=== PATIENT | male | born 1960 | race Caucasian/White ===

== ENCOUNTER 2021-10-12 01:03 | Inpatient (IN) | payer OTHER ==
--- NOTE | 2021-10-12 01:19 | ED ---
Altered Mental Status HPI - General Stated Complaint: Respiratory distress Time Seen by Provider: 10/12/21 01:18 Source: RN notes reviewed, old records reviewed Mode of arrival: EMS Limitations: altered mental status, physical limitation - History of Present Illness MD Complaint: altered mental status, confusion, decreased responsiveness -: hour(s) Severity: severe Consistency of Symptoms: getting worse, constant Context: history of similar presentation Associated Symptoms: shortness of breath, weakness - Related Data Allergies Allergy/AdvReac Type Severity Reaction Status Date / Time No Known Allergies Allergy Verified 10/12/21 01:31 Review of Systems ROS Statement: Those systems with pertinent positive or pertinent negative responses have been documented in the HPI. ROS Other: All systems not noted in ROS Statement are negative. General Exam Limitations: altered mental status General appearance: alert, obtunded, in distress, obese Head exam: Present: atraumatic, normocephalic, normal inspection Eye exam: Present: normal appearance, PERRL, EOMI. Absent: scleral icterus, conjunctival injection, periorbital swelling ENT exam: Present: normal exam, mucous membranes moist Neck exam: Present: normal inspection. Absent: tenderness, meningismus, lymphadenopathy Respiratory exam: Present: normal lung sounds bilaterally. Absent: respiratory distress, wheezes, rales, rhonchi, stridor Cardiovascular Exam: Present: regular rate, normal rhythm, normal heart sounds. Absent: systolic murmur, diastolic murmur, rubs, gallop, clicks GI/Abdominal exam: Present: soft, normal bowel sounds. Absent: distended, tenderness, guarding, rebound, rigid Extremities exam: Present: normal inspection, full ROM, normal capillary refill. Absent: tenderness, pedal edema, joint swelling, calf tenderness Back exam: Present: normal inspection Neurological exam: Present: alert, oriented X3, CN II-XII intact Psychiatric exam: Present: normal affect, normal mood Skin exam: Present: warm, dry, intact, normal color. Absent: rash Course Vital Signs 10/12/21 10/12/21 10/12/21 01:21 01:25 01:30 Temperature 98.3 F Pulse Rate 108 H 118 H Respiratory 34 H 36 H Rate Blood Pressure 140/77 191/77 O2 Sat by Pulse 98 94 L Oximetry Fraction of 60 Inspired Oxygen (FIO2) 10/12/21 01:50 Temperature Pulse Rate 121 H Respiratory 32 H Rate Blood Pressure 170/94 O2 Sat by Pulse 95 Oximetry Fraction of Inspired Oxygen (FIO2) Medical Decision Making - Lab Data Result diagrams: 10/12/21 01:25 10/12/21 01:25 Lab Results 10/12/21 10/12/21 10/12/21 Range/Units 01: 01:25 01:25 WBC 14.7 H (3.8-10.6) k/uL RBC 4.17 L (4.30-5.90) m/uL Hgb 12.5 L (13.0-17.5) gm/dL Hct 40.3 (39.0-53.0) % MCV 96.7 (80.0-100.0) fL MCH 30.0 (25.0-35.0) pg MCHC 31.0 (31.0-37.0) g/dL RDW 14.4 (11.5-15.5) % Plt Count 302 (150-450) k/uL MPV 8.4 Neutrophils % 62 % Lymphocytes % 29 % Monocytes % 5 % Eosinophils % 2 % Basophils % 1 % Neutrophils # 9.1 H (1.3-7.7) k/uL Lymphocytes # 4.2 (1.0-4.8) k/uL Monocytes # 0.7 (0-1.0) k/uL Eosinophils # 0.3 (0-0.7) k/uL Basophils # 0.1 (0-0.2) k/uL Sodium 138 (137-145) mmol/L Potassium 4.7 (3.5-5.1) mmol/L Chloride 106 (98-107) mmol/L Carbon Dioxide 23 (22-30) mmol/L Anion Gap 9 mmol/L BUN 22 H (9-20) mg/dL Creatinine 1.25 (0.66-1.25) mg/dL Est GFR (CKD-EPI)AfAm 73 (>60 ml/min/1.73 sqM) Est GFR (CKD-EPI)NonAf 64 (>60 ml/min/1.73 sqM) Glucose 167 H (74-99) mg/dL POC Glucose (mg/dL) 152 H (70-110) mg/dL POC Glu Scale Manager ID Antony Franklinle Calcium 9.0 (8.4-10.2) mg/dL Total Bilirubin 0.5 (0.2-1.3) mg/dL AST 45 (17-59) U/L ALT 32 (4-49) U/L Alkaline Phosphatase 120 (38-126) U/L Ammonia (<30) umol/L Troponin I (0.000-0.034) ng/mL Total Protein 6.6 (6.3-8.2) g/dL Albumin 4.0 (3.5-5.0) g/dL Serum Alcohol <10 mg/dL 10/12/21 10/12/21 Range/Units 01:25 01:25 WBC (3.8-10.6) k/uL RBC (4.30-5.90) m/uL Hgb (13.0-17.5) gm/dL Hct (39.0-53.0) % MCV (80.0-100.0) fL MCH (25.0-35.0) pg MCHC (31.0-37.0) g/dL RDW (11.5-15.5) % Plt Count (150-450) k/uL MPV Neutrophils % % Lymphocytes % % Monocytes % % Eosinophils % % Basophils % % Neutrophils # (1.3-7.7) k/uL Lymphocytes # (1.0-4.8) k/uL Monocytes # (0-1.0) k/uL Eosinophils # (0-0.7) k/uL Basophils # (0-0.2) k/uL Sodium (137-145) mmol/L Potassium (3.5-5.1) mmol/L Chloride (98-107) mmol/L Carbon Dioxide (22-30) mmol/L Anion Gap mmol/L BUN (9-20) mg/dL Creatinine (0.66-1.25) mg/dL Est GFR (CKD-EPI)AfAm (>60 ml/min/1.73 sqM) Est GFR (CKD-EPI)NonAf (>60 ml/min/1.73 sqM) Glucose (74-99) mg/dL POC Glucose (mg/dL) (70-110) mg/dL POC Glu Scale Manager ID Calcium (8.4-10.2) mg/dL Total Bilirubin (0.2-1.3) mg/dL AST (17-59) U/L ALT (4-49) U/L Alkaline Phosphatase (38-126) U/L Ammonia 31 H (<30) umol/L Troponin I <0.012 (0.000-0.034) ng/mL Total Protein (6.3-8.2) g/dL Albumin (3.5-5.0) g/dL Serum Alcohol mg/dL - EKG Data -: EKG Interpreted by Me (EKG is sinus rhythm 97 [place] 157 QRS 105 QTc 460) Disposition Clinical Impression: Acute respiratory failure, Acute exacerbation of chronic obstructive pulmonary disease, Hypoxia, Altered mental state Disposition: ADMITTED IP TO THIS HOSP Condition: Serious Is patient prescribed a controlled substance at d/c from ED?: No Referrals: None,Stated [Primary Care Provider] - 1-2 days
[2021-10-12] MEDS ORDERED: ENALAPRILAT 1.25 MG/ML 1 ML VIAL IVP STA (01:21)
[2021-10-12 01:29] LABS: Glucose,Whole Blood 152 mg/dL (70-110)
[2021-10-12] MEDS ORDERED: MORPHINE SULFATE 4 MG/ML SYRINGE IVP STA ×5 (01:31→02:54)
[2021-10-12] MEDS ORDERED: LORazepam 2 MG/ML INJ IV STA (01:31)
[2021-10-12 01:38] LABS: Basophils # (A) 0.1 k/uL (0-0.2); Basophils % (A) 1 %; Eosinophils # (A) 0.3 k/uL (0-0.7); Eosinophils % (A) 2 %; HCT 40.3 % (39.0-53.0); HGB 12.5 gm/dL (13.0-17.5); Lymphocytes # (A) 4.2 k/uL (1.0-4.8); Lymphocytes % (A) 29 %; MCV 96.7 fL (80.0-100.0); Mean Platelet Volume 8.4; Monocytes # (A) 0.7 k/uL (0-1.0); Monocytes % (A) 5 %; Neutrophils # (A) 9.1 k/uL (1.3-7.7); Neutrophils % (A) 62 %; Platelet Count 302 k/uL (150-450); RBC 4.17 m/uL (4.30-5.90); RDW 14.4 % (11.5-15.5); WBC 14.7 k/uL (3.8-10.6)
--- NOTE | 2021-10-12 01:39 | XR ---
EXAMINATION TYPE: XR chest 1V portable DATE OF EXAM: 10/12/2021 COMPARISON: NONE HISTORY: Altered mental status TECHNIQUE: Single view FINDINGS: Heart appears slightly enlarged. There is some coarsening of the lung markings. No obvious heart failure. Thoracic aorta is atheromatous. No pleural effusion. IMPRESSION: Coarse lung markings but no obvious heart failure or pulmonary consolidation.
[2021-10-12 01:48] LABS: ALT 32 U/L (4-49); AST 45 U/L (17-59); African American GFR (CKD) 73 (>60 ml/min/1.73 sqM); Alcohol <10 mg/dL; Alkaline Phosphatase 120 U/L (38-126); Anion Gap 9 mmol/L; Blood Urea Nitrogen 22 mg/dL (9-20); Carbon Dioxide 23 mmol/L (22-30); Chloride 106 mmol/L (98-107); Glucose 167 mg/dL (74-99); Non-African American GFR(CKD) 64 (>60 ml/min/1.73 sqM); Potassium 4.7 mmol/L (3.5-5.1); Sodium 138 mmol/L (137-145); Total Bilirubin 0.5 mg/dL (0.2-1.3); Total Protein 6.6 g/dL (6.3-8.2)
[2021-10-12] MEDS ORDERED: SUCCINYLCHOLINE CHLORIDE 200 MG/10 ML VIAL IV STA (02:14)
[2021-10-12] MEDS ORDERED: ETOMIDATE 2 MG/ML 10 ML VIAL IVP STA (02:17)
[2021-10-12] MEDS ORDERED: PROPOFOL 10 MG/ML 20 ML VIAL IV ONE (02:17)
[2021-10-12] MEDS ORDERED: IPRATROPIUM-ALBUTEROL 3 ML NEB INHALATION STA (02:19)
[2021-10-12] MEDS ORDERED: NALOXONE 0.4 MG/ML 1 ML VIAL IV PRN ×2 (02:20→04:19)
--- NOTE | 2021-10-12 02:21 | CT ---
EXAMINATION TYPE: CT brain wo con DATE OF EXAM: 10/12/2021 COMPARISON: None HISTORY: AMS poor historian CT DLP: 1263.4 mGycm Automated exposure control for dose reduction was used. Images obtained of the brain with no contrast. Ventricles and sulci appear normal. No mass effect or midline shift. No sign of intracranial hemorrha ge. The calvarium is intact. Sella turcica is intact. No evidence of orbital mass. IMPRESSION: Negative unenhanced head CT scan.
[2021-10-12 02:35] LABS: INR 0.9 (<1.2); Partial Thromboplastin Time 23.4 sec (22.0-30.0); Prothrombin Time 10.3 sec (9.0-12.0)
[2021-10-12] MEDS ORDERED: MIDAZOLAM 1 MG/ML 5 ML VIAL IV STA ×2 (03:05→03:18)
[2021-10-12 03:14] LABS: ABG HCO3 27 mmol/L (21-25); ABG Oxygen Saturation 99.2 % (94-97); ABG PCO2 68 mmHg (35-45); ABG PH 7.21 (7.35-7.45); ABG PO2 144 mmHg (83-108); ABG TCO2 29 mmol/L (19-24); Allen Test Performed? Yes
[2021-10-12] MEDS ORDERED: NALOXONE 0.4 MG/ML 1 ML VIAL IVP STA (03:43)
--- NOTE | 2021-10-12 03:51 | XR ---
EXAMINATION TYPE: XR chest 1V portable DATE OF EXAM: 10/12/2021 COMPARISON: Today HISTORY: Respiratory failure TECHNIQUE: FINDINGS: There is an endotracheal tube 3.5 cm from the martine. There is some pulmonary interstitial and airspace edema. Heart appears slightly enlarged. There is nasogastric tube in the distal esophagu s. Tip is not clearly in the stomach. IMPRESSION: There is an endotracheal tube in good position. The re is pulmonary edema which is slightly worse than exam 3 hours ago. NG tube not clearly in the stoma ch.
[2021-10-12 03:57] LABS: Amphetamine Screen,Urine Not Detected (NotDetected); Barbiturate Screen,Urine Not Detected (NotDetected); Benzodiazepines Screen,Urine Not Detected (NotDetected); Cocaine Screen,Urine Not Detected (NotDetected); Methadone Screen, Urine Detected (NotDetected); Opiate Screen,Urine Detected (NotDetected); Oxycodone Screen, Urine Not Detected (NotDetected); Phencyclidine Screen,Urine Not Detected (NotDetected); Tricyclic Antidepressant,Urine Not Detected (NotDetected); Urn Cannabinoid Scrn Not Detected (NotDetected)
[2021-10-12 04:10] LABS: Glucose,Whole Blood 126 mg/dL (70-110)
[2021-10-12 06:12] LABS: Basophils % (A) 0 %; Eosinophils % (A) 0 %; Lymphocytes % (A) 9 %; MCH 30.8 pg (25.0-35.0); MCHC 32.3 g/dL (31.0-37.0); MCV 95.4 fL (80.0-100.0); Mean Platelet Volume 8.1; Monocytes # (A) 0.5 k/uL (0-1.0); Monocytes % (A) 5 %; Neutrophils # (A) 9.1 k/uL (1.3-7.7); Neutrophils % (A) 84 %; Platelet Count 218 k/uL (150-450); RBC 3.56 m/uL (4.30-5.90); RDW 14.5 % (11.5-15.5); WBC 10.8 k/uL (3.8-10.6)
[2021-10-12 06:13] LABS: Glucose,Whole Blood 133 mg/dL (70-110)
[2021-10-12 06:23] LABS: Calcium 8.6 mg/dL (8.4-10.2); Magnesium 2.1 mg/dL (1.6-2.3); Potassium 4.5 mmol/L (3.5-5.1)
[2021-10-12 06:36] LABS: Appearance,Urine Clear (Clear); Bilirubin,Urine Negative (Negative); Blood,Urine Small (Negative); Color,Urine Yellow; Glucose,Urine (UA) Negative (Negative); Granular Casts,Urine 1 /lpf (0); Hyaline Casts,Urine 28 /lpf (0-2); Ketones,Urine Negative (Negative); Leukocyte Esterase,Urine Negative (Negative); Mucus,Urine Few /hpf; Nitrite,Urine Negative (Negative); PH, Urine 5.5 (5.0-8.0); Protein,Urine 2+ (Negative); RBC,Urine 67 /hpf (0-5); Specific Gravity,Urine 1.025 (1.001-1.035); Squamous Epithelial Cell,Urine <1 /hpf (0-4); Urobilinogen,Urine <2.0 mg/dL (<2.0); WBC,Urine 2 /hpf (0-5)
[2021-10-12] MEDS ORDERED: IPRATROPIUM-ALBUTEROL 3 ML NEB INHALATION SCH (08:00)
[2021-10-12] MEDS ORDERED: CISATRACURIUM 2 MG/ML 5 ML VIAL IV ONE (08:54)
--- NOTE | 2021-10-12 09:23 | P.HPIM ---
History of Present Illness This is a pleasant 60 years old male with past medical history of Heart Failure, COPD, Hypertension. Patient currently is intubated and could not provide information so it was obtained from start of her records. No family at bedside. I called the son Misael Tineo who is listed as next of kin and he confirmed to me patient has no but for NSAIDs and that he is the next of kin. his number was [phone]. He told me the patient was in the hospital in [place] about 3 weeks ago for chest pain and shortness of breath and he was been treated and discharged on oxygen after 1 week, he has been using oxygen as needed especially at night as per brother. 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 as per brother patient used to be heavy smoker 2 packs per day was cutting down and he thinks now he is on 1 pack per day, no alcohol or illicit drugs per brother. on reviewing the records at [facility] patient was for acute hypoxic hypercapnic respiratory failure secondary to COPD exacerbation with acute diastolic congestive heart failure with ejection fraction 55-60%. ProBNP was 1594 he had elevated d-dimer over CTA of the chest show no evidence of pulmonary embolism but pleural effusion with vascular pulmonary infiltrates and atelectasis, congestive heart failure as possible. and nonspecific enlarged mediastinal lymph nodes Patient presents with acute hypoxia, his oxygen saturation was 30% per EMS. He was tachycardic and tachypneic and hypotensive on arrival and he was placed on BiPAP before he got intubated. Currently patient is afebrile, temperature is slightly low at 97.5. He is saturating 98% on 80% FiO2. Blood pressure 109/62 left showing WBC slightly up at 10.8. Hemoglobin 11. Sodium is 136, creatinine 1.2, glucose 126 and 33 Urine analysis showing 2+ protein, RBCs 67. Coronavirus varus not detected. Chest x-ray showing coarse lung markings but no obvious heart failure or pulmonary consolidation CT of the brain negative and unchanged. CT EKG showing normal sinus rhythm at [address]-T changes In the emergency room patient received vasotec, Ativan, morphine, succinylcholine, propofol and Lovenox and Protonix Review of Systems ROS unobtainable: due to endotracheal tube Past Medical History Past Medical History: Heart Failure, COPD, Hypertension Additional Past Medical History / Comment(s): Sees Dr France outpatient History of Any Multi-Drug Resistant Organisms: None Reported Past Surgical History: Orthopedic Surgery Past Anesthesia/Blood Transfusion Reactions: No Reported Reaction Past Psychological History: No Psychological Hx Reported Smoking Status: Current every day smoker Past Alcohol Use History: None Reported Past Drug Use History: Marijuana, Opiates Additional Drug Use History / Comment(s): Takes prescribed opiates and methadone. Medications and Allergies Allergies Allergy/AdvReac Type Severity Reaction Status Date / Time No Known Allergies Allergy Verified 10/12/21 01:31 Physical Exam Vitals: Vital Signs Temp Pulse Resp BP Pulse Ox FiO2 10/12/21 06:00 67 24 98/57 96 80 10/12/21 05:45 80 10/12/21 05:00 67 24 89/54 95 100 10/12/21 04:07 97.5 F L 65 24 91 L 100 10/12/21 04:00 100 10/12/21 03:30 76 32 H 106/64 93 L 10/12/21 03:25 80 24 106/64 94 L 10/12/21 03:20 82 26 H 119/71 95 10/12/21 03:15 87 26 H 114/65 92 L 10/12/21 03:10 85 26 H 122/66 95 10/12/21 03:05 89 30 H 122/67 95 10/12/21 03:00 93 24 130/72 92 L 10/12/21 02:55 26 H 136/72 92 L 10/12/21 02:50 96 36 H 155/81 93 L 10/12/21 02:45 99 34 H 174/89 92 L 10/12/21 02:40 100 42 H 144/69 96 10/12/21 02:35 105 H 31 H 187/100 94 L 10/12/21 02:30 106 H 26 H 179/87 94 L 10/12/21 02:27 100 10/12/21 02:26 100 10/12/21 02:25 105 H 32 H 183/94 10/12/21 02:20 106 H 26 H 183/94 93 L 10/12/21 02:15 36 H 189/88 10/12/21 02:10 24 10/12/21 01:50 121 H 32 H 170/94 95 10/12/21 01:30 118 H 32 H 191/77 94 L 10/12/21 01:25 98.3 F 108 H 34 H 140/77 98 10/12/21 01:21 60 Intake and Output 10/11/21 10/11/21 10/12/21 14:59 22:59 06:59 Intake Total 100.276 Output Total 155 Balance -54.724 Intake: Intake, IV Titration 100.276 Amount propofoL 1,000 mg In 100.276 Empty Bag 1 bag @ 5 MCG/ KG/MIN 3.18 mls/hr IV . Q24H [facility] Rx#:[id number] Output: Urine 155 Other: Voiding Method Indwelling Catheter Weight 106 kg -GENERAL: The patient is intubated and sedated HEENT: Pupils are round and equally reacting to light. EOMI. No scleral icterus. No conjunctival pallor. Normocephalic, atraumatic. No pharyngeal erythema. No thyromegaly. CARDIOVASCULAR: S1 and S2 present. No murmurs, rubs, or gallops. PULMONARY: Chest is clear to auscultation, no wheezing or crackles. ABDOMEN: Soft, nontender, nondistended, normoactive bowel sounds. No palpable organomegaly. MUSCULOSKELETAL: No joint swelling or deformity. EXTREMITIES: No cyanosis, clubbing, or pedal edema. NEUROLOGICAL: Gross neurological examination did not reveal any focal deficits. SKIN: No rashes. no petechiae. Results CBC & Chem 7: 10/12/21 05:33 10/12/21 05:33 Labs: Abnormal Lab Results - Last 24 Hours (Table) 10/12/21 10/12/21 10/12/21 Range/Units 01:22 01:25 01:25 WBC 14.7 H (3.8-10.6) k/uL RBC 4.17 L (4.30-5.90) m/uL Hgb 12.5 L (13.0-17.5) gm/dL Hct (39.0-53.0) % Neutrophils # 9.1 H (1.3-7.7) k/uL ABG pH (7.35-7.45) ABG pCO2 (35-45) mmHg ABG pO2 (83-108) mmHg ABG HCO3 (21-25) mmol/L ABG Total CO2 (19-24) mmol/L ABG O2 Saturation (94-97) % Sodium (137-145) mmol/L BUN 22 H (9-20) mg/dL Glucose 167 H (74-99) mg/dL POC Glucose (mg/dL) 152 H (70-110) mg/dL Ammonia (<30) umol/L Urine Protein (Negative) Urine Blood (Negative) Urine RBC (0-5) /hpf Hyaline Casts (0-2) /lpf Urine Mucus (None) /hpf Urine Opiates Screen (NotDetected) Urine Methadone Screen (NotDetected) 10/12/21 10/12/21 10/12/21 Range/Units 01:25 03:09 03:13 WBC (3.8-10.6) k/uL RBC (4.30-5.90) m/uL Hgb (13.0-17.5) gm/dL Hct (39.0-53.0) % Neutrophils # (1.3-7.7) k/uL ABG pH 7.21 L (7.35-7.45) ABG pCO2 68 H (35-45) mmHg ABG pO2 144 H (83-108) mmHg ABG HCO3 27 H (21-25) mmol/L ABG Total CO2 29 H (19-24) mmol/L ABG O2 Saturation 99.2 H (94-97) % Sodium (137-145) mmol/L BUN (9-20) mg/dL Glucose (74-99) mg/dL POC Glucose (mg/dL) (70-110) mg/dL Ammonia 31 H (<30) umol/L Urine Protein (Negative) Urine Blood (Negative) Urine RBC (0-5) /hpf Hyaline Casts (0-2) /lpf Urine Mucus (None) /hpf Urine Opiates Screen Detected H (NotDetected) Urine Methadone Screen Detected H (NotDetected) 10/12/21 10/12/21 10/12/21 Range/Units 04:08 05:33 05:33 WBC 10.8 H (3.8-10.6) k/uL RBC 3.56 L (4.30-5.90) m/uL Hgb 11.0 L (13.0-17.5) gm/dL Hct 34.0 L (39.0-53.0) % Neutrophils # 9.1 H (1.3-7.7) k/uL ABG pH (7.35-7.45) ABG pCO2 (35-45) mmHg ABG pO2 (83-108) mmHg ABG HCO3 (21-25) mmol/L ABG Total CO2 (19-24) mmol/L ABG O2 Saturation (94-97) % Sodium 136 L (137-145) mmol/L BUN 26 H (9-20) mg/dL Glucose 118 H (74-99) mg/dL POC Glucose (mg/dL) 126 H (70-110) mg/dL Ammonia (<30) umol/L Urine Protein (Negative) Urine Blood (Negative) Urine RBC (0-5) /hpf Hyaline Casts (0-2) /lpf Urine Mucus (None) /hpf Urine Opiates Screen (NotDetected) Urine Methadone Screen (NotDetected) 10/12/21 10/12/21 Range/Units 05:55 06:12 WBC (3.8-10.6) k/uL RBC (4.30-5.90) m/uL Hgb (13.0-17.5) gm/dL Hct (39.0-53.0) % Neutrophils # (1.3-7.7) k/uL ABG pH (7.35-7.45) ABG pCO2 (35-45) mmHg ABG pO2 (83-108) mmHg ABG HCO3 (21-25) mmol/L ABG Total CO2 (19-24) mmol/L ABG O2 Saturation (94-97) % Sodium (137-145) mmol/L BUN (9-20) mg/dL Glucose (74-99) mg/dL POC Glucose (mg/dL) 133 H (70-110) mg/dL Ammonia (<30) umol/L Urine Protein 2+ H (Negative) Urine Blood Small H (Negative) Urine RBC 67 H (0-5) /hpf Hyaline Casts 28 H (0-2) /lpf Urine Mucus Few H (None) /hpf Urine Opiates Screen (NotDetected) Urine Methadone Screen (NotDetected) Thrombosis Risk Factor Assmnt - Choose All That Apply Each Factor Represents 1 point: Abnormal pulmonary function (COPD), Age 41-60 years, Heart failure (<1month) Other Risk Factors: Yes Each Risk Factor Represents 2 Points: Patient confined to bed Thrombosis Risk Factor Assessment Total Risk Factor Score: 5 Thrombosis Risk Factor Assessment Level: High Risk Assessment and Plan Assessment: Acute hypoxic respiratory failure, present on admission, status post intubation and mechanical ventilation possible COPD with acute exacerbation recent history of mildacute diastolic CHF nicotine dependence acute on chronic hypoxic respiratory failure Hypertension obesity with BMI of 38.9 Plan: This is a pleasant 60 years old male who presents with hypoxia requiring intubation Continue with mechanical ventilation with pulmonary/critical care team consult continue with bronchodilator check troponin ,and procalcitonin Labs and medication were reviewed.. Continue same treatment. Continue with symptomatic treatment. Resume home medication. Monitor lytes and vitals. DVT and GI prophylaxis. Further recommendationsas per clinical course of the patient DVT prophylaxis: Subcutaneous Lovenox GI Prophylaxis: Ppi Prognosis is guarded
[2021-10-12] MEDS: ENOXAPARIN 40 MG/0.4 ML SYRINGE SQ SCH (10:25)
[2021-10-12] MEDS: CHLORHEXIDINE GLUCONATE 15 ML CUP MUCOUS MEM SCH ×2 (10:26→20:08)
[2021-10-12] MEDS: PANTOPRAZOLE 40 MG/10 ML VIAL IV SCH (10:26)
[2021-10-12 10:37] LABS: Allen Test Performed? Yes
[2021-10-12 10:39] LABS: ABG Base Excess 1.7 mmol/L; ABG HCO3 27 mmol/L (21-25); ABG Oxygen Saturation 98.4 % (94-97); ABG PCO2 42 mmHg (35-45); ABG PO2 90 mmHg (83-108); ABG TCO2 28 mmol/L (19-24)
--- NOTE | 2021-10-12 10:49 | XR ---
EXAMINATION TYPE: XR chest 1V portable DATE OF EXAM: 10/12/2021 COMPARISON: 10/12/2021 HISTORY: SOB, Follow Up FINDINGS: Indwelling tubes and catheters are unchanged. Left IJ central venous line with its distal tip overlyi ng the SVC has been placed in the interval. There is no evidence for pneumothorax. Persistent right perihilar infiltrate. Interstitial prominence seen throughout both lung olvera. Pulm onary venous congestion. Stable appearance of the cardio-mediastinal structures at this time. Small left-sided effusion suspected. IMPRESSION: 1. Stable portable chest. New Left IJ central venous line. Clinical correlation and follow up until resolution is recommended.
[2021-10-12] MEDS: IPRATROPIUM-ALBUTEROL 3 ML NEB INHALATION SCH ×4 (11:26→23:18)
[2021-10-12] MEDS: LACTATED RINGERS 1,000 ML IV SCH (11:30)
[2021-10-12] MEDS: methylPREDNISolone SOD SUCCI 125 MG/2 ML VIAL IV SCH ×2 (11:30→17:07)
[2021-10-12] MEDS: MORPHINE SULFATE 4 MG/ML SYRINGE IV PRN ×3 (11:32→19:44)
[2021-10-12 11:46] LABS: Glucose,Whole Blood 119 mg/dL (70-110)
--- NOTE | 2021-10-12 11:50 | P.CNPUL ---
History of Present Illness Consult date: 10/12/21 Requesting physician: Pranav Tran Reason for consult: dyspnea, COPD, hypoxemia, pulmonary hypertension, abnormal CXR/CT Chief complaint: Shortness of breath/respiratory failure. History of present illness: Pulmonary consult dated 10/12/2021. 60-year-old male, who presented to the emergency department, on October 12, with shortness of breath, and impending respiratory failure. The patient had mental status changes, as well. I did have a chance to speak to the ER physician, who admitted the patient. They attempted BiPAP treatment for this patient, but he kept on pulling the mask off, becoming more agitated, more short of breath, and desaturating. For that reason, the patient was sedated and intubated, placed on the mechanical ventilator, and transferred to the ICU. Currently, he is on volume assist control mode, rate 24, tidal volume 500, FiO2 80%, and PEEP of 5. Blood gases show pO2 144, pCO2 of 68, and a pH is 7.21. Both blood gases were done on 100%, and, the rate after that blood gas was increased from 18 up to 24. The patient remains on propofol at 40 mcg/kg/m, and lactated Ringer's at 75 mL an hour. A radial art line was placed. As well as a left internal jugular t riple-lumen catheter. White count 10.8, hemoglobin 11, hematocrit 34, and platelet count normal. Repeat blood gases show a PaO2 of 90, pCO2 of 42, and a pH is 7.4. Sodium 136, potassium 4.5, chlorides 107, CO2 27, BUN 26, creatinine 1.21. Troponin was less than 0.012. Urine was negative. Computed tomography scan of the brain was negative. Chest x-ray shows diffuse bilateral infiltrates, cardiomegaly, and could be consistent with fluid overload. Review of Systems REVIEW OF SYSTEMS: CONSTITUTIONAL: [Negative.] NEUROLOGIC: Agitation/confusion. HEENT: [ Negative.] CARDIAC: [Negative.] PULMONARY: Shortness of breath. GI: [Negative.] : [Negative.] RHEUMATOLOGIC: [ Negative.] IMMUNOLOGIC: [ Negative.] ENDOCRINE: [Negative. ] DERMATOLOGIC: [Negative.] Past Medical History Past Medical History: Heart Failure, COPD, Hypertension Additional Past Medical History / Comment(s): Sees Dr France outpatient History of Any Multi-Drug Resistant Organisms: None Reported Past Surgical History: Orthopedic Surgery Past Anesthesia/Blood Transfusion Reactions: No Reported Reaction Past Psychological History: No Psychological Hx Reported Smoking Status: Current every day smoker Past Alcohol Use History: None Reported Past Drug Use History: Marijuana, Opiates Additional Drug Use History / Comment(s): Takes prescribed opiates and methadone. Medications and Allergies Allergies Allergy/AdvReac Type Severity Reaction Status Date / Time No Known Allergies Allergy Verified 10/12/21 01:31 Physical Exam Osteopathic Statement: *. No significant issues noted on an osteopathic structural exam other than those noted in the History and Physical/Consult. Vitals: Vital Signs Temp Pulse Pulse Resp BP BP Pulse Ox 10/12/21 11:26 74 24 10/12/21 11:21 10/12/21 10:00 74 24 130/71 93 L 10/12/21 09:00 72 24 122/66 96 10/12/21 08:00 97.6 F 68 65 24 123/66 114/68 95 10/12/21 07:55 10/12/21 07:45 70 24 10/12/21 07:33 69 24 10/12/21 07:16 10/12/21 07:00 67 24 109/62 98 10/12/21 06:00 67 24 98/57 96 10/12/21 05:45 10/12/21 05:00 67 24 89/54 95 10/12/21 04:07 97.5 F L 65 24 91 L 10/12/21 04:00 10/12/21 03:30 76 32 H 106/64 93 L 10/12/21 03:25 80 24 106/64 94 L 10/12/21 03:20 82 26 H 119/71 95 10/12/21 03:15 87 26 H 114/65 92 L 10/12/21 03:10 85 26 H 122/66 95 10/12/21 03:05 89 30 H 122/67 95 10/12/21 03:00 93 24 130/72 92 L 10/12/21 02:55 26 H 136/72 92 L 10/12/21 02:50 96 36 H 155/81 93 L 10/12/21 02:45 99 34 H 174/89 92 L 10/12/21 02:40 100 42 H 144/69 96 10/12/21 02:35 105 H 31 H 187/100 94 L 10/12/21 02:30 106 H 26 H 179/87 94 L 10/12/21 02:27 10/12/21 02:26 10/12/21 02:25 105 H 32 H 183/94 10/12/21 02:20 106 H 26 H 183/94 93 L 10/12/21 02:15 36 H 189/88 10/12/21 02:10 24 10/12/21 01:50 121 H 32 H 170/94 95 10/12/21 01:30 118 H 32 H 191/77 94 L 10/12/21 01:25 98.3 F 108 H 34 H 140/77 98 10/12/21 01:21 FiO2 10/12/21 11:26 10/12/21 11:21 80 10/12/21 10:00 80 10/12/21 09:00 80 10/12/21 08:00 80 10/12/21 07:55 100 10/12/21 07:45 10/12/21 07:33 10/12/21 07:16 80 10/12/21 07:00 80 10/12/21 06:00 80 10/12/21 05:45 80 10/12/21 05:00 100 10/12/21 04:07 100 10/12/21 04:00 100 10/12/21 03:30 10/12/21 03:25 10/12/21 03:20 10/12/21 03:15 10/12/21 03:10 10/12/21 03:05 10/12/21 03:00 10/12/21 02:55 10/12/21 02:50 10/12/21 02:45 10/12/21 02:40 10/12/21 02:35 10/12/21 02:30 10/12/21 02:27 100 10/12/21 02:26 100 10/12/21 02:25 10/12/21 02:20 10/12/21 02:15 10/12/21 02:10 10/12/21 01:50 10/12/21 01:30 10/12/21 01:25 10/12/21 01:21 60 Intake and Output 10/11/21 10/12/21 10/12/21 22:59 06:59 14:59 Intake Total 100.276 124.020 Output Total 155 90 Balance -54.724 34.020 Intake: Intake, IV Titration 100.276 124.020 Amount propofoL 1,000 mg In 100.276 124.020 Empty Bag 1 bag @ 5 MCG/ KG/MIN 3.18 mls/hr IV . Q24H [facility] Rx#:[id number] Output: Urine 155 90 Other: Voiding Method Indwelling Catheter Indwelling Catheter Weight 106 kg No acute distress, sedated on propofol, with an orally placed endotracheal tube, and NG tube. HEENT examination is grossly unremarkable. Neck supple. Full range of motion. No adenopathy thyromegaly or neck vein distention. Cardiovascular examination reveals regular rhythm rate. S1-S2 normal. No S3 or S4. No discernible murmur noted. Heart sounds are distant. Heart rate 74 bpm. Lungs reveal diffuse bilateral rhonchi. Wheezes are noted. No crackles. B reath sounds equal bilaterally but diminished. Abdomen soft bowel sounds are heard. No masses or tenderness. Extremities are intact. No cyanosis clubbing or edema. Skin is without rash or lesion. Neurologic examination cannot be assessed at this time. Results - Laboratory Findings CBC and BMP: 10/12/21 05:33 10/12/21 05:33 ABG ABG pH 7.40 (7.35-7.45) 10/12/21 10:35 ABG pCO2 42 mmHg (35-45) 10/12/21 10:35 ABG pO2 90 mmHg (83-108) 10/12/21 10:35 ABG O2 Saturation 98.4 % (94-97) H 10/12/21 10:35 PT/INR, D-dimer PT 10.3 sec (9.0-12.0) 10/12/21 01:25 INR 0.9 (<1.2) 10/12/21 01:25 Abnormal lab findings: Abnormal Labs 10/12/21 10/12/21 10/12/21 01:22 01:25 01:25 WBC 14.7 H RBC 4.17 L Hgb 12.5 L Hct Neutrophils # 9.1 H ABG pH ABG pCO2 ABG pO2 ABG HCO3 ABG Total CO2 ABG O2 Saturation Sodium BUN 22 H Glucose 167 H POC Glucose (mg/dL) 152 H Ammonia Urine Protein Urine Blood Urine RBC Hyaline Casts Urine Mucus Urine Opiates Screen Urine Methadone Screen 10/12/21 10/12/21 10/12/21 01:25 03:09 03:13 WBC RBC Hgb Hct Neutrophils # ABG pH 7.21 L ABG pCO2 68 H ABG pO2 144 H ABG HCO3 27 H ABG Total CO2 29 H ABG O2 Saturation 99.2 H Sodium BUN Glucose POC Glucose (mg/dL) Ammonia 31 H Urine Protein Urine Blood Urine RBC Hyaline Casts Urine Mucus Urine Opiates Screen Detected H Urine Methadone Screen Detected H 10/12/21 10/12/21 10/12/21 04:08 05:33 05:33 WBC 10.8 H RBC 3.56 L Hgb 11.0 L Hct 34.0 L Neutrophils # 9.1 H ABG pH ABG pCO2 ABG pO2 ABG HCO3 ABG Total CO2 ABG O2 Saturation Sodium 136 L BUN 26 H Glucose 118 H POC Glucose (mg/dL) 126 H Ammonia Urine Protein Urine Blood Urine RBC Hyaline Casts Urine Mucus Urine Opiates Screen Urine Methadone Screen 10/12/21 10/12/21 10/12/21 05:55 06:12 10:35 WBC RBC Hgb Hct Neutrophils # ABG pH ABG pCO2 ABG pO2 ABG HCO3 27 H ABG Total CO2 28 H ABG O2 Saturation 98.4 H Sodium BUN Glucose POC Glucose (mg/dL) 133 H Ammonia Urine Protein 2+ H Urine Blood Small H Urine RBC 67 H Hyaline Casts 28 H Urine Mucus Few H Urine Opiates Screen Urine Methadone Screen - Diagnostic Findings Chest x-ray: image reviewed Assessment and Plan Assessment: Acute hypoxemic respiratory failure, likely multifactorial, in part related to COPD exacerbation, possible CHF, and also possible pneumonia. Acute hypoxemic respiratory failure requiring intubation and mechanical ventilation, on 10/12/2021. Mental status changes, likely related to hypoxemic respiratory failure. Vague history of hypertension, and CHF. History of heavy tobacco use. Plan: Plan dated 10/12/2021. The patient was placed on albuterol sulfate and ipratropium bromide, every 4 hours [id number]. In addition, I added Solu-Medrol 60 mg IV push every 6 hours, as well as Pulmicort 1 mg and Perforomist 20 g, twice a day. I've ordered a pro-calcitonin level. A right radial art line was placed, as well as a left internal jugular triple-lumen catheter. We will use one of the 3 ports of the central line, for CVP monitoring. The patient will start with GI and DVT prophylaxis. The patient will get lactated Ringer's at 75 mL an hour. The patient is currently being sedated with propofol. Labs, x-rays, medications are all reviewed. Prognosis is guarded. Time with Patient: Greater than 30
--- NOTE | 2021-10-12 17:32 | PCN ---
PROCEDURE NOTE FIRST PROCEDURE: Placement of a right radial arterial line. PREOPERATIVE DIAGNOSIS: Frequent blood draws and blood gas monitoring. POSTOPERATIVE DIAGNOSIS: Frequent blood draws and blood gas monitoring. OPERATORS: 1. Dr. Mays. 2. Dr. Chavez. PROCEDURE DESCRIPTION: There was informed consent and universal timeout, verifying correct patient, procedure, site, positioning, and implant(s) or special equipment if applicable. Raoul's test was performed to ensure adequate perfusion. The patient's right wrist was prepped and draped in sterile fashion. Lidocaine 1% was used to anesthetize the area. An 18G Arrow arterial line was introduced into the right radial artery. The catheter was threaded over the guidewire and the needle was removed with appropriate pulsatile blood return. There was good waveform and blood pressure reading. Blood loss was minimal. The catheter was then sutured in place to the skin and a sterile dressing applied by the nurse. Perfusion to the extremity distal to the point of catheter insertion was checked and found to be adequate. The patient tolerated the procedure well and there was no immediate complication. SECOND PROCEDURE: Placement of left internal jugular triple-lumen catheter. PREOPERATIVE DIAGNOSIS: Administration of fluids and pressors, hypotension. POSTOPERATIVE DIAGNOSIS: Administration of fluids and pressors, hypotension. OPERATORS: 1. Dr. Mays. 2. Dr. Chavez. PROCEDURE DESCRIPTION: Informed consent and universal timeout was completed, verifying correct patient, procedure, site, positioning, and implant(s) or special equipment if applicable. The patient was placed in a dependent position appropriate for triple-lumen catheter placement based on the vein to be cannulated. The patient's left neck was prepped and draped in sterile fashion. Lidocaine 1% was used to anesthetize the surrounding skin area. A triple-lumen 9F Cordis catheter was introduced into the left internal jugular vein using Seldinger technique via the posterior approach. The catheter was threaded smoothly over the guidewire and appropriate blood return was obtained. There was good blood return from all three ports. Each lumen of the catheter was evacuated of air and flushed with sterile saline. The catheter was then sutured in place to the skin and a sterile dressing applied by the nurse. Perfusion to the extremity distal to the point of catheter insertion was checked and found to be adequate. There was no immediate complication. Chest x-ray was ordered. Tip of the catheter was seen in the superior vena cava right atrial junction. Sterile dressing was applied by the nurse. Again, no immediate complication. The patient tolerated procedure well. MMODL / IJN: [id number] /
[2021-10-12 17:41] LABS: Glucose,Whole Blood 128 mg/dL (70-110)
[2021-10-12] MEDS: FORMOTEROL FUMARATE 20 MCG/2 ML NEBU INHALATION SCH (19:12)
[2021-10-12] MEDS: BUDESONIDE 1 MG/2 ML NEBU INHALATION SCH (19:12)
[2021-10-13] MEDS: LACTATED RINGERS 1,000 ML IV SCH ×3 (00:22→23:40)
[2021-10-13] MEDS: methylPREDNISolone SOD SUCCI 125 MG/2 ML VIAL IV SCH ×5 (00:25→23:40)
[2021-10-13 00:32] LABS: Glucose,Whole Blood 202 mg/dL (70-110)
[2021-10-13] MEDS: IPRATROPIUM-ALBUTEROL 3 ML NEB INHALATION SCH ×6 (03:16→23:24)
[2021-10-13 04:59] LABS: Basophils % (A) 0 %; Eosinophils % (A) 0 %; HCT 34.4 % (39.0-53.0); HGB 11.5 gm/dL (13.0-17.5); Lymphocytes # (A) 0.8 k/uL (1.0-4.8); Lymphocytes % (A) 6 %; MCH 32.1 pg (25.0-35.0); MCHC 33.5 g/dL (31.0-37.0); MCV 95.8 fL (80.0-100.0); Mean Platelet Volume 8.7; Monocytes # (A) 0.3 k/uL (0-1.0); Monocytes % (A) 2 %; Neutrophils % (A) 91 %; Platelet Count 231 k/uL (150-450); RBC 3.59 m/uL (4.30-5.90); RDW 14.8 % (11.5-15.5)
[2021-10-13 05:09] LABS: Albumin 2.9 g/dL (3.5-5.0); Calcium 8.5 mg/dL (8.4-10.2); Phosphorus 3.6 mg/dL (2.5-4.5); Potassium 4.2 mmol/L (3.5-5.1); Total Bilirubin 0.3 mg/dL (0.2-1.3); Total Protein 5.4 g/dL (6.3-8.2)
[2021-10-13] MEDS ORDERED: Magnesium Replacement Protocol 1 EACH MISC MISCELLANE PRN (05:22)
[2021-10-13] MEDS: MAGNESIUM SULFATE-D5W PMX 1 GM in DEXTROSE/WATER 1 100ML.BAG IVPB SCH ×2 (05:31→06:30)
[2021-10-13 05:36] LABS: ABG Base Excess 0.5 mmol/L; ABG HCO3 26 mmol/L (21-25); ABG Oxygen Saturation 98.3 % (94-97); ABG PCO2 44 mmHg (35-45); ABG PH 7.38 (7.35-7.45); ABG PO2 103 mmHg (83-108); ABG TCO2 27 mmol/L (19-24); Allen Test Performed? Yes
[2021-10-13 05:48] LABS: Glucose,Whole Blood 195 mg/dL (70-110)
[2021-10-13] MEDS: BUDESONIDE 1 MG/2 ML NEBU INHALATION SCH ×2 (07:21→19:19)
[2021-10-13] MEDS: FORMOTEROL FUMARATE 20 MCG/2 ML NEBU INHALATION SCH ×2 (07:21→19:19)
--- NOTE | 2021-10-13 07:48 | XR ---
EXAMINATION TYPE: XR chest 1V DATE OF EXAM: 10/13/2021 COMPARISON: 10/12/2021 HISTORY: SOB, Follow Up FINDINGS: Indwelling tubes and catheters are unchanged. No change in perihilar and basilar opacities. Stable appearance of the cardio-mediastinal structures at this time. Pleural effusion unchanged. IMPRESSION: 1. Stable portable chest. Clinical correlation and follow up until resolution is recommended.
[2021-10-13] MEDS: ENOXAPARIN 40 MG/0.4 ML SYRINGE SQ SCH (08:54)
[2021-10-13] MEDS: PANTOPRAZOLE 40 MG/10 ML VIAL IV SCH (08:54)
[2021-10-13] MEDS: CHLORHEXIDINE GLUCONATE 15 ML CUP MUCOUS MEM SCH ×2 (08:55→21:02)
[2021-10-13] MEDS ORDERED: PIPERACILLIN-TAZOBACTAM 3.375 GM in SODIUM CHLORIDE 0.9% 100 ML IVPB ONE (09:15)
--- NOTE | 2021-10-13 10:22 | P.PN ---
Subjective Progress Note Date: 10/13/21 Principal diagnosis: Respiratory failure. Pulmonary consult dated 10/12/2021. 60-year-old male, who presented to the emergency department, on October 12, with shortness of breath, and impending respiratory failure. The patient had mental status changes, as well. I did have a chance to speak to the ER physician, who admitted the patient. They attempted BiPAP treatment for this patient, but he kept on pulling the mask off, becoming more agitated, more short of breath, and desaturating. For that reason, the patient was sedated and intubated, placed on the mechanical ventilator, and transferred to the ICU. Currently, he is on volume assist control mode, rate 24, tidal volume 500, FiO2 80%, and PEEP of 5. Blood gases show pO2 144, pCO2 of 68, and a pH is 7.21. Both blood gases were done on 100%, and, the rate after that blood gas was increased from 18 up to 24. The patient remains on propofol at 40 mcg/kg/m, and lactated Ringer's at 75 mL an hour. A radial art line was placed. As well as a left internal jugular triple-lumen catheter. White count 10.8, hemoglobin 11, hematocrit 34, and platelet count normal. Repeat blood gases show a PaO2 of 90, pCO2 of 42, and a pH is 7.4. Sodium 136, potassium 4.5, chlorides 107, CO2 27, BUN 26, creatinine 1.21. Troponin was less than 0.012. Urine was negative. Computed tomography scan of the brain was negative. Chest x-ray shows diffuse bilateral infiltrates, cardiomegaly, and could be consistent with fluid overload. Progress note dated 10/13/2021. 60-year-old male seen yesterday in consultation. Please see my note above. He was admitted through the emergency room, with respiratory failure, and was int ubated by the ER physician. He failed BiPAP therapy. He remains on mechanical ventilator. Yesterday, we placed a right reveal arterial line, and a left internal jugular triple lumen catheter. Current ventilator settings include the volume assist control modality, rate 24, tidal volume 500, FiO2 60%, and PEEP of 5. Blood gases on those same settings, but 70%, show a PaO2 of 103, pCO2 44, and a pH is 7.38. FiO2 was reduced from 70, down to 60%. He is getting lactated Ringer's at 75 mL an hour, we'll follow 50 mcg/kg/m, and vital high protein at 35 mL an hour, with a goal of 55 mL an hour. The plan today is a daily interruption of sedation, adding Zosyn, and getting his tube feeds up to goal. White count 12, hemoglobin 11.5, hematocrit 34.4, and platelet count is normal. Sodium 137, potassium 4.2, chlorides 110, CO2 25, BUN 26, creatinine 1.08. Albumin is 2.9. Chest x-ray shows a persistent infiltrate in the right lower lobe. Microbiologic studies are negative. Objective - Vital Signs Vital signs: Vital Signs Temp 97.8 F 10/13/21 08:00 Pulse 88 10/13/21 10:00 Resp 24 10/13/21 10:00 BP 125/58 10/13/21 10:00 Pulse Ox 96 10/13/21 10:00 FiO2 60 10/13/21 08:00 Intake & Output 10/12/21 10/13/21 10/13/21 18:59 06:59 18:59 Intake Total 7176.954 5381.542 447.45 Output Total 510 630 215 Balance 641.601 915.542 232.45 Weight 106 kg Intake: IV 675 825 225 Lactated Ringers 1,000 ml 675 825 225 @ 75 mls/hr IV .[id number] [facility] Rx#:[id number] Intake, IV Titration 366.601 350.542 87.45 Amount propofoL 1,000 mg In 366.601 350.542 87.45 Empty Bag 1 bag @ 5 MCG/ KG/MIN 3.18 mls/hr IV . Q24H [facility] Rx#:[id number] Tube Feeding 80 280 105 Other 30 90 30 Output: Urine 510 630 215 Other: Voiding Method Indwelling Catheter Indwelling Catheter Indwelling Catheter ABP, PAP, CO, CI - Last Documented Arterial Blood Pressure 118/51 - Exam No acute distress, sedated on propofol, with an orally placed endotracheal tube, and NG tube. HEENT examination is grossly unremarkable. Neck supple. Full range of motion. No adenopathy thyromegaly or neck vein distention. Cardiovascular examination reveals regular rhythm rate. S1-S2 normal. No S3 or S4. No discernible murmur noted. Heart sounds are distant. Heart rate 88 bpm. Lungs reveal diffuse bilateral rhonchi. Wheezes are noted. No crackles. Breath sounds equal bilaterally but diminished. Saturations are 96%. Abdomen soft bowel sounds are heard. No masses or tenderness. Extremities are intact. No cyanosis clubbing or edema. Skin is without rash or lesion. Neurologic examination cannot be assessed at this time. - Labs CBC & Chem 7: 10/13/21 04:28 10/13/21 04:28 Labs: Abnormal Lab Results - Last 24 Hours (Table) 10/12/21 10/12/21 10/12/21 Range/Units 09:45 10:35 11:45 WBC (3.8-10.6) k/uL RBC (4.30-5.90) m/uL Hgb (13.0-17.5) gm/dL Hct (39.0-53.0) % Neutrophils # (1.3-7.7) k/uL Lymphocytes # (1.0-4.8) k/uL ABG HCO3 27 H (21-25) mmol/L ABG Total CO2 28 H (19-24) mmol/L ABG O2 Saturation 98.4 H (94-97) % Chloride (98-107) mmol/L BUN (9-20) mg/dL Glucose (74-99) mg/dL POC Glucose (mg/dL) 119 H (70-110) mg/dL Total Protein (6.3-8.2) g/dL Albumin (3.5-5.0) g/dL Procalcitonin 0.33 H (0.02-0.09) ng/mL 10/12/21 10/13/21 10/13/21 Range/Units 17:39 00:30 03:12 WBC (3.8-10.6) k/uL RBC (4.30-5.90) m/uL Hgb (13.0-17.5) gm/dL Hct (39.0-53.0) % Neutrophils # (1.3-7.7) k/uL Lymphocytes # (1.0-4.8) k/uL ABG HCO3 26 H (21-25) mmol/L ABG Total CO2 27 H (19-24) mmol/L ABG O2 Saturation 98.3 H (94-97) % Chloride (98-107) mmol/L BUN (9-20) mg/dL Glucose (74-99) mg/dL POC Glucose (mg/dL) 128 H 202 H (70-110) mg/dL Total Protein (6.3-8.2) g/dL Albumin (3.5-5.0) g/dL Procalcitonin (0.02-0.09) ng/mL 10/13/21 10/13/21 10/13/21 Range/Units 04:28 04:28 05:45 WBC 12.0 H (3.8-10.6) k/uL RBC 3.59 L (4.30-5.90) m/uL Hgb 11.5 L (13.0-17.5) gm/dL Hct 34.4 L (39.0-53.0) % Neutrophils # 11.0 H (1.3-7.7) k/uL Lymphocytes # 0.8 L (1.0-4.8) k/uL ABG HCO3 (21-25) mmol/L ABG Total CO2 (19-24) mmol/L ABG O2 Saturation (94-97) % Chloride 110 H (98-107) mmol/L BUN 26 H (9-20) mg/dL Glucose 161 H (74-99) mg/dL POC Glucose (mg/dL) 195 H (70-110) mg/dL Total Protein 5.4 L (6.3-8.2) g/dL Albumin 2.9 L (3.5-5.0) g/dL Procalcitonin (0.02-0.09) ng/mL Microbiology - Last 24 Hours (Table) 10/12/21 03:11 Gram Stain - Preliminary Sputum Sputum Culture - Preliminary Assessment and Plan Assessment: Acute hypoxemic respiratory failure, likely multifactorial, in part related to COPD exacerbation, possible CHF, and also possible pneumonia, RLL. Acute hypoxemic respiratory failure requiring intubation and mechanical ventilation, on 10/12/2021. Mental status changes, likely related to hypoxemic respiratory failure. Vague history of hypertension, and CHF. History of heavy tobacco use. Plan: Plan dated 10/12/2021. The patient was placed on albuterol sulfate and ipratropium bromide, every 4 hours [id number]. In addition, I added Solu-Medrol 60 mg IV push every 6 hours, as well as Pulmicort 1 mg and Perforomist 20 g, twice a day. I've ordered a pro-calcitonin level. A right radial art line was placed, as well as a left internal jugular triple-lumen catheter. We will use one of the 3 ports of the central line, for CVP monitoring. The patient will start with GI and DVT prophylaxis. The patient will get lactated Ringer's at 75 mL an hour. The patient is currently being sedated with propofol. Labs, x-rays, medications are all reviewed. Prognosis is guarded. Plan dated 10/13/2021. We'll add Zosyn to the patient's regimen. I've asked the nurse to make sure the patient has blood, urine, and sputum cultures. In addition, the patient will have a daily interruption of sedation, though I doubt that he is ready for weaning and extubation. In addition, we'll get his tube feedings up to goal, which are 55 mL an hour. Labs, x-rays, and medications are all reviewed. The patient remains on lactated Ringer's at 75 mL an hour. He is getting propofol for sedation. Prognosis is guarded. We will continue to follow and make recommendations appropriately. Time with Patient: Greater than 30
[2021-10-13 11:55] LABS: Glucose,Whole Blood 206 mg/dL (70-110)
[2021-10-13] MEDS: INSULIN ASPART (NovoLOG) 100 UNIT/ML VIAL SQ SCH ×3 (12:40→23:39)
[2021-10-13] MEDS: PIPERACILLIN-TAZOBACTAM 3.375 GM in SODIUM CHLORIDE 0.9% 100 ML IVPB SCH ×2 (15:59→23:40)
[2021-10-13 18:43] LABS: Glucose,Whole Blood 172 mg/dL (70-110)
--- NOTE | 2021-10-13 18:53 | P.PN ---
Subjective This is a pleasant 60 years old male with past medical history of Heart Failure, COPD, Hypertension. Patient currently is intubated and could not provide information so it was obtained from start of her records. No family at bedside. I called the son Misael Tineo who is listed as next of kin and he confirmed to me patient has no but for NSAIDs and that he is the next of kin. his number was [phone]. He told me the patient was in the hospital in [place] about 3 weeks ago for chest pain and shortness of breath and he was been treated and discharged on oxygen after 1 week, he has been using oxygen as needed especially at night as per brother. 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 as per brother patient used to be heavy smoker 2 packs per day was cutting down and he thinks now he is on 1 pack per day, no alcohol or illicit drugs per brother. on reviewing the records at [facility] patient was for acute hypoxic hypercapnic respiratory failure secondary to COPD exacerbation with acute diastolic congestive heart failure with ejection fraction 55-60%. ProBNP was 1594 he had elevated d-dimer over CTA of the chest show no evidence of pulmonary embolism but pleural effusion with vascular pulmonary infiltrates and atelectasis, congestive heart failure as possible. and nonspecific enlarged mediastinal lymph nodes Patient presents with acute hypoxia, his oxygen saturation was 30% per EMS. He was tachycardic and tachypneic and hypotensive on arrival and he was placed on BiPAP before he got intubated. Currently patient is afebrile, temperature is slightly low at 97.5. He is saturating 98% on 80% FiO2. Blood pressure 109/62 left showing WBC slightly up at 10.8. Hemoglobin 11. Sodium is 136, creatinine 1.2, glucose 126 and 33 Urine analysis showing 2+ protein, RBCs 67. Coronavirus varus not detected. Chest x-ray showing coarse lung markings but no obvious heart failure or pulmonary consolidation CT of the brain negative and unchanged. CT EKG showing normal sinus rhythm at [address]-T changes In the emergency room patient received vasotec, Ativan, morphine, succinylcholine, propofol and Lovenox and Protonix 10/13/2021 Patient remains in the ICU in critical condition, he remains intubated and sedated with saline to induction of sedation and pulmonary/critical care team followed closely and make suitable adjustment. Remains on Solu-Medrol 40 mg Past leukocytosis of 12,000, procalcitonin is elevated at0.33 Patient Is Placed on Zosyn and It Also on Finger a Lactate at 75 mL/h Objective - Vital Signs Vital signs: Vital Signs Temp 97.8 F 10/13/21 08:00 Pulse 87 10/13/21 09:00 Resp 24 10/13/21 09:00 BP 114/54 10/13/21 09:00 Pulse Ox 96 10/13/21 09:00 FiO2 60 10/13/21 08:00 Intake & Output 10/12/21 10/13/21 10/13/21 18:59 06:59 18:59 Intake Total 2224.844 1247.542 447.45 Output Total 510 630 215 Balance 641.601 915.542 232.45 Weight 106 kg Intake: IV 675 825 225 Lactated Ringers 1,000 ml 675 825 225 @ 75 mls/hr IV .[id number] ZAIN Rx#:[id number] Intake, IV Titration 366.601 350.542 87.45 Amount propofoL 1,000 mg In 366.601 350.542 87.45 Empty Bag 1 bag @ 5 MCG/ KG/MIN 3.18 mls/hr IV . Q24H ZAIN Rx#:[id number] Tube Feeding 80 280 105 Other 30 90 30 Output: Urine 510 630 215 Other: Voiding Method Indwelling Catheter Indwelling Catheter Indwelling Catheter ABP, PAP, CO, CI - Last Documented Arterial Blood Pressure 116/45 - Exam -GENERAL: The patient is sedated and intubated HEENT: Pupils are round and equally reacting to light. EOMI. No scleral icterus. No conjunctival pallor. Normocephalic, atraumatic. No pharyngeal erythema. No thyromegaly. CARDIOVASCULAR: S1 and S2 present. No murmurs, rubs, or gallops. -PULMONARY: Chest is clear to auscultation, no wheezing or crackles. Decreased air entry in both lungs ABDOMEN: Soft, nontender, nondistended, normoactive bowel sounds. No palpable organomegaly. MUSCULOSKELETAL: No joint swelling or deformity. EXTREMITIES: No cyanosis, clubbing, or pedal edema. NEUROLOGICAL: Gross neurological examination did not reveal any focal deficits. SKIN: No rashes. no petechiae. - Labs CBC & Chem 7: 10/13/21 04:28 10/13/21 04:28 Labs: Abnormal Lab Results - Last 24 Hours (Table) 10/12/21 10/12/21 10/12/21 Range/Units 09:45 10:35 11:45 WBC (3.8-10.6) k/uL RBC (4.30-5.90) m/uL Hgb (13.0-17.5) gm/dL Hct (39.0-53.0) % Neutrophils # (1.3-7.7) k/uL Lymphocytes # (1.0-4.8) k/uL ABG HCO3 27 H (21-25) mmol/L ABG Total CO2 28 H (19-24) mmol/L ABG O2 Saturation 98.4 H (94-97) % Chloride (98-107) mmol/L BUN (9-20) mg/dL Glucose (74-99) mg/dL POC Glucose (mg/dL) 119 H (70-110) mg/dL Total Protein (6.3-8.2) g/dL Albumin (3.5-5.0) g/dL Procalcitonin 0.33 H (0.02-0.09) ng/mL 10/12/21 10/13/21 10/13/21 Range/Units 17:39 00:30 03:12 WBC (3.8-10.6) k/uL RBC (4.30-5.90) m/uL Hgb (13.0-17.5) gm/dL Hct (39.0-53.0) % Neutrophils # (1.3-7.7) k/uL Lymphocytes # (1.0-4.8) k/uL ABG HCO3 26 H (21-25) mmol/L ABG Total CO2 27 H (19-24) mmol/L ABG O2 Saturation 98.3 H (94-97) % Chloride (98-107) mmol/L BUN (9-20) mg/dL Glucose (74-99) mg/dL POC Glucose (mg/dL) 128 H 202 H (70-110) mg/dL Total Protein (6.3-8.2) g/dL Albumin (3.5-5.0) g/dL Procalcitonin (0.02-0.09) ng/mL 10/13/21 10/13/21 10/13/21 Range/Units 04:28 04:28 05:45 WBC 12.0 H (3.8-10.6) k/uL RBC 3.59 L (4.30-5.90) m/uL Hgb 11.5 L (13.0-17.5) gm/dL Hct 34.4 L (39.0-53.0) % Neutrophils # 11.0 H (1.3-7.7) k/uL Lymphocytes # 0.8 L (1.0-4.8) k/uL ABG HCO3 (21-25) mmol/L ABG Total CO2 (19-24) mmol/L ABG O2 Saturation (94-97) % Chloride 110 H (98-107) mmol/L BUN 26 H (9-20) mg/dL Glucose 161 H (74-99) mg/dL POC Glucose (mg/dL) 195 H (70-110) mg/dL Total Protein 5.4 L (6.3-8.2) g/dL Albumin 2.9 L (3.5-5.0) g/dL Procalcitonin (0.02-0.09) ng/mL Microbiology - Last 24 Hours (Table) 10/12/21 03:11 Sputum Culture - Preliminary Sputum Assessment and Plan Assessment: Acute hypoxic respiratory failure, present on admission, status post intubation and mechanical ventilation COPD with acute exacerbation Possible pneumonia recent history of mild acute diastolic CHF nicotine dependence acute on chronic hypoxic respiratory failure Hypertension obesity with BMI of 38.9 Plan: This is a pleasant 60 years old male who presents with hypoxia requiring intubation Continue with mechanical ventilation with pulmonary/critical care team consult continue with bronchodilator continue with Zosyn Labs and medication were reviewed.. Continue same treatment. Continue with symptomatic treatment. Resume home medication. Monitor lytes and vitals. DVT and GI prophylaxis. Further recommendations as per clinical course of the patient DVT prophylaxis: Subcutaneous Lovenox GI Prophylaxis: Ppi Prognosis is guarded
[2021-10-13 23:35] LABS: Glucose,Whole Blood 170 mg/dL (70-110)
[2021-10-14] MEDS: MORPHINE SULFATE 4 MG/ML SYRINGE IV PRN ×4 (03:27→23:51)
[2021-10-14] MEDS: IPRATROPIUM-ALBUTEROL 3 ML NEB INHALATION SCH ×6 (04:10→20:31)
[2021-10-14 05:20] LABS: Basophils % (A) 0 %; Eosinophils % (A) 0 %; HCT 34.7 % (39.0-53.0); HGB 11.1 gm/dL (13.0-17.5); Lymphocytes # (A) 0.7 k/uL (1.0-4.8); Lymphocytes % (A) 4 %; MCH 30.9 pg (25.0-35.0); MCHC 32.1 g/dL (31.0-37.0); MCV 96.4 fL (80.0-100.0); Mean Platelet Volume 8.3; Monocytes # (A) 0.7 k/uL (0-1.0); Monocytes % (A) 4 %; Neutrophils # (A) 17.3 k/uL (1.3-7.7); Neutrophils % (A) 92 %; Platelet Count 230 k/uL (150-450); RDW 14.8 % (11.5-15.5); WBC 18.7 k/uL (3.8-10.6)
[2021-10-14 05:21] LABS: Glucose,Whole Blood 174 mg/dL (70-110)
[2021-10-14] MEDS: INSULIN ASPART (NovoLOG) 100 UNIT/ML VIAL SQ SCH ×4 (05:23→23:34)
[2021-10-14] MEDS: methylPREDNISolone SOD SUCCI 125 MG/2 ML VIAL IV SCH ×4 (05:24→23:35)
[2021-10-14 05:25] LABS: African American GFR (CKD) >90 (>60 ml/min/1.73 sqM); Anion Gap 2 mmol/L; Blood Urea Nitrogen 29 mg/dL (9-20); Calcium 8.8 mg/dL (8.4-10.2); Carbon Dioxide 28 mmol/L (22-30); Chloride 107 mmol/L (98-107); Glucose 158 mg/dL (74-99); Magnesium 2.1 mg/dL (1.6-2.3); Non-African American GFR(CKD) 84 (>60 ml/min/1.73 sqM); Potassium 4.3 mmol/L (3.5-5.1); Sodium 137 mmol/L (137-145)
[2021-10-14 05:59] LABS: ABG Base Excess 2.8 mmol/L; ABG HCO3 28 mmol/L (21-25); ABG Oxygen Saturation 96.8 % (94-97); ABG PCO2 46 mmHg (35-45); ABG PH 7.39 (7.35-7.45); ABG PO2 83 mmHg (83-108); ABG TCO2 29 mmol/L (19-24); Allen Test Performed? Yes
[2021-10-14] MEDS: FORMOTEROL FUMARATE 20 MCG/2 ML NEBU INHALATION SCH ×2 (07:55→20:31)
[2021-10-14] MEDS: BUDESONIDE 1 MG/2 ML NEBU INHALATION SCH ×2 (07:55→20:31)
--- NOTE | 2021-10-14 08:00 | XR ---
EXAMINATION TYPE: XR chest 1V portable DATE OF EXAM: 10/14/2021 5:39 AM COMPARISON: Chest radiograph from one day prior. TECHNIQUE: XR chest 1V portable Portable AP radiograph of the chest. CLINICAL INDICATION:Male, 60 years old with history of Tube placement; FINDINGS: Lungs/Pleura: Airspace opacities are seen within the right lower lung which have slightly decreased a eration compared to one day prior. There is no evidence of pleural effusion, focal consolidation, or pneumothorax. Pulmonary vascularity: Unremarkable. Heart/mediastinum: Cardiomediastinal silhouette is unremarkable. Musculoskeletal: No acute osseous pathology. Fixation anchors within the left axilla humerus. Lines/Tubes: Endotracheal tube with distal tip 7.5 cm above the martine Nasogastric tube with side-port projecting at the gastroesophageal junction. Left internal jugular central venous catheter with distal tip at the cavoatrial junction. IMPRESSION: 1. Nasogastric tube with side-port projecting near the gastroesophageal junction. Advancement of at least 5 cm is recommended for optimal placement. 2. Endotracheal tube 7.5 cm above the martine consider advancement of 4 cm for optimal placement. 3. Slight decrease in aeration of the right lung base. Attention follow-up imaging.
[2021-10-14] MEDS ORDERED: FUROSEMIDE 10 MG/ML 4 ML VIAL IV STA (08:41)
[2021-10-14] MEDS: PANTOPRAZOLE 40 MG/10 ML VIAL IV SCH (09:02)
[2021-10-14] MEDS: CHLORHEXIDINE GLUCONATE 15 ML CUP MUCOUS MEM SCH ×2 (09:02→21:12)
[2021-10-14] MEDS: ENOXAPARIN 40 MG/0.4 ML SYRINGE SQ SCH (09:02)
[2021-10-14] MEDS: PIPERACILLIN-TAZOBACTAM 3.375 GM in SODIUM CHLORIDE 0.9% 100 ML IVPB SCH ×3 (09:02→23:35)
[2021-10-14] MEDS ORDERED: DEXTROSE 5% IN WATER 100 ML with AMIODARONE 150 MG IV ONE (09:55)
[2021-10-14] MEDS ORDERED: AMIODARONE 360 MG in DEXTROSE 5% IN WATER 200 ML IV ONE ×2 (09:55)
[2021-10-14 11:39] LABS: Glucose,Whole Blood 182 mg/dL (70-110)
--- NOTE | 2021-10-14 11:54 | CA ---
Transthoracic Echo Report Name: Stu Tineo Age: 60 Gender: M : 1960 Exam Date: 10/14/2021 10:48 Exam Location: [facility] Ht (in): 65 Wt (lb): 232 Ordering Physician: Aleshia Rdz Attending/Referring Phys: [id number], [place] Clinical Veterinarian Annie Beard RDCS Procedure CPT: Indications: dyspnea Cardiac Hx: Technical Quality: Fair Contrast 1: Total Dose (mL): Contrast 2: Total Dose (mL): MEASUREMENTS (Male / Female) Normal Values 2D ECHO LV Diastolic Diameter PLAX 3.6 cm 4.2 - 5.9 / 3.9 - 5.3 cm LV Systolic Diameter PLAX 1.2 cm IVS Diastolic Thickness 1.2 cm 0.6 - 1.0 / 0.6 - 0.9 cm LVPW Diastolic Thickness 1.4 cm 0.6 - 1.0 / 0.6 - 0.9 cm LV Relative Wall Thickness 0.7 RV Internal Dim ED PLAX 2.3 cm LA Volume 73.3 cm??? 18 - 58 / 22 - 52 cm??? M-MODE Aortic Root Diameter MM 3.3 cm LA Systolic Diameter MM 4.1 cm LA Ao Ratio MM 1.3 AV Cusp Separation MM 2.0 cm DOPPLER AV Peak Velocity 207.6 cm/s AV Peak Gradient 17.2 mmHg AV Mean Velocity 151.1 cm/s AV Mean Gradient 10.8 mmHg AV Velocity Time Integral 29.8 cm MR Peak Velocity 396.3 cm/s MR Peak Gradient 62.8 mmHg TR Peak Velocity 265.0 cm/s TR Peak Gradient 28.1 mmHg Right Ventricular Systolic Press 30.3 mmHg FINDINGS Left Ventricle Mildly increased septal wall thickness. Afib with rvr. Left ventricular ejection fraction is estimated at 60-65 %. Right Ventricle The right ventricle is normal in size and function. Right Atrium The right atrium is normal in size. Left Atrium Moderately increased left atrial volume. Mildly increased left atrial area. Mitral Valve Structurally normal mitral valve without significant stenosis or prolapse. There is moderate mitral regurgitation anteriorly directed. Aortic Valve Structurally normal aortic valve without significant sclerosis or stenosis. There is no aortic regurgitation. Tricuspid Valve Structurally normal tricuspid valve without significant stenosis. Pulmonary artery systolic pressure is normal. Pulmonic Valve Structurally normal pulmonic valve without significant stenosis. There is no pulmonic regurgitation. Pericardium Normal pericardium without effusion. Aorta Normal aortic root dimension. CONCLUSIONS Significant tachycardia noted throughout exam Left ventricular EF 60-65% Moderate mitral regurgitation No pericardial effusion Previewed by: Dr. Hayden Fink DO (Electronically Signed) Final Date: 14 October 2021 11:53
--- NOTE | 2021-10-14 12:32 | P.PN ---
Subjective Progress Note Date: 10/14/21 This is a pleasant 60 years old male with past medical history of Heart Failure, COPD, Hypertension. Patient currently is intubated and could not provide information so it was obtained from start of her records. No family at bedside. I called the son Misael Tineo who is listed as next of kin and he confirmed to me patient has no but for NSAIDs and that he is the next of kin. his number was [phone]. He told me the patient was in the hospital in [place] about 3 weeks ago for chest pain and shortness of breath and he was been treated and discharged on oxygen after 1 week, he has been using oxygen as needed especially at night as per brother. 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 as per brother patient used to be heavy smoker 2 packs per day was cutting down and he thinks now he is on 1 pack per day, no alcohol or illicit drugs per brother. on reviewing the records at [facility] patient was for acute hypoxic hypercapnic respiratory failure secondary to COPD exacerbation with acute diastolic congestive heart failure with ejection fraction 55-60%. ProBNP was 1594 he had elevated d-dimer over CTA of the chest show no evidence of pulmonary embolism but pleural effusion with vascular pulmonary infiltrates and atelectasis, congestive heart failure as possible. and nonspecific enlarged mediastinal lymph nodes Patient presents with acute hypoxia, his oxygen saturation was 30% per EMS. He was tachycardic and tachypneic and hypotensive on arrival and he was placed on BiPAP before he got intubated. Currently patient is afebrile, temperature is slightly low at 97.5. He is saturating 98% on 80% FiO2. Blood pressure 109/62 left showing WBC slightly up at 10.8. Hemoglobin 11. Sodium is 136, creatinine 1.2, glucose 126 and 33 Urine analysis showing 2+ protein, RBCs 67. Coronavirus varus not detected. Chest x-ray showing coarse lung markings but no obvious heart failure or pulmonary consolidation CT of the brain negative and unchanged. CT EKG showing normal sinus rhythm at [address]-T changes In the emergency room patient received vasotec, Ativan, morphine, succinylcholine, propofol and Lovenox and Protonix 10/13/2021 Patient remains in the ICU in critical condition, he remains intubated and sedated with saline to induction of sedation and pulmonary/critical care team followed closely and make suitable adjustment. Remains on Solu-Medrol 40 mg Past leukocytosis of 12,000, procalcitonin is elevated at0.33 Patient Is Placed on Zosyn and It Also on Finger a Lactate at 75 mL/h 10/14/2021 Patient is seen and evaluated and follow-up continues to be in the ICU with multiple medical consultations following. Patient continues on mechanical vent and FiO2 is currently 50% with a PEEP of 5. Per nursing staff there was discussion of possible weaning although patient's heart rate elevated in found to be in atrial fibrillation with RVR being started on IV amiodarone. Will consult cardiology and continue to monitor closely. Patient was admitted for COPD exacerbation with CHF and BNP was found to be 1400. Pulmonary bow machine operator following inpatient is continued on IV steroids along with inhalers and also maintained on Zosyn. Patient was given a dose of Lasix today as chest x-ray showed continued airspace opacification within the right lower lung which have slightly decreased aeration compared to previous day with no evidence of pleural effusion focal consolidation or pneumothorax and the ET tube needs possible advancement of 4 cm and also NG tube needs advancement as well. Follow-up chest x-ray recommended. WBC is elevated at 18.7 and hemoglobin is 11.1, sodium 137 with a potassium 4.3, creatinine 0.99, magnesium 2.1. 2-D echo was ordered. Review of systems: Unable to obtain as patient is currently intubated and sedated Active Medications Albuterol/Ipratropium (Ipratropium-Albuterol 3 Ml Neb) 3 ml INHALATION RT-Q4H ZAIN Last Admin: 10/14/21 11:22 Dose: Not Given Budesonide (Budesonide 1 Mg/2 Ml Nebu) 1 mg INHALATION RT-BID ZAIN Last Admin: 10/14/21 07:55 Dose: 1 mg Chlorhexidine Gluconate (Chlorhexidine Gluconate 15 Ml Cup) 15 ml MUCOUS MEM BID ZAIN Last Admin: 10/14/21 09:02 Dose: 15 ml Enoxaparin Sodium (Enoxaparin 40 Mg/0.4 Ml Syringe) 40 mg SQ DAILY ZAIN Last Admin: 10/14/21 09:02 Dose: 40 mg Formoterol Fumarate (Formoterol Fumarate 20 Mcg/2 Ml Nebu) 20 mcg INHALATION RT-BID ZAIN Last Admin: 10/14/21 07:55 Dose: 20 mcg Propofol 1,000 mg/ IV Solution 100 mls @ 3.18 mls/hr IV .Q24H ZAIN; Protocol Last Admin: 10/14/21 11:10 Dose: 55 mcg/kg/min, 34.98 mls/hr Lactated Ringer's (Lactated Ringers) 1,000 mls @ 75 mls/hr IV .[id number] ZAIN Last Admin: 10/13/21 23:40 Dose: 75 mls/hr Piperacillin Sod/Tazobactam (Sod 3.375 gm/ Sodium Chloride) 100 mls @ 25 mls/hr IVPB Q8HR ZAIN; Protocol Last Admin: 10/14/21 09:02 Dose: 25 mls/hr Amiodarone HCl 360 mg/ (Dextrose/Water) 200 mls @ 33.333 mls/hr IV .Q6H ONE; Protocol Stop: 10/14/21 15:54 Last Admin: 10/14/21 10:25 Dose: 1 mg/min, 33.333 mls/hr Amiodarone HCl 450 mg/ (Dextrose/Water) 250 mls @ 16.667 mls/hr IV .Q15H ZAIN; Protocol Stop: 10/15/21 09:59 Insulin Aspart (Insulin Aspart (Novolog) 100 Unit/Ml Vial) 0 unit SQ Q6HR ZAIN; Protocol Last Admin: 10/14/21 12:17 Dose: 3 unit Methylprednisolone Sodium Succinate (Methylprednisolone Sod Succi 125 Mg/2 Ml Vial) 60 mg IV Q6HR ZAIN Last Admin: 10/14/21 12:17 Dose: 60 mg Miscellaneous Information (Magnesium Replacement Protocol 1 Each Misc) 1 each MISCELLANE DAILY PRN; Protocol PRN Reason: Per Protocol Morphine Sulfate (Morphine Sulfate 4 Mg/Ml Syringe) 4 mg IV Q4HR PRN PRN Reason: Pain Scale 8 to 10 Last Admin: 10/14/21 09:03 Dose: 4 mg Naloxone HCl (Naloxone 0.4 Mg/Ml 1 Ml Vial) 0.2 mg IV Q2M PRN PRN Reason: Opioid Reversal Pantoprazole Sodium (Pantoprazole 40 Mg/10 Ml Vial) 40 mg IV DAILY ZAIN Last Admin: 10/14/21 09:02 Dose: 40 mg PHYSICAL EXAMINATION: GENERAL: The patient is currently intubated and sedated. Obese Well developed, well nourished. HEENT: Pupils are round and equally reacting to light. EOMI. no scleral icterus. No conjunctival pallor. Normocephalic, atraumatic. No pharyngeal erythema. No thyromegaly. CARDIOVASCULAR: S1 and S2 muffled PULMONARY: diminished breath sounds bilaterally with some scattered rhonchi, crackles at the bases noted. ABDOMEN: soft. Nontender on exam. obese. non-distended, normoactive bowel sounds. No palpable organomegaly. MUSCULOSKELETAL: No joint swelling or deformity. EXTREMITIES: No cyanosis, clubbing, or pedal edema. NEUROLOGICAL: Unable to completely assess as patient is currently intubated and sedated SKIN: No rashes. Assessment: Acute hypoxic respiratory failure, present on admission, status post intubation and mechanical ventilation COPD with acute exacerbation Atrial fibrillation with fast ventricular rate, new onset Possible right lower lung pneumonia, present on admission mild acute on chronic congestive heart failure diastolic dysfunction, acute exa cerbation Continued ongoing nicotine dependence acute on chronic hypoxic respiratory failure Hypertension obesity with BMI of 38.7 GI prophylaxis DVT prophylaxis Full code Plan: This is a pleasant 60 years old male who presented with hypoxia requiring intubation, multifactorial with COPD, possible right lower lobe pneumonia, acute CHF exacerbation Continue with mechanical ventilation with pulmonary/critical care team consult. Plans for weaning trials although not ready for extubation as of yet Patient's heart rate elevated when into atrial fibrillation with RVR and started on IV amiodarone by pulmonary bow machine operator and will consult cardiology and patient is also maintained on Lovenox subcutaneous injections, 2-D echo ordered for today and report is pending. Patient received a dose of IV Lasix today. continue with bronchodilator and Zosyn, WBC is elevated and sputum culture showing MRSA on 10/12/2021 patient is on Zosyn and will consult infectious disease continue with Zosyn The impression and plan of care has been dictated by Mary Pena, nurse practitioner as directed. MD Lor I have performed a history and examination and MDM of this patient, discussed the same with the dictator, and agree with the dictator's assessment and plan as written ,documented as a scribe. Based on total visit time, I have performed more than 50% of the visit. Any additional findings or plans will be noted. Objective - Vital Signs Vital signs: Vital Signs Temp 98.6 F 10/14/21 04:00 Pulse 100 10/14/21 08:15 Resp 18 10/14/21 07:00 BP 146/69 10/14/21 07:00 Pulse Ox 96 10/14/21 07:00 FiO2 60 10/14/21 07:46 Intake & Output 10/13/21 10/14/21 10/14/21 18:59 06:59 18:59 Intake Total 2342.78 2418.031 230 Output Total 1065 750 75 Balance 1277.78 1668.031 155 Weight 105.6 kg Intake: IV 975 825 75 Lactated Ringers 1,000 ml 975 825 75 @ 75 mls/hr IV .[id number] ZAIN Rx#:[id number] Intake, IV Titration 372.78 383.031 100 Amount propofoL 1,000 mg In 372.78 383.031 100 Empty Bag 1 bag @ 5 MCG/ KG/MIN 3.18 mls/hr IV . Q24H ZAIN Rx#:[id number] Tube Feeding 555 550 55 Other 440 660 Output: Urine 1065 750 75 Other: Voiding Method Indwelling Catheter Indwelling Catheter ABP, PAP, CO, CI - Last Documented Arterial Blood Pressure 163/61 - Labs CBC & Chem 7: 10/14/21 04:40 10/14/21 04:40 Labs: Abnormal Lab Results - Last 24 Hours (Table) 10/13/21 10/13/21 10/13/21 Range/Units 11:54 18:41 23:33 WBC (3.8-10.6) k/uL RBC (4.30-5.90) m/uL Hgb (13.0-17.5) gm/dL Hct (39.0-53.0) % Neutrophils # (1.3-7.7) k/uL Lymphocytes # (1.0-4.8) k/uL ABG pCO2 (35-45) mmHg ABG HCO3 (21-25) mmol/L ABG Total CO2 (19-24) mmol/L BUN (9-20) mg/dL Glucose (74-99) mg/dL POC Glucose (mg/dL) 206 H 172 H 170 H (70-110) mg/dL 10/14/21 10/14/21 10/14/21 Range/Units 04:40 04:40 05:19 WBC 18.7 H (3.8-10.6) k/uL RBC 3.60 L (4.30-5.90) m/uL Hgb 11.1 L (13.0-17.5) gm/dL Hct 34.7 L (39.0-53.0) % Neutrophils # 17.3 H (1.3-7.7) k/uL Lymphocytes # 0.7 L (1.0-4.8) k/uL ABG pCO2 (35-45) mmHg ABG HCO3 (21-25) mmol/L ABG Total CO2 (19-24) mmol/L BUN 29 H (9-20) mg/dL Glucose 158 H (74-99) mg/dL POC Glucose (mg/dL) 174 H (70-110) mg/dL 10/14/21 Range/Units 05:55 WBC (3.8-10.6) k/uL RBC (4.30-5.90) m/uL Hgb (13.0-17.5) gm/dL Hct (39.0-53.0) % Neutrophils # (1.3-7.7) k/uL Lymphocytes # (1.0-4.8) k/uL ABG pCO2 46 H (35-45) mmHg ABG HCO3 28 H (21-25) mmol/L ABG Total CO2 29 H (19-24) mmol/L BUN (9-20) mg/dL Glucose (74-99) mg/dL POC Glucose (mg/dL) (70-110) mg/dL Microbiology - Last 24 Hours (Table) 10/12/21 03:11 Gram Stain - Preliminary Sputum Sputum Culture - Preliminary
[2021-10-14] MEDS ORDERED: VANCOMYCIN IV PER PHARMACY 1 EACH MISC MISCELLANE PRN (12:47)
--- NOTE | 2021-10-14 12:48 | P.PN ---
Subjective Progress Note Date: 10/14/21 60-year-old male, who presented to the emergency department, on October 12, with shortness of breath, and impending respiratory failure. The patient had mental status changes, as well. I did have a chance to speak to the ER physician, who admitted the patient. They attempted BiPAP treatment for this patient, but he kept on pulling the mask off, becoming more agitated, more short of breath, and desaturating. For that reason, the patient was sedated and intubated, placed on the mechanical ventilator, and transferred to the ICU. Currently, he is on volume assist control mode, rate 24, tidal volume 500, FiO2 80%, and PEEP of 5. Blood gases show pO2 144, pCO2 of 68, and a pH is 7.21. Both blood gases were done on 100%, and, the rate after that blood gas was increased from 18 up to 24. The patient remains on propofol at 40 mcg/kg/m, and lactated Ringer's at 75 mL an hour. A radial art line was placed. As well as a left internal jugular triple-lumen catheter. White count 10.8, hemoglobin 11, hematocrit 34, and platelet count normal. Repeat blood gases show a PaO2 of 90, pCO2 of 42, and a pH is 7.4. Sodium 136, potassium 4.5, chlorides 107, CO2 27, BUN 26, creatinine 1.21. Troponin was less than 0.012. Urine was negative. Computed tomography scan of the brain was negative. Chest x-ray shows diffuse bilateral infiltrates, cardiomegaly, and could be consistent with fluid overload. Progress note dated 10/13/2021. 60-year-old male seen yesterday in consultation. Please see my note above. He was admitted through the emergency room, with respiratory failure, and was intubated by the ER physician. He failed BiPAP therapy. He remains on mechanical ventilator. Yesterday, we placed a right reveal arterial line, and a left internal jugular triple lumen catheter. Current ventilator settings include the volume assist control modality, rate 24, tidal volume 500, FiO2 60%, and PEEP of 5. Blood gases on those same settings, but 70%, show a PaO2 of 103, pCO2 44, and a pH is 7.38. FiO2 was reduced from 70, down to 60%. He is getting lactated Ringer's at 75 mL an hour, we'll follow 50 mcg/kg/m, and vital high protein at 35 mL an hour, with a goal of 55 mL an hour. The plan today is a daily interruption of sedation, adding Zosyn, and getting his tube feeds up to goal. White count 12, hemoglobin 11.5, hematocrit 34.4, and platelet count is normal. Sodium 137, potassium 4.2, chlorides 110, CO2 25, BUN 26, creatinine 1.08. Albumin is 2.9. Chest x-ray shows a persistent infiltrate in the right lower lobe. Microbiologic studies are negative. On 10/14/2021, the patient is being seen for a follow-up. This morning, the patient is intubated on a mechanical ventilator. The patient was admitted on 10/12/2021. The patient is currently on propofol running at 55 mcg/kg per minute. IV fluids in the form of lactated Ringer at the rate of 75 mL an hour. The patient is intubated on a mechanical ventilator. The patient is an assist- control mode at the rate of 24 with a tidal volume of 500 and FiO2 of 50% with a PEEP of 5. Blood gases showed a pH of 7.39 with a pCO2 of 46 and pO2 of 83. Chest x-ray shows some limited opacification of the right lung base. There is also adequate positioning of the ET tube. No acute abnormalities are noted. The patient has a peak airway pressure of 23 cm of water. The patient is calm and comfortable. He is arousable once off the sedation. Overall fluid balance has been +2.9 L over the past 24 hours. The patient's white cell count is at 18 with a hemoglobin of 11 and a platelet count of 2:30. Pro-calcitonin level is at 0.33. ProBNP level is 1440. The patient has a sodium level of 137 with a BUN of 29 and a creatinine of 0.9. Patient is also on tube feeding at the rate of 55 mL an hour. No fever. No chills. No other significant events overnight. Cardiac rhythm is sinus for now. Objective - Vital Signs Vital signs: Vital Signs Temp 98.6 F 10/14/21 04:00 Pulse 100 10/14/21 08:15 Resp 18 10/14/21 07:00 BP 146/69 10/14/21 07:00 Pulse Ox 96 10/14/21 07:00 FiO2 60 10/14/21 07:46 Intake & Output 10/13/21 10/14/21 10/14/21 18:59 06:59 18:59 Intake Total 2342.78 2418.031 130 Output Total 1065 750 75 Balance 1277.78 1668.031 55 Weight 105.6 kg Intake: IV 975 825 75 Lactated Ringers 1,000 ml 975 825 75 @ 75 mls/hr IV .[id number] ZAIN Rx#:[id number] Intake, IV Titration 372.78 383.031 Amount propofoL 1,000 mg In 372.78 383.031 Empty Bag 1 bag @ 5 MCG/ KG/MIN 3.18 mls/hr IV . Q24H ZAIN Rx#:[id number] Tube Feeding 555 550 55 Other 440 660 Output: Urine 1065 750 75 Other: Voiding Method Indwelling Catheter Indwelling Catheter ABP, PAP, CO, CI - Last Documented Arterial Blood Pressure 163/61 - Exam No acute distress, sedated on propofol, with an orally placed endotracheal tube, and NG tube. The patient is well sedated with propofol and patient's, comfortable Head exam was generally normal. There was no scleral icterus or corneal arcus. Mucous membranes were moist. HEENT examination is grossly unremarkable. Neck supple. Full range of motion. No adenopathy thyromegaly or neck vein distention. Cardiovascular examination reveals regular rhythm rate. Cardiac exam revealed the PMI to be normally situated and sized. The rhythm was regular and no extrasystoles were noted during several minutes of auscultation. The first and second heart sounds were normal and physiologic splitting of the second heart sound was noted. There were no murmurs, rubs, clicks, or gallops. Lungs reveal diffuse bilateral rhonchi. Wheezes are noted. No crackles. Breath sounds equal bilaterally but diminished. Abdomen soft bowel sounds are heard. No masses or tenderness. Extremities are intact. No cyanosis clubbing or edema. Examination of the skin revealed no evidence of significant rashes, suspicious appearing nevi or other concerning lesions. Neurologic the patient is sedated for now - Labs CBC & Chem 7: 10/14/21 04:40 10/14/21 04:40 Labs: Abnormal Lab Results - Last 24 Hours (Table) 10/13/21 10/13/21 10/13/21 Range/Units 11:54 18:41 23:33 WBC (3.8-10.6) k/uL RBC (4.30-5.90) m/uL Hgb (13.0-17.5) gm/dL Hct (39.0-53.0) % Neutrophils # (1.3-7.7) k/uL Lymphocytes # (1.0-4.8) k/uL ABG pCO2 (35-45) mmHg ABG HCO3 (21-25) mmol/L ABG Total CO2 (19-24) mmol/L BUN (9-20) mg/dL Glucose (74-99) mg/dL POC Glucose (mg/dL) 206 H 172 H 170 H (70-110) mg/dL 10/14/21 10/14/21 10/14/21 Range/Units 04:40 04:40 05:19 WBC 18.7 H (3.8-10.6) k/uL RBC 3.60 L (4.30-5.90) m/uL Hgb 11.1 L (13.0-17.5) gm/dL Hct 34.7 L (39.0-53.0) % Neutrophils # 17.3 H (1.3-7.7) k/uL Lymphocytes # 0.7 L (1.0-4.8) k/uL ABG pCO2 (35-45) mmHg ABG HCO3 (21-25) mmol/L ABG Total CO2 (19-24) mmol/L BUN 29 H (9-20) mg/dL Glucose 158 H (74-99) mg/dL POC Glucose (mg/dL) 174 H (70-110) mg/dL 10/14/21 Range/Units 05:55 WBC (3.8-10.6) k/uL RBC (4.30-5.90) m/uL Hgb (13.0-17.5) gm/dL Hct (39.0-53.0) % Neutrophils # (1.3-7.7) k/uL Lymphocytes # (1.0-4.8) k/uL ABG pCO2 46 H (35-45) mmHg ABG HCO3 28 H (21-25) mmol/L ABG Total CO2 29 H (19-24) mmol/L BUN (9-20) mg/dL Glucose (74-99) mg/dL POC Glucose (mg/dL) (70-110) mg/dL Microbiology - Last 24 Hours (Table) 10/12/21 03:11 Gram Stain - Preliminary Sputum Sputum Culture - Preliminary Assessment and Plan Plan: Acute hypoxemic respiratory failure, likely multifactorial, in part related to COPD exacerbation, possible CHF, and also possible pneumonia, RLL. The patient is intubated on mechanical ventilator. The patient sedated for now. The patient remains on a combination of DuoNeb nebulized treatments around the clock, and covered with antibiotics with IV Zosyn. The folic acid lower level is mildly elevated. Sputum Gram stain and culture is still pending. There is an indication for possibility of MRSA. Acute hypoxemic respiratory failure requiring intubation and mechanical ventilation, on 10/12/2021. Mental status changes, likely related to hypoxemic respiratory failure. Vague history of hypertension, and CHF. History of heavy tobacco use. Chronic pain , back Chronic methadone user, methadone 10 mg q hours Obesity COPD Leukocytosis, white cell count is elevated at 18.7 Hyperlipidemia Plan: Continue ventilator support Continue IV Zosyn and start the patient on vancomycin pending further sputum cultures Monitor the white cell count Changes I fluids to KVO Give the patient Lasix 40 mg IV push Obtain 2-D echocardiogram Wean off sedation and check the patient's weaning parameters Continue enteral feeding for the general support Assessment patient's readiness for further weaning We'll continue to follow make further recommendations based on her progress. This is a critically care evaluation that was done more than 30 minutes. Time with Patient: Greater than 30
[2021-10-14] MEDS: VANCOMYCIN 1,750 MG in SODIUM CHLORIDE 0.9% 500 ML 500 ML IVPB SCH (13:17)
[2021-10-14] MEDS: AMIODARONE 450 MG in DEXTROSE 5% IN WATER 250 ML IV SCH ×2 (15:45)
[2021-10-14] MEDS: LACTATED RINGERS 1,000 ML IV SCH (16:28)
[2021-10-14 18:10] LABS: Glucose,Whole Blood 138 mg/dL (70-110)
[2021-10-14] MEDS: METOPROLOL SUCCINATE (ER) 100 MG TAB.ER.24H PO SCH (21:12)
[2021-10-14] MEDS: amLODIPine 10 MG TAB PO SCH (22:18)
[2021-10-14] MEDS: lisinopriL 20 MG TAB PO SCH (22:40)
[2021-10-14 23:30] LABS: Glucose,Whole Blood 160 mg/dL (70-110)
[2021-10-15] MEDS: IPRATROPIUM-ALBUTEROL 3 ML NEB INHALATION SCH ×7 (00:22→23:50)
[2021-10-15] MEDS: VANCOMYCIN 1,750 MG in SODIUM CHLORIDE 0.9% 500 ML 500 ML IVPB SCH ×2 (00:53→12:11)
[2021-10-15 04:50] LABS: Basophils % (A) 0 %; Eosinophils % (A) 0 %; HCT 35.4 % (39.0-53.0); HGB 11.5 gm/dL (13.0-17.5); Lymphocytes # (A) 0.7 k/uL (1.0-4.8); Lymphocytes % (A) 4 %; MCH 31.1 pg (25.0-35.0); MCHC 32.4 g/dL (31.0-37.0); MCV 96.1 fL (80.0-100.0); Mean Platelet Volume 8.7; Monocytes # (A) 0.8 k/uL (0-1.0); Monocytes % (A) 4 %; Neutrophils # (A) 19.2 k/uL (1.3-7.7); Neutrophils % (A) 92 %; Platelet Count 223 k/uL (150-450); RBC 3.68 m/uL (4.30-5.90); RDW 14.8 % (11.5-15.5); WBC 20.8 k/uL (3.8-10.6)
[2021-10-15 05:03] LABS: ALT 36 U/L (4-49); AST 34 U/L (17-59); African American GFR (CKD) >90 (>60 ml/min/1.73 sqM); Alkaline Phosphatase 80 U/L (38-126); Anion Gap 5 mmol/L; Blood Urea Nitrogen 36 mg/dL (9-20); Calcium 8.6 mg/dL (8.4-10.2); Carbon Dioxide 28 mmol/L (22-30); Chloride 106 mmol/L (98-107); Glucose 150 mg/dL (74-99); Non-African American GFR(CKD) 87 (>60 ml/min/1.73 sqM); Sodium 139 mmol/L (137-145); Total Bilirubin 0.3 mg/dL (0.2-1.3); Total Protein 5.5 g/dL (6.3-8.2)
[2021-10-15] MEDS ORDERED: Potassium Replacement Protocol 1 EACH MISC MISCELLANE PRN (05:04)
[2021-10-15 05:12] LABS: Glucose,Whole Blood 154 mg/dL (70-110)
[2021-10-15] MEDS: methylPREDNISolone SOD SUCCI 125 MG/2 ML VIAL IV SCH ×4 (05:16→23:40)
[2021-10-15] MEDS: INSULIN ASPART (NovoLOG) 100 UNIT/ML VIAL SQ SCH ×4 (05:16→23:39)
[2021-10-15] MEDS: MORPHINE SULFATE 4 MG/ML SYRINGE IV PRN ×4 (05:26→20:12)
[2021-10-15] MEDS: LACTATED RINGERS 1,000 ML IV SCH ×2 (05:27→18:11)
[2021-10-15] MEDS: AMIODARONE 450 MG in DEXTROSE 5% IN WATER 250 ML IV SCH ×2 (05:29)
[2021-10-15] MEDS ORDERED: POTASSIUM BICARBONATE/CIT AC 20 MEQ TABLET.EFF NG-TUBE SCH (06:00)
[2021-10-15 06:03] LABS: ABG Base Excess 4.4 mmol/L; ABG HCO3 29 mmol/L (21-25); ABG Oxygen Saturation 93.2 % (94-97); ABG PCO2 44 mmHg (35-45); ABG PH 7.43 (7.35-7.45); ABG PO2 64 mmHg (83-108); ABG TCO2 30 mmol/L (19-24); Allen Test Performed? Yes
[2021-10-15] MEDS: BUDESONIDE 1 MG/2 ML NEBU INHALATION SCH ×2 (07:25→19:24)
[2021-10-15] MEDS: FORMOTEROL FUMARATE 20 MCG/2 ML NEBU INHALATION SCH ×2 (07:25→19:39)
--- NOTE | 2021-10-15 08:20 | XR ---
EXAMINATION TYPE: XR chest 1V portable DATE OF EXAM: 10/15/2021 COMPARISON: Chest x-ray 10/14/2021 HISTORY: Intubated TECHNIQUE: Single frontal view of the chest is obtained. FINDINGS: Endotracheal tube, left jugular central venous catheter, NG tube are overlying appropriate positions, side-port of the NG tube is near the gastroesophageal junction as on prior. The aorta is dense. No evident pneumothorax. There is persistent blunting of the left costophrenic angle. Intersti tium is increased. Heart is stable. Prominence of the pulmonary arteries could be indicative of under lying pulmonary artery hypertension, this perihilar vascular indistinctness. IMPRESSION: Correlate for pulmonary venous hypertension and interstitial edema, probable left pleura l effusion and associated atelectasis versus basilar edema or pneumonia. Additional findings above.
[2021-10-15] MEDS ORDERED: AMIODARONE 200 MG TAB PO SCH (09:00)
--- NOTE | 2021-10-15 09:03 | P.CRDCN ---
History of Present Illness Consult date: 10/15/21 Consult reason: atrial fibrillation History of present illness: The patient is a 60-year-old male who follows in the office with Dr. France. Cardiology was consulted for atrial fibrillation with rapid heart rate. This appears to be a new diagnosis for the patient. The patient is currently admitted to the hospital with acute hypoxic respiratory failure, likely secondary to COPD exacerbation and pneumonia. He was subsequently intubated and has been managed in the intensive care unit. Yesterday he converted to A. fib with RVR. He received amiodarone bolus followed by continuous drip. He subsequently converted back to sinus rhythm. DIAGNOSTICS: Current telemetry reading shows sinus rhythm with heart rate in the 70s Chest x-ray shows venous hypertension and interstitial edema with probable left pleural effusion and atelectasis Lab data: WBC 20.8, hemoglobin 11.5, hematocrit 35.4, platelet 223, sodium 139, potassium 4.0, BUN 36, creatinine 0.96, AST 34, ALT 36, BNP 1440, troponins negative Vital signs: Blood pressure 151/58, respiratory rate 24, pulse 70, SpO2 92% on 50% FiO2 PAST MEDICAL HISTORY: Congestive heart failure, hypertension, obesity, COPD PHYSICAL EXAMINATION: This is a 60-year-old obese male in no apparent distress at the time of my examination. Sedated on ventilator. HEENT: Head is atraumatic, normocephalic. Pupils are equal, round. Sclerae anicteric. Conjunctivae are clear. Mucous membranes of the mouth are moist. Neck is supple. There is no jugular venous distention. CHEST EXAMINATION: Lungs are rhonchorous to auscultation. No chest wall tenderness is noted on palpation or with deep breathing. HEART EXAMINATION: Heart regular rate and rhythm. S1, S2 heard. No murmurs, gallops or rub. ABDOMEN: Soft, nontender. Bowel sounds are heard. No organomegaly noted. EXTREMITIES: Weak peripheral pulses. 2+ peripheral edema and no calf tenderness noted. NEUROLOGIC EXAMINATION: Sedated on ventilator. FINAL ASSESSMENT AND PLAN: Atrial fibrillation with RVR, converted to sinus rhythm with IV amiodarone Mitral regurgitation, moderate Acute hypoxic respiratory failure, multifactorial Leukocytosis, secondary to pneumonia History of hypertension History of smoking Obesity, BMI 38 PLAN: Check TSH Switch to by mouth amiodarone 400 mg daily Anticoagulation for atrial fibrillation per primary team Further recommendations will be based upon clinical course I am dictating on behalf of Dr Sarabjit Moreland's history/physical and assessment/plan. Past Medical History Past Medical History: Heart Failure, COPD, Hypertension Additional Past Medical History / Comment(s): Sees Dr France outpatient History of Any Multi-Drug Resistant Organisms: MRSA Date of last positivie culture/infection: 10/12/21 MDRO Source:: Sputum Past Surgical History: Orthopedic Surgery Past Anesthesia/Blood Transfusion Reactions: No Reported Reaction Past Psychological History: No Psychological Hx Reported Smoking Status: Current every day smoker Past Alcohol Use History: None Reported Past Drug Use History: Marijuana, Opiates Additional Drug Use History / Comment(s): Takes prescribed opiates and methadone. Medications and Allergies Home Medications Medication Instructions Recorded Confirmed Type Albuterol Nebulized [Ventolin 2.5 mg INHALATION RT-Q4H PRN 10/12/21 10/12/21 History Nebulized] Albuterol Sulfate [Albuterol 2 puff PO RT-Q6H PRN 10/12/21 10/12/21 History Sulfate Hfa] Cyclobenzaprine [Flexeril] 10 mg PO HS 10/12/21 10/12/21 History Fluticasone/Umeclidin/Vilanter 1 puff INHALATION RT-DAILY 10/12/21 10/12/21 History [Trelegy Ellipta 200-62.5-25] Loratadine [Claritin] 10 mg PO DAILY 10/12/21 10/12/21 History Methadone [Dolophine] 10 mg PO Q8HR 10/12/21 10/12/21 History Metoprolol Succinate (ER) [Toprol 100 mg PO DAILY 10/12/21 10/12/21 History Xl] Omeprazole [PriLOSEC] 20 mg PO AC-SUPPER 10/12/21 10/12/21 History Potassium Chloride [Potassium 10 meq PO DAILY 10/12/21 10/12/21 History Chloride ER] Simvastatin 10 mg PO HS 10/12/21 10/12/21 History amLODIPine 10 mg PO DAILY 10/12/21 10/12/21 History lisinopriL [Zestril] 40 mg PO DAILY 10/12/21 10/12/21 History Allergies Allergy/AdvReac Type Severity Reaction Status Date / Time No Known Allergies Allergy Verified 10/12/21 12:20 Physical Exam Vitals: Vital Signs Temp Pulse Resp BP Pulse Ox FiO2 10/15/21 07:50 71 10/15/21 07:42 71 10/15/21 07:25 74 10/15/21 07:16 50 10/15/21 07:00 71 24 137/73 92 L 50 10/15/21 06:00 78 24 152/78 93 L 50 10/15/21 05:00 78 24 137/69 92 L 50 10/15/21 04:26 71 10/15/21 04:13 76 10/15/21 04:09 50 10/15/21 04:00 98.4 F 80 24 141/75 93 L 50 10/15/21 03:00 80 24 141/78 92 L 50 10/15/21 02:00 82 24 148/70 93 L 50 10/15/21 01:00 78 24 140/67 93 L 50 10/15/21 00:39 77 10/15/21 00:23 82 10/15/21 00:19 50 10/15/21 00:00 80 24 151/74 91 L 50 10/14/21 23:00 80 24 154/76 92 L 50 10/14/21 22:00 84 24 155/74 92 L 50 10/14/21 21:00 81 24 155/75 93 L 50 10/14/21 20:55 82 10/14/21 20:33 93 10/14/21 20:25 50 10/14/21 20:00 98.1 F 85 24 161/75 94 L 50 10/14/21 19:00 80 24 147/71 94 L 10/14/21 18:00 79 24 138/67 94 L 10/14/21 17:00 81 24 146/70 94 L 10/14/21 16:10 80 10/14/21 16:00 99 F 80 24 137/64 94 L 50 10/14/21 15:58 80 10/14/21 15:56 50 10/14/21 15:53 50 10/14/21 15:00 85 24 144/69 94 L 10/14/21 14:40 50 10/14/21 14:00 93 24 132/67 95 10/14/21 13:00 98 24 119/73 95 10/14/21 12:00 99.1 F 154 H 24 113/85 94 L 60 10/14/21 11:00 158 H 24 139/76 92 L 10/14/21 10:58 50 10/14/21 10:00 184 H 24 149/69 92 L 10/14/21 09:00 107 H 24 158/76 94 L Intake and Output 10/14/21 10/15/21 10/15/21 22:59 06:59 14:59 Intake Total 628.637 813.600 33 Output Total 500 640 60 Balance 128.637 173.600 -27 Intake: IV 80 80 10 Lactated Ringers 1,000 ml 80 80 10 @ 75 mls/hr IV .[id number] [facility] Rx#:[id number] Intake, IV Titration 297.637 489.600 Amount Amiodarone 450 mg In 228.893 Dextrose 5% in Water 250 ml @ 0.5 MG/MIN 16.667 mls/hr IV .Q15H Z[facility] Rx#: [id number] propofoL 1,000 mg In 297.637 260.707 Empty Bag 1 bag @ 5 MCG/ KG/MIN 3.18 mls/hr IV . Q24H [facility] Rx#:[id number] Tube Feeding 161 184 23 Other 90 60 Output: Urine 500 640 60 Other: Voiding Method Indwelling Catheter Indwelling Catheter Weight 104.7 kg ABP, PAP, CO, CI - Last 8 Hours Arterial Blood Pressure 151/58 Arterial Blood Pressure 160/60 Arterial Blood Pressure 159/62 Arterial Blood Pressure 166/65 Arterial Blood Pressure 160/65 Arterial Blood Pressure 165/63 Arterial Blood Pressure 150/58 Results 10/15/21 04:37 10/15/21 04:37 Cardiac Enzymes 10/15/21 Range/Units 04:37 AST 34 (17-59) U/L CBC 10/15/21 Range/Units 04:37 WBC 20.8 H (3.8-10.6) k/uL RBC 3.68 L (4.30-5.90) m/uL Hgb 11.5 L (13.0-17.5) gm/dL Hct 35.4 L (39.0-53.0) % Plt Count 223 (150-450) k/uL Comprehensive Metabolic Panel 10/15/21 Range/Units 04:37 Sodium 139 (137-145) mmol/L Potassium 4.0 (3.5-5.1) mmol/L Chloride 106 (98-107) mmol/L Carbon Dioxide 28 (22-30) mmol/L BUN 36 H (9-20) mg/dL Creatinine 0.96 (0.66-1.25) mg/dL Glucose 150 H (74-99) mg/dL Calcium 8.6 (8.4-10.2) mg/dL AST 34 (17-59) U/L ALT 36 (4-49) U/L Alkaline Phosphatase 80 (38-126) U/L Total Protein 5.5 L (6.3-8.2) g/dL Albumin 3.0 L (3.5-5.0) g/dL Current Medications Generic Name Dose Route Start Last Admin Trade Name Freq PRN Reason Stop Dose Admin Albuterol/Ipratropium 3 ml 10/12/21 12:00 10/15/21 07:25 Ipratropium-Albuterol 3 Ml Neb INHALATION 3 ml RT-Q4H ZAIN Administration Amiodarone HCl 400 mg 10/15/21 09:00 Amiodarone 200 Mg Tab PO DAILY ZAIN Amlodipine Besylate 10 mg 10/14/21 21:00 10/14/21 22:18 Amlodipine 10 Mg Tab PO 10 mg DAILY ZAIN Administration Budesonide 1 mg 10/12/21 20:00 10/15/21 07:25 Budesonide 1 Mg/2 Ml Nebu INHALATION 1 mg RT-BID ZAIN Administration Chlorhexidine Gluconate 15 ml 10/12/21 09:00 10/14/21 21:12 Chlorhexidine Gluconate 15 Ml Cup MUCOUS MEM 15 ml BID ZAIN Administration Enoxaparin Sodium 40 mg 10/12/21 09:00 10/14/21 09:02 Enoxaparin 40 Mg/0.4 Ml Syringe SQ 40 mg DAILY ZAIN Administration Formoterol Fumarate 20 mcg 10/12/21 20:00 10/15/21 07:25 Formoterol Fumarate 20 Mcg/2 Ml Nebu INHALATION 20 mcg RT-BID ZAIN Administration Furosemide 40 mg 10/15/21 09:00 Furosemide 10 Mg/Ml 4 Ml Vial IV Q12HR ZAIN Propofol 1,000 mg/ IV Solution 100 mls @ 3.18 mls/hr 10/12/21 02:30 10/15/21 05:44 IV Infused .Q24H ZAIN Titration Protocol 5 MCG/KG/MIN Lactated Ringer's 1,000 mls @ 75 mls/hr 10/12/21 11:30 10/15/21 05:27 Lactated Ringers IV 75 mls/hr .[id number] ZAIN Administration Piperacillin Sod/Tazobactam 100 mls @ 25 mls/hr 10/13/21 16:00 10/14/21 23:35 Sod 3.375 gm/ Sodium Chloride IVPB 25 mls/hr Q8HR ZAIN Administration Protocol Vancomycin HCl 1,750 mg/ 500 mls @ 167 mls/hr 10/14/21 13:00 10/15/21 00:53 Sodium Chloride IVPB 167 mls/hr Q12H ZAIN Administration Insulin Aspart 0 unit 10/13/21 12:45 10/15/21 05:16 Insulin Aspart (Novolog) 100 Unit/Ml Vial SQ 2 unit Q6HR ZAIN Administration Protocol Lisinopril 40 mg 10/14/21 22:45 10/14/21 22:40 Lisinopril 20 Mg Tab PO 40 mg DAILY ZAIN Administration Methylprednisolone Sodium Succinate 60 mg 10/12/21 12:00 10/15/21 05:16 Methylprednisolone Sod Succi 125 Mg/2 Ml Vial IV 60 mg Q6HR ZAIN Administration Metoprolol Succinate 100 mg 10/14/21 21:00 10/14/21 21:12 Metoprolol Succinate (Er) 100 Mg Tab.Er.24h PO 100 mg DAILY ZAIN Administration Miscellaneous Information 1 each 10/13/21 05:22 Magnesium Replacement Protocol 1 Each [facility] [place] DAILY PRN Per Protocol Protocol Miscellaneous Information 1 each 10/15/21 05:04 Potassium Replacement Protocol 1 Each Mis MISCELLANE DAILY PRN Per Protocol Protocol Morphine Sulfate 4 mg 10/12/21 02:20 10/15/21 05:26 Morphine Sulfate 4 Mg/Ml Syringe IV 4 mg Q4HR PRN Administration Pain Scale 8 to 10 Naloxone HCl 0.2 mg 10/12/21 04:19 Naloxone 0.4 Mg/Ml 1 Ml Vial IV Q2M PRN Opioid Reversal Pantoprazole Sodium 40 mg 10/12/21 09:00 10/14/21 09:02 Pantoprazole 40 Mg/10 Ml Vial IV 40 mg DAILY ZAIN Administration Intake and Output 10/14/21 10/15/21 10/15/21 22:59 06:59 14:59 Intake Total 628.637 813.600 33 Output Total 500 640 60 Balance 128.637 173.600 -27 Intake: IV 80 80 10 Lactated Ringers 1,000 ml 80 80 10 @ 75 mls/hr IV .[id number] ZAIN Rx#:[id number] Intake, IV Titration 297.637 489.600 Amount Amiodarone 450 mg In 228.893 Dextrose 5% in Water 250 ml @ 0.5 MG/MIN 16.667 mls/hr IV .Q15H ZAIN Rx#: [id number] propofoL 1,000 mg In 297.637 260.707 Empty Bag 1 bag @ 5 MCG/ KG/MIN 3.18 mls/hr IV . Q24H ZAIN Rx#:[id number] Tube Feeding 161 184 23 Other 90 60 Output: Urine 500 640 60 Other: Voiding Method Indwelling Catheter Indwelling Catheter Weight 104.7 kg 10/15/21 04:37 10/15/21 04:37
[2021-10-15] MEDS: lisinopriL 20 MG TAB PO SCH (09:07)
[2021-10-15] MEDS: amLODIPine 10 MG TAB PO SCH (09:07)
[2021-10-15] MEDS: FUROSEMIDE 10 MG/ML 4 ML VIAL IV SCH ×2 (09:08→20:13)
[2021-10-15] MEDS: PANTOPRAZOLE 40 MG/10 ML VIAL IV SCH (09:08)
[2021-10-15] MEDS: CHLORHEXIDINE GLUCONATE 15 ML CUP MUCOUS MEM SCH ×2 (09:08→20:13)
[2021-10-15] MEDS: AMIODARONE 200 MG TAB PO SCH (09:08)
[2021-10-15] MEDS: METOPROLOL SUCCINATE (ER) 100 MG TAB.ER.24H PO SCH (09:08)
[2021-10-15] MEDS: PIPERACILLIN-TAZOBACTAM 3.375 GM in SODIUM CHLORIDE 0.9% 100 ML IVPB SCH (09:08)
[2021-10-15] MEDS: ENOXAPARIN 40 MG/0.4 ML SYRINGE SQ SCH (09:09)
[2021-10-15 11:15] LABS: T4, Free (Free Thyroxine) 1.32 ng/dL (0.78-2.19)
[2021-10-15 11:38] LABS: Glucose,Whole Blood 127 mg/dL (70-110)
--- NOTE | 2021-10-15 11:50 | P.PN ---
Subjective Progress Note Date: 10/15/21 60-year-old male, who presented to the emergency department, on October 12, with shortness of breath, and impending respiratory failure. The patient had mental status changes, as well. I did have a chance to speak to the ER physician, who admitted the patient. They attempted BiPAP treatment for this patient, but he kept on pulling the mask off, becoming more agitated, more short of breath, and desaturating. For that reason, the patient was sedated and intubated, placed on the mechanical ventilator, and transferred to the ICU. Currently, he is on volume assist control mode, rate 24, tidal volume 500, FiO2 80%, and PEEP of 5. Blood gases show pO2 144, pCO2 of 68, and a pH is 7.21. Both blood gases were done on 100%, and, the rate after that blood gas was increased from 18 up to 24. The patient remains on propofol at 40 mcg/kg/m, and lactated Ringer's at 75 mL an hour. A radial art line was placed. As well as a left internal jugular triple-lumen catheter. White count 10.8, hemoglobin 11, hematocrit 34, and platelet count normal. Repeat blood gases show a PaO2 of 90, pCO2 of 42, and a pH is 7.4. Sodium 136, potassium 4.5, chlorides 107, CO2 27, BUN 26, creatinine 1.21. Troponin was less than 0.012. Urine was negative. Computed tomography scan of the brain was negative. Chest x-ray shows diffuse bilateral infiltrates, cardiomegaly, and could be consistent with fluid overload. Progress note dated 10/13/2021. 60-year-old male seen yesterday in consultation. Please see my note above. He was admitted through the emergency room, with respiratory failure, and was intubated by the ER physician. He failed BiPAP therapy. He remains on mechanical ventilator. Yesterday, we placed a right reveal arterial line, and a left internal jugular triple lumen catheter. Current ventilator settings include the volume assist control modality, rate 24, tidal volume 500, FiO2 60%, and PEEP of 5. Blood gases on those same settings, but 70%, show a PaO2 of 103, pCO2 44, and a pH is 7.38. FiO2 was reduced from 70, down to 60%. He is getting lactated Ringer's at 75 mL an hour, we'll follow 50 mcg/kg/m, and vital high protein at 35 mL an hour, with a goal of 55 mL an hour. The plan today is a daily interruption of sedation, adding Zosyn, and getting his tube feeds up to goal. White count 12, hemoglobin 11.5, hematocrit 34.4, and platelet count is normal. Sodium 137, potassium 4.2, chlorides 110, CO2 25, BUN 26, creatinine 1.08. Albumin is 2.9. Chest x-ray shows a persistent infiltrate in the right lower lobe. Microbiologic studies are negative. On 10/14/2021, the patient is being seen for a follow-up. This morning, the patient is intubated on a mechanical ventilator. The patient was admitted on 10/12/2021. The patient is currently on propofol running at 55 mcg/kg per minute. IV fluids in the form of lactated Ringer at the rate of 75 mL an hour. The patient is intubated on a mechanical ventilator. The patient is an assist- control mode at the rate of 24 with a tidal volume of 500 and FiO2 of 50% with a PEEP of 5. Blood gases showed a pH of 7.39 with a pCO2 of 46 and pO2 of 83. Chest x-ray shows some limited opacification of the right lung base. There is also adequate positioning of the ET tube. No acute abnormalities are noted. The patient has a peak airway pressure of 23 cm of water. The patient is calm and comfortable. He is arousable once off the sedation. Overall fluid balance has been +2.9 L over the past 24 hours. The patient's white cell count is at 18 with a hemoglobin of 11 and a platelet count of 2:30. Pro-calcitonin level is at 0.33. ProBNP level is 1440. The patient has a sodium level of 137 with a BUN of 29 and a creatinine of 0.9. Patient is also on tube feeding at the rate of 55 mL an hour. No fever. No chills. No other significant events overnight. Cardiac rhythm is sinus for now. On today's evaluation of 10/15/2021, the patient is doing well. Patient is hemodynamically stable. The patient remains intubated on a mechanical ventilator. Patient remains on propofol which is running at 55 mcg/kg per minute. IV fluids are currently at KVO. The patient got diuresed over the past 24 hours and the patient is in a negative fluid balance. At the same time, the patient was found to have MRSA in the sputum and the patient was started on vancomycin yesterday. The patient is also on IV Zosyn. He is afebrile. White cell count is elevated at 20. Hemoglobin is at 11.5. Renal function is curren tly within normal limits. I give the patient sedation holiday and while the patient was being more rales, the patient went into atrial fibrillation with rapid ventricular response. At that point, the patient was loaded with amiodarone and the sedation holiday was discontinued. The patient was placed back on sedation and he was kept on a mechanical ventilated throughout the day yesterday. Subsequently, in the afternoon, the patient converted back to normal sinus rhythm. The patient is currently on amiodarone at 0.5 mg per minute. He is on a mechanical ventilator. On assist-control mode of mechanical ventilation at the rate of 24, tidal volume of 500, FiO2 of 50% with a PEEP of 5. Peak airway pressures 22. Blood gases showed a pH of 7.43 with a pCO2 of 44 and pO2 of 64. The patient is receiving enteral feeding for nutritional support and the patient is currently on ital HP at a rate of 26 an hour. No other significant events overnight otherwise. No fever. No chills. Cardiac rhythm remains sinus for now. Objective - Vital Signs Vital signs: Vital Signs Temp 98.4 F 10/15/21 04:00 Pulse 71 10/15/21 07:50 Resp 24 10/15/21 07:00 BP 137/73 10/15/21 07:00 Pulse Ox 92 L 10/15/21 07:00 FiO2 50 10/15/21 07:16 Intake & Output 10/14/21 10/15/21 10/15/21 18:59 06:59 18:59 Intake Total 8966.710 5348.237 33 Output Total 3095 930 60 Balance -1352.339 273.237 -27 Weight 105.6 kg 104.7 kg Intake: IV 385 120 10 Lactated Ringers 1,000 ml 385 120 10 @ 75 mls/hr IV .[id number] [facility] Rx#:[id number] Intake, IV Titration 355.661 687.237 Amount Amiodarone 450 mg In 228.893 Dextrose 5% in Water 250 ml @ 0.5 MG/MIN 16.667 mls/hr IV .Q15H [facility] Rx#: [id number] propofoL 1,000 mg In 355.661 458.344 Empty Bag 1 bag @ 5 MCG/ KG/MIN 3.18 mls/hr IV . Q24H [facility] Rx#:[id number] Tube Feeding 532 276 23 Other 470 120 Output: Urine 3095 930 60 Other: Voiding Method Indwelling Catheter Indwelling Catheter ABP, PAP, CO, CI - Last Documented Arterial Blood Pressure 151/58 - Exam No acute distress, sedated on propofol, with an orally placed endotracheal tube, and NG tube. The patient is well sedated with propofol and patient's, comfo rtable Head exam was generally normal. There was no scleral icterus or corneal arcus. Mucous membranes were moist. HEENT examination is grossly unremarkable. Neck supple. Full range of motion. No adenopathy thyromegaly or neck vein distention. Cardiovascular examination reveals regular rhythm rate. Cardiac exam revealed the PMI to be normally situated and sized. The rhythm was regular and no extrasystoles were noted during several minutes of auscultation. The first and second heart sounds were normal and physiologic splitting of the second heart sound was noted. There were no murmurs, rubs, clicks, or gallops. Lungs reveal diffuse bilateral rhonchi. Wheezes are noted. No crackles. Breath sounds equal bilaterally but diminished. Abdomen soft bowel sounds are heard. No masses or tenderness. Extremities are intact. No cyanosis clubbing or edema. Examination of the skin revealed no evidence of significant rashes, suspicious appearing nevi or other concerning lesions. Neurologic the patient is sedated for now - Labs CBC & Chem 7: 10/15/21 04:37 10/15/21 04:37 Labs: Abnormal Lab Results - Last 24 Hours (Table) 10/14/21 10/14/21 10/14/21 Range/Units 11:38 18:09 23:28 WBC (3.8-10.6) k/uL RBC (4.30-5.90) m/uL Hgb (13.0-17.5) gm/dL Hct (39.0-53.0) % Neutrophils # (1.3-7.7) k/uL Lymphocytes # (1.0-4.8) k/uL ABG pO2 (83-108) mmHg ABG HCO3 (21-25) mmol/L ABG Total CO2 (19-24) mmol/L ABG O2 Saturation (94-97) % BUN (9-20) mg/dL Glucose (74-99) mg/dL POC Glucose (mg/dL) 182 H 138 H 160 H (70-110) mg/dL Total Protein (6.3-8.2) g/dL Albumin (3.5-5.0) g/dL 10/15/21 10/15/21 10/15/21 Range/Units 04:37 04:37 05:10 WBC 20.8 H (3.8-10.6) k/uL RBC 3.68 L (4.30-5.90) m/uL Hgb 11.5 L (13.0-17.5) gm/dL Hct 35.4 L (39.0-53.0) % Neutrophils # 19.2 H (1.3-7.7) k/uL Lymphocytes # 0.7 L (1.0-4.8) k/uL ABG pO2 (83-108) mmHg ABG HCO3 (21-25) mmol/L ABG Total CO2 (19-24) mmol/L ABG O2 Saturation (94-97) % BUN 36 H (9-20) mg/dL Glucose 150 H (74-99) mg/dL POC Glucose (mg/dL) 154 H (70-110) mg/dL Total Protein 5.5 L (6.3-8.2) g/dL Albumin 3.0 L (3.5-5.0) g/dL 10/15/21 Range/Units 05:58 WBC (3.8-10.6) k/uL RBC (4.30-5.90) m/uL Hgb (13.0-17.5) gm/dL Hct (39.0-53.0) % Neutrophils # (1.3-7.7) k/uL Lymphocytes # (1.0-4.8) k/uL ABG pO2 64 L (83-108) mmHg ABG HCO3 29 H (21-25) mmol/L ABG Total CO2 30 H (19-24) mmol/L ABG O2 Saturation 93.2 L (94-97) % BUN (9-20) mg/dL Glucose (74-99) mg/dL POC Glucose (mg/dL) (70-110) mg/dL Total Protein (6.3-8.2) g/dL Albumin (3.5-5.0) g/dL Microbiology - Last 24 Hours (Table) 10/13/21 10:23 Blood Culture - Preliminary Blood No Growth after 24 hours 10/13/21 09:25 Blood Culture - Preliminary Blood No Growth after 24 hours 10/12/21 03:11 Gram Stain - Final Sputum Sputum Culture - Final Methicillin resist S. aureus Assessment and Plan Plan: Acute hypoxemic respiratory failure, likely multifactorial, in part related to COPD exacerbation, possible CHF, and also possible pneumonia, RLL. The patient is intubated on mechanical ventilator. The patient sedated for now. The patient remains on a combination of DuoNeb nebulized treatments around the clock, and covered with antibiotics with IV Zosyn. IV vancomycin was also had yesterday as the patient was found to have MRSA in the sputum, considering the possibility of an underlying MRSA pneumonia. Blood gases are noted. There is stable. Chest x-ray findings are also stable. The patient is also being diuresis with IV Lasix. Acute hypoxemic respiratory failure requiring intubation and mechanical ventilation, on 10/12/2021. Mental status changes, likely related to hypoxemic respiratory failure. CHF, preserved LV function with an ejection fraction of 60-65% Paroxysmal atrial fibrillation, current rhythm is sinus, currently on amiodarone drip at 0.5 mg per minute and the patient was also given echocardiogram that showed a preserved LV function. History of heavy tobacco use. Chronic pain , back Chronic methadone user, methadone 10 mg q hours Obesity COPD Leukocytosis, white cell count is elevated at 20 Hyperlipidemia Plan: Continue ventilator support Continue IV Zosyn and start the patient on vancomycin for MRSA in the sputum Monitor the white cell count, white cell count remains elevated Keep the IV fluids at KVO Lasix 40 mg IV every 12 hours Obtain 2-D echocardiogram yesterday and showed a preserved LV function Discontinue the amiodarone drip and switch this patient oral amiodarone 400 mg by mouth twice a day Sedation holiday Wean off sedation and check the patient's weaning parameters Assessment patient's readiness for further weaning Possible extubation today We'll continue to follow make further recommendations based on her progress. This is a critically care evaluation that was done more than 30 minutes. Time with Patient: Greater than 30
[2021-10-15] MEDS ORDERED: cloNIDine 0.2 MG/24HR PATCH TRANSDERM SCH (16:00)
--- NOTE | 2021-10-15 16:25 | CDI ---
Documentation Clarification Form Date: 10/15/2021 04:03:44 PM From: Laxmi Mullins RN CCDS Admit Date: 10/12/2021 02:20:00 AM Patient Name: Stu Tineo Visit Number: [id number] Discharge Date: ATTENTION: The Clinical Documentation Specialists (CDI) and [facility] Coding Staff appreciate your assistance in clarifying documentation. Please respond to the clarification below the line at the bottom and electronically sign. The CDI & [facility] Coding staff will review the response and follow-up if needed. Please note: Queries are made part of the Legal Health Record. If you have any questions, please contact the author of this message via ITS. Dr. Yogesh Mendoza Your patient has the documented symptom of Altered Mental Status 10/12, ED Note. Additional clarification regarding the etiology/cause of this symptom is requested. History/Risk Factors: 60-year-old male presents to the ED via EMS with Acute hypoxia oxygen saturation was 30% per EMS. The is tachycardic, tachypneic and hypotensive on BiPAP. 10/12, H&P. Medical History: Recent admission with CHF and AECOPD and HTN. Clinical Indicators: VSS: 10/12 B/P 140/77; HR 108; Temp 98.3 F Axillary; RR 34; SpO2 98% BiPAP Labs: 10/12 Wbc 14.7, Hgb 12.5, Neutrophils 9.1, ABG: PH 7.21; PCO2 68; PO2 144; HCO3 27; Total CO2 29; Oxygen Sat 99.2. Toxicology: Opiates, Methadone detected. X Ray: 10/[address] Brain:10/[address] scan. 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 Treatment: 10/12 BiPAP, Mechanical Ventilator, Morphine, 10/13 Zosyn ivpb x 1 Please clarify the etiology of the symptom of Altered Mental Status: [ ] Metabolic Encephalopathy due to [insert cause of encephalopathy] [ ] Hypoxemic Encephalopathy [ ] Other condition (please specify) [ ] Unable to determine Query answered on PN 10/16 Dr Powell Altered mental status, Acute metabolic encephalopathy most likely secondary to hypoxemic respiratory failure. (Template Last Revised: April 2020) MTDD
[2021-10-15 18:02] LABS: Glucose,Whole Blood 158 mg/dL (70-110)
--- NOTE | 2021-10-15 21:12 | P.PN ---
Subjective Progress Note Date: 10/15/21 This is a pleasant 60 years old male with past medical history of Heart Failure, COPD, Hypertension. Patient currently is intubated and could not provide information so it was obtained from start of her records. No family at bedside. I called the son Misael Tineo who is listed as next of kin and he confirmed to me patient has no but for NSAIDs and that he is the next of kin. his number was [phone]. He told me the patient was in the hospital in [place] about 3 weeks ago for chest pain and shortness of breath and he was been treated and discharged on oxygen after 1 week, he has been using oxygen as needed especially at night as per brother. 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 as per brother patient used to be heavy smoker 2 packs per day was cutting down and he thinks now he is on 1 pack per day, no alcohol or illicit drugs per brother. on reviewing the records at [facility] patient was for acute hypoxic hypercapnic respiratory failure secondary to COPD exacerbation with acute diastolic congestive heart failure with ejection fraction 55-60%. ProBNP was 1594 he had elevated d-dimer over CTA of the chest show no evidence of pulmonary embolism but pleural effusion with vascular pulmonary infiltrates and atelectasis, congestive heart failure as possible. and nonspecific enlarged mediastinal lymph nodes Patient presents with acute hypoxia, his oxygen saturation was 30% per EMS. He was tachycardic and tachypneic and hypotensive on arrival and he was placed on BiPAP before he got intubated. Currently patient is afebrile, temperature is slightly low at 97.5. He is saturating 98% on 80% FiO2. Blood pressure 109/62 left showing WBC slightly up at 10.8. Hemoglobin 11. Sodium is 136, creatinine 1.2, glucose 126 and 33 Urine analysis showing 2+ protein, RBCs 67. Coronavirus varus not detected. Chest x-ray showing coarse lung markings but no obvious heart failure or pulmonary consolidation CT of the brain negative and unchanged. CT EKG showing normal sinus rhythm at [address]-T changes In the emergency room patient received vasotec, Ativan, morphine, succinylcholine, propofol and Lovenox and Protonix 10/13/2021 Patient remains in the ICU in critical condition, he remains intubated and sedated with saline to induction of sedation and pulmonary/critical care team followed closely and make suitable adjustment. Remains on Solu-Medrol 40 mg Past leukocytosis of 12,000, procalcitonin is elevated at0.33 Patient Is Placed on Zosyn and It Also on Finger a Lactate at 75 mL/h 10/14/2021 Patient is seen and evaluated and follow-up continues to be in the ICU with multiple medical consultations following. Patient continues on mechanical vent and FiO2 is currently 50% with a PEEP of 5. Per nursing staff there was discussion of possible weaning although patient's heart rate elevated in found to be in atrial fibrillation with RVR being started on IV amiodarone. Will consult cardiology and continue to monitor closely. Patient was admitted for COPD exacerbation with CHF and BNP was found to be 1400. Pulmonary clamp remover following inpatient is continued on IV steroids along with inhalers and also maintained on Zosyn. Patient was given a dose of Lasix today as chest x-ray showed continued airspace opacification within the right lower lung which have slightly decreased aeration compared to previous day with no evidence of pleural effusion focal consolidation or pneumothorax and the ET tube needs possible advancement of 4 cm and also NG tube needs advancement as well. Follow-up chest x-ray recommended. WBC is elevated at 18.7 and hemoglobin is 11.1, sodium 137 with a potassium 4.3, creatinine 0.99, magnesium 2.1. 2-D echo was ordered. 10/15/2021 Patient continues to be in the ICU with multiple medical consultations following. Currently being extubated at this time. Cardiology was consulted as patient was found to be in atrial fibrillation with rapid ventricular rate and initially started on amiodarone and converted back to sinus rhythm. Patient normally takes Norvasc and metoprolol in the outpatient setting and this had not been resumed and patient also having some hypertension and resumed these medications. Patient will also likely be transitioning to oral amiodarone and will discuss with cardiology and pulmonary clamp remover about anticoagulation. Patient continues on breathing inhalational treatments along with subcutaneous Lovenox for anticoagulation for now, IV Lasix twice daily along with IV steroids 60 every 6 IV Zosyn, and IV vancomycin. Weaning trials being conducted and propofol is currently off. Chest x-ray today shows pulmonary venous hypertension and interstitial edema probable left pleural effusion and associ ated atelectasis versus basilar edema or pneumonia with no evident pneumothorax, prominence of the pulmonary arteries could be indicative of underlying pulmonary artery hypertension. WBC continues to be elevated and is currently 20.8 and patient remains afebrile, possible component of IV steroids along with MRSA noted in the sputum culture. BMP within normal limits and blood sugars are controlled on sliding scale every 6 and recommend continue as patient is also noted to be on lactated Ringer's. Review of systems: Unable to obtain as patient is currently being extubated Active Medications Albuterol/Ipratropium (Ipratropium-Albuterol 3 Ml Neb) 3 ml INHALATION RT-Q4H [facility] Last Admin: 10/15/21 07:25 Dose: 3 ml Amiodarone HCl (Amiodarone 200 Mg Tab) 400 mg PO DAILY [facility] Last Admin: 10/15/21 09:08 Dose: 400 mg Amlodipine Besylate (Amlodipine 10 Mg Tab) 10 mg PO DAILY [facility] Last Admin: 10/15/21 09:07 Dose: 10 mg Budesonide (Budesonide 1 Mg/2 Ml Nebu) 1 mg INHALATION RT-BID [facility] Last Admin: 10/15/21 07:25 Dose: 1 mg Chlorhexidine Gluconate (Chlorhexidine Gluconate 15 Ml Cup) 15 ml MUCOUS MEM BID [facility] Last Admin: 10/15/21 09:08 Dose: 15 ml Enoxaparin Sodium (Enoxaparin 40 Mg/0.4 Ml Syringe) 40 mg SQ DAILY [facility] Last Admin: 10/15/21 09:09 Dose: 40 mg Formoterol Fumarate (Formoterol Fumarate 20 Mcg/2 Ml Nebu) 20 mcg INHALATION RT-BID [facility] Last Admin: 10/15/21 07:25 Dose: 20 mcg Furosemide (Furosemide 10 Mg/Ml 4 Ml Vial) 40 mg IV Q12HR [facility] Last Admin: 10/15/21 09:08 Dose: 40 mg Propofol 1,000 mg/ IV Solution 100 mls @ 3.18 mls/hr IV .Q24H [facility]; Protocol Last Titration: 10/15/21 05:44 Dose: Infused Lactated Ringer's (Lactated Ringers) 1,000 mls @ 75 mls/hr IV .[id number] [facility] Last Admin: 10/15/21 05:27 Dose: 75 mls/hr Piperacillin Sod/Tazobactam (Sod 3.375 gm/ Sodium Chloride) 100 mls @ 25 mls/hr IVPB Q8HR [facility]; Protocol Last Admin: 10/15/21 09:08 Dose: 25 mls/hr Vancomycin HCl 1,750 mg/ (Sodium Chloride) 500 mls @ 167 mls/hr IVPB Q12H [facility] Last Admin: 10/15/21 00:53 Dose: 167 mls/hr Insulin Aspart (Insulin Aspart (Novolog) 100 Unit/Ml Vial) 0 unit SQ Q6HR [facility]; Protocol Last Admin: 10/15/21 05:16 Dose: 2 unit Lisinopril (Lisinopril 20 Mg Tab) 40 mg PO DAILY [facility] Last Admin: 10/15/21 09:07 Dose: 40 mg Methylprednisolone Sodium Succinate (Methylprednisolone Sod Succi 125 Mg/2 Ml Vial) 60 mg IV Q6HR [facility] Last Admin: 10/15/21 05:16 Dose: 60 mg Metoprolol Succinate (Metoprolol Succinate (Er) 100 Mg Tab.Er.24h) 100 mg PO DAILY [facility] Last Admin: 10/15/21 09:08 Dose: 100 mg Miscellaneous Information (Magnesium Replacement Protocol 1 Each Misc) 1 each MISCELLANE DAILY PRN; Protocol PRN Reason: Per Protocol Miscellaneous Information (Potassium Replacement Protocol 1 Each Misc) 1 each MISCELLANE DAILY PRN; Protocol PRN Reason: Per Protocol Morphine Sulfate (Morphine Sulfate 4 Mg/Ml Syringe) 4 mg IV Q4HR PRN PRN Reason: Pain Scale 8 to 10 Last Admin: 10/15/21 05:26 Dose: 4 mg Naloxone HCl (Naloxone 0.4 Mg/Ml 1 Ml Vial) 0.2 mg IV Q2M PRN PRN Reason: Opioid Reversal Pantoprazole Sodium (Pantoprazole 40 Mg/10 Ml Vial) 40 mg IV DAILY [facility] Last Admin: 10/15/21 09:08 Dose: 40 mg PHYSICAL EXAMINATION: GENERAL: The patient is currently off sedation and tolerating and being extubated at this time. Obese Well developed, well nourished. HEENT: Pupils are round and equally reacting to light. EOMI. no scleral icterus. No conjunctival pallor. Normocephalic, atraumatic. No pharyngeal erythema. No thyromegaly. CARDIOVASCULAR: S1 and S2 muffled PULMONARY: diminished breath sounds bilaterally with some scattered rhonchi, crackles at the bases noted. ABDOMEN: soft. Nontender on exam. obese. non-distended, normoactive bowel sounds. No palpable organomegaly. MUSCULOSKELETAL: No joint swelling or deformity. EXTREMITIES: No cyanosis, clubbing, or pedal edema. NEUROLOGICAL: Unable to completely assess as patient is currently intubated and sedated SKIN: No rashes. Assessment: Acute hypoxic respiratory failure, present on admission, status post intubation and mechanical ventilation, being extubated 10/15/21 COPD with acute exacerbation altered mental status most likely secondary to hypoxic respiratory failure Atrial fibrillation with fast ventricular rate, new onset, converted to sinus rhythm and rate controlled on metoprolol and amiodarone Possible right lower lung pneumonia, present on admission with MRSA in the sputum Leukocytosis possibly secondary to above along with a component of induced by IV steroids mild acute on chronic congestive heart failure diastolic dysfunction, acute exacerbation Continued ongoing nicotine dependence acute on chronic hypoxic respiratory failure Hypertension obesity with BMI of 38.7 GI prophylaxis DVT prophylaxis: Subcutaneous Lovenox Full code Plan: This is a pleasant 60 years old male who presented with hypoxia requiring intubation, multifactorial with COPD, possible right lower lobe pneumonia, acute CHF exacerbation Continue with weaning parameters and has been extubated just now and continued on nasal cannula and will continue to monitor closely. Family at the bedside and recommend swallow eval and resuming home meds. Recommend to verify methadone and possibly titrate down for now, but should be resumed. Patient's heart rate currently rate controlled on amiodarone and metoprolol resumed. Norvasc resumed as well. continue with bronchodilator and Zosyn, WBC is elevated and sputum culture showing MRSA on 10/12/2021 patient is on Zosyn and also vancomycin and consulted infectious disease Prognosis is guarded Recommend PT/OT evaluation The impression and plan of care has been dictated by Mary Pena, nurse practitioner as directed. MD Lor I have performed a history and examination and MDM of this patient, discussed the same with the dictator, and agree with the dictator's assessment and plan as written ,documented as a scribe. Based on total visit time, I have performed more than 50% of the visit. Any additional findings or plans will be noted. Objective - Vital Signs Vital signs: Vital Signs Temp 98.4 F 10/15/21 04:00 Pulse 71 10/15/21 07:50 Resp 24 10/15/21 07:00 BP 137/73 10/15/21 07:00 Pulse Ox 92 L 10/15/21 07:00 FiO2 50 10/15/21 07:16 Intake & Output 10/14/21 10/15/21 10/15/21 18:59 06:59 18:59 Intake Total 9772.965 0762.237 33 Output Total 3095 930 60 Balance -1352.339 273.237 -27 Weight 105.6 kg 104.7 kg Intake: IV 385 120 10 Lactated Ringers 1,000 ml 385 120 10 @ 75 mls/hr IV .[id number] [facility] Rx#:[id number] Intake, IV Titration 355.661 687.237 Amount Amiodarone 450 mg In 228.893 Dextrose 5% in Water 250 ml @ 0.5 MG/MIN 16.667 mls/hr IV .Q15H [facility] Rx#: [id number] propofoL 1,000 mg In 355.661 458.344 Empty Bag 1 bag @ 5 MCG/ KG/MIN 3.18 mls/hr IV . Q24H [facility] Rx#:[id number] Tube Feeding 532 276 23 Other 470 120 Output: Urine 3095 930 60 Other: Voiding Method Indwelling Catheter Indwelling Catheter ABP, PAP, CO, CI - Last Documented Arterial Blood Pressure 151/58 - Labs CBC & Chem 7: 10/15/21 04:37 10/15/21 04:37 Labs: Abnormal Lab Results - Last 24 Hours (Table) 10/14/21 10/14/21 10/14/21 Range/Units 11:38 18:09 23:28 WBC (3.8-10.6) k/uL RBC (4.30-5.90) m/uL Hgb (13.0-17.5) gm/dL Hct (39.0-53.0) % Neutrophils # (1.3-7.7) k/uL Lymphocytes # (1.0-4.8) k/uL ABG pO2 (83-108) mmHg ABG HCO3 (21-25) mmol/L ABG Total CO2 (19-24) mmol/L ABG O2 Saturation (94-97) % BUN (9-20) mg/dL Glucose (74-99) mg/dL POC Glucose (mg/dL) 182 H 138 H 160 H (70-110) mg/dL Total Protein (6.3-8.2) g/dL Albumin (3.5-5.0) g/dL 10/15/21 10/15/21 10/15/21 Range/Units 04:37 04:37 05:10 WBC 20.8 H (3.8-10.6) k/uL RBC 3.68 L (4.30-5.90) m/uL Hgb 11.5 L (13.0-17.5) gm/dL Hct 35.4 L (39.0-53.0) % Neutrophils # 19.2 H (1.3-7.7) k/uL Lymphocytes # 0.7 L (1.0-4.8) k/uL ABG pO2 (83-108) mmHg ABG HCO3 (21-25) mmol/L ABG Total CO2 (19-24) mmol/L ABG O2 Saturation (94-97) % BUN 36 H (9-20) mg/dL Glucose 150 H (74-99) mg/dL POC Glucose (mg/dL) 154 H (70-110) mg/dL Total Protein 5.5 L (6.3-8.2) g/dL Albumin 3.0 L (3.5-5.0) g/dL 10/15/21 Range/Units 05:58 WBC (3.8-10.6) k/uL RBC (4.30-5.90) m/uL Hgb (13.0-17.5) gm/dL Hct (39.0-53.0) % Neutrophils # (1.3-7.7) k/uL Lymphocytes # (1.0-4.8) k/uL ABG pO2 64 L (83-108) mmHg ABG HCO3 29 H (21-25) mmol/L ABG Total CO2 30 H (19-24) mmol/L ABG O2 Saturation 93.2 L (94-97) % BUN (9-20) mg/dL Glucose (74-99) mg/dL POC Glucose (mg/dL) (70-110) mg/dL Total Protein (6.3-8.2) g/dL Albumin (3.5-5.0) g/dL Microbiology - Last 24 Hours (Table) 10/13/21 10:23 Blood Culture - Preliminary Blood No Growth after 24 hours 10/13/21 09:25 Blood Culture - Preliminary Blood No Growth after 24 hours 10/12/21 03:11 Gram Stain - Final Sputum Sputum Culture - Final Methicillin resist S. aureus
[2021-10-15] MEDS: hydrALAZINE HCL 20 MG/ML 1 ML VIAL IVP PRN (22:13)
--- NOTE | 2021-10-15 22:35 | P.CONS ---
History of Present Illness - Reason for Consult Consult date: 10/15/21 - History of Present Illness Patient is a 60-year male with a past medical history significant for COPD hypertension heart failure presenting to the hospital 4 days ago for evaluation of increasing shortness of breath apparently the patient's symptoms have been getting worse for 2 days before presentation hospital however get more worse with increasing shortness of breath hence presented to hospital no clear history of any fever or any chills he did have a cough with some sputum production no hemoptysis no nausea no vomiting no choking of food abdominal pain or any diarrhea patient on presentation to the hospital was afebrile no fever have recorded subsequently patient did have a white count of 14.7 thousand with a left shift which is up to 20,000 today patient did have normal kidney function liver exams are normal Pro-Leroy's was elevated urine was negative urine drug screen was positive for methadone and opiates COVID testing was negative patient did have a chest x-ray coarse lung markings but no obvious heart failure patient was intubated to protect his airways patient did have a sputum culture obtained which was finalized with MRSA vancomycin has been added infectious disease was consulted for further management of antibiotic repeat patient has been extubated this morning seem to be breathing comfortably patient denies having any chest pain continue to have a cough occasional sputum no hemoptysis no abdominal pain no diarrhea Past Medical History Past Medical History: Heart Failure, COPD, Hypertension Additional Past Medical History / Comment(s): Sees Dr [place] outpatient History of Any Multi-Drug Resistant Organisms: MRSA Year Discovered:: 10/12/21 MDRO Source:: Sputum Past Surgical History: Orthopedic Surgery Past Anesthesia/Blood Transfusion Reactions: No Reported Reaction Past Psychological History: No Psychological Hx Reported Smoking Status: Current every day smoker Past Alcohol Use History: None Reported Past Drug Use History: Marijuana, Opiates Additional Drug Use History / Comment(s): Takes prescribed opiates and methadone. Medications and Allergies Home Medications Medication Instructions Recorded Confirmed Type Albuterol Nebulized [Ventolin 2.5 mg INHALATION RT-Q4H PRN 10/12/21 10/12/21 History Nebulized] Albuterol Sulfate [Albuterol 2 puff PO RT-Q6H PRN 10/12/21 10/12/21 History Sulfate Hfa] Cyclobenzaprine [Flexeril] 10 mg PO HS 10/12/21 10/12/21 History Fluticasone/Umeclidin/Vilanter 1 puff INHALATION RT-DAILY 10/12/21 10/12/21 History [Trelegy Ellipta 200-62.5-25] Loratadine [Claritin] 10 mg PO DAILY 10/12/21 10/12/21 History Methadone [Dolophine] 10 mg PO Q8HR 10/12/21 10/12/21 History Metoprolol Succinate (ER) [Toprol 100 mg PO DAILY 10/12/21 10/12/21 History Xl] Omeprazole [PriLOSEC] 20 mg PO AC-SUPPER 10/12/21 10/12/21 History Potassium Chloride [Potassium 10 meq PO DAILY 10/12/21 10/12/21 History Chloride ER] Simvastatin 10 mg PO HS 10/12/21 10/12/21 History amLODIPine 10 mg PO DAILY 10/12/21 10/12/21 History lisinopriL [Zestril] 40 mg PO DAILY 10/12/21 10/12/21 History Allergies Allergy/AdvReac Type Severity Reaction Status Date / Time No Known Allergies Allergy Verified 10/12/21 12:20 Physical Exam Vitals: Vital Signs Temp Pulse Resp BP Pulse Ox FiO2 10/15/21 10:00 92 21 156/82 94 L 10/15/21 09:00 87 20 137/73 94 L 10/15/21 08:00 98.9 F 70 24 139/72 91 L 50 10/15/21 07:50 71 10/15/21 07:42 71 10/15/21 07:25 74 10/15/21 07:16 50 10/15/21 07:00 71 24 137/73 92 L 50 10/15/21 06:00 78 24 152/78 93 L 50 10/15/21 05:00 78 24 137/69 92 L 50 10/15/21 04:26 71 10/15/21 04:13 76 10/15/21 04:09 50 10/15/21 04:00 98.4 F 80 24 141/75 93 L 50 10/15/21 03:00 80 24 141/78 92 L 50 10/15/21 02:00 82 24 148/70 93 L 50 10/15/21 01:00 78 24 140/67 93 L 50 10/15/21 00:39 77 10/15/21 00:23 82 10/15/21 00:19 50 10/15/21 00:00 80 24 151/74 91 L 50 10/14/21 23:00 80 24 154/76 92 L 50 10/14/21 22:00 84 24 155/74 92 L 50 10/14/21 21:00 81 24 155/75 93 L 50 10/14/21 20:55 82 10/14/21 20:33 93 10/14/21 20:25 50 10/14/21 20:00 98.1 F 85 24 161/75 94 L 50 10/14/21 19:00 80 24 147/71 94 L 10/14/21 18:00 79 24 138/67 94 L 10/14/21 17:00 81 24 146/70 94 L 10/14/21 16:10 80 10/14/21 16:00 99 F 80 24 137/64 94 L 50 10/14/21 15:58 80 10/14/21 15:56 50 10/14/21 15:53 50 10/14/21 15:00 85 24 144/69 94 L 10/14/21 14:40 50 10/14/21 14:00 93 24 132/67 95 10/14/21 13:00 98 24 119/73 95 10/14/21 12:00 99.1 F 154 H 24 113/85 94 L 60 10/14/21 11:00 158 H 24 139/76 92 L 10/14/21 10:58 50 Intake and Output 10/14/21 10/15/21 10/15/21 22:59 06:59 14:59 Intake Total 628.637 813.600 386 Output Total 824 322 9380 Balance 128.637 173.600 -1234 Intake: IV 80 80 40 Lactated Ringers 1,000 ml 80 80 40 @ 75 mls/hr IV .[id number] [facility] Rx#:[id number] Intake, IV Titration 297.637 489.600 300 Amount Amiodarone 360 mg In 200 Dextrose 5% in Water 200 ml @ 1 MG/MIN 33.333 mls/ hr IV .Q6H [facility] Rx#: [id number] Amiodarone 450 mg In 228.893 Dextrose 5% in Water 250 ml @ 0.5 MG/MIN 16.667 mls/hr IV .Q15H [facility] Rx#: [id number] Piperacillin-Tazobactam 3 100 .375 gm In Sodium Chloride 0.9% 100 ml @ 25 mls/hr IVPB Q8HR [facility] Rx# :[id number] propofoL 1,000 mg In 297.637 260.707 Empty Bag 1 bag @ 5 MCG/ KG/MIN 3.18 mls/hr IV . Q24H [facility] Rx#:[id number] Tube Feeding 161 184 46 Other 90 60 Output: Urine 480 754 9609 Other: Voiding Method Indwelling Catheter Indwelling Catheter Indwelling Catheter Weight 104.7 kg ABP, PAP, CO, CI - Last 8 Hours Arterial Blood Pressure 187/70 Arterial Blood Pressure 177/66 Arterial Blood Pressure 145/55 Arterial Blood Pressure 151/58 Arterial Blood Pressure 160/60 Arterial Blood Pressure 159/62 Arterial Blood Pressure 166/65 Arterial Blood Pressure 160/65 Results CBC & Chem 7: 10/15/21 04:37 10/15/21 04:37 Labs: Abnormal Lab Results - Last 24 Hours (Table) 10/14/21 10/14/21 10/14/21 Range/Units 11:38 18:09 23:28 WBC (3.8-10.6) k/uL RBC (4.30-5.90) m/uL Hgb (13.0-17.5) gm/dL Hct (39.0-53.0) % Neutrophils # (1.3-7.7) k/uL Lymphocytes # (1.0-4.8) k/uL ABG pO2 (83-108) mmHg ABG HCO3 (21-25) mmol/L ABG Total CO2 (19-24) mmol/L ABG O2 Saturation (94-97) % BUN (9-20) mg/dL Glucose (74-99) mg/dL POC Glucose (mg/dL) 182 H 138 H 160 H (70-110) mg/dL Total Protein (6.3-8.2) g/dL Albumin (3.5-5.0) g/dL TSH (0.465-4.680) mIU/L 10/15/21 10/15/21 10/15/21 Range/Units 04:37 04:37 04:37 WBC 20.8 H (3.8-10.6) k/uL RBC 3.68 L (4.30-5.90) m/uL Hgb 11.5 L (13.0-17.5) gm/dL Hct 35.4 L (39.0-53.0) % Neutrophils # 19.2 H (1.3-7.7) k/uL Lymphocytes # 0.7 L (1.0-4.8) k/uL ABG pO2 (83-108) mmHg ABG HCO3 (21-25) mmol/L ABG Total CO2 (19-24) mmol/L ABG O2 Saturation (94-97) % BUN 36 H (9-20) mg/dL Glucose 150 H (74-99) mg/dL POC Glucose (mg/dL) (70-110) mg/dL Total Protein 5.5 L (6.3-8.2) g/dL Albumin 3.0 L (3.5-5.0) g/dL TSH 0.020 L (0.465-4.680) mIU/L 10/15/21 10/15/21 Range/Units 05:10 05:58 WBC (3.8-10.6) k/uL RBC (4.30-5.90) m/uL Hgb (13.0-17.5) gm/dL Hct (39.0-53.0) % Neutrophils # (1.3-7.7) k/uL Lymphocytes # (1.0-4.8) k/uL ABG pO2 64 L (83-108) mmHg ABG HCO3 29 H (21-25) mmol/L ABG Total CO2 30 H (19-24) mmol/L ABG O2 Saturation 93.2 L (94-97) % BUN (9-20) mg/dL Glucose (74-99) mg/dL POC Glucose (mg/dL) 154 H (70-110) mg/dL Total Protein (6.3-8.2) g/dL Albumin (3.5-5.0) g/dL TSH (0.465-4.680) mIU/L Microbiology - Last 24 Hours (Table) 10/13/21 10:23 Blood Culture - Preliminary Blood No Growth after 24 hours 10/13/21 09:25 Blood Culture - Preliminary Blood No Growth after 24 hours 10/12/21 03:11 Gram Stain - Final Sputum Sputum Culture - Final Methicillin resist S. aureus Assessment and Plan Plan: 1patient presented hospital with acute respiratory failure which is multifactorial in this patient who do have a history of COPD and heart failure with likely COPD exacerbation and a component of pneumonia with a sputum has been finalized with MRSA likely pathogen. 2vancomycin pharmacy to dose target trough of 15 while watching kidney function and vancomycin trough closely however discontinue Zosyn as no gram- negative has been brought in to decrease risk of nephrotoxicity. We will follow on clinical condition and cultures to further adjust medication if needed Thank you for this consultation will follow this patient along with you Time with Patient: Greater than 30
[2021-10-15 23:36] LABS: Glucose,Whole Blood 116 mg/dL (70-110)
[2021-10-16] MEDS: VANCOMYCIN 1,750 MG in SODIUM CHLORIDE 0.9% 500 ML 500 ML IVPB SCH ×2 (00:15→15:17)
[2021-10-16] MEDS: MORPHINE SULFATE 4 MG/ML SYRINGE IV PRN ×3 (03:24→21:31)
[2021-10-16] MEDS: IPRATROPIUM-ALBUTEROL 3 ML NEB INHALATION SCH ×6 (03:48→23:21)
[2021-10-16] MEDS: hydrALAZINE HCL 20 MG/ML 1 ML VIAL IVP PRN (04:21)
[2021-10-16 06:46] LABS: Glucose,Whole Blood 125 mg/dL (70-110)
[2021-10-16] MEDS: INSULIN ASPART (NovoLOG) 100 UNIT/ML VIAL SQ SCH ×4 (06:48→21:11)
[2021-10-16] MEDS: methylPREDNISolone SOD SUCCI 125 MG/2 ML VIAL IV SCH (06:54)
--- NOTE | 2021-10-16 08:00 | XR ---
EXAMINATION TYPE: XR chest 1V portable DATE OF EXAM: 10/16/2021 COMPARISON: 10/15/2021 HISTORY: Tube placement TECHNIQUE: Single frontal view of the chest is obtained. FINDINGS: ET and NG tube have been removed. Central line stable. Coarsened interstitium suggests chr onic interstitial lung disease. Mild cardiomegaly and atherosclerotic change aorta area of subsegment al changes at lung bases. Postsurgical change left shoulder and arthropathy right shoulder. IMPRESSION: 1. Improving basilar atelectasis or infiltrate and small effusion.
[2021-10-16 08:07] LABS: Basophils % (A) 0 %; Eosinophils # (A) 0.1 k/uL (0-0.7); Eosinophils % (A) 0 %; HCT 39.9 % (39.0-53.0); HGB 12.8 gm/dL (13.0-17.5); Lymphocytes # (A) 1.1 k/uL (1.0-4.8); Lymphocytes % (A) 6 %; MCH 30.6 pg (25.0-35.0); MCHC 32.1 g/dL (31.0-37.0); MCV 95.3 fL (80.0-100.0); Mean Platelet Volume 8.1; Monocytes # (A) 0.9 k/uL (0-1.0); Monocytes % (A) 5 %; Neutrophils # (A) 15.5 k/uL (1.3-7.7); Neutrophils % (A) 87 %; Platelet Count 269 k/uL (150-450); RBC 4.19 m/uL (4.30-5.90); RDW 14.5 % (11.5-15.5); WBC 17.7 k/uL (3.8-10.6)
[2021-10-16 08:25] LABS: ALT 57 U/L (4-49); AST 44 U/L (17-59); African American GFR (CKD) >90 (>60 ml/min/1.73 sqM); Albumin 3.5 g/dL (3.5-5.0); Alkaline Phosphatase 97 U/L (38-126); Anion Gap 4 mmol/L; Blood Urea Nitrogen 39 mg/dL (9-20); Calcium 8.9 mg/dL (8.4-10.2); Carbon Dioxide 31 mmol/L (22-30); Chloride 104 mmol/L (98-107); Glucose 129 mg/dL (74-99); Non-African American GFR(CKD) 88 (>60 ml/min/1.73 sqM); Potassium 3.5 mmol/L (3.5-5.1); Sodium 139 mmol/L (137-145); Total Bilirubin 0.7 mg/dL (0.2-1.3); Total Protein 6.1 g/dL (6.3-8.2)
[2021-10-16] MEDS: FORMOTEROL FUMARATE 20 MCG/2 ML NEBU INHALATION SCH (08:29)
[2021-10-16] MEDS: BUDESONIDE 1 MG/2 ML NEBU INHALATION SCH (08:29)
--- NOTE | 2021-10-16 08:51 | P.PN ---
Subjective Progress Note Date: 10/16/21 The patient is a 60-year-old male who is currently admitted to the hospital with acute hypoxic respiratory failure secondary to COPD exacerbation and pneumonia. Cardiology was consulted for new onset of A. fib, which spontaneously converted with amiodarone. The patient has since remained in sinus rhythm. Since extubation yesterday the patient has had uncontrolled hypertension. Dr. Moreland recommended clonidine patch in addition to his calcium channel talia, NELLIE inhibitor, and beta talia. The patient was interviewed and examined sitting up in the recliner chair. He is undergoing a breathing treatment. He states he is not currently having any chest pain or chest pressure. No current difficulty breathing. GENERAL: Well-appearing, well-nourished and in no acute distress. NECK: Supple without JVD or thyromegaly. LUNGS: Breath sounds are coarse to auscultation bilaterally. Respiration equal and unlabored. No wheezes. HEART: Regular rate and rhythm without murmurs, rubs or gallops. S1 and S2 heard. EXTREMITIES: Normal range of motion, no edema. No clubbing or cyanosis. Peripheral pulses intact and strong. VITALS: Blood pressure 170/69, pulse 94, respiratory rate 16, SpO2 96% on 2 L is continue TELEMETRY: Sinus rhythm to sinus tachycardia in the 90s LABS: WBC 17.7, hemoglobin 12.8, hematocrit 39.9, platelets 269, sodium 139, potassium 3.5, BUN 39, creatinine 0.95, AST 44, ALT 57 IMPRESSION: A. fib with RVR, conversion with amiodarone Uncontrolled hypertension, improving PLAN: Consider increasing clonidine patch to 0.3 if blood pressures do not improve throughout the day. Goal less than 150/90. Anticoagulation per primary team Further recommendations to be based on clinical course I am dictating on behalf of Dr Sarabjit Moreland's history/physical and assessment/plan. Objective - Vital Signs Vital signs: Vital Signs Temp 98.3 F 10/16/21 04:00 Pulse 92 10/16/21 08:42 Resp 16 10/16/21 07:00 BP 172/80 10/16/21 07:00 Pulse Ox 96 10/16/21 08:29 FiO2 50 10/15/21 15:56 Intake & Output 10/15/21 10/16/21 10/16/21 18:59 06:59 18:59 Intake Total 976 1080 Output Total 394 2300 Balance -2969 -1220 Intake: IV 130 120 Lactated Ringers 1,000 ml 130 120 @ 75 mls/hr IV .[id number] [facility] Rx#:[id number] Intake, IV Titration 800 Amount Amiodarone 360 mg In 200 Dextrose 5% in Water 200 ml @ 1 MG/MIN 33.333 mls/ hr IV .Q6H ONE Rx#: [id number] Piperacillin-Tazobactam 3 100 .375 gm In Sodium Chloride 0.9% 100 ml @ 25 mls/hr IVPB Q8HR [facility] Rx# :[id number] Vancomycin 1,750 mg In 500 Sodium Chloride 0.9% 500 ml 500 ml @ 167 mls/hr IVPB Q12H [facility] Rx#: [id number] Oral 960 Tube Feeding 46 Output: Urine 3947 2300 Other: Voiding Method Indwelling Catheter Indwelling Catheter # Bowel Movements 1 ABP, PAP, CO, CI - Last Documented Arterial Blood Pressure 170/69 - Labs CBC & Chem 7: 10/16/21 07:52 10/16/21 07:52 Labs: Abnormal Lab Results - Last 24 Hours (Table) 10/15/21 10/15/21 10/15/21 Range/Units 04:37 11:37 18:01 WBC (3.8-10.6) k/uL RBC (4.30-5.90) m/uL Hgb (13.0-17.5) gm/dL Neutrophils # (1.3-7.7) k/uL Carbon Dioxide (22-30) mmol/L BUN (9-20) mg/dL Glucose (74-99) mg/dL POC Glucose (mg/dL) 127 H 158 H (70-110) mg/dL ALT (4-49) U/L Total Protein (6.3-8.2) g/dL TSH 0.020 L (0.465-4.680) mIU/L 10/15/21 10/16/21 10/16/21 Range/Units 23:35 06:45 07:52 WBC 17.7 H (3.8-10.6) k/uL RBC 4.19 L (4.30-5.90) m/uL Hgb 12.8 L (13.0-17.5) gm/dL Neutrophils # 15.5 H (1.3-7.7) k/uL Carbon Dioxide (22-30) mmol/L BUN (9-20) mg/dL Glucose (74-99) mg/dL POC Glucose (mg/dL) 116 H 125 H (70-110) mg/dL ALT (4-49) U/L Total Protein (6.3-8.2) g/dL TSH (0.465-4.680) mIU/L 10/16/21 Range/Units 07:52 WBC (3.8-10.6) k/uL RBC (4.30-5.90) m/uL Hgb (13.0-17.5) gm/dL Neutrophils # (1.3-7.7) k/uL Carbon Dioxide 31 H (22-30) mmol/L BUN 39 H (9-20) mg/dL Glucose 129 H (74-99) mg/dL POC Glucose (mg/dL) (70-110) mg/dL ALT 57 H (4-49) U/L Total Protein 6.1 L (6.3-8.2) g/dL TSH (0.465-4.680) mIU/L Microbiology - Last 24 Hours (Table) 10/13/21 10:23 Blood Culture - Preliminary Blood No Growth after 48 hours 10/13/21 09:25 Blood Culture - Preliminary Blood No Growth after 48 hours
[2021-10-16] MEDS: METOPROLOL SUCCINATE (ER) 100 MG TAB.ER.24H PO SCH (09:12)
[2021-10-16] MEDS: amLODIPine 10 MG TAB PO SCH (09:12)
[2021-10-16] MEDS: lisinopriL 20 MG TAB PO SCH (09:12)
[2021-10-16] MEDS: AMIODARONE 200 MG TAB PO SCH (09:12)
[2021-10-16] MEDS: PANTOPRAZOLE 40 MG/10 ML VIAL IV SCH (09:13)
[2021-10-16] MEDS: ENOXAPARIN 40 MG/0.4 ML SYRINGE SQ SCH (09:13)
[2021-10-16] MEDS: CHLORHEXIDINE GLUCONATE 15 ML CUP MUCOUS MEM SCH ×2 (09:15→21:40)
[2021-10-16] MEDS: FUROSEMIDE 10 MG/ML 4 ML VIAL IV SCH (09:22)
[2021-10-16] MEDS: LACTATED RINGERS 1,000 ML IV SCH (09:25)
--- NOTE | 2021-10-16 09:37 | P.PN ---
Subjective Progress Note Date: 10/16/21 60-year-old male, who presented to the emergency department, on October 12, with shortness of breath, and impending respiratory failure. The patient had mental status changes, as well. I did have a chance to speak to the ER physician, who admitted the patient. They attempted BiPAP treatment for this patient, but he kept on pulling the mask off, becoming more agitated, more short of breath, and desaturating. For that reason, the patient was sedated and intubated, placed on the mechanical ventilator, and transferred to the ICU. Currently, he is on volume assist control mode, rate 24, tidal volume 500, FiO2 80%, and PEEP of 5. Blood gases show pO2 144, pCO2 of 68, and a pH is 7.21. Both blood gases were done on 100%, and, the rate after that blood gas was increased from 18 up to 24. The patient remains on propofol at 40 mcg/kg/m, and lactated Ringer's at 75 mL an hour. A radial art line was placed. As well as a left internal jugular triple-lumen catheter. White count 10.8, hemoglobin 11, hematocrit 34, and platelet count normal. Repeat blood gases show a PaO2 of 90, pCO2 of 42, and a pH is 7.4. Sodium 136, potassium 4.5, chlorides 107, CO2 27, BUN 26, creatinine 1.21. Troponin was less than 0.012. Urine was negative. Computed tomography scan of the brain was negative. Chest x-ray shows diffuse bilateral infiltrates, cardiomegaly, and could be consistent with fluid overload. Progress note dated 10/13/2021. 60-year-old male seen yesterday in consultation. Please see my note above. He was admitted through the emergency room, with respiratory failure, and was intubated by the ER physician. He failed BiPAP therapy. He remains on mechanical ventilator. Yesterday, we placed a right reveal arterial line, and a left internal jugular triple lumen catheter. Current ventilator settings include the volume assist control modality, rate 24, tidal volume 500, FiO2 60%, and PEEP of 5. Blood gases on those same settings, but 70%, show a PaO2 of 103, pCO2 44, and a pH is 7.38. FiO2 was reduced from 70, down to 60%. He is getting lactated Ringer's at 75 mL an hour, we'll follow 50 mcg/kg/m, and vital high protein at 35 mL an hour, with a goal of 55 mL an hour. The plan today is a daily interruption of sedation, adding Zosyn, and getting his tube feeds up to goal. White count 12, hemoglobin 11.5, hematocrit 34.4, and platelet count is normal. Sodium 137, potassium 4.2, chlorides 110, CO2 25, BUN 26, creatinine 1.08. Albumin is 2.9. Chest x-ray shows a persistent infiltrate in the right lower lobe. Microbiologic studies are negative. On 10/14/2021, the patient is being seen for a follow-up. This morning, the patient is intubated on a mechanical ventilator. The patient was admitted on 10/12/2021. The patient is currently on propofol running at 55 mcg/kg per minute. IV fluids in the form of lactated Ringer at the rate of 75 mL an hour. The patient is intubated on a mechanical ventilator. The patient is an assist- control mode at the rate of 24 with a tidal volume of 500 and FiO2 of 50% with a PEEP of 5. Blood gases showed a pH of 7.39 with a pCO2 of 46 and pO2 of 83. Chest x-ray shows some limited opacification of the right lung base. There is also adequate positioning of the ET tube. No acute abnormalities are noted. The patient has a peak airway pressure of 23 cm of water. The patient is calm and comfortable. He is arousable once off the sedation. Overall fluid balance has been +2.9 L over the past 24 hours. The patient's white cell count is at 18 with a hemoglobin of 11 and a platelet count of 2:30. Pro-calcitonin level is at 0.33. ProBNP level is 1440. The patient has a sodium level of 137 with a BUN of 29 and a creatinine of 0.9. Patient is also on tube feeding at the rate of 55 mL an hour. No fever. No chills. No other significant events overnight. Cardiac rhythm is sinus for now. On today's evaluation of 10/15/2021, the patient is doing well. Patient is hemodynamically stable. The patient remains intubated on a mechanical ventilator. Patient remains on propofol which is running at 55 mcg/kg per minute. IV fluids are currently at KVO. The patient got diuresed over the past 24 hours and the patient is in a negative fluid balance. At the same time, the patient was found to have MRSA in the sputum and the patient was started on vancomycin yesterday. The patient is also on IV Zosyn. He is afebrile. White cell count is elevated at 20. Hemoglobin is at 11.5. Renal function is curren tly within normal limits. I give the patient sedation holiday and while the patient was being more rales, the patient went into atrial fibrillation with rapid ventricular response. At that point, the patient was loaded with amiodarone and the sedation holiday was discontinued. The patient was placed back on sedation and he was kept on a mechanical ventilated throughout the day yesterday. Subsequently, in the afternoon, the patient converted back to normal sinus rhythm. The patient is currently on amiodarone at 0.5 mg per minute. He is on a mechanical ventilator. On assist-control mode of mechanical ventilation at the rate of 24, tidal volume of 500, FiO2 of 50% with a PEEP of 5. Peak airway pressures 22. Blood gases showed a pH of 7.43 with a pCO2 of 44 and pO2 of 64. The patient is receiving enteral feeding for nutritional support and the patient is currently on ital HP at a rate of 26 an hour. No other significant events overnight otherwise. No fever. No chills. Cardiac rhythm remains sinus for now. 10/16/2021, the patient is doing well. The patient was extubated yesterday without any major difficulties and currently is on 2 L of O2 nasal cannula. He is awake and alert and is following commands and answering questions. In fact he had a good breakfast this morning. Hemodynamically stable. No significant respiratory secretions. Chest x-ray is stable. The patient is in a negative fluid balance of 2.4 L. Cardiac rhythm is sinus. His sodium is at 139 with a BUN of 39 and creatinine of 0.5. White cell count is at 17.7. Hemoglobin is at 12.8. The patient remains on a combination of Zosyn and vancomycin. He has chronic back pain and the patient takes methadone on outpatient basis. He will be provided an incentive spirometer. Objective - Vital Signs Vital signs: Vital Signs Temp 98.3 F 10/16/21 04:00 Pulse 92 10/16/21 08:52 Resp 16 10/16/21 07:00 BP 172/80 10/16/21 07:00 Pulse Ox 96 10/16/21 08:29 FiO2 50 10/15/21 15:56 Intake & Output 10/15/21 10/16/21 10/16/21 18:59 06:59 18:59 Intake Total 976 1080 Output Total 3945 2300 Balance -2969 -1220 Intake: IV 130 120 Lactated Ringers 1,000 ml 130 120 @ 75 mls/hr IV .[id number] [facility] Rx#:[id number] Intake, IV Titration 800 Amount Amiodarone 360 mg In 200 Dextrose 5% in Water 200 ml @ 1 MG/MIN 33.333 mls/ hr IV .Q6H ONE Rx#: [id number] Piperacillin-Tazobactam 3 100 .375 gm In Sodium Chloride 0.9% 100 ml @ 25 mls/hr IVPB Q8HR [facility] Rx# :[id number] Vancomycin 1,750 mg In 500 Sodium Chloride 0.9% 500 ml 500 ml @ 167 mls/hr IVPB Q12H [facility] Rx#: [id number] Oral 960 Tube Feeding 46 Output: Urine 3945 2300 Other: Voiding Method Indwelling Catheter Indwelling Catheter # Bowel Movements 1 ABP, PAP, CO, CI - Last Documented Arterial Blood Pressure 170/69 - Exam No acute distress, breathing is nonlabored and the patient is currently extubated to 2 L of oxygen by nasal cannula Head exam was generally normal. There was no scleral icterus or corneal arcus. Mucous membranes were moist. HEENT examination is grossly unremarkable. Neck supple. Full range of motion. No adenopathy thyromegaly or neck vein distention. Cardiovascular examination reveals regular rhythm rate. Cardiac exam revealed the PMI to be normally situated and sized. The rhythm was regular and no extrasystoles were noted during several minutes of auscultation. The first and second heart sounds were normal and physiologic splitting of the second heart sound was noted. There were no murmurs, rubs, clicks, or gallops. Lungs reveal diffuse bilateral rhonchi. Wheezes are noted. No crackles. Breath sounds equal bilaterally but diminished. Abdomen soft bowel sounds are heard. No masses or tenderness. Extremities are intact. No cyanosis clubbing or edema. Examination of the skin revealed no evidence of significant rashes, suspicious appearing nevi or other concerning lesions. Neurologically, the patient is awake and alert and the patient does not have any focal neurological deficit. Cranial nerves are essentially intact. - Labs CBC & Chem 7: 10/16/21 07:52 10/16/21 07:52 Labs: Abnormal Lab Results - Last 24 Hours (Table) 10/15/21 10/15/21 10/15/21 Range/Units 04:37 11:37 18:01 WBC (3.8-10.6) k/uL RBC (4.30-5.90) m/uL Hgb (13.0-17.5) gm/dL Neutrophils # (1.3-7.7) k/uL Carbon Dioxide (22-30) mmol/L BUN (9-20) mg/dL Glucose (74-99) mg/dL POC Glucose (mg/dL) 127 H 158 H (70-110) mg/dL ALT (4-49) U/L Total Protein (6.3-8.2) g/dL TSH 0.020 L (0.465-4.680) mIU/L 10/15/21 10/16/21 10/16/21 Range/Units 23:35 06:45 07:52 WBC 17.7 H (3.8-10.6) k/uL RBC 4.19 L (4.30-5.90) m/uL Hgb 12.8 L (13.0-17.5) gm/dL Neutrophils # 15.5 H (1.3-7.7) k/uL Carbon Dioxide (22-30) mmol/L BUN (9-20) mg/dL Glucose (74-99) mg/dL POC Glucose (mg/dL) 116 H 125 H (70-110) mg/dL ALT (4-49) U/L Total Protein (6.3-8.2) g/dL TSH (0.465-4.680) mIU/L 10/16/21 Range/Units 07:52 WBC (3.8-10.6) k/uL RBC (4.30-5.90) m/uL Hgb (13.0-17.5) gm/dL Neutrophils # (1.3-7.7) k/uL Carbon Dioxide 31 H (22-30) mmol/L BUN 39 H (9-20) mg/dL Glucose 129 H (74-99) mg/dL POC Glucose (mg/dL) (70-110) mg/dL ALT 57 H (4-49) U/L Total Protein 6.1 L (6.3-8.2) g/dL TSH (0.465-4.680) mIU/L Microbiology - Last 24 Hours (Table) 10/13/21 10:23 Blood Culture - Preliminary Blood No Growth after 48 hours 10/13/21 09:25 Blood Culture - Preliminary Blood No Growth after 48 hours Assessment and Plan Plan: Acute hypoxemic respiratory failure, likely multifactorial, in part related to COPD exacerbation, possible CHF, and also possible pneumonia, RLL. The patient was extubated yesterday and the patient is currently on 2 L of oxygen by nasal cannula. Acute hypoxemic respiratory failure requiring intubation and mechanical ventilation, on 10/12/2021, extubated on 10/15/2021 currently on 2 L of O2 nasal cannula Mental status changes, likely related to hypoxemic respiratory failure. CHF, preserved LV function with an ejection fraction of 60-65% Paroxysmal atrial fibrillation, current rhythm is sinus, currently on oral amiodarone History of heavy tobacco use. Chronic pain , back Chronic methadone user, methadone 10 mg q hours Obesity COPD Leukocytosis, white cell count is elevated at 20 Hyperlipidemia Plan: Keep the patient on O2 at 2 L Incentive spirometer Continue IV Zosyn and start the patient on vancomycin for MRSA in the sputum Monitor the white cell count, white cell count remains elevated Keep the IV fluids at KVO Lasix to be changed to 40 mg daily by mouth Discontinue IV Solu-Medrol and put the patient on a prednisone burst taper Restart methadone 10 mg 3 times a day incentive spirometer Transfer this patient to a medical floor today. Remove the arterial line.
[2021-10-16 12:10] LABS: Glucose,Whole Blood 150 mg/dL (70-110)
[2021-10-16] MEDS: FUROSEMIDE 40 MG TAB PO SCH (12:55)
[2021-10-16] MEDS: predniSONE 20 MG TAB PO SCH (12:56)
[2021-10-16] MEDS ORDERED: BENZOCAINE/MENTHOL LOZENG 1 EACH LOZENGE MUCOUS MEM PRN (13:21)
[2021-10-16] MEDS: METHADONE 10 MG TAB PO SCH ×2 (15:17→18:54)
--- NOTE | 2021-10-16 15:21 | P.PN ---
Subjective Progress Note Date: 10/16/21 This is a pleasant 60 years old male with past medical history of Heart Failure, COPD, Hypertension. Patient currently is intubated and could not provide information so it was obtained from start of her records. No family at bedside. I called the son Misael Tineo who is listed as next of kin and he confirmed to me patient has no but for NSAIDs and that he is the next of kin. his number was [phone]. He told me the patient was in the hospital in [place] about 3 weeks ago for chest pain and shortness of breath and he was been treated and discharged on oxygen after 1 week, he has been using oxygen as needed especially at night as per brother. 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 as per brother patient used to be heavy smoker 2 packs per day was cutting down and he thinks now he is on 1 pack per day, no alcohol or illicit drugs per brother. on reviewing the records at [facility] patient was for acute hypoxic hypercapnic respiratory failure secondary to COPD exacerbation with acute diastolic congestive heart failure with ejection fraction 55-60%. ProBNP was 1594 he had elevated d-dimer over CTA of the chest show no evidence of pulmonary embolism but pleural effusion with vascular pulmonary infiltrates and atelectasis, congestive heart failure as possible. and nonspecific enlarged mediastinal lymph nodes Patient presents with acute hypoxia, his oxygen saturation was 30% per EMS. He was tachycardic and tachypneic and hypotensive on arrival and he was placed on BiPAP before he got intubated. Currently patient is afebrile, temperature is slightly low at 97.5. He is saturating 98% on 80% FiO2. Blood pressure 109/62 left showing WBC slightly up at 10.8. Hemoglobin 11. Sodium is 136, creatinine 1.2, glucose 126 and 33 Urine analysis showing 2+ protein, RBCs 67. Coronavirus varus not detected. Chest x-ray showing coarse lung markings but no obvious heart failure or pulmonary consolidation CT of the brain negative and unchanged. CT EKG showing normal sinus rhythm at [address]-T changes In the emergency room patient received vasotec, Ativan, morphine, succinylcholine, propofol and Lovenox and Protonix 10/13/2021 Patient remains in the ICU in critical condition, he remains intubated and sedated with saline to induction of sedation and pulmonary/critical care team followed closely and make suitable adjustment. Remains on Solu-Medrol 40 mg Past leukocytosis of 12,000, procalcitonin is elevated at0.33 Patient Is Placed on Zosyn and It Also on Finger a Lactate at 75 mL/h 10/14/2021 Patient is seen and evaluated and follow-up continues to be in the ICU with multiple medical consultations following. Patient continues on mechanical vent and FiO2 is currently 50% with a PEEP of 5. Per nursing staff there was discussion of possible weaning although patient's heart rate elevated in found to be in atrial fibrillation with RVR being started on IV amiodarone. Will consult cardiology and continue to monitor closely. Patient was admitted for COPD exacerbation with CHF and BNP was found to be 1400. 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 Patient was given a dose of Lasix today as chest x-ray showed continued airspace opacification within the right lower lung which have slightly decreased aeration compared to previous day with no evidence of pleural effusion focal consolidation or pneumothorax and the ET tube needs possible advancement of 4 cm and also NG tube needs advancement as well. Follow-up chest x-ray recommended. WBC is elevated at 18.7 and hemoglobin is 11.1, sodium 137 with a potassium 4.3, creatinine 0.99, magnesium 2.1. 2-D echo was ordered. 10/15/2021 Patient continues to be in the ICU with multiple medical consultations following. Currently being extubated at this time. Cardiology was consulted as patient was found to be in atrial fibrillation with rapid ventricular rate and initially started on amiodarone and converted back to sinus rhythm. Patient normally takes Norvasc and metoprolol in the outpatient setting and this had not been resumed and patient also having some hypertension and resumed these medications. Patient will also likely be transitioning to oral amiodarone and will discuss with cardiology and pulmonary glass furnace operator about anticoagulation. Patient continues on breathing inhalational treatments along with subcutaneous Lovenox for anticoagulation for now, IV Lasix twice daily along with IV steroids 60 every 6 IV Zosyn, and IV vancomycin. Weaning trials being conducted and propofol is currently off. Chest x-ray today shows pulmonary venous hypertension and interstitial edema probable left pleural effusion and associ ated atelectasis versus basilar edema or pneumonia with no evident pneumothorax, prominence of the pulmonary arteries could be indicative of underlying pulmonary artery hypertension. WBC continues to be elevated and is currently 20.8 and patient remains afebrile, possible component of IV steroids along with MRSA noted in the sputum culture. BMP within normal limits and blood sugars are controlled on sliding scale every 6 and recommend continue as patient is also noted to be on lactated Ringer's. 10/16/2021 Patient is seen in follow-up this morning continues to be in the ICU with pulmonary and infectious disease following closely. Patient has been extubated successfully and currently maintained on 2 L via nasal cannula and tolerating well. Patient continues to report sore throat status post extubation and will add Cepacol lozenges may use Hurricaine spray as well. Patient tolerating diet with no reports of nausea or vomiting noted. Patient is also continued on IV antibiotics in the form of vancomycin as sputum culture did show MRSA and will continue. IV steroids has been discontinued and patient is being started on a prednisone taper and appropriate home medications have been resumed. Patient has been working with physical therapy and recommend continue doing so as patie nt continues to be somewhat weak. Patient is being downgraded from ICU and awaiting a bed on the selective unit. Chest x-ray today shows improving basilar atelectasis or infiltrate and small effusion. Patient is currently afebrile and denies worsening shortness of breath or any chest pain. Review of systems: Constitutional: reports of fatigue, no reports of fever, or chills Cardiovascular: No reports of chest pain or palpitations Respiratory: reports of mild shortness of breath though feels is improving, reports sore throat GI: No reports of nausea, vomiting, or diarrhea : No reports of dysuria or retention Neurovascular: reports of generalized weakness All medications have been reviewed Active Medications Albuterol/Ipratropium (Ipratropium-Albuterol 3 Ml Neb) 3 ml INHALATION RT-Q4H [facility] Last Admin: 10/16/21 12:20 Dose: 3 ml Amiodarone HCl (Amiodarone 200 Mg Tab) 400 mg PO DAILY [facility] Last Admin: 10/16/21 09:12 Dose: 400 mg Amlodipine Besylate (Amlodipine 10 Mg Tab) 10 mg PO DAILY [facility] Last Admin: 10/16/21 09:12 Dose: 10 mg Benzocaine/Menthol (Benzocaine/Menthol Lozeng 1 Each Lozenge) 1 each MUCOUS MEM Q4HR PRN PRN Reason: Sore Throat Budesonide/Formoterol Fumarate (Symbicort 160-4.5 Mcg Inhaler) 2 puff INHALATION RT-BID [facility] Chlorhexidine Gluconate (Chlorhexidine Gluconate 15 Ml Cup) 15 ml MUCOUS MEM BID [facility] Last Admin: 10/16/21 09:15 Dose: Not Given Clonidine HCl (Clonidine 0.2 Mg/24hr Patch) 1 patch TRANSDERM Q7D [facility] Last Admin: 10/15/21 15:49 Dose: 1 patch Enoxaparin Sodium (Enoxaparin 40 Mg/0.4 Ml Syringe) 40 mg SQ DAILY [facility] Last Admin: 10/16/21 09:13 Dose: 40 mg Furosemide (Furosemide 40 Mg Tab) 40 mg PO DAILY [facility] Last Admin: 10/16/21 12:55 Dose: Not Given Hydralazine HCl (Hydralazine Hcl 20 Mg/Ml 1 Ml Vial) 10 mg IVP Q6HR PRN PRN Reason: Blood Pressure - High Last Admin: 10/16/21 04:21 Dose: 10 mg Lactated Ringer's (Lactated Ringers) 1,000 mls @ 5 mls/hr IV .Q24H [facility] Last Admin: 10/16/21 09:25 Dose: 75 mls/hr Vancomycin HCl 1,750 mg/ (Sodium Chloride) 500 mls @ 167 mls/hr IVPB Q12H [facility] Last Admin: 10/16/21 00:15 Dose: 167 mls/hr Insulin Aspart (Insulin Aspart (Novolog) 100 Unit/Ml Vial) 0 unit SQ ACHS [facility]; Protocol Lisinopril (Lisinopril 20 Mg Tab) 40 mg PO DAILY [facility] Last Admin: 10/16/21 09:12 Dose: 40 mg Methadone HCl (Methadone 10 Mg Tab) 10 mg PO Q8HR [facility] Metoprolol Succinate (Metoprolol Succinate (Er) 100 Mg Tab.Er.24h) 100 mg PO DAILY [facility] Last Admin: 10/16/21 09:12 Dose: 100 mg Miscellaneous Information (Magnesium Replacement Protocol 1 Each Misc) 1 each MISCELLANE DAILY PRN; Protocol PRN Reason: Per Protocol Miscellaneous Information (Potassium Replacement Protocol 1 Each Misc) 1 each MISCELLANE DAILY PRN; Protocol PRN Reason: Per Protocol Miscellaneous Information (Vancomycin Trough Due 1 Each Misc) 0 each MISCELLANE DIRECTED ONE Stop: 10/17/21 12:01 Morphine Sulfate (Morphine Sulfate 4 Mg/Ml Syringe) 4 mg IV Q4HR PRN PRN Reason: Pain Scale 8 to 10 Last Admin: 10/16/21 09:18 Dose: 4 mg Naloxone HCl (Naloxone 0.4 Mg/Ml 1 Ml Vial) 0.2 mg IV Q2M PRN PRN Reason: Opioid Reversal Pantoprazole Sodium (Pantoprazole 40 Mg/10 Ml Vial) 40 mg IV DAILY [facility] Last Admin: 10/16/21 09:13 Dose: 40 mg Prednisone (Prednisone 20 Mg Tab) 40 mg PO DAILY [facility] Last Admin: 10/16/21 12:56 Dose: Not Given PHYSICAL EXAMINATION: GENERAL: The patient is currently sitting up in the chair awake, alert and oriented 3. Obese Well developed, well nourished. HEENT: Pupils are round and equally reacting to light. EOMI. no scleral icterus. No conjunctival pallor. Normocephalic, atraumatic. No pharyngeal erythema. No thyromegaly. CARDIOVASCULAR: S1 and S2 muffled PULMONARY: diminished breath sounds bilaterally with some scattered rhonchi, crackles at the bases noted. ABDOMEN: soft. Nontender on exam. obese. non-distended, normoactive bowel sounds. No palpable organomegaly. MUSCULOSKELETAL: No joint swelling or deformity. EXTREMITIES: No cyanosis, clubbing, or pedal edema. NEUROLOGICAL: Alert and oriented 3 awake. Cranial nerves intact with no focal deficits noted SKIN: No rashes. Assessment: Acute hypoxic respiratory failure, present on admission, status post intubation and mechanical ventilation, successfully extubated 10/15/21 COPD with acute exacerbation altered mental status, acute metabolic encephalopathy most likely secondary to hypoxemic respiratory failure Atrial fibrillation with fast ventricular rate, new onset, converted to sinus rhythm and rate controlled on metoprolol and amiodarone Possible right lower lung pneumonia, present on admission with MRSA in the sputum Leukocytosis possibly secondary to above along with a component of induced by IV steroids mild acute on chronic congestive heart failure diastolic dysfunction, acute exacerbation Continued ongoing nicotine dependence acute on chronic hypoxic respiratory failure Hypertension obesity with BMI of 38.7 GI prophylaxis DVT prophylaxis: Subcutaneous Lovenox Full code Plan: Recommend to continue with weaning FiO2 as tolerated and patient was recently extubated yesterday now maintained on 2 L via nasal cannula WBC is elevated although trending down and will continue with vancomycin with infectious disease following. Sputum culture did show MRSA IV steroids being discontinued and patient being started on prednisone taper and will continue with breathing inhalational treatments. Pulmonary following closely and patient will need outpatient follow-up with them and wean FiO2 as tolerated. Patient is a downgrade from the ICU today awaiting a bed on the selective unit Patient's heart rate currently rate controlled on amiodarone and metoprolol resumed. Norvasc resumed as well. Cardiology following. Recommend PT/OT evaluation, social work following and will discuss possible discharge planning after PT has evaluated the patient Patient does have chronic back pain and takes methadone which has been resumed Due to multiple complex medical issues, prognosis is guarded The impression and plan of care has been dictated by Mary Pena, nurse practitioner as directed. Dr. Sherry MD I have performed a history and examination and MDM of this patient, discussed the same with the dictator, and agree with the dictator's assessment and plan as written ,documented as a scribe. Based on total visit time, I have performed more than 50% of the visit. Any additional findings or plans will be noted. Objective - Vital Signs Vital signs: Vital Signs Temp 98.3 F 10/16/21 04:00 Pulse 92 10/16/21 08:52 Resp 16 10/16/21 07:00 BP 172/80 10/16/21 07:00 Pulse Ox 96 10/16/21 08:29 FiO2 50 10/15/21 15:56 Intake & Output 10/15/21 10/16/21 10/16/21 18:59 06:59 18:59 Intake Total 976 1080 Output Total 3945 2300 Balance -2969 -1220 Intake: IV 130 120 Lactated Ringers 1,000 ml 130 120 @ 75 mls/hr IV .[id number] [facility] Rx#:[id number] Intake, IV Titration 800 Amount Amiodarone 360 mg In 200 Dextrose 5% in Water 200 ml @ 1 MG/MIN 33.333 mls/ hr IV .Q6H [facility] Rx#: [id number] Piperacillin-Tazobactam 3 100 .375 gm In Sodium Chloride 0.9% 100 ml @ 25 mls/hr IVPB Q8HR [facility] Rx# :[id number] Vancomycin 1,750 mg In 500 Sodium Chloride 0.9% 500 ml 500 ml @ 167 mls/hr IVPB Q12H [facility] Rx#: [id number] Oral 960 Tube Feeding 46 Output: Urine 3945 2300 Other: Voiding Method Indwelling Catheter Indwelling Catheter # Bowel Movements 1 ABP, PAP, CO, CI - Last Documented Arterial Blood Pressure 170/69 - Labs CBC & Chem 7: 10/16/21 07:52 10/16/21 07:52 Labs: Abnormal Lab Results - Last 24 Hours (Table) 10/15/21 10/15/21 10/15/21 Range/Units 04:37 11:37 18:01 WBC (3.8-10.6) k/uL RBC (4.30-5.90) m/uL Hgb (13.0-17.5) gm/dL Neutrophils # (1.3-7.7) k/uL Carbon Dioxide (22-30) mmol/L BUN (9-20) mg/dL Glucose (74-99) mg/dL POC Glucose (mg/dL) 127 H 158 H (70-110) mg/dL ALT (4-49) U/L Total Protein (6.3-8.2) g/dL TSH 0.020 L (0.465-4.680) mIU/L 10/15/21 10/16/21 10/16/21 Range/Units 23:35 06:45 07:52 WBC 17.7 H (3.8-10.6) k/uL RBC 4.19 L (4.30-5.90) m/uL Hgb 12.8 L (13.0-17.5) gm/dL Neutrophils # 15.5 H (1.3-7.7) k/uL Carbon Dioxide (22-30) mmol/L BUN (9-20) mg/dL Glucose (74-99) mg/dL POC Glucose (mg/dL) 116 H 125 H (70-110) mg/dL ALT (4-49) U/L Total Protein (6.3-8.2) g/dL TSH (0.465-4.680) mIU/L 10/16/21 Range/Units 07:52 WBC (3.8-10.6) k/uL RBC (4.30-5.90) m/uL Hgb (13.0-17.5) gm/dL Neutrophils # (1.3-7.7) k/uL Carbon Dioxide 31 H (22-30) mmol/L BUN 39 H (9-20) mg/dL Glucose 129 H (74-99) mg/dL POC Glucose (mg/dL) (70-110) mg/dL ALT 57 H (4-49) U/L Total Protein 6.1 L (6.3-8.2) g/dL TSH (0.465-4.680) mIU/L Microbiology - Last 24 Hours (Table) 10/13/21 10:23 Blood Culture - Preliminary Blood No Growth after 48 hours 10/13/21 09:25 Blood Culture - Preliminary Blood No Growth after 48 hours
[2021-10-16 17:23] LABS: Glucose,Whole Blood 110 mg/dL (70-110)
[2021-10-16] MEDS: SYMBICORT 160-4.5 MCG INHALER INHALATION SCH (19:18)
[2021-10-16 20:32] LABS: Glucose,Whole Blood 115 mg/dL (70-110)
[2021-10-17] MEDS: METHADONE 10 MG TAB PO SCH ×3 (00:18→16:06)
[2021-10-17] MEDS: VANCOMYCIN 1,750 MG in SODIUM CHLORIDE 0.9% 500 ML 500 ML IVPB SCH ×2 (00:18→13:15)
[2021-10-17] MEDS: IPRATROPIUM-ALBUTEROL 3 ML NEB INHALATION SCH ×6 (03:51→19:35)
[2021-10-17 06:59] LABS: Glucose,Whole Blood 93 mg/dL (70-110)
[2021-10-17] MEDS: AMIODARONE 200 MG TAB PO SCH (07:45)
[2021-10-17] MEDS: ENOXAPARIN 40 MG/0.4 ML SYRINGE SQ SCH (07:45)
[2021-10-17] MEDS: amLODIPine 10 MG TAB PO SCH (07:45)
[2021-10-17] MEDS: FUROSEMIDE 40 MG TAB PO SCH (07:46)
[2021-10-17] MEDS: METOPROLOL SUCCINATE (ER) 100 MG TAB.ER.24H PO SCH (07:46)
[2021-10-17] MEDS: PANTOPRAZOLE 40 MG/10 ML VIAL IV SCH (07:46)
[2021-10-17] MEDS: lisinopriL 20 MG TAB PO SCH (07:46)
[2021-10-17] MEDS: predniSONE 20 MG TAB PO SCH (07:47)
[2021-10-17 08:52] LABS: Basophils # (A) 0.02 X 10*3/uL (0.00-0.10); Basophils % (A) 0.1 %; Eosinophils # (A) 0.02 X 10*3/uL (0.04-0.35); Eosinophils % (A) 0.1 %; HCT 37.8 % (39.6-50.0); HGB 12.5 g/dL (13.0-17.0); Lymphocytes # (A) 3.04 X 10*3/uL (0.90-5.00); Lymphocytes % (A) 21.8 %; MCH 30.6 pg (27.0-32.0); MCHC 33.1 g/dL (32.0-37.0); MCV 92.4 fL (80.0-97.0); Mean Platelet Volume 10.9 fL (9.5-12.2); Monocytes # (A) 1.17 X 10*3/uL (0.20-1.00); Monocytes % (A) 8.4 %; NRBC Per 100 WBC 0 /100 WBCS (0.0-0.0); Neutrophils # (A) 9.56 X 10*3/uL (1.80-7.70); Neutrophils % (A) 68.6 %; Platelet Count 220 X 10*3/uL (140-440); RBC 4.09 X 10*6/uL (4.40-5.60); WBC 13.95 X 10*3/uL (4.50-10.00)
[2021-10-17] MEDS: SYMBICORT 160-4.5 MCG INHALER INHALATION SCH ×3 (09:03→19:35)
[2021-10-17 09:07] LABS: African American GFR (CKD) 108.7 (60.0-200.0); Albumin 3.2 g/dL (3.8-4.9); Albumin/Globulin Ratio 1.52 (1.60-3.17); Anion Gap 7.1 mmol/L (10.00-18.00); BUN/Creat Ratio 34.33 Ratio (12.00-20.00); Blood Urea Nitrogen 30.9 mg/dL (9.0-27.0); Calcium 8.8 mg/dL (8.7-10.3); Carbon Dioxide 29.9 mmol/L (20.0-27.5); Globulin 2.1 g/dL (1.6-3.3); Non-African American GFR(CKD) 93.8 (60.0-200.0); Potassium 3.5 mmol/L (3.5-5.5); Total Bilirubin 0.6 mg/dL (0.30-1.20); Total Protein 5.3 g/dL (6.2-8.2)
[2021-10-17] MEDS: SPIRONOLACTONE 25 MG TAB PO SCH (09:56)
[2021-10-17] MEDS: INSULIN ASPART (NovoLOG) 100 UNIT/ML VIAL SQ SCH ×4 (09:57→21:32)
[2021-10-17 11:03] LABS: Glucose,Whole Blood 111 mg/dL (70-110)
[2021-10-17] MEDS ORDERED: VANCOMYCIN TROUGH DUE 1 EACH MISC MISCELLANE ONE (12:00)
--- NOTE | 2021-10-17 12:58 | P.PN ---
Subjective This is a 60 year old male with a past medical history of chronic nicotine dependence, COPD, hypertension, hyperlipidemia. Patient apparently has seen Dr. France before, no office records available. We are consulted to the see the patient for Atrial fibrillation with RVR. Patient initially presented to the hospital on 10/12/2021 with altered mental status, shortness of breath, respiratory failure requiring intubation and mechanical ventilation. He was apparently recently hospitalized at [facility] for acute hypoxic hypercapnic respiratory failure secondary to COPD exacerbation with congestive heart failure. He presented to the ER here for worsening shortness of breath. He is currently being treated for COPD exacerbation and pneumonia. On 10/14, patient found to be in A fib with RVR, started on IV amiodarone drip and converted to sinus rhythm. He was transitioned to PO Amiodarone 400mg daily on 10/15 and has been maintaining sinus mechanism. Echo revealed EF 60-65%, moderate mitral regurgitation, moderately increased left atrial volume. 10/17/2021 He is seen and examined at bedside on 5N unit, transferred out of ICU. He is feeling well. Breathing has improved. Denies any chest pain. BP remains elevated at 176/84 HR 76. He is maintaining sinus mechanism Meds: Amiodarone 400 mg daily, amlodipine 10 mg daily, clonidine patch 0.2 mg, Lasix 40 mg daily, lisinopril 40 mg daily, metoprolol succinate 100 mg daily. GENERAL: Well-appearing, well-nourished and in no acute distress. NECK: Supple without JVD or thyromegaly. LUNGS: Breath sounds diminished, rhonchi to auscultation bilaterally. Respiration equal and unlabored. HEART: Regular rate and rhythm, systolic ejection murmur at apex, No rubs or gallops. S1 and S2 heard. EXTREMITIES: Normal range of motion, no edema. No clubbing or cyanosis. Peripheral pulses intact. ASSESSMENT Paroxysmal atrial fibrillation with RVR, [id number] 1, maintaining sinus mechanism Acute hypoxemic respiratory failure requiring intubation and mechanical ventilation, extubated on 10/15. Possible pneumonia, MRSA found in sputum COPD exacerbation Altered mental status, improved Uncontrolled hypertension Moderate mitral regurgitation Leukocytosis Chronic nicotine dependence History of hypertension Hyperlipidemia PLAN Add spironolactone 50mg daily Monitor renal function and electrolytes Continue other cardiac medications Patient's [id number] score 1, will hold on anticoagulation at this time Continue supportive care Further recommendations based on clinical course Nurse Practitioner note has been reviewed, I agree with a documented findings and plan of care. Patient was seen and examined. Objective - Vital Signs Vital signs: Vital Signs Temp 98.5 F 10/17/21 11:00 Pulse 78 10/17/21 11:41 Resp 18 10/17/21 11:00 BP 145/85 10/17/21 11:00 Pulse Ox 96 10/17/21 11:00 FiO2 50 10/15/21 15:56 Intake & Output 10/16/21 10/17/21 10/17/21 18:59 06:59 18:59 Intake Total 100 Output Total 1705 1250 776 Balance -1605 -1250 -776 Weight 99.79 kg Intake: IV 100 Lactated Ringers 1,000 ml 100 @ 5 mls/hr IV .Q24H [facility] Rx#:[id number] Output: Urine 1705 1250 775 Stool 1 Other: Voiding Method Indwelling Catheter Urinal ABP, PAP, CO, CI - Last Documented Arterial Blood Pressure 192/65 - Labs CBC & Chem 7: 10/17/21 06:20 10/17/21 06:20 Labs: Abnormal Lab Results - Last 24 Hours (Table) 10/16/21 10/17/21 10/17/21 Range/Units 20:30 06:20 06:20 WBC 13.95 H (4.50-10.00) X 10*3/uL RBC 4.09 L (4.40-5.60) X 10*6/uL Hgb 12.5 L (13.0-17.0) g/dL Hct 37.8 L (39.6-50.0) % Immature Gran # 0.14 H (0.00-0.04) X 10*3/uL Neutrophils # 9.56 H (1.80-7.70) X 10*3/uL Monocytes # 1.17 H (0.20-1.00) X 10*3/uL Eosinophils # 0.02 L (0.04-0.35) X 10*3/uL Carbon Dioxide 29.9 H (20.0-27.5) mmol/L Anion Gap 7.10 L (10.00-18.00) mmol/L BUN 30.9 H (9.0-27.0) mg/dL BUN/Creatinine Ratio 34.33 H (12.00-20.00) Ratio POC Glucose (mg/dL) 115 H (70-110) mg/dL ALT 57 H (10-49) U/L Total Protein 5.3 L (6.2-8.2) g/dL Albumin 3.2 L (3.8-4.9) g/dL Albumin/Globulin Ratio 1.52 L (1.60-3.17) g/dL 10/17/21 Range/Units 11:02 WBC (4.50-10.00) X 10*3/uL RBC (4.40-5.60) X 10*6/uL Hgb (13.0-17.0) g/dL Hct (39.6-50.0) % Immature Gran # (0.00-0.04) X 10*3/uL Neutrophils # (1.80-7.70) X 10*3/uL Monocytes # (0.20-1.00) X 10*3/uL Eosinophils # (0.04-0.35) X 10*3/uL Carbon Dioxide (20.0-27.5) mmol/L Anion Gap (10.00-18.00) mmol/L BUN (9.0-27.0) mg/dL BUN/Creatinine Ratio (12.00-20.00) Ratio POC Glucose (mg/dL) 111 H (70-110) mg/dL ALT (10-49) U/L Total Protein (6.2-8.2) g/dL Albumin (3.8-4.9) g/dL Albumin/Globulin Ratio (1.60-3.17) g/dL Microbiology - Last 24 Hours (Table) 10/13/21 10:23 Blood Culture - Preliminary Blood No Growth after 96 hours 10/13/21 09:25 Blood Culture - Preliminary Blood No Growth after 96 hours
[2021-10-17] MEDS: MORPHINE SULFATE 4 MG/ML SYRINGE IV PRN ×2 (13:17→21:32)
--- NOTE | 2021-10-17 14:47 | P.PN ---
Subjective Progress Note Date: 10/17/21 This is a pleasant 60 years old male with past medical history of Heart Failure, COPD, Hypertension. Patient currently is intubated and could not provide information so it was obtained from start of her records. No family at bedside. I called the son Misael Tineo who is listed as next of kin and he confirmed to me patient has no but for NSAIDs and that he is the next of kin. his number was [phone]. He told me the patient was in the hospital in [place] about 3 weeks ago for chest pain and shortness of breath and he was been treated and discharged on oxygen after 1 week, he has been using oxygen as needed especially at night as per brother. 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 as per brother patient used to be heavy smoker 2 packs per day was cutting down and he thinks now he is on 1 pack per day, no alcohol or illicit drugs per brother. on reviewing the records at [facility] patient was for acute hypoxic hypercapnic respiratory failure secondary to COPD exacerbation with acute diastolic congestive heart failure with ejection fraction 55-60%. ProBNP was 1594 he had elevated d-dimer over CTA of the chest show no evidence of pulmonary embolism but pleural effusion with vascular pulmonary infiltrates and atelectasis, congestive heart failure as possible. and nonspecific enlarged mediastinal lymph nodes Patient presents with acute hypoxia, his oxygen saturation was 30% per EMS. He was tachycardic and tachypneic and hypotensive on arrival and he was placed on BiPAP before he got intubated. Currently patient is afebrile, temperature is slightly low at 97.5. He is saturating 98% on 80% FiO2. Blood pressure 109/62 left showing WBC slightly up at 10.8. Hemoglobin 11. Sodium is 136, creatinine 1.2, glucose 126 and 33 Urine analysis showing 2+ protein, RBCs 67. Coronavirus varus not detected. Chest x-ray showing coarse lung markings but no obvious heart failure or pulmonary consolidation CT of the brain negative and unchanged. CT EKG showing normal sinus rhythm at [address]-T changes In the emergency room patient received vasotec, Ativan, morphine, succinylcholine, propofol and Lovenox and Protonix 10/13/2021 Patient remains in the ICU in critical condition, he remains intubated and sedated with saline to induction of sedation and pulmonary/critical care team followed closely and make suitable adjustment. Remains on Solu-Medrol 40 mg Past leukocytosis of 12,000, procalcitonin is elevated at0.33 Patient Is Placed on Zosyn and It Also on Finger a Lactate at 75 mL/h 10/14/2021 Patient is seen and evaluated and follow-up continues to be in the ICU with multiple medical consultations following. Patient continues on mechanical vent and FiO2 is currently 50% with a PEEP of 5. Per nursing staff there was discussion of possible weaning although patient's heart rate elevated in found to be in atrial fibrillation with RVR being started on IV amiodarone. Will consult cardiology and continue to monitor closely. Patient was admitted for COPD exacerbation with CHF and BNP was found to be 1400. 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 Patient was given a dose of Lasix today as chest x-ray showed continued airspace opacification within the right lower lung which have slightly decreased aeration compared to previous day with no evidence of pleural effusion focal consolidation or pneumothorax and the ET tube needs possible advancement of 4 cm and also NG tube needs advancement as well. Follow-up chest x-ray recommended. WBC is elevated at 18.7 and hemoglobin is 11.1, sodium 137 with a potassium 4.3, creatinine 0.99, magnesium 2.1. 2-D echo was ordered. 10/15/2021 Patient continues to be in the ICU with multiple medical consultations following. Currently being extubated at this time. Cardiology was consulted as patient was found to be in atrial fibrillation with rapid ventricular rate and initially started on amiodarone and converted back to sinus rhythm. Patient normally takes Norvasc and metoprolol in the outpatient setting and this had not been resumed and patient also having some hypertension and resumed these medications. Patient will also likely be transitioning to oral amiodarone and will discuss with cardiology and pulmonary ruffling machine operator about anticoagulation. Patient continues on breathing inhalational treatments along with subcutaneous Lovenox for anticoagulation for now, IV Lasix twice daily along with IV steroids 60 every 6 IV Zosyn, and IV vancomycin. Weaning trials being conducted and propofol is currently off. Chest x-ray today shows pulmonary venous hypertension and interstitial edema probable left pleural effusion and associ ated atelectasis versus basilar edema or pneumonia with no evident pneumothorax, prominence of the pulmonary arteries could be indicative of underlying pulmonary artery hypertension. WBC continues to be elevated and is currently 20.8 and patient remains afebrile, possible component of IV steroids along with MRSA noted in the sputum culture. BMP within normal limits and blood sugars are controlled on sliding scale every 6 and recommend continue as patient is also noted to be on lactated Ringer's. 10/16/2021 Patient is seen in follow-up this morning continues to be in the ICU with pulmonary and infectious disease following closely. Patient has been extubated successfully and currently maintained on 2 L via nasal cannula and tolerating well. Patient continues to report sore throat status post extubation and will add Cepacol lozenges may use Hurricaine spray as well. Patient tolerating diet with no reports of nausea or vomiting noted. Patient is also continued on IV antibiotics in the form of vancomycin as sputum culture did show MRSA and will continue. IV steroids has been discontinued and patient is being started on a prednisone taper and appropriate home medications have been resumed. Patient has been working with physical therapy and recommend continue doing so as patie nt continues to be somewhat weak. Patient is being downgraded from ICU and awaiting a bed on the selective unit. Chest x-ray today shows improving basilar atelectasis or infiltrate and small effusion. Patient is currently afebrile and denies worsening shortness of breath or any chest pain. 10/17/2021 Patient is seen today on [facility] unit and has been transferred out of the ICU and continues to have shortness of breath although feels is slowly improving. Patient is continued on 2 L via nasal cannula and attempting weaning FiO2 as tolerated. Patient continues with weakness and physical therapy evaluated the patient recommending subacute rehab versus home with home care and patient repor ts he would like to return home with his girlfriend and have home care in the outpatient setting. Patient follows with Dr. Schwartz out of warfarin as his primary care provider. Pulmonary following closely along with cardiology. Patient also continued on vancomycin for MRSA in the sputum. Patient is currently afebrile and denies any chest pain or palpitations. Patient is tolerating diet with no reports of nausea or vomiting noted. Dennis catheter has been removed and patient is voiding with no difficulties. Current increase activity as tolerated and also encouraged incentive spirometer use at least 10 times every hour while awake. Review of systems: Constitutional: reports of fatigue, no reports of fever, or chills Cardiovascular: No reports of chest pain or palpitations Respiratory: reports of mild shortness of breath though feels is improving GI: No reports of nausea, vomiting, or diarrhea : No reports of dysuria or retention Neurovascular: reports of generalized weakness All medications have been reviewed Active Medications Albuterol/Ipratropium (Ipratropium-Albuterol 3 Ml Neb) 3 ml INHALATION RT-Q4H [facility] Last Admin: 10/17/21 11:31 Dose: 3 ml Amiodarone HCl (Amiodarone 200 Mg Tab) 400 mg PO DAILY [facility] Last Admin: 10/17/21 07:45 Dose: 400 mg Amlodipine Besylate (Amlodipine 10 Mg Tab) 10 mg PO DAILY [facility] Last Admin: 10/17/21 07:45 Dose: 10 mg Benzocaine/Menthol (Benzocaine/Menthol Lozeng 1 Each Lozenge) 1 each MUCOUS MEM Q4HR PRN PRN Reason: Sore Throat Budesonide/Formoterol Fumarate (Symbicort 160-4.5 Mcg Inhaler) 2 puff INHALATION RT-BID [facility] Last Admin: 10/17/21 09:21 Dose: Not Given Clonidine HCl (Clonidine 0.2 Mg/24hr Patch) 1 patch TRANSDERM Q7D [facility] Last Admin: 10/15/21 15:49 Dose: 1 patch Enoxaparin Sodium (Enoxaparin 40 Mg/0.4 Ml Syringe) 40 mg SQ DAILY [facility] Last Admin: 10/17/21 07:45 Dose: 40 mg Furosemide (Furosemide 40 Mg Tab) 40 mg PO DAILY [facility] Last Admin: 10/17/21 07:46 Dose: 40 mg Hydralazine HCl (Hydralazine Hcl 20 Mg/Ml 1 Ml Vial) 10 mg IVP Q6HR PRN PRN Reason: Blood Pressure - High Last Admin: 10/16/21 04:21 Dose: 10 mg Vancomycin HCl 1,750 mg/ (Sodium Chloride) 500 mls @ 167 mls/hr IVPB Q12H [facility] Last Admin: 10/17/21 13:15 Dose: 167 mls/hr Insulin Aspart (Insulin Aspart (Novolog) 100 Unit/Ml Vial) 0 unit SQ ACHS [facility]; Protocol Last Admin: 10/17/21 13:03 Dose: Not Given Lisinopril (Lisinopril 20 Mg Tab) 40 mg PO DAILY [facility] Last Admin: 10/17/21 07:46 Dose: 40 mg Methadone HCl (Methadone 10 Mg Tab) 10 mg PO Q8HR [facility] Last Admin: 10/17/21 07:46 Dose: 10 mg Metoprolol Succinate (Metoprolol Succinate (Er) 100 Mg Tab.Er.24h) 100 mg PO DAILY [facility] Last Admin: 10/17/21 07:46 Dose: 100 mg Miscellaneous Information (Magnesium Replacement Protocol 1 Each Mis) 1 each MISCELLANE DAILY PRN; Protocol PRN Reason: Per Protocol Miscellaneous Information (Potassium Replacement Protocol 1 Each Mis) 1 each MISCELLANE DAILY PRN; Protocol PRN Reason: Per Protocol Morphine Sulfate (Morphine Sulfate 4 Mg/Ml Syringe) 4 mg IV Q4HR PRN PRN Reason: Pain Scale 8 to 10 Last Admin: 10/17/21 13:17 Dose: 4 mg Naloxone HCl (Naloxone 0.4 Mg/Ml 1 Ml Vial) 0.2 mg IV Q2M PRN PRN Reason: Opioid Reversal Pantoprazole Sodium (Pantoprazole 40 Mg/10 Ml Vial) 40 mg IV DAILY [facility] Last Admin: 10/17/21 07:46 Dose: 40 mg Prednisone (Prednisone 20 Mg Tab) 40 mg PO DAILY [facility] Last Admin: 10/17/21 07:47 Dose: 40 mg Spironolactone (Spironolactone 25 Mg Tab) 50 mg PO DAILY [facility] Last Admin: 10/17/21 09:56 Dose: 50 mg PHYSICAL EXAMINATION: GENERAL: The patient is currently sitting up in the chair awake, alert and oriented 3. Obese Well developed, well nourished. HEENT: Pupils are round and equally reacting to light. EOMI. no scleral icterus. No conjunctival pallor. Normocephalic, atraumatic. No pharyngeal erythema. No thyromegaly. CARDIOVASCULAR: S1 and S2 muffled PULMONARY: diminished breath sounds bilaterally with some scattered rhonchi noted. ABDOMEN: soft. Nontender on exam. obese. non-distended, normoactive bowel sounds. No palpable organomegaly. MUSCULOSKELETAL: No joint swelling or deformity. EXTREMITIES: No cyanosis, clubbing, or pedal edema. NEUROLOGICAL: Alert and oriented 3 awake. Cranial nerves intact with no focal deficits noted SKIN: No rashes. Assessment: Acute hypoxic respiratory failure, present on admission, status post intubation and mechanical ventilation, successfully extubated 10/15/21 COPD with acute exacerbation altered mental status, acute metabolic encephalopathy most likely secondary to hypoxemic respiratory failure Atrial fibrillation with fast ventricular rate, new onset, converted to sinus rhythm and rate controlled on metoprolol and amiodarone Possible right lower lung pneumonia, present on admission with MRSA in the sputum Leukocytosis possibly secondary to above along with a component of induced by IV steroids mild acute on chronic congestive heart failure diastolic dysfunction, acute exacerbation Continued ongoing nicotine dependence Hypertension obesity with BMI of 38.7 GI prophylaxis DVT prophylaxis: Subcutaneous Lovenox Full code Plan: Recommend to continue with weaning FiO2 as tolerated and patient was recently extubated, maintained on 2 L via nasal cannula WBC is trending down and will continue with vancomycin with infectious disease following. Sputum culture did show MRSA Recommend to continue prednisone taper and will continue with breathing inhalational treatments. We'll also add incentive spirometer and encourage the patient to use at least 10 times every hour while awake. Pulmonary following closely and patient will need outpatient follow-up with them and wean FiO2 as tolerated. Patient's heart rate currently rate controlled on amiodarone and metoprolol resumed. Norvasc resumed as well. Cardiology following. PT/OT recommending possible inpatient rehab versus home with home care, social work following and awaiting decision from patient. Patient reports he would like to return home with home care Patient does have chronic back pain and takes methadone which has been resumed Due to multiple complex medical issues, prognosis is guarded Possible discharge in 24-48 hours. The impression and plan of care has been dictated by Mary Pena, nurse practitioner as directed. Dr. Sherry MD I have performed a history and examination and MDM of this patient, discussed the same with the dictator, and agree with the dictator's assessment and plan as written ,documented as a scribe. Based on total visit time, I have performed more than 50% of the visit. Any additional findings or plans will be noted. Objective - Vital Signs Vital signs: Vital Signs Temp 98.1 F 10/17/21 05:00 Pulse 76 10/17/21 07:47 Resp 16 10/17/21 05:00 BP 176/84 10/17/21 07:47 Pulse Ox 92 L 10/17/21 05:00 FiO2 50 10/15/21 15:56 Intake & Output 10/16/21 10/17/21 10/17/21 18:59 06:59 18:59 Intake Total 100 Output Total 1701 1250 776 Balance -0141 -1348 -633 Weight 99.79 kg Intake: IV 100 Lactated Ringers 1,000 ml 100 @ 5 mls/hr IV .Q24H [facility] Rx#:[id number] Output: Urine 1705 1250 775 Stool 1 Other: Voiding Method Indwelling Catheter Urinal ABP, PAP, CO, CI - Last Documented Arterial Blood Pressure 192/65 - Labs CBC & Chem 7: 10/17/21 06:20 10/17/21 06:20 Labs: Abnormal Lab Results - Last 24 Hours (Table) 10/16/21 10/16/21 10/17/21 Range/Units 12:09 20:30 06:20 WBC 13.95 H (4.50-10.00) X 10*3/uL RBC 4.09 L (4.40-5.60) X 10*6/uL Hgb 12.5 L (13.0-17.0) g/dL Hct 37.8 L (39.6-50.0) % Immature Gran # 0.14 H (0.00-0.04) X 10*3/uL Neutrophils # 9.56 H (1.80-7.70) X 10*3/uL Monocytes # 1.17 H (0.20-1.00) X 10*3/uL Eosinophils # 0.02 L (0.04-0.35) X 10*3/uL Carbon Dioxide (20.0-27.5) mmol/L Anion Gap (10.00-18.00) mmol/L BUN (9.0-27.0) mg/dL BUN/Creatinine Ratio (12.00-20.00) Ratio POC Glucose (mg/dL) 150 H 115 H (70-110) mg/dL ALT (10-49) U/L Total Protein (6.2-8.2) g/dL Albumin (3.8-4.9) g/dL Albumin/Globulin Ratio (1.60-3.17) g/dL 10/17/21 Range/Units 06:20 WBC (4.50-10.00) X 10*3/uL RBC (4.40-5.60) X 10*6/uL Hgb (13.0-17.0) g/dL Hct (39.6-50.0) % Immature Gran # (0.00-0.04) X 10*3/uL Neutrophils # (1.80-7.70) X 10*3/uL Monocytes # (0.20-1.00) X 10*3/uL Eosinophils # (0.04-0.35) X 10*3/uL Carbon Dioxide 29.9 H (20.0-27.5) mmol/L Anion Gap 7.10 L (10.00-18.00) mmol/L BUN 30.9 H (9.0-27.0) mg/dL BUN/Creatinine Ratio 34.33 H (12.00-20.00) Ratio POC Glucose (mg/dL) (70-110) mg/dL ALT 57 H (10-49) U/L Total Protein 5.3 L (6.2-8.2) g/dL Albumin 3.2 L (3.8-4.9) g/dL Albumin/Globulin Ratio 1.52 L (1.60-3.17) g/dL Microbiology - Last 24 Hours (Table) 10/13/21 10:23 Blood Culture - Preliminary Blood No Growth after 72 hours 10/13/21 09:25 Blood Culture - Preliminary Blood No Growth after 72 hours
[2021-10-17 14:57] VITALS: BMI 36.6
--- NOTE | 2021-10-17 15:07 | P.PN ---
Subjective Progress Note Date: 10/16/21 Principal diagnosis: MRSA pneumonia Patient is a 60-year male with a past medical history taken for COPD hypertension presented to hospital with increasing shortness of breath did have acute respiratory failure requiring intubation and a component of pneumonia sputum has been finalized with MRSA. On today's evaluation that is 10/16/2021, the patient denies having any fever or any chills, the patient is breathing slightly comfortably currently on a 2 L nasal cannula, the patient denies having any chest pain no worsening cough or sputum production no abdominal pain or diarrhea Objective - Vital Signs Vital signs: Vital Signs Temp 98.7 F 10/16/21 08:00 Pulse 90 10/16/21 12:29 Resp 14 10/16/21 10:00 BP 172/80 10/16/21 11:00 Pulse Ox 93 L 10/16/21 11:00 FiO2 50 10/15/21 15:56 Intake & Output 10/15/21 10/16/21 10/16/21 18:59 06:59 18:59 Intake Total 976 1080 50 Output Total 3945 2300 1150 Balance -2969 -1220 -1100 Intake: IV 130 120 50 Lactated Ringers 1,000 ml 130 120 50 @ 5 mls/hr IV .Q24H [facility] Rx#:[id number] Intake, IV Titration 800 Amount Amiodarone 360 mg In 200 Dextrose 5% in Water 200 ml @ 1 MG/MIN 33.333 mls/ hr IV .Q6H [facility] Rx#: [id number] Piperacillin-Tazobactam 3 100 .375 gm In Sodium Chloride 0.9% 100 ml @ 25 mls/hr IVPB Q8HR [facility] Rx# :[id number] Vancomycin 1,750 mg In 500 Sodium Chloride 0.9% 500 ml 500 ml @ 167 mls/hr IVPB Q12H [facility] Rx#: [id number] Oral 960 Tube Feeding 46 Output: Urine 3945 2300 1150 Other: Voiding Method Indwelling Catheter Indwelling Catheter Indwelling Catheter # Bowel Movements 1 ABP, PAP, CO, CI - Last Documented Arterial Blood Pressure 192/65 - Exam GENERAL DESCRIPTION: Middle-aged male lying in bed, no distress. No tachypnea or accessory muscle of respiration use. LUNGS: Unlabored breathing. Coarse breath sounds bilaterally HEART: S1, S2, regular rate and rhythm. No loud murmur ABDOMEN: Soft, no tenderness , guarding or rigidity, no organomegaly EXTREMITIES: No edema of feet. - Labs CBC & Chem 7: 10/17/21 06:20 10/17/21 06:20 Labs: Abnormal Lab Results - Last 24 Hours (Table) 10/15/21 10/15/21 10/16/21 Range/Units 18:01 23:35 06:45 WBC (3.8-10.6) k/uL RBC (4.30-5.90) m/uL Hgb (13.0-17.5) gm/dL Neutrophils # (1.3-7.7) k/uL Carbon Dioxide (22-30) mmol/L BUN (9-20) mg/dL Glucose (74-99) mg/dL POC Glucose (mg/dL) 158 H 116 H 125 H (70-110) mg/dL ALT (4-49) U/L Total Protein (6.3-8.2) g/dL 10/16/21 10/16/21 10/16/21 Range/Units 07:52 07:52 12:09 WBC 17.7 H (3.8-10.6) k/uL RBC 4.19 L (4.30-5.90) m/uL Hgb 12.8 L (13.0-17.5) gm/dL Neutrophils # 15.5 H (1.3-7.7) k/uL Carbon Dioxide 31 H (22-30) mmol/L BUN 39 H (9-20) mg/dL Glucose 129 H (74-99) mg/dL POC Glucose (mg/dL) 150 H (70-110) mg/dL ALT 57 H (4-49) U/L Total Protein 6.1 L (6.3-8.2) g/dL Microbiology - Last 24 Hours (Table) 10/13/21 10:23 Blood Culture - Preliminary Blood No Growth after 72 hours 10/13/21 09:25 Blood Culture - Preliminary Blood No Growth after 72 hours Assessment and Plan (1) MRSA pneumonia Current Visit: Yes Status: Acute Code(s): J15.212 - PNEUMONIA DUE TO METHICILLIN RESISTANT STAPHYLOCOCCUS AUREUS SNOMED Code(s): 166979162965258 Plan: 1patient presented hospital with acute respiratory failure which is multifactorial in this patient who do have a history of COPD and heart failure with likely COPD exacerbation and a component of pneumonia with a sputum has been finalized with MRSA likely pathogen. 2Patient to continue withvancomycin pharmacy to dose target trough of 15 while watching kidney function and vancomycin trough closely Time with Patient: Less than 30
[2021-10-17 17:03] LABS: Glucose,Whole Blood 128 mg/dL (70-110)
--- NOTE | 2021-10-17 18:32 | P.PN ---
Subjective Progress Note Date: 10/17/21 60-year-old male, who presented to the emergency department, on October 12, with shortness of breath, and impending respiratory failure. The patient had mental status changes, as well. I did have a chance to speak to the ER physician, who admitted the patient. They attempted BiPAP treatment for this patient, but he kept on pulling the mask off, becoming more agitated, more short of breath, and desaturating. For that reason, the patient was sedated and intubated, placed on the mechanical ventilator, and transferred to the ICU. Currently, he is on volume assist control mode, rate 24, tidal volume 500, FiO2 80%, and PEEP of 5. Blood gases show pO2 144, pCO2 of 68, and a pH is 7.21. Both blood gases were done on 100%, and, the rate after that blood gas was increased from 18 up to 24. The patient remains on propofol at 40 mcg/kg/m, and lactated Ringer's at 75 mL an hour. A radial art line was placed. As well as a left internal jugular triple-lumen catheter. White count 10.8, hemoglobin 11, hematocrit 34, and platelet count normal. Repeat blood gases show a PaO2 of 90, pCO2 of 42, and a pH is 7.4. Sodium 136, potassium 4.5, chlorides 107, CO2 27, BUN 26, creatinine 1.21. Troponin was less than 0.012. Urine was negative. Computed tomography scan of the brain was negative. Chest x-ray shows diffuse bilateral infiltrates, cardiomegaly, and could be consistent with fluid overload. Progress note dated 10/13/2021. 60-year-old male seen yesterday in consultation. Please see my note above. He was admitted through the emergency room, with respiratory failure, and was intubated by the ER physician. He failed BiPAP therapy. He remains on mechanical ventilator. Yesterday, we placed a right reveal arterial line, and a left internal jugular triple lumen catheter. Current ventilator settings include the volume assist control modality, rate 24, tidal volume 500, FiO2 60%, and PEEP of 5. Blood gases on those same settings, but 70%, show a PaO2 of 103, pCO2 44, and a pH is 7.38. FiO2 was reduced from 70, down to 60%. He is getting lactated Ringer's at 75 mL an hour, we'll follow 50 mcg/kg/m, and vital high protein at 35 mL an hour, with a goal of 55 mL an hour. The plan today is a daily interruption of sedation, adding Zosyn, and getting his tube feeds up to goal. White count 12, hemoglobin 11.5, hematocrit 34.4, and platelet count is normal. Sodium 137, potassium 4.2, chlorides 110, CO2 25, BUN 26, creatinine 1.08. Albumin is 2.9. Chest x-ray shows a persistent infiltrate in the right lower lobe. Microbiologic studies are negative. On 10/14/2021, the patient is being seen for a follow-up. This morning, the patient is intubated on a mechanical ventilator. The patient was admitted on 10/12/2021. The patient is currently on propofol running at 55 mcg/kg per minute. IV fluids in the form of lactated Ringer at the rate of 75 mL an hour. The patient is intubated on a mechanical ventilator. The patient is an assist- control mode at the rate of 24 with a tidal volume of 500 and FiO2 of 50% with a PEEP of 5. Blood gases showed a pH of 7.39 with a pCO2 of 46 and pO2 of 83. Chest x-ray shows some limited opacification of the right lung base. There is also adequate positioning of the ET tube. No acute abnormalities are noted. The patient has a peak airway pressure of 23 cm of water. The patient is calm and comfortable. He is arousable once off the sedation. Overall fluid balance has been +2.9 L over the past 24 hours. The patient's white cell count is at 18 with a hemoglobin of 11 and a platelet count of 2:30. Pro-calcitonin level is at 0.33. ProBNP level is 1440. The patient has a sodium level of 137 with a BUN of 29 and a creatinine of 0.9. Patient is also on tube feeding at the rate of 55 mL an hour. No fever. No chills. No other significant events overnight. Cardiac rhythm is sinus for now. On today's evaluation of 10/15/2021, the patient is doing well. Patient is hemodynamically stable. The patient remains intubated on a mechanical ventilator. Patient remains on propofol which is running at 55 mcg/kg per minute. IV fluids are currently at KVO. The patient got diuresed over the past 24 hours and the patient is in a negative fluid balance. At the same time, the patient was found to have MRSA in the sputum and the patient was started on vancomycin yesterday. The patient is also on IV Zosyn. He is afebrile. White cell count is elevated at 20. Hemoglobin is at 11.5. Renal function is curren tly within normal limits. I give the patient sedation holiday and while the patient was being more rales, the patient went into atrial fibrillation with rapid ventricular response. At that point, the patient was loaded with amiodarone and the sedation holiday was discontinued. The patient was placed back on sedation and he was kept on a mechanical ventilated throughout the day yesterday. Subsequently, in the afternoon, the patient converted back to normal sinus rhythm. The patient is currently on amiodarone at 0.5 mg per minute. He is on a mechanical ventilator. On assist-control mode of mechanical ventilation at the rate of 24, tidal volume of 500, FiO2 of 50% with a PEEP of 5. Peak airway pressures 22. Blood gases showed a pH of 7.43 with a pCO2 of 44 and pO2 of 64. The patient is receiving enteral feeding for nutritional support and the patient is currently on ital HP at a rate of 26 an hour. No other significant events overnight otherwise. No fever. No chills. Cardiac rhythm remains sinus for now. 10/16/2021, the patient is doing well. The patient was extubated yesterday without any major difficulties and currently is on 2 L of O2 nasal cannula. He is awake and alert and is following commands and answering questions. In fact he had a good breakfast this morning. Hemodynamically stable. No significant respiratory secretions. Chest x-ray is stable. The patient is in a negative fluid balance of 2.4 L. Cardiac rhythm is sinus. His sodium is at 139 with a BUN of 39 and creatinine of 0.5. White cell count is at 17.7. Hemoglobin is at 12.8. The patient remains on a combination of Zosyn and vancomycin. He has chronic back pain and the patient takes methadone on outpatient basis. He will be provided an incentive spirometer. 10/17/2021, the patient got transferred out of the intensive care unit and the patient currently on 2 L of O2 nasal cannula. Doing well. No specific complaints. He is on oral Lasix. Is on oral prednisone burst taper and the patient is completing a course of vancomycin. No chest pain. No cervical shortness of breath. He is active. He is moving around and his blood work shows a white count of 13.9 with hemoglobin 12.5. Sodium is 14 the with a BUN of 30 and a creatinine of 0.9. Vancomycin trough is at 16.5. Objective - Vital Signs Vital signs: Vital Signs Temp 98.5 F 10/17/21 11:00 Pulse 76 10/17/21 16:02 Resp 18 10/17/21 11:00 BP 145/85 10/17/21 11:00 Pulse Ox 96 10/17/21 11:00 FiO2 50 10/15/21 15:56 Intake & Output 10/16/21 10/17/21 10/17/21 18:59 06:59 18:59 Intake Total 100 Output Total 1705 1250 776 Balance -1605 -1250 -776 Weight 99.79 kg 99.79 kg Intake: IV 100 Lactated Ringers 1,000 ml 100 @ 5 mls/hr IV .Q24H [facility] Rx#:[id number] Output: Urine 1705 1250 775 Stool 1 Other: Voiding Method Indwelling Catheter Urinal ABP, PAP, CO, CI - Last Documented Arterial Blood Pressure 192/65 - Exam No acute distress, breathing is nonlabored and the patient is currently extubated to 2 L of oxygen by nasal cannula Head exam was generally normal. There was no scleral icterus or corneal arcus. Mucous membranes were moist. HEENT examination is grossly unremarkable. Neck supple. Full range of motion. No adenopathy thyromegaly or neck vein distention. Cardiovascular examination reveals regular rhythm rate. Cardiac exam revealed the PMI to be normally situated and sized. The rhythm was regular and no extrasystoles were noted during several minutes of auscultation. The first and second heart sounds were normal and physiologic splitting of the second heart sound was noted. There were no murmurs, rubs, clicks, or gallops. Lungs reveal diffuse bilateral rhonchi. Wheezes are noted. No crackles. B reath sounds equal bilaterally but diminished. Abdomen soft bowel sounds are heard. No masses or tenderness. Extremities are intact. No cyanosis clubbing or edema. Examination of the skin revealed no evidence of significant rashes, suspicious appearing nevi or other concerning lesions. Neurologically, the patient is awake and alert and the patient does not have any focal neurological deficit. Cranial nerves are essentially intact. - Labs CBC & Chem 7: 10/17/21 06:20 10/17/21 06:20 Labs: Abnormal Lab Results - Last 24 Hours (Table) 10/16/21 10/17/21 10/17/21 Range/Units 20:30 06:20 06:20 WBC 13.95 H (4.50-10.00) X 10*3/uL RBC 4.09 L (4.40-5.60) X 10*6/uL Hgb 12.5 L (13.0-17.0) g/dL Hct 37.8 L (39.6-50.0) % Immature Gran # 0.14 H (0.00-0.04) X 10*3/uL Neutrophils # 9.56 H (1.80-7.70) X 10*3/uL Monocytes # 1.17 H (0.20-1.00) X 10*3/uL Eosinophils # 0.02 L (0.04-0.35) X 10*3/uL Carbon Dioxide 29.9 H (20.0-27.5) mmol/L Anion Gap 7.10 L (10.00-18.00) mmol/L BUN 30.9 H (9.0-27.0) mg/dL BUN/Creatinine Ratio 34.33 H (12.00-20.00) Ratio POC Glucose (mg/dL) 115 H (70-110) mg/dL ALT 57 H (10-49) U/L Total Protein 5.3 L (6.2-8.2) g/dL Albumin 3.2 L (3.8-4.9) g/dL Albumin/Globulin Ratio 1.52 L (1.60-3.17) g/dL 10/17/21 10/17/21 Range/Units 11:02 17:01 WBC (4.50-10.00) X 10*3/uL RBC (4.40-5.60) X 10*6/uL Hgb (13.0-17.0) g/dL Hct (39.6-50.0) % Immature Gran # (0.00-0.04) X 10*3/uL Neutrophils # (1.80-7.70) X 10*3/uL Monocytes # (0.20-1.00) X 10*3/uL Eosinophils # (0.04-0.35) X 10*3/uL Carbon Dioxide (20.0-27.5) mmol/L Anion Gap (10.00-18.00) mmol/L BUN (9.0-27.0) mg/dL BUN/Creatinine Ratio (12.00-20.00) Ratio POC Glucose (mg/dL) 111 H 128 H (70-110) mg/dL ALT (10-49) U/L Total Protein (6.2-8.2) g/dL Albumin (3.8-4.9) g/dL Albumin/Globulin Ratio (1.60-3.17) g/dL Microbiology - Last 24 Hours (Table) 10/13/21 10:23 Blood Culture - Preliminary Blood No Growth after 96 hours 10/13/21 09:25 Blood Culture - Preliminary Blood No Growth after 96 hours Assessment and Plan Plan: Acute hypoxemic respiratory failure, likely multifactorial, in part related to COPD exacerbation, possible CHF, and also possible pneumonia, RLL. The patient was extubated yesterday and the patient is currently on 2 L of oxygen by nasal cannula. The patient was extubated successfully and the patient is completing course of vancomycin regarding MRSA pneumonia. Acute hypoxemic respiratory failure requiring intubation and mechanical ventilation, on 10/12/2021, extubated on 10/15/2021 currently on 2 L of O2 nasal cannula Mental status changes, likely related to hypoxemic respiratory failure. CHF, preserved LV function with an ejection fraction of 60-65% Paroxysmal atrial fibrillation, current rhythm is sinus, currently on oral amiodarone History of heavy tobacco use. Chronic pain , back Chronic methadone user, methadone 10 mg q hours Obesity COPD Leukocytosis, white cell count is elevated at 20 Hyperlipidemia Plan: Continue supportive care Increase of activity as tolerated Keep the patient on O2 at 2 L Incentive spirometer Continue vancomycin for MRSA in the sputum/MRSA pneumonia Monitor the white cell count, white cell count remains elevated, although it's improving and the white cell count of 13.9 Keep the IV fluids at KVO Lasix 40 mg by mouth daily prednisone burst taper starting at 40 mg daily Continue methadone 10 mg 3 times a day incentive spirometer We'll continue to follow
[2021-10-17 20:17] LABS: Glucose,Whole Blood 144 mg/dL (70-110)
[2021-10-18] MEDS: METHADONE 10 MG TAB PO SCH ×3 (00:49→17:02)
[2021-10-18] MEDS: VANCOMYCIN 1,750 MG in SODIUM CHLORIDE 0.9% 500 ML 500 ML IVPB SCH ×2 (00:50→12:41)
[2021-10-18] MEDS: IPRATROPIUM-ALBUTEROL 3 ML NEB INHALATION SCH ×7 (03:09→23:02)
[2021-10-18 05:46] LABS: African American GFR (CKD) >90 (>60 ml/min/1.73 sqM); Anion Gap 0 mmol/L; Blood Urea Nitrogen 28 mg/dL (9-20); Calcium 8.2 mg/dL (8.4-10.2); Carbon Dioxide 32 mmol/L (22-30); Chloride 104 mmol/L (98-107); Glucose 89 mg/dL (74-99); Non-African American GFR(CKD) >90 (>60 ml/min/1.73 sqM); Potassium 3.5 mmol/L (3.5-5.1); Sodium 136 mmol/L (137-145)
[2021-10-18 06:59] LABS: Glucose,Whole Blood 103 mg/dL (70-110)
[2021-10-18] MEDS: amLODIPine 10 MG TAB PO SCH (08:10)
[2021-10-18] MEDS: METOPROLOL SUCCINATE (ER) 100 MG TAB.ER.24H PO SCH (08:10)
[2021-10-18] MEDS: predniSONE 20 MG TAB PO SCH (08:10)
[2021-10-18] MEDS: FUROSEMIDE 40 MG TAB PO SCH (08:10)
[2021-10-18] MEDS: lisinopriL 20 MG TAB PO SCH (08:10)
[2021-10-18] MEDS: AMIODARONE 200 MG TAB PO SCH (08:10)
[2021-10-18] MEDS: PANTOPRAZOLE 40 MG/10 ML VIAL IV SCH (08:10)
[2021-10-18] MEDS: SPIRONOLACTONE 25 MG TAB PO SCH (08:11)
[2021-10-18] MEDS: ENOXAPARIN 40 MG/0.4 ML SYRINGE SQ SCH (08:11)
[2021-10-18] MEDS: SYMBICORT 160-4.5 MCG INHALER INHALATION SCH ×2 (08:45→19:33)
[2021-10-18] MEDS: INSULIN ASPART (NovoLOG) 100 UNIT/ML VIAL SQ SCH ×4 (08:55→20:59)
--- NOTE | 2021-10-18 10:58 | P.PN ---
Subjective This is a 60 year old male with a past medical history of chronic nicotine dependence, COPD, hypertension, hyperlipidemia. Patient apparently has seen Dr. France before, no office records available. We are consulted to the see the patient for Atrial fibrillation with RVR. Patient initially presented to the hospital on 10/12/2021 with altered mental status, shortness of breath, respiratory failure requiring intubation and mechanical ventilation. He was apparently recently hospitalized at [facility] for acute hypoxic hypercapnic respiratory failure secondary to COPD exacerbation with congestive heart failure. He presented to the ER here for worsening shortness of breath. He is currently being treated for COPD exacerbation and pneumonia. On 10/14, patient found to be in A fib with RVR, started on IV amiodarone drip and converted to sinus rhythm. He was transitioned to PO Amiodarone 400mg daily on 10/15 and has been maintaining sinus mechanism. Echo revealed EF 60-65%, moderate mitral regurgitation, moderately increased left atrial volume. 10/18/2021 He is seen and examined at bedside on 5N unit. He is feeling well. Breathing has improved. He feels well no complaints. Denies any chest pain. BP improved yesterday. He is maintaining sinus mechanism Meds: Amiodarone 400 mg daily, amlodipine 10 mg daily, clonidine patch 0.2 mg, Lasix 40 mg daily, lisinopril 40 mg daily, metoprolol succinate 100 mg daily, spironolactone 50mg daily GENERAL: Well-appearing, well-nourished and in no acute distress. NECK: Supple without JVD or thyromegaly. LUNGS: Breath sounds diminished, rhonchi to auscultation bilaterally. Respiration equal and unlabored. HEART: Regular rate and rhythm, systolic ejection murmur at apex, No rubs or gallops. S1 and S2 heard. EXTREMITIES: Normal range of motion, no edema. No clubbing or cyanosis. Peripheral pulses intact. ASSESSMENT Paroxysmal atrial fibrillation with RVR, [id number] 1, maintaining sinus mechanism Acute hypoxemic respiratory failure requiring intubation and mechanical ventilation, extubated on 10/15. Possible pneumonia, MRSA found in sputum COPD exacerbation Altered mental status, improved Uncontrolled hypertension Moderate mitral regurgitation Leukocytosis Chronic nicotine dependence History of hypertension Hyperlipidemia PLAN Continue current cardiac medications. Sprionolactone 50mg started yesterday Continue other cardiac medications, amiodarone taper on discharge Patient's [id number] score 1, will hold on anticoagulation at this time Continue supportive care From a cardiology perspective, patient is stable, discharge when cleared by primary and other consultants. Recommend close follow outpatient. Nurse Practitioner note has been reviewed, I agree with a documented findings and plan of care. Patient was seen and examined. Objective - Vital Signs Vital signs: Vital Signs Temp 98.5 F 10/18/21 04:05 Pulse 89 10/18/21 08:17 Resp 18 10/18/21 04:05 BP 169/87 10/18/21 08:17 Pulse Ox 95 10/18/21 04:05 FiO2 50 10/15/21 15:56 Intake & Output 10/17/21 10/18/21 10/18/21 18:59 06:59 18:59 Intake Total 500 Output Total 776 901 Balance -776 -401 Weight 99.79 kg 96 kg Intake: Intake, IV Titration 500 Amount Vancomycin 1,750 mg In 500 Sodium Chloride 0.9% 500 ml 500 ml @ 167 mls/hr IVPB Q12H [facility] Rx#: [id number] Output: Urine 775 900 Stool 1 1 Other: Voiding Method Urinal # Voids 2 3 ABP, PAP, CO, CI - Last Documented Arterial Blood Pressure 192/65 - Labs CBC & Chem 7: 10/17/21 06:20 10/18/21 05:23 Labs: Abnormal Lab Results - Last 24 Hours (Table) 10/17/21 10/17/21 10/17/21 Range/Units 06:20 06:20 11:02 WBC 13.95 H (4.50-10.00) X 10*3/uL RBC 4.09 L (4.40-5.60) X 10*6/uL Hgb 12.5 L (13.0-17.0) g/dL Hct 37.8 L (39.6-50.0) % Immature Gran # 0.14 H (0.00-0.04) X 10*3/uL Neutrophils # 9.56 H (1.80-7.70) X 10*3/uL Monocytes # 1.17 H (0.20-1.00) X 10*3/uL Eosinophils # 0.02 L (0.04-0.35) X 10*3/uL Sodium (137-145) mmol/L Carbon Dioxide 29.9 H (20.0-27.5) mmol/L Anion Gap 7.10 L (10.00-18.00) mmol/L BUN 30.9 H (9.0-27.0) mg/dL BUN/Creatinine Ratio 34.33 H (12.00-20.00) Ratio POC Glucose (mg/dL) 111 H (70-110) mg/dL Calcium (8.4-10.2) mg/dL ALT 57 H (10-49) U/L Total Protein 5.3 L (6.2-8.2) g/dL Albumin 3.2 L (3.8-4.9) g/dL Albumin/Globulin Ratio 1.52 L (1.60-3.17) g/dL 10/17/21 10/17/21 10/18/21 Range/Units 17:01 20:16 05:23 WBC (4.50-10.00) X 10*3/uL RBC (4.40-5.60) X 10*6/uL Hgb (13.0-17.0) g/dL Hct (39.6-50.0) % Immature Gran # (0.00-0.04) X 10*3/uL Neutrophils # (1.80-7.70) X 10*3/uL Monocytes # (0.20-1.00) X 10*3/uL Eosinophils # (0.04-0.35) X 10*3/uL Sodium 136 L (137-145) mmol/L Carbon Dioxide 32 H (20.0-27.5) mmol/L Anion Gap (10.00-18.00) mmol/L BUN 28 H (9.0-27.0) mg/dL BUN/Creatinine Ratio (12.00-20.00) Ratio POC Glucose (mg/dL) 128 H 144 H (70-110) mg/dL Calcium 8.2 L (8.4-10.2) mg/dL ALT (10-49) U/L Total Protein (6.2-8.2) g/dL Albumin (3.8-4.9) g/dL Albumin/Globulin Ratio (1.60-3.17) g/dL Microbiology - Last 24 Hours (Table) 10/13/21 10:23 Blood Culture - Preliminary Blood No Growth after 96 hours 10/13/21 09:25 Blood Culture - Preliminary Blood No Growth after 96 hours
[2021-10-18 11:03] LABS: Glucose,Whole Blood 132 mg/dL (70-110)
[2021-10-18] MEDS: MORPHINE SULFATE 4 MG/ML SYRINGE IV PRN ×2 (14:49→21:00)
--- NOTE | 2021-10-18 15:01 | P.PN ---
Subjective Progress Note Date: 10/18/21 This is a pleasant 60 years old male with past medical history of Heart Failure, COPD, Hypertension. Patient currently is intubated and could not provide information so it was obtained from start of her records. No family at bedside. I called the son Misael Tineo who is listed as next of kin and he confirmed to me patient has no but for NSAIDs and that he is the next of kin. his number was [phone]. He told me the patient was in the hospital in [place] about 3 weeks ago for chest pain and shortness of breath and he was been treated and discharged on oxygen after 1 week, he has been using oxygen as needed especially at night as per brother. 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 as per brother patient used to be heavy smoker 2 packs per day was cutting down and he thinks now he is on 1 pack per day, no alcohol or illicit drugs per brother. on reviewing the records at [facility] patient was for acute hypoxic hypercapnic respiratory failure secondary to COPD exacerbation with acute diastolic congestive heart failure with ejection fraction 55-60%. ProBNP was 1594 he had elevated d-dimer over CTA of the chest show no evidence of pulmonary embolism but pleural effusion with vascular pulmonary infiltrates and atelectasis, congestive heart failure as possible. and nonspecific enlarged mediastinal lymph nodes Patient presents with acute hypoxia, his oxygen saturation was 30% per EMS. He was tachycardic and tachypneic and hypotensive on arrival and he was placed on BiPAP before he got intubated. Currently patient is afebrile, temperature is slightly low at 97.5. He is saturating 98% on 80% FiO2. Blood pressure 109/62 left showing WBC slightly up at 10.8. Hemoglobin 11. Sodium is 136, creatinine 1.2, glucose 126 and 33 Urine analysis showing 2+ protein, RBCs 67. Coronavirus varus not detected. Chest x-ray showing coarse lung markings but no obvious heart failure or pulmonary consolidation CT of the brain negative and unchanged. CT EKG showing normal sinus rhythm at [address]-T changes In the emergency room patient received vasotec, Ativan, morphine, succinylcholine, propofol and Lovenox and Protonix 10/13/2021 Patient remains in the ICU in critical condition, he remains intubated and sedated with saline to induction of sedation and pulmonary/critical care team followed closely and make suitable adjustment. Remains on Solu-Medrol 40 mg Past leukocytosis of 12,000, procalcitonin is elevated at0.33 Patient Is Placed on Zosyn and It Also on Finger a Lactate at 75 mL/h 10/14/2021 Patient is seen and evaluated and follow-up continues to be in the ICU with multiple medical consultations following. Patient continues on mechanical vent and FiO2 is currently 50% with a PEEP of 5. Per nursing staff there was discussion of possible weaning although patient's heart rate elevated in found to be in atrial fibrillation with RVR being started on IV amiodarone. Will consult cardiology and continue to monitor closely. Patient was admitted for COPD exacerbation with CHF and BNP was found to be 1400. Pulmonary workforce management manager following inpatient is continued on IV steroids along with inhalers and also maintained on Zosyn. Patient was given a dose of Lasix today as chest x-ray showed continued airspace opacification within the right lower lung which have slightly decreased aeration compared to previous day with no evidence of pleural effusion focal consolidation or pneumothorax and the ET tube needs possible advancement of 4 cm and also NG tube needs advancement as well. Follow-up chest x-ray recommended. WBC is elevated at 18.7 and hemoglobin is 11.1, sodium 137 with a potassium 4.3, creatinine 0.99, magnesium 2.1. 2-D echo was ordered. 10/15/2021 Patient continues to be in the ICU with multiple medical consultations following. Currently being extubated at this time. Cardiology was consulted as patient was found to be in atrial fibrillation with rapid ventricular rate and initially started on amiodarone and converted back to sinus rhythm. Patient normally takes Norvasc and metoprolol in the outpatient setting and this had not been resumed and patient also having some hypertension and resumed these medications. Patient will also likely be transitioning to oral amiodarone and will discuss with cardiology and pulmonary workforce management manager about anticoagulation. Patient continues on breathing inhalational treatments along with subcutaneous Lovenox for anticoagulation for now, IV Lasix twice daily along with IV steroids 60 every 6 IV Zosyn, and IV vancomycin. Weaning trials being conducted and propofol is currently off. Chest x-ray today shows pulmonary venous hypertension and interstitial edema probable left pleural effusion and associ ated atelectasis versus basilar edema or pneumonia with no evident pneumothorax, prominence of the pulmonary arteries could be indicative of underlying pulmonary artery hypertension. WBC continues to be elevated and is currently 20.8 and patient remains afebrile, possible component of IV steroids along with MRSA noted in the sputum culture. BMP within normal limits and blood sugars are controlled on sliding scale every 6 and recommend continue as patient is also noted to be on lactated Ringer's. 10/16/2021 Patient is seen in follow-up this morning continues to be in the ICU with pulmonary and infectious disease following closely. Patient has been extubated successfully and currently maintained on 2 L via nasal cannula and tolerating well. Patient continues to report sore throat status post extubation and will add Cepacol lozenges may use Hurricaine spray as well. Patient tolerating diet with no reports of nausea or vomiting noted. Patient is also continued on IV antibiotics in the form of vancomycin as sputum culture did show MRSA and will continue. IV steroids has been discontinued and patient is being started on a prednisone taper and appropriate home medications have been resumed. Patient has been working with physical therapy and recommend continue doing so as patie nt continues to be somewhat weak. Patient is being downgraded from ICU and awaiting a bed on the selective unit. Chest x-ray today shows improving basilar atelectasis or infiltrate and small effusion. Patient is currently afebrile and denies worsening shortness of breath or any chest pain. 10/17/2021 Patient is seen today on [facility] unit and has been transferred out of the ICU and continues to have shortness of breath although feels is slowly improving. Patient is continued on 2 L via nasal cannula and attempting weaning FiO2 as tolerated. Patient continues with weakness and physical therapy evaluated the patient recommending subacute rehab versus home with home care and patient repor ts he would like to return home with his girlfriend and have home care in the outpatient setting. Patient follows with Dr. Schwartz out of warfarin as his primary care provider. Pulmonary following closely along with cardiology. Patient also continued on vancomycin for MRSA in the sputum. Patient is currently afebrile and denies any chest pain or palpitations. Patient is tolerating diet with no reports of nausea or vomiting noted. Dennis catheter has been removed and patient is voiding with no difficulties. Current increase activity as tolerated and also encouraged incentive spirometer use at least 10 times every hour while awake. 10/18/2021 Patient is seen in follow-up today continues to have some sore throat and mild shortness of breath and will perform home O2 eval. Patient is continued on 2 L via nasal cannula. Patient also continues with breathing inhalational treatment with pulmonary following closely. Patient has been seen and evaluated by cardiology maintaining sinus rhythm and will see the patient in the outpatient setting and to continue current cardiac medications. Patient also on IV vancomycin for MRSA in the sputum and anxiety following closely and patient will likely require a PICC line with IV vancomycin on discharge. Social work is following and making arrangements as patient has decided to go home with home care and will need to arrange for a PICC line to be placed along with verifying if there is coverage for IV antibiotics in the outpatient setting. Patient is currently afebrile and denies chest pain or palpitations. Patient is tolerating diet with no reports of nausea or vomiting noted. Encouraged increase activity as tolerated and continued use of incentive spirometer. Review of systems: Constitutional: no reports of fatigue, no reports of fever, or chills Cardiovascular: No reports of chest pain or palpitations Respiratory: reports of mild shortness of breath though feels is improving GI: No reports of nausea, vomiting, or diarrhea : No reports of dysuria or retention Neurovascular: reports of generalized weakness All medications have been reviewed Active Medications Albuterol/Ipratropium (Ipratropium-Albuterol 3 Ml Neb) 3 ml INHALATION RT-Q4H [facility] Last Admin: 10/18/21 12:06 Dose: 3 ml Amiodarone HCl (Amiodarone 200 Mg Tab) 400 mg PO DAILY [facility] Stop: 10/21/21 18:00 Last Admin: 10/18/21 08:10 Dose: 400 mg Amiodarone HCl (Amiodarone 200 Mg Tab) 200 mg PO DAILY [facility] Amlodipine Besylate (Amlodipine 10 Mg Tab) 10 mg PO DAILY [facility] Last Admin: 10/18/21 08:10 Dose: 10 mg Benzocaine/Menthol (Benzocaine/Menthol Lozeng 1 Each Lozenge) 1 each MUCOUS MEM Q4HR PRN PRN Reason: Sore Throat Budesonide/Formoterol Fumarate (Symbicort 160-4.5 Mcg Inhaler) 2 puff INHALATION RT-BID [facility] Last Admin: 10/18/21 08:45 Dose: 2 puff Clonidine HCl (Clonidine 0.2 Mg/24hr Patch) 1 patch TRANSDERM Q7D [facility] Last Admin: 10/15/21 15:49 Dose: 1 patch Enoxaparin Sodium (Enoxaparin 40 Mg/0.4 Ml Syringe) 40 mg SQ DAILY [facility] Last Admin: 10/18/21 08:11 Dose: 40 mg Furosemide (Furosemide 40 Mg Tab) 40 mg PO DAILY [facility] Last Admin: 10/18/21 08:10 Dose: 40 mg Hydralazine HCl (Hydralazine Hcl 20 Mg/Ml 1 Ml Vial) 10 mg IVP Q6HR PRN PRN Reason: Blood Pressure - High Last Admin: 10/16/21 04:21 Dose: 10 mg Vancomycin HCl 1,750 mg/ (Sodium Chloride) 500 mls @ 167 mls/hr IVPB Q12H [facility] Last Admin: 10/18/21 12:41 Dose: 167 mls/hr Insulin Aspart (Insulin Aspart (Novolog) 100 Unit/Ml Vial) 0 unit SQ ACHS [facility]; Protocol Last Admin: 10/18/21 12:41 Dose: 1 unit Lisinopril (Lisinopril 20 Mg Tab) 40 mg PO DAILY [facility] Last Admin: 10/18/21 08:10 Dose: 40 mg Methadone HCl (Methadone 10 Mg Tab) 10 mg PO Q8HR [facility] Last Admin: 10/18/21 08:10 Dose: 10 mg Metoprolol Succinate (Metoprolol Succinate (Er) 100 Mg Tab.Er.24h) 100 mg PO DAILY [facility] Last Admin: 10/18/21 08:10 Dose: 100 mg Miscellaneous Information (Magnesium Replacement Protocol 1 Each Misc) 1 each MISCELLANE DAILY PRN; Protocol PRN Reason: Per Protocol Miscellaneous Information (Potassium Replacement Protocol 1 Each Misc) 1 each MISCELLANE DAILY PRN; Protocol PRN Reason: Per Protocol Miscellaneous Information (Vancomycin Trough Due 1 Each Misc) 1 each MISCELLANE ONCE ONE Stop: 10/20/21 12:01 Morphine Sulfate (Morphine Sulfate 4 Mg/Ml Syringe) 4 mg IV Q4HR PRN PRN Reason: Pain Scale 8 to 10 Last Admin: 10/18/21 14:49 Dose: 4 mg Naloxone HCl (Naloxone 0.4 Mg/Ml 1 Ml Vial) 0.2 mg IV Q2M PRN PRN Reason: Opioid Reversal Pantoprazole Sodium (Pantoprazole 40 Mg/10 Ml Vial) 40 mg IV DAILY [facility] Last Admin: 10/18/21 08:10 Dose: 40 mg Prednisone (Prednisone 20 Mg Tab) 40 mg PO DAILY [facility] Last Admin: 10/18/21 08:10 Dose: 40 mg Spironolactone (Spironolactone 25 Mg Tab) 50 mg PO DAILY [facility] Last Admin: 10/18/21 08:11 Dose: 50 mg PHYSICAL EXAMINATION: GENERAL: The patient is currently sitting up in the chair awake, alert and oriented 3. Obese Well developed, well nourished. HEENT: Pupils are round and equally reacting to light. EOMI. no scleral icterus. No conjunctival pallor. Normocephalic, atraumatic. No pharyngeal erythema. No thyromegaly. CARDIOVASCULAR: S1 and S2 muffled PULMONARY: diminished breath sounds bilaterally with some scattered rhonchi noted. ABDOMEN: soft. Nontender on exam. obese. non-distended, normoactive bowel sounds. No palpable organomegaly. MUSCULOSKELETAL: No joint swelling or deformity. EXTREMITIES: No cyanosis, clubbing, or pedal edema. NEUROLOGICAL: Alert and oriented 3 awake. Cranial nerves intact with no focal deficits noted SKIN: No rashes. Assessment: Acute hypoxic respiratory failure, present on admission, status post intubation and mechanical ventilation, successfully extubated 10/15/21 COPD with acute exacerbation altered mental status, acute metabolic encephalopathy most likely secondary to hypoxemic respiratory failure Atrial fibrillation with fast ventricular rate, new onset, converted to sinus rhythm and rate controlled on metoprolol and amiodarone Possible right lower lung pneumonia, present on admission with MRSA in the sputum Leukocytosis possibly secondary to above along with a component of induced by IV steroids, trending down mild acute on chronic congestive heart failure diastolic dysfunction, acute exacerbation Continued ongoing nicotine dependence Hypertension obesity with BMI of 38.7 GI prophylaxis DVT prophylaxis: Subcutaneous Lovenox Full code Plan: Recommend to continue with weaning FiO2 as tolerated and patient was recently extubated, maintained on 2 L via nasal cannula, home O2 eval been patient did not qualify for oxygen and will continue to monitor WBC is trending down and will continue with vancomycin with infectious disease following. Sputum culture did show MRSA, multiple severe drug interactions with patients methadone and patient will be receiving a PICC line to continue with IV antibiotics for a 10 day course in the outpatient setting. Social work aware of this and will need to arrange and verify coverage of antibiotics in the out patient setting. Patient will also need a PICC line placed prior to discharge Recommend to continue prednisone taper and will continue with breathing inhalational treatments. Continue to encourage incentive spirometer use at least 10 times every hour while awake. Pulmonary following closely and patient will need outpatient follow-up with them Patient's heart rate currently rate controlled on amiodarone and metoprolol resumed. Norvasc resumed as well. Cardiology following as needed and will see the patient in the outpatient setting. PT/OT recommending possible rehab versus home with home care, social work following and patient would like to go home with his girlfriend and have home care. Patient does have chronic back pain and takes methadone which has been resumed Due to multiple complex medical issues, prognosis is guarded Insurance has not been verified for IV antibiotic coverage and patient is going to need a PICC line with continued vancomycin for a ten-day course in the out patient setting. Social work is aware. The impression and plan of care has been dictated by Mary Pena, nurse practitioner as directed. Dr. Sherry MD I have performed a history and examination and MDM of this patient, discussed the same with the dictator, and agree with the dictator's assessment and plan as written ,documented as a scribe. Based on total visit time, I have performed more than 50% of the visit. Any additional findings or plans will be noted. Objective - Vital Signs Vital signs: Vital Signs Temp 98.5 F 10/18/21 04:05 Pulse 80 10/18/21 08:58 Resp 18 10/18/21 04:05 BP 169/87 10/18/21 08:17 Pulse Ox 95 10/18/21 04:05 FiO2 50 10/15/21 15:56 Intake & Output 10/17/21 10/18/21 10/18/21 18:59 06:59 18:59 Intake Total 500 Output Total 417 901 Balance -356 -873 Weight 99.79 kg 96 kg Intake: Intake, IV Titration 500 Amount Vancomycin 1,750 mg In 500 Sodium Chloride 0.9% 500 ml 500 ml @ 167 mls/hr IVPB Q12H [facility] Rx#: [id number] Output: Urine 775 900 Stool 1 1 Other: Voiding Method Urinal # Voids 2 3 ABP, PAP, CO, CI - Last Documented Arterial Blood Pressure 192/65 - Labs CBC & Chem 7: 10/17/21 06:20 10/18/21 05:23 Labs: Abnormal Lab Results - Last 24 Hours (Table) 10/17/21 10/17/21 10/17/21 Range/Units 11:02 17:01 20:16 Sodium (137-145) mmol/L Carbon Dioxide (22-30) mmol/L BUN (9-20) mg/dL POC Glucose (mg/dL) 111 H 128 H 144 H (70-110) mg/dL Calcium (8.4-10.2) mg/dL 10/18/21 Range/Units 05:23 Sodium 136 L (137-145) mmol/L Carbon Dioxide 32 H (22-30) mmol/L BUN 28 H (9-20) mg/dL POC Glucose (mg/dL) (70-110) mg/dL Calcium 8.2 L (8.4-10.2) mg/dL Microbiology - Last 24 Hours (Table) 10/13/21 10:23 Blood Culture - Preliminary Blood No Growth after 96 hours 10/13/21 09:25 Blood Culture - Preliminary Blood No Growth after 96 hours
[2021-10-18] MEDS ORDERED: LIDOCAINE 1% INJ 10MG/ML (5 ML VIAL-PF) SQ ONE (15:50)
--- NOTE | 2021-10-18 16:17 | IR ---
EXAMINATION TYPE: IR cvc insert >=5 years DATE OF EXAM: 10/18/2021 COMPARISON: NONE CLINICAL HISTORY: Infection Needs long-term intravenous access for antibiotics. PROCEDURE: Hand hygiene obtained with soap and water and alcohol-based hand rub. Attempts to cannulat e intravenous line with wire were unsuccessful. After informed consent, the skin overlying the right basilic vein was localized with ultrasound and n oted to be compressible and patent. An ultrasound image was obtained and submitted on the patient's chart. The overlying skin was prepped and draped and Lidocaine was used for local anesthesia. A ski n cholo was made with a scalpel. Access was gained to the vein under ultrasound guidance with a 21 ga uge needle and a 0.018 inch wire was advanced. Access site was dilated with Peel-Away sheath and cat heter tailored to the appropriate length and advanced such that the distal tip is at the cavoatrial j unction. Spot image was obtained verifying placement. Catheter was fixed to the skin and a sterile dressing was placed following hemostasis. Catheter was aspirated and flushed with saline. Patient w as discharged in stable condition without complication. Maximal barrier technique is utilized. Ultra sound image is documented on the chart. Ultrasound used with sterile technique. Fluoro time and fluoroscopic images submitted to document procedure: 95 intraoperative C-arm images, 0.8 minutes fluoroscopy time IMPRESSION: STATUS POST ULTRASOUND AND FLUOROSCOPIC GUIDED PICC LINE PLACEMENT, READY FOR USE. THIS PROCEDURE WAS PERFORMED BY THE UNDERSIGNED.
[2021-10-18 17:14] LABS: Glucose,Whole Blood 290 mg/dL (70-110)
[2021-10-18 20:00] LABS: Glucose,Whole Blood >600 mg/dL (70-110)
[2021-10-18 20:02] LABS: Glucose,Whole Blood 142 mg/dL (70-110)
[2021-10-19] MEDS: VANCOMYCIN 1,750 MG in SODIUM CHLORIDE 0.9% 500 ML 500 ML IVPB SCH ×2 (00:08→12:43)
[2021-10-19] MEDS: METHADONE 10 MG TAB PO SCH ×3 (00:09→15:35)
[2021-10-19] MEDS: IPRATROPIUM-ALBUTEROL 3 ML NEB INHALATION SCH ×6 (02:57→23:14)
[2021-10-19] MEDS: MORPHINE SULFATE 4 MG/ML SYRINGE IV PRN ×3 (06:14→20:59)
[2021-10-19 07:10] LABS: Glucose,Whole Blood 102 mg/dL (70-110)
[2021-10-19] MEDS: SYMBICORT 160-4.5 MCG INHALER INHALATION SCH ×2 (07:47→19:42)
[2021-10-19] MEDS: INSULIN ASPART (NovoLOG) 100 UNIT/ML VIAL SQ SCH ×4 (08:35→20:57)
[2021-10-19] MEDS: SPIRONOLACTONE 25 MG TAB PO SCH (08:42)
[2021-10-19] MEDS: lisinopriL 20 MG TAB PO SCH (08:42)
[2021-10-19] MEDS: predniSONE 20 MG TAB PO SCH (08:42)
[2021-10-19] MEDS: FUROSEMIDE 40 MG TAB PO SCH (08:42)
[2021-10-19] MEDS: amLODIPine 10 MG TAB PO SCH (08:43)
[2021-10-19] MEDS: ENOXAPARIN 40 MG/0.4 ML SYRINGE SQ SCH (08:43)
[2021-10-19] MEDS: AMIODARONE 200 MG TAB PO SCH (08:43)
[2021-10-19] MEDS: PANTOPRAZOLE 40 MG/10 ML VIAL IV SCH (08:43)
[2021-10-19] MEDS: METOPROLOL SUCCINATE (ER) 100 MG TAB.ER.24H PO SCH (08:44)
[2021-10-19 11:10] LABS: Glucose,Whole Blood 194 mg/dL (70-110)
--- NOTE | 2021-10-19 12:07 | P.PN ---
Subjective Progress Note Date: 10/19/21 60-year-old male, who presented to the emergency department, on October 12, with shortness of breath, and impending respiratory failure. The patient had mental status changes, as well. I did have a chance to speak to the ER physician, who admitted the patient. They attempted BiPAP treatment for this patient, but he kept on pulling the mask off, becoming more agitated, more short of breath, and desaturating. For that reason, the patient was sedated and intubated, placed on the mechanical ventilator, and transferred to the ICU. Currently, he is on volume assist control mode, rate 24, tidal volume 500, FiO2 80%, and PEEP of 5. Blood gases show pO2 144, pCO2 of 68, and a pH is 7.21. Both blood gases were done on 100%, and, the rate after that blood gas was increased from 18 up to 24. The patient remains on propofol at 40 mcg/kg/m, and lactated Ringer's at 75 mL an hour. A radial art line was placed. As well as a left internal jugular triple-lumen catheter. White count 10.8, hemoglobin 11, hematocrit 34, and platelet count normal. Repeat blood gases show a PaO2 of 90, pCO2 of 42, and a pH is 7.4. Sodium 136, potassium 4.5, chlorides 107, CO2 27, BUN 26, creatinine 1.21. Troponin was less than 0.012. Urine was negative. Computed tomography scan of the brain was negative. Chest x-ray shows diffuse bilateral infiltrates, cardiomegaly, and could be consistent with fluid overload. Progress note dated 10/13/2021. 60-year-old male seen yesterday in consultation. Please see my note above. He was admitted through the emergency room, with respiratory failure, and was intubated by the ER physician. He failed BiPAP therapy. He remains on mechanical ventilator. Yesterday, we placed a right reveal arterial line, and a left internal jugular triple lumen catheter. Current ventilator settings include the volume assist control modality, rate 24, tidal volume 500, FiO2 60%, and PEEP of 5. Blood gases on those same settings, but 70%, show a PaO2 of 103, pCO2 44, and a pH is 7.38. FiO2 was reduced from 70, down to 60%. He is getting lactated Ringer's at 75 mL an hour, we'll follow 50 mcg/kg/m, and vital high protein at 35 mL an hour, with a goal of 55 mL an hour. The plan today is a daily interruption of sedation, adding Zosyn, and getting his tube feeds up to goal. White count 12, hemoglobin 11.5, hematocrit 34.4, and platelet count is normal. Sodium 137, potassium 4.2, chlorides 110, CO2 25, BUN 26, creatinine 1.08. Albumin is 2.9. Chest x-ray shows a persistent infiltrate in the right lower lobe. Microbiologic studies are negative. On 10/14/2021, the patient is being seen for a follow-up. This morning, the patient is intubated on a mechanical ventilator. The patient was admitted on 10/12/2021. The patient is currently on propofol running at 55 mcg/kg per minute. IV fluids in the form of lactated Ringer at the rate of 75 mL an hour. The patient is intubated on a mechanical ventilator. The patient is an assist- control mode at the rate of 24 with a tidal volume of 500 and FiO2 of 50% with a PEEP of 5. Blood gases showed a pH of 7.39 with a pCO2 of 46 and pO2 of 83. Chest x-ray shows some limited opacification of the right lung base. There is also adequate positioning of the ET tube. No acute abnormalities are noted. The patient has a peak airway pressure of 23 cm of water. The patient is calm and comfortable. He is arousable once off the sedation. Overall fluid balance has been +2.9 L over the past 24 hours. The patient's white cell count is at 18 with a hemoglobin of 11 and a platelet count of 2:30. Pro-calcitonin level is at 0.33. ProBNP level is 1440. The patient has a sodium level of 137 with a BUN of 29 and a creatinine of 0.9. Patient is also on tube feeding at the rate of 55 mL an hour. No fever. No chills. No other significant events overnight. Cardiac rhythm is sinus for now. On today's evaluation of 10/15/2021, the patient is doing well. Patient is hemodynamically stable. The patient remains intubated on a mechanical ventilator. Patient remains on propofol which is running at 55 mcg/kg per minute. IV fluids are currently at KVO. The patient got diuresed over the past 24 hours and the patient is in a negative fluid balance. At the same time, the patient was found to have MRSA in the sputum and the patient was started on vancomycin yesterday. The patient is also on IV Zosyn. He is afebrile. White cell count is elevated at 20. Hemoglobin is at 11.5. Renal function is curren tly within normal limits. I give the patient sedation holiday and while the patient was being more rales, the patient went into atrial fibrillation with rapid ventricular response. At that point, the patient was loaded with amiodarone and the sedation holiday was discontinued. The patient was placed back on sedation and he was kept on a mechanical ventilated throughout the day yesterday. Subsequently, in the afternoon, the patient converted back to normal sinus rhythm. The patient is currently on amiodarone at 0.5 mg per minute. He is on a mechanical ventilator. On assist-control mode of mechanical ventilation at the rate of 24, tidal volume of 500, FiO2 of 50% with a PEEP of 5. Peak airway pressures 22. Blood gases showed a pH of 7.43 with a pCO2 of 44 and pO2 of 64. The patient is receiving enteral feeding for nutritional support and the patient is currently on ital HP at a rate of 26 an hour. No other significant events overnight otherwise. No fever. No chills. Cardiac rhythm remains sinus for now. 10/16/2021, the patient is doing well. The patient was extubated yesterday without any major difficulties and currently is on 2 L of O2 nasal cannula. He is awake and alert and is following commands and answering questions. In fact he had a good breakfast this morning. Hemodynamically stable. No significant respiratory secretions. Chest x-ray is stable. The patient is in a negative fluid balance of 2.4 L. Cardiac rhythm is sinus. His sodium is at 139 with a BUN of 39 and creatinine of 0.5. White cell count is at 17.7. Hemoglobin is at 12.8. The patient remains on a combination of Zosyn and vancomycin. He has chronic back pain and the patient takes methadone on outpatient basis. He will be provided an incentive spirometer. 10/17/2021, the patient got transferred out of the intensive care unit and the patient currently on 2 L of O2 nasal cannula. Doing well. No specific complaints. He is on oral Lasix. Is on oral prednisone burst taper and the patient is completing a course of vancomycin. No chest pain. No cervical shortness of breath. He is active. He is moving around and his blood work shows a white count of 13.9 with hemoglobin 12.5. Sodium is 14 the with a BUN of 30 and a creatinine of 0.9. Vancomycin trough is at 16.5. 10/18/2021, the patient is being seen for a follow-up. The patient is doing well. No new complaints. The patient recovering from ventilator-dependent respiratory failure due to staph pneumonia. This was MRSA and the patient is still on vancomycin. The plan is to insert a PICC line for ongoing antibiotic treatment. He has no new complaints otherwise for now. No chest pain. No nausea or vomiting. No other significant events over the past 24 hours. He was taken off IV Solu Medrol and the patient is currently on a prednisone burst taper. He is on oxygen at 2 L per minute nasal cannula. Oxidation is improved and the patient did not qualify for home O2. 10/19/2021, the patient a inserted and the patient is doing well and his condition is stable. He has no specific complaint otherwise for now. Arranging outpatient antibiotic treatment for MRSA pneumonia. He is on prednisone burst taper. He is on rhinitis. He is on oral Lasix. Emanating. Tolerating diet. No pigmentation. Objective - Vital Signs Vital signs: Vital Signs Temp 98.6 F 10/19/21 11:30 Pulse 84 10/19/21 11:38 Resp 20 10/19/21 11:30 BP 129/73 10/19/21 11:30 Pulse Ox 96 10/19/21 11:30 FiO2 50 10/15/21 15:56 Intake & Output 10/18/21 10/19/21 10/19/21 18:59 06:59 18:59 Intake Total 590 Output Total 1 Balance 589 Weight 96.1 kg Intake: Oral 590 Output: Stool 1 Other: Voiding Method Urinal Urinal # Voids 3 2 ABP, PAP, CO, CI - Last Documented Arterial Blood Pressure 192/65 - Exam No acute distress, breathing is nonlabored and the patient is currently extubated to 2 L of oxygen by nasal cannula Head exam was generally normal. There was no scleral icterus or corneal arcus. Mucous membranes were moist. HEENT examination is grossly unremarkable. Neck supple. Full range of motion. No adenopathy thyromegaly or neck vein dist ention. Cardiovascular examination reveals regular rhythm rate. Cardiac exam revealed the PMI to be normally situated and sized. The rhythm was regular and no extrasystoles were noted during several minutes of auscultation. The first and second heart sounds were normal and physiologic splitting of the second heart sound was noted. There were no murmurs, rubs, clicks, or gallops. Lungs reveal diffuse bilateral rhonchi. Wheezes are noted. No crackles. Breath sounds equal bilaterally but diminished. Abdomen soft bowel sounds are heard. No masses or tenderness. Extremities are intact. No cyanosis clubbing or edema. Examination of the skin revealed no evidence of significant rashes, suspicious appearing nevi or other concerning lesions. Neurologically, the patient is awake and alert and the patient does not have any focal neurological deficit. Cranial nerves are essentially intact. - Labs CBC & Chem 7: 10/17/21 06:20 10/18/21 05:23 Labs: Abnormal Lab Results - Last 24 Hours (Table) 10/18/21 10/18/21 10/18/21 Range/Units 17:12 19:59 20:00 POC Glucose (mg/dL) 290 H >600 H 142 H (70-110) mg/dL 10/19/21 Range/Units 11:08 POC Glucose (mg/dL) 194 H (70-110) mg/dL Microbiology - Last 24 Hours (Table) 10/13/21 09:25 Blood Culture - Final Blood No Growth after 144 hours 10/13/21 10:23 Blood Culture - Preliminary Blood No Growth after 120 hours Assessment and Plan Plan: Acute hypoxemic respiratory failure, likely multifactorial, in part related to COPD exacerbation, possible CHF, and also possible pneumonia, RLL. The patient was extubated yesterday and the patient is currently on 2 L of oxygen by nasal cannula. The patient was extubated successfully and the patient is completing course of vancomycin regarding MRSA pneumonia. The patient will need a PICC line for outpatient treatment. Oxygenation is improved and the patient is not requiring home O2. MRSA pneumonia in the patient's being arranged for outpatient antibiotics with vancomycin Acute hypoxemic respiratory failure requiring intubation and mechanical ventilation, on 10/12/2021, extubated on 10/15/2021 currently on 2 L of O2 nasal cannula, not qualifying for home O2 and oxidation is also improved Mental status changes, likely related to hypoxemic respiratory failure. CHF, preserved LV function with an ejection fraction of 60-65% Paroxysmal atrial fibrillation, current rhythm is sinus, currently on oral amiodarone History of heavy tobacco use. Chronic pain , back Chronic methadone user, methadone 10 mg q hours Obesity COPD Leukocytosis, white cell count is improved and otherwise I count is down to 13.9 Hyperlipidemia Plan: PICC line is inserted and the patient is being treated with vancomycin Oxygenation is improved The acute leukocytosis improved Lasix 40 mg by mouth daily Continueprednisone burst taper starting at 40 mg daily Continue methadone 10 mg 3 times a day incentive spirometer We'll continue to follow discharge planning is in progress
--- NOTE | 2021-10-19 16:49 | P.PN ---
Subjective Progress Note Date: 10/17/21 Principal diagnosis: MRSA pneumonia Patient is a 60-year male with a past medical history taken for COPD hypertension presented to hospital with increasing shortness of breath did have acute respiratory failure requiring intubation and a component of pneumonia sputum has been finalized with MRSA. On today's evaluation that is 10/17/2021, the patient remains to be afebrile, the patient is breathing slightly comfortably currently on a 2 L nasal cannula, the patient denies having any chest pain, cough is decreased intensity mostly dry in nature no abdominal pain no diarrhea Objective - Vital Signs Vital signs: Vital Signs Temp 98.5 F 10/17/21 11:00 Pulse 78 10/17/21 11:41 Resp 18 10/17/21 11:00 BP 145/85 10/17/21 11:00 Pulse Ox 96 10/17/21 11:00 FiO2 50 10/15/21 15:56 Intake & Output 10/16/21 10/17/21 10/17/21 18:59 06:59 18:59 Intake Total 100 Output Total 1705 1250 776 Balance -1605 -1250 -776 Weight 99.79 kg 99.79 kg Intake: IV 100 Lactated Ringers 1,000 ml 100 @ 5 mls/hr IV .Q24H [facility] Rx#:[id number] Output: Urine 1705 1250 775 Stool 1 Other: Voiding Method Indwelling Catheter Urinal ABP, PAP, CO, CI - Last Documented Arterial Blood Pressure 192/65 - Exam GENERAL DESCRIPTION: Middle-aged male lying in bed, no distress. No tachypnea or accessory muscle of respiration use. LUNGS: Unlabored breathing. Coarse breath sounds bilaterally HEART: S1, S2, regular rate and rhythm. No loud murmur ABDOMEN: Soft, no tenderness , guarding or rigidity, no organomegaly EXTREMITIES: No edema of feet. - Labs CBC & Chem 7: 10/17/21 06:20 10/18/21 05:23 Labs: Abnormal Lab Results - Last 24 Hours (Table) 10/16/21 10/17/21 10/17/21 Range/Units 20:30 06:20 06:20 WBC 13.95 H (4.50-10.00) X 10*3/uL RBC 4.09 L (4.40-5.60) X 10*6/uL Hgb 12.5 L (13.0-17.0) g/dL Hct 37.8 L (39.6-50.0) % Immature Gran # 0.14 H (0.00-0.04) X 10*3/uL Neutrophils # 9.56 H (1.80-7.70) X 10*3/uL Monocytes # 1.17 H (0.20-1.00) X 10*3/uL Eosinophils # 0.02 L (0.04-0.35) X 10*3/uL Carbon Dioxide 29.9 H (20.0-27.5) mmol/L Anion Gap 7.10 L (10.00-18.00) mmol/L BUN 30.9 H (9.0-27.0) mg/dL BUN/Creatinine Ratio 34.33 H (12.00-20.00) Ratio POC Glucose (mg/dL) 115 H (70-110) mg/dL ALT 57 H (10-49) U/L Total Protein 5.3 L (6.2-8.2) g/dL Albumin 3.2 L (3.8-4.9) g/dL Albumin/Globulin Ratio 1.52 L (1.60-3.17) g/dL 10/17/ Range/Units 11:02 WBC (4.50-10.00) X 10*3/uL RBC (4.40-5.60) X 10*6/uL Hgb (13.0-17.0) g/dL Hct (39.6-50.0) % Immature Gran # (0.00-0.04) X 10*3/uL Neutrophils # (1.80-7.70) X 10*3/uL Monocytes # (0.20-1.00) X 10*3/uL Eosinophils # (0.04-0.35) X 10*3/uL Carbon Dioxide (20.0-27.5) mmol/L Anion Gap (10.00-18.00) mmol/L BUN (9.0-27.0) mg/dL BUN/Creatinine Ratio (12.00-20.00) Ratio POC Glucose (mg/dL) 111 H (70-110) mg/dL ALT (10-49) U/L Total Protein (6.2-8.2) g/dL Albumin (3.8-4.9) g/dL Albumin/Globulin Ratio (1.60-3.17) g/dL Microbiology - Last 24 Hours (Table) 10/13/21 10:23 Blood Culture - Preliminary Blood No Growth after 96 hours 10/13/21 09:25 Blood Culture - Preliminary Blood No Growth after 96 hours Assessment and Plan (1) MRSA pneumonia Current Visit: Yes Status: Acute Code(s): J15.212 - PNEUMONIA DUE TO ME THICILLIN RESISTANT STAPHYLOCOCCUS AUREUS SNOMED Code(s): 639203966835142 Plan: 1patient presented hospital with acute respiratory failure which is multifactorial in this patient who do have a history of COPD and heart failure with likely COPD exacerbation and a component of pneumonia with a sputum has been finalized with MRSA likely pathogen. 2Patient slowly clinical improvement and will continue with vancomycin and monitor his kidney function closely Time with Patient: Less than 30
--- NOTE | 2021-10-19 16:50 | P.PN ---
Subjective Progress Note Date: 10/18/21 Principal diagnosis: MRSA pneumonia Patient is a 60-year male with a past medical history taken for COPD hypertension presented to hospital with increasing shortness of breath did have acute respiratory failure requiring intubation and a component of pneumonia sputum has been finalized with MRSA. On today's evaluation that is 10/18/2021, the patient denies any fever or any chills, the patient is breathing comfortably, the patient denies having any chest pain, the patient cough has decreased intensity mostly dry in nature no abdominal pain no diarrhea Objective - Vital Signs Vital signs: Vital Signs Temp 99.1 F 10/18/21 11:13 Pulse 89 10/18/21 12:14 Resp 15 10/18/21 11:13 BP 151/80 10/18/21 11:13 Pulse Ox 96 10/18/21 13:15 FiO2 50 10/15/21 15:56 Intake & Output 10/17/21 10/18/21 10/18/21 18:59 06:59 18:59 Intake Total 500 Output Total 776 901 Balance -776 -401 Weight 99.79 kg 96 kg Intake: Intake, IV Titration 500 Amount Vancomycin 1,750 mg In 500 Sodium Chloride 0.9% 500 ml 500 ml @ 167 mls/hr IVPB Q12H [facility] Rx#: [id number] Output: Urine 775 900 Stool 1 1 Other: Voiding Method Urinal # Voids 2 3 ABP, PAP, CO, CI - Last Documented Arterial Blood Pressure 192/65 - Exam GENERAL DESCRIPTION: Middle-aged male lying in bed, no distress. No tachypnea or accessory muscle of respiration use. LUNGS: Unlabored breathing. Coarse breath sounds bilaterally HEART: S1, S2, regular rate and rhythm. No loud murmur ABDOMEN: Soft, no tenderness , guarding or rigidity, no organomegaly EXTREMITIES: No edema of feet. - Labs CBC & Chem 7: 10/17/21 06:20 10/18/21 05:23 Labs: Abnormal Lab Results - Last 24 Hours (Table) 10/17/21 10/17/21 10/18/21 Range/Units 17:01 20:16 05:23 Sodium 136 L (137-145) mmol/L Carbon Dioxide 32 H (22-30) mmol/L BUN 28 H (9-20) mg/dL POC Glucose (mg/dL) 128 H 144 H (70-110) mg/dL Calcium 8.2 L (8.4-10.2) mg/dL 10/18/21 Range/Units 11:02 Sodium (137-145) mmol/L Carbon Dioxide (22-30) mmol/L BUN (9-20) mg/dL POC Glucose (mg/dL) 132 H (70-110) mg/dL Calcium (8.4-10.2) mg/dL Microbiology - Last 24 Hours (Table) 10/13/21 10:23 Blood Culture - Preliminary Blood No Growth after 120 hours 10/13/21 09:25 Blood Culture - Preliminary Blood No Growth after 120 hours Assessment and Plan (1) MRSA pneumonia Current Visit: Yes Status: Acute Code(s): J15.212 - PNEUMONIA DUE TO METHICILLIN RESISTANT STAPHYLOCOCCUS AUREUS SNOMED Code(s): 161887699378732 Plan: 1patient presented hospital with acute respiratory failure which is multifactorial in this patient who do have a history of COPD and heart failure with likely COPD exacerbation and a component of pneumonia with a sputum has been finalized with MRSA likely pathogen. 2Patient slowly clinical improvement and we are not able to use oral Zyvox to finish his treatment hence will continue with vancomycin and monitor his kidney function closely Time with Patient: Less than 30
--- NOTE | 2021-10-19 16:51 | P.PN ---
Subjective Progress Note Date: 10/19/21 Principal diagnosis: MRSA pneumonia Patient is a 60-year male with a past medical history taken for COPD hypertension presented to hospital with increasing shortness of breath did have acute respiratory failure requiring intubation and a component of pneumonia sputum has been finalized with MRSA. On today's evaluation that is 10/19/2021, the patient remains to be afebrile, the patient is breathing comfortably, the patient denies having any chest pain, the patient cough has decreased intensity with occasional sputum, the patient denies abdominal pain no diarrhea Objective - Vital Signs Vital signs: Vital Signs Temp 98.6 F 10/19/21 11:30 Pulse 72 10/19/21 15:32 Resp 20 10/19/21 11:30 BP 129/73 10/19/21 11:30 Pulse Ox 96 10/19/21 11:30 FiO2 50 10/15/21 15:56 Intake & Output 10/18/21 10/19/21 10/19/21 18:59 06:59 18:59 Intake Total 590 Output Total 1 Balance 589 Weight 96.1 kg Intake: Oral 590 Output: Stool 1 Other: Voiding Method Urinal Urinal # Voids 3 2 ABP, PAP, CO, CI - Last Documented Arterial Blood Pressure 192/65 - Exam GENERAL DESCRIPTION: Middle-aged male lying in bed, no distress. No tachypnea or accessory muscle of respiration use. LUNGS: Unlabored breathing. Decreased intensity of breath sound no wheeze HEART: S1, S2, regular rate and rhythm. No loud murmur ABDOMEN: Soft, no tenderness EXTREMITIES: No edema of feet. - Labs CBC & Chem 7: 10/17/21 06:20 10/18/21 05:23 Labs: Abnormal Lab Results - Last 24 Hours (Table) 10/18/21 10/18/21 10/18/21 Range/Units 17:12 19:59 20:00 POC Glucose (mg/dL) 290 H >600 H 142 H (70-110) mg/dL 10/19/21 Range/Units 11:08 POC Glucose (mg/dL) 194 H (70-110) mg/dL Microbiology - Last 24 Hours (Table) 10/13/21 10:23 Blood Culture - Final Blood No Growth after 144 hours 10/13/21 09:25 Blood Culture - Final Blood No Growth after 144 hours Assessment and Plan (1) MRSA pneumonia Current Visit: Yes Status: Acute Code(s): J15.212 - PNEUMONIA DUE TO METHICILLIN RESISTANT STAPHYLOCOCCUS AUREUS SNOMED Code(s): 897635904492800 Plan: 1patient presented hospital with acute respiratory failure which is multifactor ial in this patient who do have a history of COPD and heart failure with likely COPD exacerbation and a component of pneumonia with a sputum has been finalized with MRSA likely pathogen. 2Patient has shown clinical improvement however we are not able to use oral Zyvox because of drug interaction, patient will continue with vancomycin and monitor his kidney function closely Time with Patient: Less than 30
[2021-10-19 17:00] LABS: Glucose,Whole Blood 164 mg/dL (70-110)
[2021-10-19 20:48] LABS: Glucose,Whole Blood 141 mg/dL (70-110)
[2021-10-20] MEDS: METHADONE 10 MG TAB PO SCH ×3 (00:14→16:16)
[2021-10-20] MEDS: VANCOMYCIN 1,750 MG in SODIUM CHLORIDE 0.9% 500 ML 500 ML IVPB SCH ×2 (00:15→13:19)
[2021-10-20] MEDS: IPRATROPIUM-ALBUTEROL 3 ML NEB INHALATION SCH ×5 (03:01→18:53)
[2021-10-20] MEDS: MORPHINE SULFATE 4 MG/ML SYRINGE IV PRN ×2 (06:28→22:24)
[2021-10-20 07:49] LABS: Glucose,Whole Blood 90 mg/dL (70-110)
[2021-10-20] MEDS: INSULIN ASPART (NovoLOG) 100 UNIT/ML VIAL SQ SCH ×4 (07:59→20:26)
[2021-10-20] MEDS: lisinopriL 20 MG TAB PO SCH (08:29)
[2021-10-20] MEDS: SPIRONOLACTONE 25 MG TAB PO SCH (08:29)
[2021-10-20] MEDS: AMIODARONE 200 MG TAB PO SCH (08:29)
[2021-10-20] MEDS: PANTOPRAZOLE 40 MG/10 ML VIAL IV SCH (08:30)
[2021-10-20] MEDS: predniSONE 20 MG TAB PO SCH (08:30)
[2021-10-20] MEDS: amLODIPine 10 MG TAB PO SCH (08:30)
[2021-10-20] MEDS: FUROSEMIDE 40 MG TAB PO SCH (08:30)
[2021-10-20] MEDS: ENOXAPARIN 40 MG/0.4 ML SYRINGE SQ SCH (08:30)
[2021-10-20] MEDS: METOPROLOL SUCCINATE (ER) 100 MG TAB.ER.24H PO SCH (08:30)
[2021-10-20] MEDS: SYMBICORT 160-4.5 MCG INHALER INHALATION SCH ×2 (08:38→18:53)
[2021-10-20 11:28] LABS: Glucose,Whole Blood 109 mg/dL (70-110)
[2021-10-20] MEDS ORDERED: VANCOMYCIN TROUGH DUE 1 EACH MISC MISCELLANE ONE (12:00)
--- NOTE | 2021-10-20 12:19 | P.PN ---
Subjective Progress Note Date: 10/20/21 60-year-old male, who presented to the emergency department, on October 12, with shortness of breath, and impending respiratory failure. The patient had mental status changes, as well. I did have a chance to speak to the ER physician, who admitted the patient. They attempted BiPAP treatment for this patient, but he kept on pulling the mask off, becoming more agitated, more short of breath, and desaturating. For that reason, the patient was sedated and intubated, placed on the mechanical ventilator, and transferred to the ICU. Currently, he is on volume assist control mode, rate 24, tidal volume 500, FiO2 80%, and PEEP of 5. Blood gases show pO2 144, pCO2 of 68, and a pH is 7.21. Both blood gases were done on 100%, and, the rate after that blood gas was increased from 18 up to 24. The patient remains on propofol at 40 mcg/kg/m, and lactated Ringer's at 75 mL an hour. A radial art line was placed. As well as a left internal jugular triple-lumen catheter. White count 10.8, hemoglobin 11, hematocrit 34, and platelet count normal. Repeat blood gases show a PaO2 of 90, pCO2 of 42, and a pH is 7.4. Sodium 136, potassium 4.5, chlorides 107, CO2 27, BUN 26, creatinine 1.21. Troponin was less than 0.012. Urine was negative. Computed tomography scan of the brain was negative. Chest x-ray shows diffuse bilateral infiltrates, cardiomegaly, and could be consistent with fluid overload. Progress note dated 10/13/2021. 60-year-old male seen yesterday in consultation. Please see my note above. He was admitted through the emergency room, with respiratory failure, and was intubated by the ER physician. He failed BiPAP therapy. He remains on mechanical ventilator. Yesterday, we placed a right reveal arterial line, and a left internal jugular triple lumen catheter. Current ventilator settings include the volume assist control modality, rate 24, tidal volume 500, FiO2 60%, and PEEP of 5. Blood gases on those same settings, but 70%, show a PaO2 of 103, pCO2 44, and a pH is 7.38. FiO2 was reduced from 70, down to 60%. He is getting lactated Ringer's at 75 mL an hour, we'll follow 50 mcg/kg/m, and vital high protein at 35 mL an hour, with a goal of 55 mL an hour. The plan today is a daily interruption of sedation, adding Zosyn, and getting his tube feeds up to goal. White count 12, hemoglobin 11.5, hematocrit 34.4, and platelet count is normal. Sodium 137, potassium 4.2, chlorides 110, CO2 25, BUN 26, creatinine 1.08. Albumin is 2.9. Chest x-ray shows a persistent infiltrate in the right lower lobe. Microbiologic studies are negative. On 10/14/2021, the patient is being seen for a follow-up. This morning, the patient is intubated on a mechanical ventilator. The patient was admitted on 10/12/2021. The patient is currently on propofol running at 55 mcg/kg per minute. IV fluids in the form of lactated Ringer at the rate of 75 mL an hour. The patient is intubated on a mechanical ventilator. The patient is an assist- control mode at the rate of 24 with a tidal volume of 500 and FiO2 of 50% with a PEEP of 5. Blood gases showed a pH of 7.39 with a pCO2 of 46 and pO2 of 83. Chest x-ray shows some limited opacification of the right lung base. There is also adequate positioning of the ET tube. No acute abnormalities are noted. The patient has a peak airway pressure of 23 cm of water. The patient is calm and comfortable. He is arousable once off the sedation. Overall fluid balance has been +2.9 L over the past 24 hours. The patient's white cell count is at 18 with a hemoglobin of 11 and a platelet count of 2:30. Pro-calcitonin level is at 0.33. ProBNP level is 1440. The patient has a sodium level of 137 with a BUN of 29 and a creatinine of 0.9. Patient is also on tube feeding at the rate of 55 mL an hour. No fever. No chills. No other significant events overnight. Cardiac rhythm is sinus for now. On today's evaluation of 10/15/2021, the patient is doing well. Patient is hemodynamically stable. The patient remains intubated on a mechanical ventilator. Patient remains on propofol which is running at 55 mcg/kg per minute. IV fluids are currently at KVO. The patient got diuresed over the past 24 hours and the patient is in a negative fluid balance. At the same time, the patient was found to have MRSA in the sputum and the patient was started on vancomycin yesterday. The patient is also on IV Zosyn. He is afebrile. White cell count is elevated at 20. Hemoglobin is at 11.5. Renal function is curren tly within normal limits. I give the patient sedation holiday and while the patient was being more rales, the patient went into atrial fibrillation with rapid ventricular response. At that point, the patient was loaded with amiodarone and the sedation holiday was discontinued. The patient was placed back on sedation and he was kept on a mechanical ventilated throughout the day yesterday. Subsequently, in the afternoon, the patient converted back to normal sinus rhythm. The patient is currently on amiodarone at 0.5 mg per minute. He is on a mechanical ventilator. On assist-control mode of mechanical ventilation at the rate of 24, tidal volume of 500, FiO2 of 50% with a PEEP of 5. Peak airway pressures 22. Blood gases showed a pH of 7.43 with a pCO2 of 44 and pO2 of 64. The patient is receiving enteral feeding for nutritional support and the patient is currently on ital HP at a rate of 26 an hour. No other significant events overnight otherwise. No fever. No chills. Cardiac rhythm remains sinus for now. 10/16/2021, the patient is doing well. The patient was extubated yesterday without any major difficulties and currently is on 2 L of O2 nasal cannula. He is awake and alert and is following commands and answering questions. In fact he had a good breakfast this morning. Hemodynamically stable. No significant respiratory secretions. Chest x-ray is stable. The patient is in a negative fluid balance of 2.4 L. Cardiac rhythm is sinus. His sodium is at 139 with a BUN of 39 and creatinine of 0.5. White cell count is at 17.7. Hemoglobin is at 12.8. The patient remains on a combination of Zosyn and vancomycin. He has chronic back pain and the patient takes methadone on outpatient basis. He will be provided an incentive spirometer. 10/17/2021, the patient got transferred out of the intensive care unit and the patient currently on 2 L of O2 nasal cannula. Doing well. No specific complaints. He is on oral Lasix. Is on oral prednisone burst taper and the patient is completing a course of vancomycin. No chest pain. No cervical shortness of breath. He is active. He is moving around and his blood work shows a white count of 13.9 with hemoglobin 12.5. Sodium is 14 the with a BUN of 30 and a creatinine of 0.9. Vancomycin trough is at 16.5. 10/18/2021, the patient is being seen for a follow-up. The patient is doing well. No new complaints. The patient recovering from ventilator-dependent respiratory failure due to staph pneumonia. This was MRSA and the patient is still on vancomycin. The plan is to insert a PICC line for ongoing antibiotic treatment. He has no new complaints otherwise for now. No chest pain. No nausea or vomiting. No other significant events over the past 24 hours. He was taken off IV Solu Medrol and the patient is currently on a prednisone burst taper. He is on oxygen at 2 L per minute nasal cannula. Oxidation is improved and the patient did not qualify for home O2. 10/19/2021, the patient a inserted and the patient is doing well and his condition is stable. He has no specific complaint otherwise for now. Arranging outpatient antibiotic treatment for MRSA pneumonia. He is on prednisone burst taper. He is on rhinitis. He is on oral Lasix. 10/20/2021, the patient is clinically stable and vancomycin. PICC line was inserted. No respiratory difficulties. Discharge planning is in progress. Currently on a prednisone burst taper and DuoNeb nebulized treatments around the clock. Remains on Lovenox for DVT prophylaxis. Objective - Vital Signs Vital signs: Vital Signs Temp 99.4 F 10/20/21 11:57 Pulse 76 10/20/21 12:09 Resp 20 10/20/21 11:57 BP 135/76 10/20/21 11:57 Pulse Ox 95 10/20/21 11:57 FiO2 50 10/15/21 15:56 Intake & Output 10/19/21 10/20/21 10/20/21 18:59 06:59 18:59 Intake Total 500 Balance 500 Weight 102 kg Intake: Oral 500 Other: Voiding Method Urinal Urinal Urinal # Voids 3 3 ABP, PAP, CO, CI - Last Documented Arterial Blood Pressure 192/65 - Exam No acute distress, breathing is nonlabored and the patient is currently extubated to 2 L of oxygen by nasal cannula Head exam was generally normal. There was no scleral icterus or corneal arcus. Mucous membranes were moist. HEENT examination is grossly unremarkable. Neck supple. Full range of motion. No adenopathy thyromegaly or neck vein distention. Cardiovascular examination reveals regular rhythm rate. Cardiac exam revealed the PMI to be normally situated and sized. The rhythm was regular and no extrasystoles were noted during several minutes of auscultation. The first and second heart sounds were normal and physiologic splitting of the second heart sound was noted. There were no murmurs, rubs, clicks, or gallops. Lungs reveal diffuse bilateral rhonchi. Wheezes are noted. No crackles. Breath sounds equal bilaterally but diminished. Abdomen soft bowel sounds are heard. No masses or tenderness. Extremities are intact. No cyanosis clubbing or edema. Examination of the skin revealed no evidence of significant rashes, suspicious appearing nevi or other concerning lesions. Neurologically, the patient is awake and alert and the patient does not have any focal neurological deficit. Cranial nerves are essentially intact. - Labs CBC & Chem 7: 10/17/21 06:20 10/18/21 05:23 Labs: Abnormal Lab Results - Last 24 Hours (Table) 10/19/21 10/19/21 Range/Units 16:59 20:42 POC Glucose (mg/dL) 164 H 141 H (70-110) mg/dL Microbiology - Last 24 Hours (Table) 10/13/21 10:23 Blood Culture - Final Blood No Growth after 144 hours 10/13/21 09:25 Blood Culture - Final Blood No Growth after 144 hours Assessment and Plan Plan: Acute hypoxemic respiratory failure, likely multifactorial, in part related to COPD exacerbation, possible CHF, and also possible pneumonia, RLL. The patient was extubated yesterday and the patient is currently on 2 L of oxygen by nasal cannula. The patient was extubated successfully and the patient is completing course of vancomycin regarding MRSA pneumonia. The patient will need a PICC line for outpatient treatment. Oxygenation is improved and the patient is not requiring home O2. MRSA pneumonia in the patient's being arranged for outpatient antibiotics with vancomycin Acute hypoxemic respiratory failure requiring intubation and mechanical ventilation, on 10/12/2021, extubated on 10/15/2021 currently on 2 L of O2 nasal cannula, not qualifying for home O2 and oxidation is also improved Mental status changes, likely related to hypoxemic respiratory failure. CHF, preserved LV function with an ejection fraction of 60-65% Paroxysmal atrial fibrillation, current rhythm is sinus, currently on oral amiodarone History of heavy tobacco use. Chronic pain , back Chronic methadone user, methadone 10 mg q hours Obesity COPD Leukocytosis, white cell count is improved and otherwise I count is down to 13.9 Hyperlipidemia Plan: PICC line is inserted and the patient is being treated with vancomycin Awaiting insurance verification for antibiotic therapy Oxygenation is improved The acute leukocytosis improved, the white cell count is down to 13 Lasix 40 mg by mouth daily Continue prednisone burst taper starting at 40 mg daily Lei Maza on outpatient basis myelinization today DuoNeb nebulized treatments around the clock Continue methadone 10 mg 3 times a day incentive spirometer We'll continue to follow discharge planning is in progress, awaiting insurance verification for antibiotic treatment
[2021-10-20 12:41] LABS: African American GFR (CKD) >90 (>60 ml/min/1.73 sqM); Non-African American GFR(CKD) 88 (>60 ml/min/1.73 sqM)
[2021-10-20 17:08] LABS: Glucose,Whole Blood 151 mg/dL (70-110)
[2021-10-20 20:11] LABS: Glucose,Whole Blood 159 mg/dL (70-110)
[2021-10-21] MEDS: METHADONE 10 MG TAB PO SCH ×2 (00:19→08:27)
[2021-10-21] MEDS: VANCOMYCIN 1,750 MG in SODIUM CHLORIDE 0.9% 500 ML 500 ML IVPB SCH ×2 (00:19→13:16)
--- NOTE | 2021-10-21 00:51 | P.PN ---
Subjective Progress Note Date: 10/19/21 This is a pleasant 60 years old male with past medical history of Heart Failure, COPD, Hypertension. Patient currently is intubated and could not provide information so it was obtained from start of her records. No family at bedside. I called the son Misael Tineo who is listed as next of kin and he confirmed to me patient has no but for NSAIDs and that he is the next of kin. his number was [phone]. He told me the patient was in the hospital in [place] about 3 weeks ago for chest pain and shortness of breath and he was been treated and discharged on oxygen after 1 week, he has been using oxygen as needed especially at night as per brother. 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 as per brother patient used to be heavy smoker 2 packs per day was cutting down and he thinks now he is on 1 pack per day, no alcohol or illicit drugs per brother. on reviewing the records at [facility] patient was for acute hypoxic hypercapnic respiratory failure secondary to COPD exacerbation with acute diastolic congestive heart failure with ejection fraction 55-60%. ProBNP was 1594 he had elevated d-dimer over CTA of the chest show no evidence of pulmonary embolism but pleural effusion with vascular pulmonary infiltrates and atelectasis, congestive heart failure as possible. and nonspecific enlarged mediastinal lymph nodes Patient presents with acute hypoxia, his oxygen saturation was 30% per EMS. He was tachycardic and tachypneic and hypotensive on arrival and he was placed on BiPAP before he got intubated. Currently patient is afebrile, temperature is slightly low at 97.5. He is saturating 98% on 80% FiO2. Blood pressure 109/62 left showing WBC slightly up at 10.8. Hemoglobin 11. Sodium is 136, creatinine 1.2, glucose 126 and 33 Urine analysis showing 2+ protein, RBCs 67. Coronavirus varus not detected. Chest x-ray showing coarse lung markings but no obvious heart failure or pulmonary consolidation CT of the brain negative and unchanged. CT EKG showing normal sinus rhythm at [address]-T changes In the emergency room patient received vasotec, Ativan, morphine, succinylcholine, propofol and Lovenox and Protonix 10/13/2021 Patient remains in the ICU in critical condition, he remains intubated and sedated with saline to induction of sedation and pulmonary/critical care team followed closely and make suitable adjustment. Remains on Solu-Medrol 40 mg Past leukocytosis of 12,000, procalcitonin is elevated at0.33 Patient Is Placed on Zosyn and It Also on Finger a Lactate at 75 mL/h 10/14/2021 Patient is seen and evaluated and follow-up continues to be in the ICU with multiple medical consultations following. Patient continues on mechanical vent and FiO2 is currently 50% with a PEEP of 5. Per nursing staff there was discussion of possible weaning although patient's heart rate elevated in found to be in atrial fibrillation with RVR being started on IV amiodarone. Will c onsult cardiology and continue to monitor closely. Patient was admitted for COPD exacerbation with CHF and BNP was found to be 1400. Pulmonary commercial real estate paralegal following inpatient is continued on IV steroids along with inhalers and also maintained on Zosyn. Patient was given a dose of Lasix today as chest x-ray showed continued airspace opacification within the right lower lung which have slightly decreased aeration compared to previous day with no evidence of pleural effusion focal consolidation or pneumothorax and the ET tube needs possible advancement of 4 cm and also NG tube needs advancement as well. Follow-up chest x-ray recommended. WBC is elevated at 18.7 and hemoglobin is 11.1, sodium 137 with a potassium 4.3, creatinine 0.99, magnesium 2.1. 2-D echo was ordered. 10/15/2021 Patient continues to be in the ICU with multiple medical consultations following. Currently being extubated at this time. Cardiology was consulted as patient was found to be in atrial fibrillation with rapid ventricular rate and initially started on amiodarone and converted back to sinus rhythm. Patient normally takes Norvasc and metoprolol in the outpatient setting and this had not been resumed and patient also having some hypertension and resumed these medications. Patient will also likely be transitioning to oral amiodarone and will discuss with cardiology and pulmonary commercial real estate paralegal about anticoagulation. Patient continues on breathing inhalational treatments along with subcutaneous Lovenox for anticoagulation for now, IV Lasix twice daily along with IV steroids 60 every 6 IV Zosyn, and IV vancomycin. Weaning trials being conducted and propofol is currently off. Chest x-ray today shows pulmonary venous hypertension and interstitial edema probable left pleural effusion and associat ed atelectasis versus basilar edema or pneumonia with no evident pneumothorax, prominence of the pulmonary arteries could be indicative of underlying pulmonary artery hypertension. WBC continues to be elevated and is currently 20.8 and patient remains afebrile, possible component of IV steroids along with MRSA noted in the sputum culture. BMP within normal limits and blood sugars are controlled on sliding scale every 6 and recommend continue as patient is also noted to be on lactated Ringer's. 10/16/2021 Patient is seen in follow-up this morning continues to be in the ICU with pulmonary and infectious disease following closely. Patient has been extubated successfully and currently maintained on 2 L via nasal cannula and tolerating well. Patient continues to report sore throat status post extubation and will add Cepacol lozenges may use Hurricaine spray as well. Patient tolerating diet with no reports of nausea or vomiting noted. Patient is also continued on IV antibiotics in the form of vancomycin as sputum culture did show MRSA and will continue. IV steroids has been discontinued and patient is being started on a prednisone taper and appropriate home medications have been resumed. Patient has been working with physical therapy and recommend continue doing so as patient continues to be somewhat weak. Patient is being downgraded from ICU and awaiting a bed on the selective unit. Chest x-ray today shows improving basilar atelectasis or infiltrate and small effusion. Patient is currently afebrile and denies worsening shortness of breath or any chest pain. 10/17/2021 Patient is seen today on [facility] unit and has been transferred out of the ICU and continues to have shortness of breath although feels is slowly improving. Patient is continued on 2 L via nasal cannula and attempting weaning FiO2 as tolerated. Patient continues with weakness and physical therapy evaluated the patient recommending subacute rehab versus home with home care and patient reports he would like to return home with his girlfriend and have home care in the outpatient setting. Patient follows with Dr. Schwartz out of warfarin as his primary care provider. Pulmonary following closely along with cardiology. Patient also continued on vancomycin for MRSA in the sputum. Patient is currently afebrile and denies any chest pain or palpitations. Patient is tolerating diet with no reports of nausea or vomiting noted. Dennis catheter has been removed and patient is voiding with no difficulties. Current increase activity as tolerated and also encouraged incentive spirometer use at least 10 times every hour while awake. 10/18/2021 Patient is seen in follow-up today continues to have some sore throat and mild shortness of breath and will perform home O2 eval. Patient is continued on 2 L via nasal cannula. Patient also continues with breathing inhalational treatment with pulmonary following closely. Patient has been seen and evaluated by cardiology maintaining sinus rhythm and will see the patient in the outpatient setting and to continue current cardiac medications. Patient also on IV vancomycin for MRSA in the sputum and anxiety following closely and patient will likely require a PICC line with IV vancomycin on discharge. Social work is following and making arrangements as patient has decided to go home with home care and will need to arrange for a PICC line to be placed along with verifying if there is coverage for IV antibiotics in the outpatient setting. Patient is currently afebrile and denies chest pain or palpitations. Patient is tolerating diet with no reports of nausea or vomiting noted. Encouraged increase activity as tolerated and continued use of incentive spirometer. 10/19/2020 Patient is sitting in the chair comfortably. Awake alert 1x3. No complaints of chest pain or shortness of breath. Patient is being continued on vancomycin for MRSA pneumonia. Also on prednisone tapering course. Continued on oral Lasix. No chest pain or shortness of breath. No headache or dizziness lightheadedness. Tolerating oral diet. Review of systems: Constitutional: no reports of fatigue, no reports of fever, or chills Cardiovascular: No reports of chest pain or palpitations Respiratory: reports of mild shortness of breath though feels is improving GI: No reports of nausea, vomiting, or diarrhea : No reports of dysuria or retention Neurovascular: reports of generalized weakness All medications have been reviewed Active Medications Albuterol/Ipratropium (Ipratropium-Albuterol 3 Ml Neb) 3 ml INHALATION RT-Q4H [facility] Last Admin: 10/18/21 12:06 Dose: 3 ml Amiodarone HCl (Amiodarone 200 Mg Tab) 400 mg PO DAILY [facility] Stop: 10/21/21 18:00 Last Admin: 10/18/21 08:10 Dose: 400 mg Amiodarone HCl (Amiodarone 200 Mg Tab) 200 mg PO DAILY [facility] Amlodipine Besylate (Amlodipine 10 Mg Tab) 10 mg PO DAILY [facility] Last Admin: 10/18/21 08:10 Dose: 10 mg Benzocaine/Menthol (Benzocaine/Menthol Lozeng 1 Each Lozenge) 1 each MUCOUS MEM Q4HR PRN PRN Reason: Sore Throat Budesonide/Formoterol Fumarate (Symbicort 160-4.5 Mcg Inhaler) 2 puff INHALATION RT-BID [facility] Last Admin: 10/18/21 08:45 Dose: 2 puff Clonidine HCl (Clonidine 0.2 Mg/24hr Patch) 1 patch TRANSDERM Q7D [facility] Last Admin: 10/15/21 15:49 Dose: 1 patch Enoxaparin Sodium (Enoxaparin 40 Mg/0.4 Ml Syringe) 40 mg SQ DAILY [facility] Last Admin: 10/18/21 08:11 Dose: 40 mg Furosemide (Furosemide 40 Mg Tab) 40 mg PO DAILY [facility] Last Admin: 10/18/21 08:10 Dose: 40 mg Hydralazine HCl (Hydralazine Hcl 20 Mg/Ml 1 Ml Vial) 10 mg IVP Q6HR PRN PRN Reason: Blood Pressure - High Last Admin: 10/16/21 04:21 Dose: 10 mg Vancomycin HCl 1,750 mg/ (Sodium Chloride) 500 mls @ 167 mls/hr IVPB Q12H [facility] Last Admin: 10/18/21 12:41 Dose: 167 mls/hr Insulin Aspart (Insulin Aspart (Novolog) 100 Unit/Ml Vial) 0 unit SQ ACHS [facility]; Protocol Last Admin: 10/18/21 12:41 Dose: 1 unit Lisinopril (Lisinopril 20 Mg Tab) 40 mg PO DAILY [facility] Last Admin: 10/18/21 08:10 Dose: 40 mg Methadone HCl (Methadone 10 Mg Tab) 10 mg PO Q8HR [facility] Last Admin: 10/18/21 08:10 Dose: 10 mg Metoprolol Succinate (Metoprolol Succinate (Er) 100 Mg Tab.Er.24h) 100 mg PO DAILY [facility] Last Admin: 10/18/21 08:10 Dose: 100 mg Miscellaneous Information (Magnesium Replacement Protocol 1 Each Misc) 1 each MISCELLANE DAILY PRN; Protocol PRN Reason: Per Protocol Miscellaneous Information (Potassium Replacement Protocol 1 Each Misc) 1 each MISCELLANE DAILY PRN; Protocol PRN Reason: Per Protocol Miscellaneous Information (Vancomycin Trough Due 1 Each Misc) 1 each MISCELLANE ONCE ONE Stop: 10/20/21 12:01 Morphine Sulfate (Morphine Sulfate 4 Mg/Ml Syringe) 4 mg IV Q4HR PRN PRN Reason: Pain Scale 8 to 10 Last Admin: 10/18/21 14:49 Dose: 4 mg Naloxone HCl (Naloxone 0.4 Mg/Ml 1 Ml Vial) 0.2 mg IV Q2M PRN PRN Reason: Opioid Reversal Pantoprazole Sodium (Pantoprazole 40 Mg/10 Ml Vial) 40 mg IV DAILY [facility] Last Admin: 10/18/21 08:10 Dose: 40 mg Prednisone (Prednisone 20 Mg Tab) 40 mg PO DAILY [facility] Last Admin: 10/18/21 08:10 Dose: 40 mg Spironolactone (Spironolactone 25 Mg Tab) 50 mg PO DAILY [facility] Last Admin: 10/18/21 08:11 Dose: 50 mg PHYSICAL EXAMINATION: GENERAL: The patient is currently sitting up in the chair awake, alert and oriented 3. Obese Well developed, well nourished. HEENT: Pupils are round and equally reacting to light. EOMI. no scleral icterus. No conjunctival pallor. Normocephalic, atraumatic. No pharyngeal erythema. No thyromegaly. CARDIOVASCULAR: S1 and S2 muffled PULMONARY: diminished breath sounds bilaterally with some scattered rhonchi noted. ABDOMEN: soft. Nontender on exam. obese. non-distended, normoactive bowel sounds. No palpable organomegaly. MUSCULOSKELETAL: No joint swelling or deformity. EXTREMITIES: No cyanosis, clubbing, or pedal edema. NEUROLOGICAL: Alert and oriented 3 awake. Cranial nerves intact with no focal deficits noted SKIN: No rashes. Assessment: Acute hypoxic respiratory failure, present on admission, status post intubation and mechanical ventilation, successfully extubated 10/15/21 COPD with acute exacerbation altered mental status, acute metabolic encephalopathy most likely secondary to hypoxemic respiratory failure Atrial fibrillation with fast ventricular rate, new onset, converted to sinus rhythm and rate controlled on metoprolol and amiodarone Possible right lower lung pneumonia, present on admission with MRSA in the sputum Leukocytosis possibly secondary to above along with a component of induced by IV steroids, trending down mild acute on chronic congestive heart failure diastolic dysfunction, acute exacerbation Continued ongoing nicotine dependence Hypertension obesity with BMI of 38.7 GI prophylaxis DVT prophylaxis: Subcutaneous Lovenox Full code Plan: Recommend to continue with weaning FiO2 as tolerated and patient was recently extubated, maintained on 2 L via nasal cannula, home O2 eval been patient did not qualify for oxygen and will continue to monitor WBC is trending down and will continue with vancomycin with infectious disease following. Sputum culture did show MRSA, multiple severe drug interactions with patients methadone and patient will be receiving a PICC line to continue with IV antibiotics for a 10 day course in the outpatient setting. Social work aware of this and will need to arrange and verify coverage of antibiotics in the outpatient setting. Patient will also need a PICC line placed prior to discharge Recommend to continue prednisone taper and will continue with breathing inhalational treatments. Continue to encourage incentive spirometer use at least 10 times every hour while awake. Pulmonary following closely and patient will need outpatient follow-up with them Patient's heart rate currently rate controlled on amiodarone and metoprolol resumed. Norvasc resumed as well. Cardiology following as needed and will see the patient in the outpatient setting. PT/OT recommending possible rehab versus home with home care, social work following and patient would like to go home with his girlfriend and have home care. Patient does have chronic back pain and takes methadone which has been resumed Due to multiple complex medical issues, prognosis is guarded Insurance has not been verified for IV antibiotic coverage and patient is going to need a PICC line with continued vancomycin for a ten-day course in the outpatient setting. Social work is aware. Objective - Vital Signs Vital signs: Vital Signs Temp 98.6 F 10/19/21 11:30 Pulse 71 10/19/21 19:51 Resp 20 10/19/21 11:30 BP 129/73 10/19/21 11:30 Pulse Ox 96 10/19/21 11:30 FiO2 50 10/15/21 15:56 Intake & Output 10/19/21 10/19/21 10/20/21 06:59 18:59 06:59 Intake Total 590 Output Total 1 Balance 589 Weight 96.1 kg Intake: Oral 590 Output: Stool 1 Other: Voiding Method Urinal Urinal # Voids 2 3 ABP, PAP, CO, CI - Last Documented Arterial Blood Pressure 192/65 - Labs CBC & Chem 7: 10/17/21 06:20 10/20/21 12:14 Labs: Abnormal Lab Results - Last 24 Hours (Table) 10/19/21 10/19/21 10/19/21 Range/Units 11:08 16:59 20:42 POC Glucose (mg/dL) 194 H 164 H 141 H (70-110) mg/dL Microbiology - Last 24 Hours (Table) 10/13/21 10:23 Blood Culture - Final Blood No Growth after 144 hours 10/13/21 09:25 Blood Culture - Final Blood No Growth after 144 hours
--- NOTE | 2021-10-21 00:53 | P.PN ---
Subjective Progress Note Date: 10/20/21 This is a pleasant 60 years old male with past medical history of Heart Failure, COPD, Hypertension. Patient currently is intubated and could not provide information so it was obtained from start of her records. No family at bedside. I called the son Misael Tineo who is listed as next of kin and he confirmed to me patient has no but for NSAIDs and that he is the next of kin. his number was [phone]. He told me the patient was in the hospital in [place] about 3 weeks ago for chest pain and shortness of breath and he was been treated and discharged on oxygen after 1 week, he has been using oxygen as needed especially at night as per brother. 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 as per brother patient used to be heavy smoker 2 packs per day was cutting down and he thinks now he is on 1 pack per day, no alcohol or illicit drugs per brother. on reviewing the records at [facility] patient was for acute hypoxic hypercapnic respiratory failure secondary to COPD exacerbation with acute diastolic congestive heart failure with ejection fraction 55-60%. ProBNP was 1594 he had elevated d-dimer over CTA of the chest show no evidence of pulmonary embolism but pleural effusion with vascular pulmonary infiltrates and atelectasis, congestive heart failure as possible. and nonspecific enlarged mediastinal lymph nodes Patient presents with acute hypoxia, his oxygen saturation was 30% per EMS. He was tachycardic and tachypneic and hypotensive on arrival and he was placed on BiPAP before he got intubated. Currently patient is afebrile, temperature is slightly low at 97.5. He is saturating 98% on 80% FiO2. Blood pressure 109/62 left showing WBC slightly up at 10.8. Hemoglobin 11. Sodium is 136, creatinine 1.2, glucose 126 and 33 Urine analysis showing 2+ protein, RBCs 67. Coronavirus varus not detected. Chest x-ray showing coarse lung markings but no obvious heart failure or pulmonary consolidation CT of the brain negative and unchanged. CT EKG showing normal sinus rhythm at [address]-T changes In the emergency room patient received vasotec, Ativan, morphine, succinylcholine, propofol and Lovenox and Protonix 10/13/2021 Patient remains in the ICU in critical condition, he remains intubated and sedated with saline to induction of sedation and pulmonary/critical care team followed closely and make suitable adjustment. Remains on Solu-Medrol 40 mg Past leukocytosis of 12,000, procalcitonin is elevated at0.33 Patient Is Placed on Zosyn and It Also on Finger a Lactate at 75 mL/h 10/14/2021 Patient is seen and evaluated and follow-up continues to be in the ICU with multiple medical consultations following. Patient continues on mechanical vent and FiO2 is currently 50% with a PEEP of 5. Per nursing staff there was discussion of possible weaning although patient's heart rate elevated in found to be in atrial fibrillation with RVR being started on IV amiodarone. Will c onsult cardiology and continue to monitor closely. Patient was admitted for COPD exacerbation with CHF and BNP was found to be 1400. 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 Patient was given a dose of Lasix today as chest x-ray showed continued airspace opacification within the right lower lung which have slightly decreased aeration compared to previous day with no evidence of pleural effusion focal consolidation or pneumothorax and the ET tube needs possible advancement of 4 cm and also NG tube needs advancement as well. Follow-up chest x-ray recommended. WBC is elevated at 18.7 and hemoglobin is 11.1, sodium 137 with a potassium 4.3, creatinine 0.99, magnesium 2.1. 2-D echo was ordered. 10/15/2021 Patient continues to be in the ICU with multiple medical consultations following. Currently being extubated at this time. Cardiology was consulted as patient was found to be in atrial fibrillation with rapid ventricular rate and initially started on amiodarone and converted back to sinus rhythm. Patient normally takes Norvasc and metoprolol in the outpatient setting and this had not been resumed and patient also having some hypertension and resumed these medications. Patient will also likely be transitioning to oral amiodarone and will discuss with cardiology and pulmonary cellophane press operator about anticoagulation. Patient continues on breathing inhalational treatments along with subcutaneous Lovenox for anticoagulation for now, IV Lasix twice daily along with IV steroids 60 every 6 IV Zosyn, and IV vancomycin. Weaning trials being conducted and propofol is currently off. Chest x-ray today shows pulmonary venous hypertension and interstitial edema probable left pleural effusion and associat ed atelectasis versus basilar edema or pneumonia with no evident pneumothorax, prominence of the pulmonary arteries could be indicative of underlying pulmonary artery hypertension. WBC continues to be elevated and is currently 20.8 and patient remains afebrile, possible component of IV steroids along with MRSA noted in the sputum culture. BMP within normal limits and blood sugars are controlled on sliding scale every 6 and recommend continue as patient is also noted to be on lactated Ringer's. 10/16/2021 Patient is seen in follow-up this morning continues to be in the ICU with pulmonary and infectious disease following closely. Patient has been extubated successfully and currently maintained on 2 L via nasal cannula and tolerating well. Patient continues to report sore throat status post extubation and will add Cepacol lozenges may use Hurricaine spray as well. Patient tolerating diet with no reports of nausea or vomiting noted. Patient is also continued on IV antibiotics in the form of vancomycin as sputum culture did show MRSA and will continue. IV steroids has been discontinued and patient is being started on a prednisone taper and appropriate home medications have been resumed. Patient has been working with physical therapy and recommend continue doing so as patient continues to be somewhat weak. Patient is being downgraded from ICU and awaiting a bed on the selective unit. Chest x-ray today shows improving basilar atelectasis or infiltrate and small effusion. Patient is currently afebrile and denies worsening shortness of breath or any chest pain. 10/17/2021 Patient is seen today on [facility] unit and has been transferred out of the ICU and continues to have shortness of breath although feels is slowly improving. Patient is continued on 2 L via nasal cannula and attempting weaning FiO2 as tolerated. Patient continues with weakness and physical therapy evaluated the patient recommending subacute rehab versus home with home care and patient reports he would like to return home with his girlfriend and have home care in the outpatient setting. Patient follows with Dr. Schwartz out of warfarin as his primary care provider. Pulmonary following closely along with cardiology. Patient also continued on vancomycin for MRSA in the sputum. Patient is currently afebrile and denies any chest pain or palpitations. Patient is tolerating diet with no reports of nausea or vomiting noted. Dennis catheter has been removed and patient is voiding with no difficulties. Current increase activity as tolerated and also encouraged incentive spirometer use at least 10 times every hour while awake. 10/18/2021 Patient is seen in follow-up today continues to have some sore throat and mild shortness of breath and will perform home O2 eval. Patient is continued on 2 L via nasal cannula. Patient also continues with breathing inhalational treatment with pulmonary following closely. Patient has been seen and evaluated by cardiology maintaining sinus rhythm and will see the patient in the outpatient setting and to continue current cardiac medications. Patient also on IV vancomycin for MRSA in the sputum and anxiety following closely and patient will likely require a PICC line with IV vancomycin on discharge. Social work is following and making arrangements as patient has decided to go home with home care and will need to arrange for a PICC line to be placed along with verifying if there is coverage for IV antibiotics in the outpatient setting. Patient is currently afebrile and denies chest pain or palpitations. Patient is tolerating diet with no reports of nausea or vomiting noted. Encouraged increase activity as tolerated and continued use of incentive spirometer. 10/19/2020 Patient is sitting in the chair comfortably. Awake alert 1x3. No complaints of chest pain or shortness of breath. Patient is being continued on vancomycin for MRSA pneumonia. Also on prednisone tapering course. Continued on oral Lasix. No chest pain or shortness of breath. No headache or dizziness lightheadedness. Tolerating oral diet. 10/20/2021 Patient is resting in the bed. Awake alert oriented x3. No complaints of cough or sputum production. No nausea vomiting abdominal pain or diarrhea. Tolerating oral diet. Currently on room air. No headache or dizziness lightheadedness. Patient is being continued on MRSA pneumonia with vancomycin. antibiotic arrangement likely Thursday. Pulmonary and ID on board. Currently on p.o. Lasix and prednisone tapering course. Currently on 40 mg daily. Review of systems: Constitutional: no reports of fatigue, no reports of fever, or chills Cardiovascular: No reports of chest pain or palpitations Respiratory: reports of mild shortness of breath though feels is improving GI: No reports of nausea, vomiting, or diarrhea : No reports of dysuria or retention Neurovascular: reports of generalized weakness All medications have been reviewed Active Medications Albuterol/Ipratropium (Ipratropium-Albuterol 3 Ml Neb) 3 ml INHALATION RT-Q4H [facility] Last Admin: 10/18/21 12:06 Dose: 3 ml Amiodarone HCl (Amiodarone 200 Mg Tab) 400 mg PO DAILY [facility] Stop: 10/21/21 18:00 Last Admin: 10/18/21 08:10 Dose: 400 mg Amiodarone HCl (Amiodarone 200 Mg Tab) 200 mg PO DAILY [facility] Amlodipine Besylate (Amlodipine 10 Mg Tab) 10 mg PO DAILY [facility] Last Admin: 10/18/21 08:10 Dose: 10 mg Benzocaine/Menthol (Benzocaine/Menthol Lozeng 1 Each Lozenge) 1 each MUCOUS MEM Q4HR PRN PRN Reason: Sore Throat Budesonide/Formoterol Fumarate (Symbicort 160-4.5 Mcg Inhaler) 2 puff INHA LATION RT-BID [facility] Last Admin: 10/18/21 08:45 Dose: 2 puff Clonidine HCl (Clonidine 0.2 Mg/24hr Patch) 1 patch TRANSDERM Q7D [facility] Last Admin: 10/15/21 15:49 Dose: 1 patch Enoxaparin Sodium (Enoxaparin 40 Mg/0.4 Ml Syringe) 40 mg SQ DAILY [facility] Last Admin: 10/18/21 08:11 Dose: 40 mg Furosemide (Furosemide 40 Mg Tab) 40 mg PO DAILY [facility] Last Admin: 10/18/21 08:10 Dose: 40 mg Hydralazine HCl (Hydralazine Hcl 20 Mg/Ml 1 Ml Vial) 10 mg IVP Q6HR PRN PRN Reason: Blood Pressure - High Last Admin: 10/16/21 04:21 Dose: 10 mg Vancomycin HCl 1,750 mg/ (Sodium Chloride) 500 mls @ 167 mls/hr IVPB Q12H [facility] Last Admin: 10/18/21 12:41 Dose: 167 mls/hr Insulin Aspart (Insulin Aspart (Novolog) 100 Unit/Ml Vial) 0 unit SQ [facility]; Protocol Last Admin: 10/18/21 12:41 Dose: 1 unit Lisinopril (Lisinopril 20 Mg Tab) 40 mg PO DAILY [facility] Last Admin: 10/18/21 08:10 Dose: 40 mg Methadone HCl (Methadone 10 Mg Tab) 10 mg PO Q8HR [facility] Last Admin: 10/18/21 08:10 Dose: 10 mg Metoprolol Succinate (Metoprolol Succinate (Er) 100 Mg Tab.Er.24h) 100 mg PO DAILY [facility] Last Admin: 10/18/21 08:10 Dose: 100 mg Miscellaneous Information (Magnesium Replacement Protocol 1 Each Misc) 1 each MISCELLANE DAILY PRN; Protocol PRN Reason: Per Protocol Miscellaneous Information (Potassium Replacement Protocol 1 Each Misc) 1 each MISCELLANE DAILY PRN; Protocol PRN Reason: Per Protocol Miscellaneous Information (Vancomycin Trough Due 1 Each Misc) 1 each MISCELLANE ONCE ONE Stop: 10/20/21 12:01 Morphine Sulfate (Morphine Sulfate 4 Mg/Ml Syringe) 4 mg IV Q4HR PRN PRN Reason: Pain Scale 8 to 10 Last Admin: 10/18/21 14:49 Dose: 4 mg Naloxone HCl (Naloxone 0.4 Mg/Ml 1 Ml Vial) 0.2 mg IV Q2M PRN PRN Reason: Opioid Reversal Pantoprazole Sodium (Pantoprazole 40 Mg/10 Ml Vial) 40 mg IV DAILY [facility] Last Admin: 10/18/21 08:10 Dose: 40 mg Prednisone (Prednisone 20 Mg Tab) 40 mg PO DAILY [facility] Last Admin: 10/18/21 08:10 Dose: 40 mg Spironolactone (Spironolactone 25 Mg Tab) 50 mg PO DAILY [facility] Last Admin: 10/18/21 08:11 Dose: 50 mg PHYSICAL EXAMINATION: GENERAL: The patient is currently sitting up in the chair awake, alert and oriented 3. Obese Well developed, well nourished. HEENT: Pupils are round and equally reacting to light. EOMI. no scleral icterus. No conjunctival pallor. Normocephalic, atraumatic. No pharyngeal erythema. No thyromegaly. CARDIOVASCULAR: S1 and S2 muffled PULMONARY: diminished breath sounds bilaterally with some scattered rhonchi noted. ABDOMEN: soft. Nontender on exam. obese. non-distended, normoactive bowel sounds. No palpable organomegaly. MUSCULOSKELETAL: No joint swelling or deformity. EXTREMITIES: No cyanosis, clubbing, or pedal edema. NEUROLOGICAL: Alert and oriented 3 awake. Cranial nerves intact with no focal deficits noted SKIN: No rashes. Assessment: Acute hypoxic respiratory failure, present on admission, status post intubation and mechanical ventilation, successfully extubated 10/15/21 COPD with acute exacerbation altered mental status, acute metabolic encephalopathy most likely secondary to hypoxemic respiratory failure Atrial fibrillation with fast ventricular rate, new onset, converted to sinus rhythm and rate controlled on metoprolol and amiodarone Possible right lower lung pneumonia, present on admission with MRSA in the sputum Leukocytosis possibly secondary to above along with a component of induced by IV steroids, trending down mild acute on chronic congestive heart failure diastolic dysfunction, acute exacerbation Continued ongoing nicotine dependence Hypertension obesity with BMI of 38.7 GI prophylaxis DVT prophylaxis: Subcutaneous Lovenox Full code Plan: Recommend to continue with weaning FiO2 as tolerated and patient was recently extubated, maintained on 2 L via nasal cannula, home O2 eval been patient did not qualify for oxygen and will continue to monitor WBC is trending down and will continue with vancomycin with infectious disease following. Sputum culture did show MRSA, multiple severe drug interactions with patients methadone and patient will be receiving a PICC line to continue with IV antibiotics for a 10 day course in the outpatient setting. Social work aware of this and will need to arrange and verify coverage of antibiotics in the outpatient setting. Patient will also need a PICC line placed prior to discharge Recommend to continue prednisone taper and will continue with breathing inhalational treatments. Continue to encourage incentive spirometer use at least 10 times every hour while awake. Pulmonary following closely and patient will need outpatient follow-up with them Patient's heart rate currently rate controlled on amiodarone and metoprolol resumed. Norvasc resumed as well. Cardiology following as needed and will see the patient in the outpatient setting. PT/OT recommending possible rehab versus home with home care, social work following and patient would like to go home with his girlfriend and have home care. Patient does have chronic back pain and takes methadone which has been resumed Due to multiple complex medical issues, prognosis is guarded Insurance has not been verified for IV antibiotic coverage and patient is going to need a PICC line with continued vancomycin for a ten-day course in the outpatient setting. Social work is aware. Objective - Vital Signs Vital signs: Vital Signs Temp 97.7 F 10/20/21 20:34 Pulse 70 10/20/21 20:34 Resp 16 10/20/21 20:34 BP 149/71 10/20/21 20:34 Pulse Ox 94 L 10/20/21 20:34 FiO2 50 10/15/21 15:56 Intake & Output 10/20/21 10/20/21 10/21/21 06:59 18:59 06:59 Intake Total 500 Balance 500 Weight 102 kg Intake: Oral 500 Other: Voiding Method Urinal Urinal # Voids 3 2 ABP, PAP, CO, CI - Last Documented Arterial Blood Pressure 192/65 - Labs CBC & Chem 7: 10/17/21 06:20 10/20/21 12:14 Labs: Abnormal Lab Results - Last 24 Hours (Table) 10/20/21 10/20/21 Range/Units 17:06 20:10 POC Glucose (mg/dL) 151 H 159 H (70-110) mg/dL
[2021-10-21] MEDS: IPRATROPIUM-ALBUTEROL 3 ML NEB INHALATION SCH ×5 (01:08→16:27)
[2021-10-21 05:27] VITALS: TEMP 98.6
[2021-10-21] MEDS: MORPHINE SULFATE 4 MG/ML SYRINGE IV PRN (05:27)
[2021-10-21 07:08] LABS: African American GFR (CKD) >90 (>60 ml/min/1.73 sqM); Anion Gap 3 mmol/L; Blood Urea Nitrogen 21 mg/dL (9-20); Calcium 9.2 mg/dL (8.4-10.2); Carbon Dioxide 30 mmol/L (22-30); Chloride 104 mmol/L (98-107); Glucose 84 mg/dL (74-99); Non-African American GFR(CKD) >90 (>60 ml/min/1.73 sqM); Potassium 4.1 mmol/L (3.5-5.1); Sodium 137 mmol/L (137-145)
[2021-10-21 07:23] LABS: Glucose,Whole Blood 86 mg/dL (70-110)
[2021-10-21] MEDS: SYMBICORT 160-4.5 MCG INHALER INHALATION SCH (08:19)
[2021-10-21] MEDS: SPIRONOLACTONE 25 MG TAB PO SCH (08:26)
[2021-10-21] MEDS: ENOXAPARIN 40 MG/0.4 ML SYRINGE SQ SCH (08:26)
[2021-10-21] MEDS: PANTOPRAZOLE 40 MG/10 ML VIAL IV SCH (08:26)
[2021-10-21] MEDS: METOPROLOL SUCCINATE (ER) 100 MG TAB.ER.24H PO SCH (08:27)
[2021-10-21] MEDS: lisinopriL 20 MG TAB PO SCH (08:27)
[2021-10-21] MEDS: amLODIPine 10 MG TAB PO SCH (08:27)
[2021-10-21] MEDS: FUROSEMIDE 40 MG TAB PO SCH (08:27)
[2021-10-21] MEDS: AMIODARONE 200 MG TAB PO SCH (08:27)
[2021-10-21] MEDS: predniSONE 20 MG TAB PO SCH (08:27)
[2021-10-21] MEDS: INSULIN ASPART (NovoLOG) 100 UNIT/ML VIAL SQ SCH ×2 (08:30→11:30)
--- NOTE | 2021-10-21 08:51 | P.PN ---
Subjective Progress Note Date: 10/20/21 Principal diagnosis: MRSA pneumonia Patient is a 60-year male with a past medical history taken for COPD hypertension presented to hospital with increasing shortness of breath did have acute respiratory failure requiring intubation and a component of pneumonia sputum has been finalized with MRSA. On today's evaluation that is 10/20/2021, the patient continues to be afebrile, the patient is breathing comfortably on room air for the Last 2 days, the patient denies having any chest pain, the patient cough has decreased intensity with occasional sputum, the patient denies abdominal pain no diarrhea Objective - Vital Signs Vital signs: Vital Signs Temp 98.6 F 10/20/21 15:00 Pulse 70 10/20/21 15:00 Resp 16 10/20/21 15:00 BP 162/75 10/20/21 15:00 Pulse Ox 96 10/20/21 15:00 FiO2 21 10/20/21 15:00 Intake & Output 10/20/21 15:59 Intake Total Balance Weight Intake: Oral Other: Voiding Method Urinal # Voids 2 # Bowel Movements ABP, PAP, CO, CI - Last Documented Arterial Blood Pressure 192/65 - Exam GENERAL DESCRIPTION: Middle-aged male lying in bed, no distress. No tachypnea or accessory muscle of respiration use. LUNGS: Unlabored breathing. Decreased intensity of breath sound no wheeze HEART: S1, S2, regular rate and rhythm. No loud murmur ABDOMEN: Soft, no tenderness EXTREMITIES: No edema of feet. - Labs CBC & Chem 7: 10/17/21 06:20 10/21/21 05:59 Labs: Abnormal Lab Results - Last 24 Hours (Table) 10/20/21 10/20/21 10/21/21 Range/Units 17:06 20:10 05:59 BUN 21 H (9-20) mg/dL POC Glucose (mg/dL) 151 H 159 H (70-110) mg/dL Assessment and Plan (1) MRSA pneumonia Current Visit: Yes Status: Acute Code(s): J15.212 - PNEUMONIA DUE TO METHICILLIN RESISTANT STAPHYLOCOCCUS AUREUS SNOMED Code(s): 938937048490036 Plan: 1patient presented hospital with acute respiratory failure which is multifactorial in this patient who do have a history of COPD and heart failure with likely COPD exacerbation and a component of pneumonia with a sputum has been finalized with MRSA likely pathogen. 2Patient has shown clinical improvement however we are not able to use oral Zyvox because of drug interaction, patient has received more than a week of IV vancomycin and has shown overall clinical improvement we will repeat a chest x- ray in the morning if no significant consolidation may consider oral Bactrim DS on discharge Time with Patient: Less than 30
--- NOTE | 2021-10-21 09:23 | XR ---
EXAMINATION TYPE: XR chest 2V DATE OF EXAM: 10/21/2021 COMPARISON: Chest x-ray 10/16/2021 HISTORY: Pneumonia, follow-up TECHNIQUE: Frontal and lateral views of the chest are obtained. FINDINGS: There is no focal air space opacity, pleural effusion, or pneumothorax seen, there is impr ovement in aeration at the lung bases. The cardiac silhouette size is within normal limits. There is been interval removal of the left jugular central venous catheter. The osseous structures are intac t. IMPRESSION: There may be some minimal residual airspace disease or atelectasis at the lung bases.
[2021-10-21 09:32] LABS: Basophils # (A) 0.01 X 10*3/uL (0.00-0.10); Basophils % (A) 0.1 %; Eosinophils # (A) 0.06 X 10*3/uL (0.04-0.35); Eosinophils % (A) 0.3 %; HCT 39.6 % (39.6-50.0); HGB 13.3 g/dL (13.0-17.0); Lymphocytes # (A) 3.48 X 10*3/uL (0.90-5.00); MCH 30.4 pg (27.0-32.0); MCHC 33.6 g/dL (32.0-37.0); MCV 90.6 fL (80.0-97.0); Monocytes # (A) 1.35 X 10*3/uL (0.20-1.00); Monocytes % (A) 7.8 %; NRBC Per 100 WBC 0 /100 WBCS (0.0-0.0); Neutrophils # (A) 12.29 X 10*3/uL (1.80-7.70); Neutrophils % (A) 70.8 %; Platelet Count 268 X 10*3/uL (140-440); RBC 4.37 X 10*6/uL (4.40-5.60); RDW 13.4 % (11.5-14.5); WBC 17.36 X 10*3/uL (4.50-10.00)
[2021-10-21 11:19] LABS: Glucose,Whole Blood 106 mg/dL (70-110)
[2021-10-21 12:37] VITALS: BP 131/71; PULSE 64; RESP 18
[2021-10-22] MEDS ORDERED: AMIODARONE 200 MG TAB PO SCH (09:00)
--- NOTE | 2021-10-23 16:55 | P.DS ---
Providers Date of admission: 10/12/21 02:20 Expected date of discharge: 10/21/21 Attending physician: Pranav Tran Consults: 10/12/21 02:20 Consult Physician Routine Consulting Provider: Anne Meneses Consult Reason/Comments: icu Do you want consulting provider notified?: Yes 10/12/21 04:19 Consult Physician Stat Consulting Provider: Pranav Tran Consult Reason/Comments: ICU management Do you want consulting provider notified?: Already Contacted 10/14/21 12:10 Consult Physician Stat Consulting Provider: Sarabjit Moreland Consult Reason/Comments: afib rvr, on vent Do you want consulting provider notified?: Yes 10/15/21 09:34 Consult Physician Urgent Consulting Provider: Pooja Dumont Consult Reason/Comments: mrsa in sputum, pna Do you want consulting provider notified?: Yes Primary care physician: Wali Schwartz MD Hospital Course: Final diagnosis Acute hypoxic respiratory failure, present on admission, status post intubation and mechanical ventilation, successfully extubated 10/15/21 COPD with acute exacerbation altered mental status, acute metabolic encephalopathy most likely secondary to hypoxemic respiratory failure Atrial fibrillation with fast ventricular rate, new onset, converted to sinus rhythm and rate controlled Possible right lower lung pneumonia, present on admission with MRSA in the sputum Leukocytosis possibly secondary to above along with a component of induced by IV steroids mild acute on chronic congestive heart failure diastolic dysfunction, acute exacerbation Continued ongoing nicotine dependence Hypertension obesity with BMI of 38.7 GI prophylaxis DVT prophylaxis: Subcutaneous Lovenox Full code Discharge disposition Patient is being discharged in a stable condition with guarded prognosis to home with home care . Patient will follow-up with the [facility] clinic [facility] in the outpatient setting upon discharge. Patient is to follow-up with pulmonary and cardiology in the outpatient setting. Patient will continue on oral Bactrim twice daily for the next 10 days along with a prednisone taper. Total time taken is greater than 35 minutes. Hospital course This is a 60-year-old male who was recently admitted with increasing shortness of breath and dyspnea with COPD exacerbation. Patient was in the ICU for quite some time and was intubated and extubated successfully requiring oxygen. Patient will require home oxygen and will be continued on oral Bactrim twice daily for the next 10 days as there was MRSA in the sputum. Patient with weakness initially was agreeable to rehab although would like to go home with home care. Patient reports to feeling much improved and has been cleared for discharge with close outpatient follow-up with pulmonary in the outpatient setting. Patient also was found to have new onset atrial fibrillation during the ICU stay and maintained on amiodarone. Patient will not require anticoagulation per cardiology. Patient will need cardiology follow-up in the next 1-2 weeks. Currently no reports of chest pain, shortness of breath, or palpitations. Patient is afebrile. No reports of nausea or vomiting and patient is tolerating diet. Patient will be discharged home today. Guarded prognosis. Physical exam: Gen: This is a 60-year-old male awake, alert and oriented 3, well-developed, well-nourished. HEENT: Head is atraumatic, normocephalic. Pupils equal, round. Sclerae is anicteric. NECK: Supple. No JVD. No lymphadenopathy. No thyromegaly. LUNGS: Diminished breath sounds bilaterally with some scattered rhonchi noted. No intercostal retractions. HEART: Regular rate and rhythm. No murmur. ABDOMEN: Soft. Bowel sounds are present. No masses. No tenderness. EXTREMITIES: No pedal edema. No calf tenderness. NEUROLOGICAL: Patient is awake, alert and oriented x3. Cranial nerves 2 through 12 are grossly intact. Please refer to medication reconciliation sheet for a list of medications. The impression and plan of care has been dictated by Mary Pena, Nurse Practitioner as directed. Dr. Kelly MD I have performed a history and examination and MDM of this patient, discussed the same with the dictator, and agree with the dictator's assessment and plan as written ,documented as a scribe. Based on total visit time, I have performed more than 50% of the visit. Patient Condition at Discharge: Stable Plan - Discharge Summary Discharge Rx Participant: No New Discharge Prescriptions: New Amiodarone [Cordarone] 400 mg PO DAILY #120 tab Spironolactone [Aldactone] 50 mg PO DAILY #30 tab Furosemide [Lasix] 40 mg PO DAILY #30 tab Sulfamethox-Tmp 800-160Mg [Bactrim DS 800-160 mg] 1 tab PO Q12HR 10 Days #20 tab predniSONE 10 mg PO DIRECTED #30 tab Budesonide-Formot 160-4.5 Mcg [Symbicort 160-4.5 Mcg Inhaler] 2 puff INHALATION RT-BID 30 Days #1 each Continue Simvastatin 10 mg PO HS Loratadine [Claritin] 10 mg PO DAILY Fluticasone/Umeclidin/Vilanter [Trelegy Ellipta 200-62.5-25] 1 puff INHALATION RT-DAILY Omeprazole [PriLOSEC] 20 mg PO AC-SUPPER Metoprolol Succinate (ER) [Toprol XL] 100 mg PO DAILY Methadone [Dolophine] 10 mg PO Q8HR lisinopriL [Zestril] 40 mg PO DAILY amLODIPine 10 mg PO DAILY Cyclobenzaprine [Flexeril] 10 mg PO HS Albuterol Sulfate [Albuterol Sulfate Hfa] 2 puff PO RT-Q6H PRN PRN Reason: Shortness Of Breath Albuterol Nebulized [Ventolin Nebulized] 2.5 mg INHALATION RT-Q4H PRN PRN Reason: Shortness Of Breath Discontinued Potassium Chloride [Potassium Chloride ER] 10 meq PO DAILY Discharge Medication List Albuterol Nebulized [Ventolin Nebulized] 2.5 mg INHALATION RT-Q4H PRN 10/12/21 [History] Albuterol Sulfate [Albuterol Sulfate Hfa] 2 puff PO RT-Q6H PRN 10/12/21 [History] Cyclobenzaprine [Flexeril] 10 mg PO HS 10/12/21 [History] Fluticasone/Umeclidin/Vilanter [Trelegy Ellipta 200-62.5-25] 1 puff INHALATION RT-DAILY 10/12/21 [History] Loratadine [Claritin] 10 mg PO DAILY 10/12/21 [History] Methadone [Dolophine] 10 mg PO Q8HR 10/12/21 [History] Metoprolol Succinate (ER) [Toprol XL] 100 mg PO DAILY 10/12/21 [History] Omeprazole [PriLOSEC] 20 mg PO AC-SUPPER 10/12/21 [History] Simvastatin 10 mg PO HS 10/12/21 [History] amLODIPine 10 mg PO DAILY 10/12/21 [History] lisinopriL [Zestril] 40 mg PO DAILY 10/12/21 [History] Amiodarone [Cordarone] 400 mg PO DAILY #120 tab 10/18/21 [Rx] Budesonide-Formot 160-4.5 Mcg [Symbicort 160-4.5 Mcg Inhaler] 2 puff INHALATION RT-BID 30 Days #1 each 10/21/21 [Rx] Furosemide [Lasix] 40 mg PO DAILY #30 tab 10/21/21 [Rx] Spironolactone [Aldactone] 50 mg PO DAILY #30 tab 10/21/21 [Rx] Sulfamethox-Tmp 800-160Mg [Bactrim DS 800-160 mg] 1 tab PO Q12HR 10 Days #20 tab 10/21/21 [Rx] predniSONE 10 mg PO DIRECTED #30 tab 10/21/21 [Rx] Follow up Appointment(s)/Referral(s): Chris France MD [STAFF PHYSICIAN] - 10/30/21 2:45 pm Salvatore Mays DO [Doctor of Osteopathic Medicine] - 11/06/21 9:00 am [facility], [NON-STAFF] - 1 Week None,Stated [REFERRING] - 1-2 days [facility] [NON-STAFF] - As Needed Patient Instructions/Handouts: Sulfamethoxazole/Trimethoprim (By mouth), Spironolactone (By mouth), Furosemide (By mouth), Prednisone (By mouth), Amiodarone (By mouth), Budesonide/Formoterol (By breathing), A-fib (Atrial Fibrillation) (GEN) Activity/Diet/Wound Care/Special Instructions: Cardiology Instructions: Follow up in [address] France at [facility] in [place] Take your blood pressure medication as prescribed New medication called Amiodarone needs to have the dose decreased over a few weeks, instructions below Amiodarone Taper Instructions: Take 400mg Daily for 1 week (10/15/2021- 10/21/2021) Then Take 200mg daily for 1 week (10/22/2021-10/28/2021) Then Take 100mg daily after Further changes by your fish hatchery manager in the office Discharge/Stand Alone Forms: Who Do I Call?, Community Resources Discharge Disposition: HOME WITH HOME HEALTH SERVICES
== END 2021-10-21 16:23 | disposition home health service (06) | DRG 208 ==
LOC: EC 01:03 → 2SICU 02:20 → 5NMEDONC 10-16 18:34
PROVIDERS: ADMIT Hospitalist; ATTEND Hospitalist
PROC: 5A1945Z Respiratory Ventilation, 24-96 Consecutive Hours (ICD-10-PCS; principal; 2021-10-12)
PROC: 0BH17EZ Insertion of Endotracheal Airway into Trachea, Via Natural or Artificial Opening (ICD-10-PCS; principal; 2021-10-12)
PROC: 02HV33Z Insertion of Infusion Device into Superior Vena Cava, Percutaneous Approach (ICD-10-PCS; 2021-10-12)
PROC: 4A133B1 Monitoring of Arterial Pressure, Peripheral, Percutaneous Approach (ICD-10-PCS; 2021-10-12)
PROC: 0D9670Z Drainage of Stomach with Drainage Device, Via Natural or Artificial Opening (ICD-10-PCS; 2021-10-12)
PROC: 03HY32Z Insertion of Monitoring Device into Upper Artery, Percutaneous Approach (ICD-10-PCS; 2021-10-12)
PROC: 4A133J1 Monitoring of Arterial Pulse, Peripheral, Percutaneous Approach (ICD-10-PCS; 2021-10-12)
PROC: 5A09357 Assistance with Respiratory Ventilation, Less than 24 Consecutive Hours, Continuous Positive Airway Pressure (ICD-10-PCS; 2021-10-12)
PROC: 3E0G76Z Introduction of Nutritional Substance into Upper GI, Via Natural or Artificial Opening (ICD-10-PCS; 2021-10-14)
PROC: 05HD33Z Insertion of Infusion Device into Right Cephalic Vein, Percutaneous Approach (ICD-10-PCS; 2021-10-16)
PROC: 02HV33Z Insertion of Infusion Device into Superior Vena Cava, Percutaneous Approach (ICD-10-PCS; 2021-10-18)
DX: J96.21 Acute and chronic respiratory failure with hypoxia (principal); I50.33 Acute on chronic diastolic (congestive) heart failure; J15.212 Pneumonia due to Methicillin resistant Staphylococcus aureus; G93.41 Metabolic encephalopathy; J44.1 Chronic obstructive pulmonary disease with (acute) exacerbation; J44.0 Chronic obstructive pulmonary disease with (acute) lower respiratory infection; J98.11 Atelectasis; I27.20 Pulmonary hypertension, unspecified; I95.9 Hypotension, unspecified; I11.0 Hypertensive heart disease with heart failure; I48.0 Paroxysmal atrial fibrillation; J96.22 Acute and chronic respiratory failure with hypercapnia; Z20.822 Contact with and (suspected) exposure to COVID-19; I34.0 Nonrheumatic mitral (valve) insufficiency; E78.5 Hyperlipidemia, unspecified; G89.29 Other chronic pain; M54.9 Dorsalgia, unspecified; J31.0 Chronic rhinitis; F41.9 Anxiety disorder, unspecified; E66.9 Obesity, unspecified; Z68.38 Body mass index [BMI] 38.0-38.9, adult; F17.210 Nicotine dependence, cigarettes, uncomplicated; Z79.891 Long term (current) use of opiate analgesic; Z79.51 Long term (current) use of inhaled steroids; Z79.899 Other long term (current) drug therapy; Z71.3 Dietary counseling and surveillance
CPT/HCPCS: 36410; 36415; 36573; 36600; 70450; 71045; 71046; 76937; 80048; 80053; 80202; 80306; 80320; 81001; 82140; 82565; 82805; 83735; 83880; 84100; 84145; 84439; 84443; 84484; 85025; 85610; 85730; 87040; 87070; 87077; 87186; 87205; 87635; 93005; 93306; 94002; 94003; 94640; 94660; 94760; 96374; 96375; 96376; 99285

== ENCOUNTER 2022-07-02 01:27 | Inpatient (IN) | payer MEDICAID, OTHER ==
[2022-07-02] MEDS ORDERED: IPRATROPIUM 0.5 MG/2.5 ML NEBU INHALATION STA (01:33)
[2022-07-02] MEDS ORDERED: DEXAMETHASONE SOD PHOSPHATE 10 MG/ML 1 ML VIAL IVP STA (01:33)
[2022-07-02] MEDS ORDERED: ALBUTEROL NEB (CONC) 2.5 MG/0.5 ML INHALATION STA (01:33)
[2022-07-02] MEDS ORDERED: FUROSEMIDE 10 MG/ML 4 ML VIAL IV STA (01:33)
[2022-07-02 01:44] LABS: Basophils # (A) 0.1 k/uL (0-0.2); Basophils % (A) 1 %; Eosinophils # (A) 0.5 k/uL (0-0.7); Eosinophils % (A) 5 %; HCT 37.6 % (39.0-53.0); HGB 12.8 gm/dL (13.0-17.5); Lymphocytes # (A) 3.3 k/uL (1.0-4.8); Lymphocytes % (A) 36 %; MCV 91.2 fL (80.0-100.0); Mean Platelet Volume 7.6; Monocytes # (A) 0.4 k/uL (0-1.0); Monocytes % (A) 4 %; Neutrophils # (A) 4.6 k/uL (1.3-7.7); Neutrophils % (A) 51 %; Platelet Count 286 k/uL (150-450); RBC 4.12 m/uL (4.30-5.90); RDW 14.7 % (11.5-15.5); WBC 9.2 k/uL (3.8-10.6)
[2022-07-02] MEDS: MAGNESIUM SULFATE-D5W PMX 1 GM in DEXTROSE/WATER 1 100ML.BAG IVPB SCH ×2 (01:46→03:14)
[2022-07-02 01:55] LABS: Albumin 4.3 g/dL (3.5-5.0); Calcium 8.8 mg/dL (8.4-10.2); Magnesium 2.3 mg/dL (1.6-2.3); Potassium 4.7 mmol/L (3.5-5.1); Total Bilirubin 0.5 mg/dL (0.2-1.3); Total Protein 7.5 g/dL (6.3-8.2)
[2022-07-02 01:57] LABS: ABG Base Excess 0.5 mmol/L; ABG HCO3 27 mmol/L (21-25); ABG PCO2 57 mmHg (35-45); ABG PH 7.29 (7.35-7.45); ABG PO2 171 mmHg (83-108); ABG TCO2 29 mmol/L (19-24); Allen Test Performed? Yes
[2022-07-02 02:07] LABS: INR 0.9 (<1.2); Prothrombin Time 9.5 sec (9.0-12.0)
--- NOTE | 2022-07-02 02:19 | ED ---
General Adult HPI - General Chief complaint: Shortness of Breath Stated complaint: SOB Time Seen by Provider: 07/02/22 01:33 Source: EMS Mode of arrival: EMS Limitations: altered mental status - History of Present Illness Initial comments: This is a 61-year-old male with a past medical history including COPD and congestive heart failure presents emergency department via EMS for increasing shortness of breath. The patient did present on CPAP and was tripoding with 1-2 word sentences. The patient reportedly had the symptoms that began when he woke up this evening. The patient had a saturation of 79% on CPAP via EMS. The patient cannot provide any further history at this time secondary to the patient's shortness of breath. The patient was also diaphoretic at this time. - Related Data Home Medications Medication Instructions Recorded Confirmed Albuterol Nebulized [Ventolin 2.5 mg INHALATION RT-Q4H PRN 10/12/21 10/12/21 Nebulized] Albuterol Sulfate [Albuterol 2 puff PO RT-Q6H PRN 10/12/21 10/12/21 Sulfate Hfa] Cyclobenzaprine [Flexeril] 10 mg PO HS 10/12/21 10/12/21 Fluticasone/Umeclidin/Vilanter 1 puff INHALATION RT-DAILY 10/12/21 10/12/21 [Lei Ellipta 200-62.5-25] Loratadine [Claritin] 10 mg PO DAILY 10/12/21 10/12/21 Methadone [Dolophine] 10 mg PO Q8HR 10/12/21 10/12/21 Metoprolol Succinate (ER) [Toprol 100 mg PO DAILY 10/12/21 10/12/21 XL] Omeprazole [PriLOSEC] 20 mg PO AC-SUPPER 10/12/21 10/12/21 Simvastatin 10 mg PO HS 10/12/21 10/12/21 amLODIPine 10 mg PO DAILY 10/12/21 10/12/21 lisinopriL [Zestril] 40 mg PO DAILY 10/12/21 10/12/21 Previous Rx's Medication Instructions Recorded Amiodarone [Cordarone] 400 mg PO DAILY #120 tab 10/18/21 Budesonide-Formot 160-4.5 Mcg 2 puff INHALATION RT-BID 30 Days 10/21/21 [Symbicort 160-4.5 Mcg Inhaler] #1 each Furosemide [Lasix] 40 mg PO DAILY #30 tab 10/21/21 Spironolactone [Aldactone] 50 mg PO DAILY #30 tab 10/21/21 Sulfamethox-Tmp 800-160Mg [Bactrim 1 tab PO Q12HR 10 Days #20 tab 10/21/21 DS 800-160 mg] predniSONE 10 mg PO DIRECTED #30 tab 10/21/21 Allergies Allergy/AdvReac Type Severity Reaction Status Date / Time No Known Allergies Allergy Verified 10/12/21 12:20 Review of Systems ROS Statement: Those systems with pertinent positive or pertinent negative responses have been documented in the HPI. ROS Other: All systems not noted in ROS Statement are negative. Past Medical History Past Medical History: Heart Failure, COPD, Hypertension Additional Past Medical History / Comment(s): Sees Dr France outpatient History of Any Multi-Drug Resistant Organisms: MRSA Date of last positivie culture/infection: 10/12/21 MDRO Source:: Sputum Past Surgical History: Orthopedic Surgery Past Anesthesia/Blood Transfusion Reactions: No Reported Reaction Past Psychological History: No Psychological Hx Reported Smoking Status: Current every day smoker Past Alcohol Use History: None Reported Past Drug Use History: Marijuana, Opiates General Exam Limitations: physical limitation (Shortness of breath with 1-2 word sentences) General appearance: alert, in distress (Secondary to shortness of breath) Head exam: Present: atraumatic, normocephalic, normal inspection Eye exam: Present: normal appearance, PERRL Pupils: Present: normal accommodation ENT exam: Present: normal exam, normal oropharynx, mucous membranes moist Neck exam: Present: normal inspection, full ROM Respiratory exam: Present: decreased breath sounds (Significantly decreased breath sounds bilaterally), other (Tachypnic with tripoding) Cardiovascular Exam: Present: normal rhythm, tachycardia GI/Abdominal exam: Present: soft, normal bowel sounds Extremities exam: Present: normal inspection, full ROM, pedal edema Back exam: Present: normal inspection, full ROM Neurological exam: Present: alert, oriented X3, CN II-XII intact Psychiatric exam: Present: normal affect, normal mood, anxious Skin exam: Present: warm, dry Course Vital Signs 07/02/22 07/02/22 07/02/22 01:27 01:30 01:35 Temperature 98.1 F Pulse Rate 119 H Respiratory 26 H 28 H Rate Blood Pressure 166/97 O2 Sat by Pulse 72 L 98 Oximetry Fraction of Inspired Oxygen (FIO2) 07/02/22 07/02/22 07/02/22 01:37 01:44 01:45 Temperature Pulse Rate 101 H Respiratory 22 Rate Blood Pressure 166/97 O2 Sat by Pulse 99 Oximetry Fraction of 100 100 Inspired Oxygen (FIO2) 07/02/22 07/02/22 07/02/22 02:00 02:02 02:30 Temperature Pulse Rate 92 90 Respiratory 18 16 Rate Blood Pressure 168/93 160/100 O2 Sat by Pulse 99 95 Oximetry Fraction of 70 Inspired Oxygen (FIO2) EKG Findings - EKG Comments: EKG Findings:: An EKG was obtained and was interpreted by myself showing a rate of 100, MT interval 132, QRS duration of 101 and QTC of 414. This EKG showed a sinus tachycardia without any ST segment elevation or depression noted. Medical Decision Making - Medical Decision Making Was pt. sent in by a medical professional or institution (, PA, INTRAMURAL DIRECTOR, urgent care, hospital, or senior living...) When possible be specific @ -No Did you speak to anyone other than the patient for history (EMS, parent, family, police, friend...)? What history was obtained from this source @ -Yes, EMS Did you review nursing and triage notes (agree or disagree)? Why? @ -I reviewed and agree with nursing and triage notes Were old charts reviewed (outside hosp., previous admission, EMS record, old EKG, old radiological studies, urgent care reports/EKG's, senior living records)? Report findings @ -No old charts were reviewed Differential Diagnosis (chest pain, altered mental status, abdominal pain women, abdominal pain men, vaginal bleeding, weakness, fever, dyspnea, syncope, headache, dizziness, GI bleed, back pain, seizure, CVA, palpatations, mental health)? @ -COPD exacerbation, CHF exacerbation, pneumonia, pneumothorax EKG interpreted by me (3pts min.). @ -As above X-rays interpreted by me (1pt min.). @ -Chest x-ray was obtained and was interpreted by myself showing mild cardiomegaly with increased bilateral interstitial opacities, correlate with mild to moderate edema or infection. CT interpreted by me (1pt min.). @ -None done U/S interpreted by me (1pt. min.). @ -None done What testing was considered but not performed or refused? (CT, X-rays, U/S, labs)? Why? @ -None What meds were considered but not given or refused? Why? @ -None Did you discuss the management of the patient with other professionals (sil lock i.e. , PA, INTRAMURAL DIRECTOR, lab, RT, psych nurse, social sciences lecturer, crystal flat grinder, teacher, commissioned police officer, case planner)? Give summary @ -Yes, admitting physician Was smoking cessation discussed for >3mins.? @ -No Was critical care preformed (if so, how long)? @ -Yes, see above Were there social determinants of health that impacted care today? How? (Homelessness, low income, unemployed, alcoholism, drug addiction, transportation, low edu. Level, literacy, decrease access to med. care, fci, r ehab)? @ -No Was there de-escalation of care discussed even if they declined (Discuss DNR or withdrawal of care, Hospice)? DNR status @ -No What co-morbidities impacted this encounter? (DM, HTN, Smoking, COPD, CAD, Cancer, CVA, ARF, Chemo, Hep., AIDS, mental health diagnosis, sleep apnea, morbid obesity)? @ -COPD, CHF Was patient admitted / discharged? Hospital course, mention meds given and route, prescriptions, significant lab abnormalities, going to OR and other pertinent info. @ -The patient was seen and evaluated in the emergency department. Physical exam, the patient was resting in bed in significant respiratory distress with tripoding. Vital signs showed initial hypoxia 76% on CPAP via EMS. The patient also had some mild tachycardia. The patient was continued on BiPAP here. The patient was given albuterol, ipratropium as well as magnesium and Decadron. The patient was also given a dose of Lasix for possible CHF exacerbation. The patient's oxygen saturations did improve to 95% on BiPAP and the patient did have improvement. ABG was also obtained that showed mild acidosis of 7.2 likely secondary to some mild CO2 retention. Laboratory workup was largely within normal limits and the BNP was mildly elevated at 1380. The patient was likely suffering from a COPD exacerbation with hypoxia. Due to this, the patient will be admitted for further workup and evaluation. The patient's primary care physician does not admit to this hospital therefore the patient was a city call patient and Dr. Ramirez was contacted and accepted the patient for admission. The patient was admitted in stable condition. Undiagnosed new problem with uncertain prognosis? @ -No Drug Therapy requiring intensive monitoring for toxicity (Heparin, Nitro, Insulin, Cardizem)? @ -No Were any procedures done? @ -No Diagnosis/symptom? @ -COPD exacerbation with hypoxia, on BiPAP Acute, or Chronic, or Acute on Chronic? @ -Acute Uncomplicated (without systemic symptoms) or Complicated (systemic symptoms)? @ -Complicated Side effects of treatment? @ -No Exacerbation, Progression, or Severe Exacerbation? @ -Severe exacerbation Poses a threat to life or bodily function? How? (Chest pain, [place], [place], pneumonia, PE, COPD, DKA, ARF, appy, cholecystitis, CVA, Diverticulitis, Homicidal, Suicidal, threat to staff... and all critical care pts) @ -Yes, continued hypoxia in the setting of COPD can lead to continued and permanent organ damage and possible . - Lab Data Result diagrams: 07/02/22 01:38 07/02/22 01:38 Lab Results 07/02/22 07/02/22 07/02/22 Range/Units 01:38 01:38 01:38 WBC 9.2 (3.8-10.6) k/uL RBC 4.12 L (4.30-5.90) m/uL Hgb 12.8 L (13.0-17.5) gm/dL Hct 37.6 L (39.0-53.0) % MCV 91.2 (80.0-100.0) fL MCH 31.0 (25.0-35.0) pg MCHC 34.0 (31.0-37.0) g/dL RDW 14.7 (11.5-15.5) % Plt Count 286 (150-450) k/uL MPV 7.6 Neutrophils % 51 % Lymphocytes % 36 % Monocytes % 4 % Eosinophils % 5 % Basophils % 1 % Neutrophils # 4.6 (1.3-7.7) k/uL Lymphocytes # 3.3 (1.0-4.8) k/uL Monocytes # 0.4 (0-1.0) k/uL Eosinophils # 0.5 (0-0.7) k/uL Basophils # 0.1 (0-0.2) k/uL PT 9.5 (9.0-12.0) sec INR 0.9 (<1.2) APTT 23.0 (22.0-30.0) sec Sample Site ABG pH (7.35-7.45) ABG pCO2 (35-45) mmHg ABG pO2 (83-108) mmHg ABG HCO3 (21-25) mmol/L ABG Total CO2 (19-24) mmol/L ABG O2 Saturation (94-97) % ABG Base Excess mmol/L Raoul Test FiO2 % Sodium 138 (137-145) mmol/L Potassium 4.7 (3.5-5.1) mmol/L Chloride 104 (98-107) mmol/L Carbon Dioxide 27 (22-30) mmol/L Anion Gap 7 mmol/L BUN 29 H (9-20) mg/dL Creatinine 1.43 H (0.66-1.25) mg/dL Est GFR (CKD-EPI)AfAm 62 (>60 ml/min/1.73 sqM) Est GFR (CKD-EPI)NonAf 54 (>60 ml/min/1.73 sqM) Glucose 141 H (74-99) mg/dL Calcium 8.8 (8.4-10.2) mg/dL Magnesium 2.3 (1.6-2.3) mg/dL Total Bilirubin 0.5 (0.2-1.3) mg/dL AST 45 (17-59) U/L ALT 40 (4-49) U/L Alkaline Phosphatase 70 (38-126) U/L Troponin I (0.000-0.034) ng/mL NT-Pro-B Natriuret Pep pg/mL Total Protein 7.5 (6.3-8.2) g/dL Albumin 4.3 (3.5-5.0) g/dL Lipase 42 (23-300) U/L 07/02/22 07/02/22 07/02/22 Range/Units 01:38 01:38 01:43 WBC (3.8-10.6) k/uL RBC (4.30-5.90) m/uL Hgb (13.0-17.5) gm/dL Hct (39.0-53.0) % MCV (80.0-100.0) fL MCH (25.0-35.0) pg MCHC (31.0-37.0) g/dL RDW (11.5-15.5) % Plt Count (150-450) k/uL MPV Neutrophils % % Lymphocytes % % Monocytes % % Eosinophils % % Basophils % % Neutrophils # (1.3-7.7) k/uL Lymphocytes # (1.0-4.8) k/uL Monocytes # (0-1.0) k/uL Eosinophils # (0-0.7) k/uL Basophils # (0-0.2) k/uL PT (9.0-12.0) sec INR (<1.2) APTT (22.0-30.0) sec Sample Site right radial ABG pH 7.29 L (7.35-7.45) ABG pCO2 57 H (35-45) mmHg ABG pO2 171 H (83-108) mmHg ABG HCO3 27 H (21-25) mmol/L ABG Total CO2 29 H (19-24) mmol/L ABG O2 Saturation 100.0 H (94-97) % ABG Base Excess 0.5 mmol/L Raoul Test Yes FiO2 100 % Sodium (137-145) mmol/L Potassium (3.5-5.1) mmol/L Chloride (98-107) mmol/L Carbon Dioxide (22-30) mmol/L Anion Gap mmol/L BUN (9-20) mg/dL Creatinine (0.66-1.25) mg/dL Est GFR (CKD-EPI)AfAm (>60 ml/min/1.73 sqM) Est GFR (CKD-EPI)NonAf (>60 ml/min/1.73 sqM) Glucose (74-99) mg/dL Calcium (8.4-10.2) mg/dL Magnesium (1.6-2.3) mg/dL Total Bilirubin (0.2-1.3) mg/dL AST (17-59) U/L ALT (4-49) U/L Alkaline Phosphatase (38-126) U/L Troponin I <0.012 (0.000-0.034) ng/mL NT-Pro-B Natriuret Pep 1380 pg/mL Total Protein (6.3-8.2) g/dL Albumin (3.5-5.0) g/dL Lipase (23-300) U/L Critical Care Time Critical Care Time: Yes Total Critical Care Time: 41 Disposition Clinical Impression: COPD exacerbation, Hypoxia Disposition: ADMITTED IP TO THIS HOSP Condition: Stable Is patient prescribed a controlled substance at d/c from ED?: No Referrals: None,Stated [REFERRING] - 1-2 days Time of Disposition: 02:00 Decision to Admit Reason: Admit from EC Decision Date: 07/02/22 Decision Time: 02:00
--- NOTE | 2022-07-02 02:30 | XR ---
EXAM: XR Chest, 1 View CLINICAL HISTORY: ITS.REASON XR Reason: CP TECHNIQUE: Frontal view of the chest. COMPARISON: No relevant prior studies available. IMPRESSION: Mild cardiomegaly. Increased bilateral interstitial opacities, correlate with mild to moderate edema or infection
[2022-07-02] MEDS ORDERED: NALOXONE 0.4 MG/ML 1 ML VIAL IV PRN (02:58)
[2022-07-02] MEDS ORDERED: ALBUTEROL NEBULIZED 2.5 MG/3 ML INHALATION PRN (04:20)
[2022-07-02] MEDS ORDERED: IPRATROPIUM 0.5 MG/2.5 ML NEBU INHALATION PRN (04:36)
[2022-07-02] MEDS: methylPREDNISolone SOD SUCCI 40 MG/ML 1 ML VIAL IV SCH ×4 (05:18→23:33)
--- NOTE | 2022-07-02 06:08 | P.HPIM ---
History of Present Illness H&P Date: 07/02/22 Chief Complaint: shortness of breath 61 year old male with COPD , on night time oxygen he is presenting with severe SOB, that started suddenly this evening after dinner, he went to lay down and rest then suddenly started experiencing severe SOB, notified EMS , who found him hypoxic and started him on CPAP with not much improvement . uppon arrival he was placed on bipap, ABG showed acute respiratory acidosis he denies any fever, chills, cough , sore throat , known sick contact, denies any smoking or smoke exposure. he works in [employer]. he denies any recent travel , hospital stay or any history of blood clots. patient uses night time oxygen sometimes. he claims that he was feeling fine yesterday , and all day today , however he was tired from work . Review of Systems Pertinent positives as noted in HPI. All other systems were reviewed and are negative Past Medical History Past Medical History: Heart Failure, COPD, Hypertension Additional Past Medical History / Comment(s): Sees Dr France outpatient History of Any Multi-Drug Resistant Organisms: MRSA Date of last positivie culture/infection: 10/12/21 MDRO Source:: Sputum Past Surgical History: Orthopedic Surgery Past Anesthesia/Blood Transfusion Reactions: No Reported Reaction Past Psychological History: No Psychological Hx Reported Smoking Status: Current every day smoker Past Alcohol Use History: None Reported Past Drug Use History: Marijuana, Opiates Medications and Allergies Home Medications Medication Instructions Recorded Confirmed Type Albuterol Nebulized [Ventolin 2.5 mg INHALATION RT-Q4H PRN 10/12/21 10/12/21 History Nebulized] Albuterol Sulfate [Albuterol 2 puff PO RT-Q6H PRN 10/12/21 10/12/21 History Sulfate Hfa] Cyclobenzaprine [Flexeril] 10 mg PO HS 10/12/21 10/12/21 History Fluticasone/Umeclidin/Vilanter 1 puff INHALATION RT-DAILY 10/12/21 10/12/21 History [Trelegy Ellipta 200-62.5-25] Loratadine [Claritin] 10 mg PO DAILY 10/12/21 10/12/21 History Methadone [Dolophine] 10 mg PO Q8HR 10/12/21 10/12/21 History Metoprolol Succinate (ER) [Toprol 100 mg PO DAILY 10/12/21 10/12/21 History XL] Omeprazole [PriLOSEC] 20 mg PO AC-SUPPER 10/12/21 10/12/21 History Simvastatin 10 mg PO HS 10/12/21 10/12/21 History amLODIPine 10 mg PO DAILY 10/12/21 10/12/21 History lisinopriL [Zestril] 40 mg PO DAILY 10/12/21 10/12/21 History Amiodarone [Cordarone] 400 mg PO DAILY #120 tab 10/18/21 Rx Budesonide-Formot 160-4.5 Mcg 2 puff INHALATION RT-BID 30 Days 10/21/21 Rx [Symbicort 160-4.5 Mcg Inhaler] #1 each Furosemide [Lasix] 40 mg PO DAILY #30 tab 10/21/21 Rx Spironolactone [Aldactone] 50 mg PO DAILY #30 tab 10/21/21 Rx Sulfamethox-Tmp 800-160Mg [Bactrim 1 tab PO Q12HR 10 Days #20 tab 10/21/21 Rx DS 800-160 mg] predniSONE 10 mg PO DIRECTED #30 tab 10/21/21 Rx Allergies Allergy/AdvReac Type Severity Reaction Status Date / Time No Known Allergies Allergy Verified 10/12/21 12:20 Physical Exam Vitals: Vital Signs Temp Pulse Resp BP Pulse Ox FiO2 07/02/22 04:00 85 18 150/73 95 07/02/22 03:38 50 07/02/22 02:30 90 16 160/100 95 07/02/22 02:02 70 07/02/22 02:00 92 18 168/93 99 07/02/22 01:45 100 07/02/22 01:44 100 07/02/22 01:37 101 H 22 166/97 99 07/02/22 01:35 28 H 07/02/22 01:30 98.1 F 119 H 26 H 166/97 98 07/02/22 01:27 72 L Intake and Output 07/01/22 07/01/22 07/02/22 14:59 22:59 06:59 Other: Weight 124.738 kg Constitutional: patient on bipap , providing limited history Eyes: Anicteric sclerae, moist conjunctiva, Pupils equal round reactive to light ENMT: NC/AT Neck: Supple, no masses, or JVD No carotid bruits No thyromegaly Lungs: diminished breath sounds bilaterally Clear to percussion use accessory muscle of respiration Cardiovascular: Heart regular in rate and rhythm, No murmurs, gallops, or rubs No peripheral edema Abdominal: Soft Nontender, no guarding, rebound or rigidity Abdomen moving with respiration Normoactive bowel sounds No hepatomegaly, No splenomegaly No palpable mass No abdominal wall hernia noted Skin: Normal temperature, tone, texture, turgor No induration No subcutaneous nodules No rash, lesions No ulcers Extremities: No digital cyanosis Pedal pulses intact and symmetrical Radial pulses intact and symmetrical No calf tenderness Psychiatric: Alert and oriented to person, place and time Appropriate affect fair judgment Neuro Muscles Strength 5/5 in all 4 extremities Sensation to light touch grossly present throughout Cranial nerves II-XII grossly intact Lymphatics: no palpable cervical or supraclavicular lymph nodes Results CBC & Chem 7: 07/02/22 01:38 07/02/22 01:38 Labs: Abnormal Lab Results - Last 24 Hours (Table) 07/02/22 07/02/22 07/02/22 Range/Units 01:38 01:38 01:43 RBC 4.12 L (4.30-5.90) m/uL Hgb 12.8 L (13.0-17.5) gm/dL Hct 37.6 L (39.0-53.0) % ABG pH 7.29 L (7.35-7.45) ABG pCO2 57 H (35-45) mmHg ABG pO2 171 H (83-108) mmHg ABG HCO3 27 H (21-25) mmol/L ABG Total CO2 29 H (19-24) mmol/L ABG O2 Saturation 100.0 H (94-97) % BUN 29 H (9-20) mg/dL Creatinine 1.43 H (0.66-1.25) mg/dL Glucose 141 H (74-99) mg/dL Assessment and Plan Assessment: 61 year old male with COPD , presented with sudden onset SOB and difficulty breathing I discussed the case with ED doc , patient currently on bipap, I accepted the admission for acute COPD management with anticipated length of stay > 2 midnights acute hypoxic and hypercapnic respiratory failure acute copd exacerbation CXR increase bilateral opacities ABG showed acute respiratory acidosis supplemental oxygen as needed duo neb scheduled QID and PRN q2 hrs systemic steroids with Solu medrol 40 mg IVP Q6hrs doxycycline 100 mg bid po check acute respiratory viral panel blood work showed WBC 9.2 and Hgb 12.8 overall unremarkable RADHA renal function BUN 29 cr 1.4 avoid nephrotoxic meds monitor urine output gentle IVF hydration with normal saline 75 cc per hour full code DVT PPX heparin sc tid 5000 units
[2022-07-02] MEDS ORDERED: SYMBICORT 160-4.5 MCG INHALER INHALATION SCH ×2 (08:00)
[2022-07-02] MEDS ORDERED: ALBUTEROL NEBULIZED 1.25 MG/3 ML INHALATION SCH (08:00)
[2022-07-02] MEDS: ALBUTEROL NEBULIZED 2.5 MG/3 ML INHALATION SCH ×4 (09:00→21:50)
[2022-07-02] MEDS: IPRATROPIUM 0.5 MG/2.5 ML NEBU INHALATION SCH ×4 (09:00→21:50)
[2022-07-02] MEDS: SYMBICORT 80-4.5 MCG INHALER INHALATION SCH ×2 (10:01→21:51)
[2022-07-02] MEDS: HEPARIN SODIUM,PORCINE/PF 5,000 UNIT/0.5 ML SYRINGE SQ SCH ×3 (10:28→23:33)
[2022-07-02] MEDS: DOXYCYCLINE 100 MG CAP PO SCH ×2 (10:28→21:14)
[2022-07-02] MEDS: METOPROLOL SUCCINATE (ER) 100 MG TAB.ER.24H PO SCH (10:29)
[2022-07-02] MEDS ORDERED: IPRATROPIUM 0.5 MG/2.5 ML NEBU INHALATION SCH (12:00)
[2022-07-02] MEDS: METHADONE 10 MG TAB PO SCH ×2 (13:37→21:13)
[2022-07-02] MEDS: amLODIPine 5 MG TAB PO SCH (13:40)
--- NOTE | 2022-07-02 14:18 | P.CNPUL ---
History of Present Illness Consult date: 07/02/22 Requesting physician: Umang Brown Reason for consult: dyspnea Chief complaint: Shortness of breath History of present illness: This is a very pleasant 61-year-old male patient who has a history of congestive heart failure, hypertension, marijuana use, opiate use on methadone, previous ventilatory dependent respiratory failure in September 2021, chronic tobacco dependence of 40 years however quit in September 2021, chronic obstructive pulmonary disease maintained Trelegy and albuterol in the outpatient setting. Early this morning he had developed increasing shortness of breath, EMS was called and the patient was found to be sitting in Tri-Pod position with 1-2 word sentences and had an O2 saturation of 79%. He was diaphoretic. He was placed on BiPAP and brought into the emergency room for the same. Chest x-ray revealed increased bilateral interstitial opacities with interstitial edema. White count 9.2. Hemoglobin 12.8. Platelets 286. Sodium 138. Potassium 4.7. Bicarb 27. BUN 29. Creatinine 1.43. Glucose 141. Troponin negative times one. ProBNP 1380. Influenza screen negative. RSV screen negative. COVID-19 screen negative. Arterial blood gases on 100% FiO2 revealed a PaO2 of 171, pCO2 57, pH 7.29. He is seen today in consultation in the emergency department. He is sitting up on a stretcher. Awake and alert. Continued on BiPAP at 14/6 and 50% FiO2. Feeling better over the past couple of hours. He was given Lasix 40 mg IVP 1 with good diuresis. He's been initiated on bronchodilators, IV Solu-Medrol. Heparin for DVT prophylaxis. Empiric antibiotics in the form of doxycycline. Review of Systems REVIEW OF SYSTEMS: CONSTITUTIONAL: Denies any recent significant weight loss or weight gain. EYES: Denies change in vision. EARS, NOSE, MOUTH, THROAT: Denies headaches, denies sore throat. CARDIOVASCULAR: Denies chest pain, palpitations or syncopal episodes. RESPIRATORY: Positive for shortness of breath, cough, congestion no hemoptysis. GASTROINTESTINAL: Denies change in appetite, denies abdominal pain GENITOURINARY: Denies hematuria, denies infections. MUSKULOSKELETAL: Denies pain, denies swelling. INTEGUMENTARY: Denies rash, denies eczema. NEUROLOGICAL: Denies recent memory loss, no recent seizure activity. PSYCHIATRIC: Denies anxiety, denies depression. HEMATOLOGIC/LYMPHATIC: Denies anemia, denies enlarged lymph nodes. Past Medical History Past Medical History: Heart Failure, COPD, Hypertension Additional Past Medical History / Comment(s): Sees Dr France outpatient History of Any Multi-Drug Resistant Organisms: MRSA Date of last positivie culture/infection: 10/12/21 MDRO Source:: Sputum Past Surgical History: Orthopedic Surgery Past Anesthesia/Blood Transfusion Reactions: No Reported Reaction Past Psychological History: No Psychological Hx Reported Smoking Status: Current every day smoker Past Alcohol Use History: None Reported Past Drug Use History: Marijuana, Opiates Medications and Allergies Home Medications Medication Instructions Recorded Confirmed Type Albuterol Sulfate [Albuterol 2 puff INHALATION RT-Q6H PRN 10/12/21 07/02/22 History Sulfate Hfa] Cyclobenzaprine [Flexeril] 10 mg PO HS PRN 10/12/21 07/02/22 History Fluticasone/Umeclidin/Vilanter 1 puff INHALATION RT-DAILY 10/12/21 07/02/22 History [Trelegy Ellipta 200-62.5-25] Loratadine [Claritin] 10 mg PO DAILY 10/12/21 07/02/22 History Methadone [Dolophine] 10 mg PO TID 10/12/21 07/02/22 History Metoprolol Succinate (ER) [Toprol 100 mg PO DAILY 10/12/21 07/02/22 History XL] Simvastatin 10 mg PO HS 10/12/21 07/02/22 History lisinopriL [Zestril] 40 mg PO DAILY 10/12/21 07/02/22 History Allergies Allergy/AdvReac Type Severity Reaction Status Date / Time No Known Allergies Allergy Verified 07/02/22 07:38 Physical Exam Vitals: Vital Signs Temp Pulse Resp BP Pulse Ox FiO2 07/02/22 12:00 86 11 L 175/94 96 07/02/22 11:48 84 07/02/22 11:29 86 35 07/02/22 11:00 84 12 175/94 95 07/02/22 10:00 81 20 177/90 95 07/02/22 09:30 89 18 97 07/02/22 09:17 86 07/02/22 09:01 80 50 07/02/22 09:00 85 20 174/82 92 L 07/02/22 08:30 83 18 93 L 07/02/22 08:10 76 17 175/94 98 07/02/22 08:00 89 16 168/84 96 07/02/22 07:30 79 18 94 L 07/02/22 07:02 100 07/02/22 07:00 80 18 168/84 97 07/02/22 06:30 81 18 95 07/02/22 06:29 98.7 F 82 16 96 07/02/22 06:00 78 18 97 07/02/22 05:30 75 18 96 07/02/22 05:00 76 18 98 07/02/22 04:30 80 18 153/75 97 07/02/22 04:00 83 23 141/89 97 07/02/22 03:38 50 07/02/22 03:30 86 20 146/86 97 07/02/22 03:00 88 22 144/96 96 07/02/22 02:30 90 16 160/100 95 07/02/22 02:02 70 07/02/22 02:00 92 18 168/93 99 07/02/22 01:44 100 07/02/22 01:37 101 H 22 166/97 99 07/02/22 01:35 28 H 07/02/22 01:30 98.1 F 119 H 26 H 166/97 98 07/02/22 01:27 72 L Intake and Output 07/01/22 07/02/22 07/02/22 22:59 06:59 14:59 Other: Weight 124.738 kg GENERAL EXAM: Alert, pleasant 61-year-old obese male patient, on BiPAP 14/6 and 50% FiO2, fairly comfortable in mild respiratory distress. HEAD: Normocephalic. EYES: Normal reaction of pupils, equal size. NOSE: Clear with pink turbinates. THROAT: No erythema or exudates. NECK: No masses, no JVD. CHEST: No chest wall deformity. LUNGS: Equal air entry with crackles in the bilateral bases, diminished. CVS: S1 and S2 normal with no audible murmur, regular rhythm. ABDOMEN: No hepatosplenomegaly, normal bowel sounds, no guarding or rigidity. SPINE: No scoliosis or deformity SKIN: No rashes CENTRAL NERVOUS SYSTEM: No focal deficits, tone is normal in all 4 extremities. EXTREMITIES: There is 1+ peripheral edema. No clubbing, no cyanosis. Peripheral pulses are intact. Results - Laboratory Findings CBC and BMP: 07/02/22 01:38 07/02/22 01:38 ABG ABG pH 7.29 (7.35-7.45) L 07/02/22 01:43 ABG pCO2 57 mmHg (35-45) H 07/02/22 01:43 ABG pO2 171 mmHg (83-108) H 07/02/22 01:43 ABG O2 Saturation 100.0 % (94-97) H 07/02/22 01:43 PT/INR, D-dimer PT 9.5 sec (9.0-12.0) 07/02/22 01:38 INR 0.9 (<1.2) 07/02/22 01:38 Abnormal lab findings: Abnormal Labs 07/02/22 07/02/22 07/02/22 01:38 01:38 01:43 RBC 4.12 L Hgb 12.8 L Hct 37.6 L ABG pH 7.29 L ABG pCO2 57 H ABG pO2 171 H ABG HCO3 27 H ABG Total CO2 29 H ABG O2 Saturation 100.0 H BUN 29 H Creatinine 1.43 H Glucose 141 H - Diagnostic Findings Chest x-ray: image reviewed Assessment and Plan Assessment: Acute hypoxemic respiratory failure secondary to an acute exacerbation of suspected diastolic versus systolic congestive heart failure Acute exacerbation of chronic obstructive pulmonary disease secondary to above Acute kidney injury, current creatinine 1.43 Previous history of ventilatory dependent respiratory failure in September 2021 History of heavy chronic tobacco dependence, quit in September 2021 Hypertension History of congestive heart failure Chronic pain syndrome utilizing methadone History of marijuana use Plan: The patient was seen and evaluated Chest x-ray, labs, ABGs and medications reviewed Continue with IV diuretics Titrate down the FiO2 as tolerated currently down to 35% FiO2 Transitioned to nasal cannula as tolerated Continue bronchodilators, IV Solu-Medrol Continue empiric antibiotic for now Check a pro-calcitonin Heparin for DVT prophylaxis We will continue to follow and make further recommendations based on his clinical status I have personally seen and examined the patient, performed the documentation and the assessment and plan as written. Number of minutes spent on the visit: 20.
[2022-07-02] MEDS: ATORVASTATIN 10 MG TAB PO SCH (20:18)
[2022-07-02 20:19] LABS: Glucose,Whole Blood 166 mg/dL (70-110)
[2022-07-03 05:47] LABS: Glucose,Whole Blood 195 mg/dL (70-110)
[2022-07-03] MEDS: INSULIN ASPART (NovoLOG) 100 UNIT/ML VIAL SQ SCH ×4 (06:13→20:37)
[2022-07-03] MEDS: methylPREDNISolone SOD SUCCI 40 MG/ML 1 ML VIAL IV SCH ×4 (06:13→23:40)
[2022-07-03] MEDS: ALBUTEROL NEBULIZED 2.5 MG/3 ML INHALATION SCH ×4 (08:56→21:01)
[2022-07-03] MEDS: IPRATROPIUM 0.5 MG/2.5 ML NEBU INHALATION SCH ×4 (08:56→21:01)
[2022-07-03] MEDS: SYMBICORT 80-4.5 MCG INHALER INHALATION SCH ×2 (08:56→21:01)
[2022-07-03] MEDS: DOXYCYCLINE 100 MG CAP PO SCH ×2 (09:21→23:41)
[2022-07-03] MEDS: METHADONE 10 MG TAB PO SCH ×3 (09:21→20:35)
[2022-07-03] MEDS: HEPARIN SODIUM,PORCINE/PF 5,000 UNIT/0.5 ML SYRINGE SQ SCH ×3 (09:22→23:41)
[2022-07-03] MEDS: METOPROLOL SUCCINATE (ER) 100 MG TAB.ER.24H PO SCH (09:22)
[2022-07-03] MEDS: amLODIPine 5 MG TAB PO SCH (09:22)
--- NOTE | 2022-07-03 11:11 | P.PN ---
Subjective Progress Note Date: 07/03/22 Hospital Course: 61-year-old male with history of COPD, hypertension, dyslipidemia presenting for shortness of breath. On arrival, patient was afebrile, tachycardic to 119, to, blood pressure 166/97, saturating at 78% on room air. Patient was placed on BiPAP. Laboratory workup initially showed hemoglobin of 12.8, pH 7.29, pCO2 57, creatinine elevated at 1.43, pro-calcitonin elevated at 2.15. Troponin was negative, proBNP similar to prior at 1300. Pulmonology was consulted. Patient was admitted for COPD exacerbation. Subjective: Condition seen and examined at bedside. No acute events overnight. He claims that his shortness of breath has improved, and he has been off of BiPAP. He normally uses oxygen at night. He denies any chest pain, abdominal pain, nausea, vomiting, diarrhea, constipation, or urinary complaints. Pertinent positives and negatives as discussed above, a complete review of systems was performed and all other systems are negative. Vitals Signs Reviewed. General: nontoxic, no distress, appears at stated age, obese Derm: warm, dry Head: atraumatic, normocephalic, symmetric Eyes: EOMI, no lid lag, anicteric sclera Mouth: no lip lesion, mucus membranes moist Cardiovascular: S1S2 reg, no murmur Lungs: CTA bilateral, no rhonchi, no rales , no accessory muscle use on the supplemental oxygen Abdominal: soft, nontender to palpation, no guarding, no appreciable organomegaly Ext: no gross muscle atrophy, trace peripheral edema, no contractures Neuro: CN II-XI grossly intact, no focal neuro deficits Psych: Alert, oriented, appropriate affect Data Reviewed Today: Pertinent Labs: blood sugars range between 141-195, pro-calcitonin elevated at 0.15 Initial chest x-ray independently interpreted: Shows bilateral interstitial disease, possibly home edema Assessment and Plan: Patient remains critically ill, prognosis guarded. Currently off of BiPAP on nasal cannula. Active: Acute hypoxic respiratory failure Acute COPD exacerbation Possible acute diastolic heart failure Possible community-acquired pneumonia Hyperglycemia Acute kidney injury Uncontrolled hypertension -Continue to wean supplemental oxygen -Pulmonology following, on bronchodilators, Solu-Medrol 40 IV every 6 hours, doxycycline 100 mg by mouth twice a day -Echocardiogram ordered -Lasix 40 mg IV every 12 hours ordered, needs close monitoring -Closely monitor urine output, and BMP, ordered -NELLIE inhibitor currently on hold due to acute kidney injury, amlodipine added to her home regimen Chronic: Dyslipidemia Chronic pain on methadone DVT ppx: Subcu heparin Code status: Full code Anticipated discharge place: Pending clinical course Anticipated discharge time: Pending clinical course Objective - Vital Signs Vital signs: Vital Signs Temp 97.6 F 07/03/22 08:00 Pulse 90 07/03/22 09:16 Resp 18 07/03/22 08:00 BP 162/88 07/03/22 08:00 Pulse Ox 97 07/03/22 08:59 FiO2 35 07/02/22 15:14 Intake & Output 07/02/22 07/03/22 07/03/22 18:59 06:59 18:59 Intake Total 118 Balance 118 Intake: Oral 118 Other: Voiding Method Toilet Urinal - Labs CBC & Chem 7: 07/02/22 01:38 07/02/22 01:38 Labs: Abnormal Lab Results - Last 24 Hours (Table) 07/02/22 07/02/22 07/03/22 Range/Units 01:38 20:18 05:45 POC Glucose (mg/dL) 166 H 195 H (70-110) mg/dL Procalcitonin 0.15 H (0.02-0.09) ng/mL
[2022-07-03] MEDS ORDERED: FUROSEMIDE 10 MG/ML 4 ML VIAL IV SCH (11:15)
[2022-07-03 11:24] LABS: Glucose,Whole Blood 151 mg/dL (70-110)
[2022-07-03 11:33] LABS: Basophils % (A) 0 %; Eosinophils % (A) 0 %; HCT 32.7 % (39.0-53.0); Lymphocytes # (A) 0.8 k/uL (1.0-4.8); Lymphocytes % (A) 6 %; MCH 31.3 pg (25.0-35.0); MCHC 33.8 g/dL (31.0-37.0); MCV 92.6 fL (80.0-100.0); Mean Platelet Volume 8.1; Monocytes # (A) 0.6 k/uL (0-1.0); Monocytes % (A) 4 %; Neutrophils # (A) 13.5 k/uL (1.3-7.7); Neutrophils % (A) 90 %; Platelet Count 226 k/uL (150-450); RBC 3.53 m/uL (4.30-5.90); RDW 14.9 % (11.5-15.5)
--- NOTE | 2022-07-03 12:02 | XR ---
EXAMINATION TYPE: XR chest 1V portable DATE OF EXAM: 07/03/2022 COMPARISON: 07/02/2022 INDICATION: Chest pain, CHF TECHNIQUE: Single frontal view of the chest is obtained. FINDINGS: The heart size is normal. The pulmonary vasculature is upper limits of normal. This is improved from comparison Minimal residual infiltrate is at the right lung base. Lung infiltrates have largely improved over t he interval IMPRESSION: 1. Findings can be compatible with resolving congestive heart failure. Correlate with the clinical sy mptoms.
[2022-07-03 12:06] LABS: African American GFR (CKD) >90 (>60 ml/min/1.73 sqM); Anion Gap 6 mmol/L; Blood Urea Nitrogen 36 mg/dL (9-20); Carbon Dioxide 27 mmol/L (22-30); Chloride 105 mmol/L (98-107); Glucose 138 mg/dL (74-99); Non-African American GFR(CKD) 80 (>60 ml/min/1.73 sqM); Potassium 4.4 mmol/L (3.5-5.1); Sodium 138 mmol/L (137-145)
[2022-07-03] MEDS: FUROSEMIDE 10 MG/ML 4 ML VIAL IV SCH ×2 (12:45→20:35)
[2022-07-03 16:13] LABS: Glucose,Whole Blood 162 mg/dL (70-110)
--- NOTE | 2022-07-03 17:01 | P.PN ---
Subjective Progress Note Date: 07/03/22 Principal diagnosis: Acute hypoxic respiratory failure secondary to acute congestive heart failure , possibly diastolic in nature and underlying COPD with acute exacerbation This is a very pleasant 61-year-old male patient who has a history of congestive heart failure, hypertension, marijuana use, opiate use on methadone, previous ventilatory dependent respiratory failure in September 2021, chronic tobacco dependence of 40 years however quit in September 2021, chronic obstructive pulmonary disease maintained Trelegy and albuterol in the outpatient setting. Early this morning he had developed increasing shortness of breath, EMS was called and the patient was found to be sitting in Tri-Pod position with 1-2 word sentences and had an O2 saturation of 79%. He was diaphoretic. He was placed on BiPAP and brought into the emergency room for the same. Chest x-ray revealed increased bilateral interstitial opacities with interstitial edema. White count 9.2. Hemoglobin 12.8. Platelets 286. Sodium 138. Potassium 4.7. Bicarb 27. BUN 29. Creatinine 1.43. Glucose 141. Troponin negative times one. ProBNP 1380. Influenza screen negative. RSV screen negative. COVID-19 screen negative. Arterial blood gases on 100% FiO2 revealed a PaO2 of 171, pCO2 57, pH 7.29. He is seen today in consultation in the emergency department. He is sitting up on a stretcher. Awake and alert. Continued on BiPAP at 14/6 and 50% FiO2. Feeling better over the past couple of hours. He was given Lasix 40 mg IVP 1 with good diuresis. He's been initiated on bronchodilators, IV Solu-Medrol. Heparin for DVT prophylaxis. Empiric antibiotics in the form of doxycycline. Reevaluated today on07/03/2022, patient is feeling better today, he is on nasal cannula, he was on a BiPAP yesterday, his chest x-ray is showing dramatic improvement in his bilateral interstitial edema. Clearly consistent with resolving congestive heart failure labs today showed WBC count 15 hemoglobin 11 electrodes are normal renal profile is normal Objective - Vital Signs Vital signs: Vital Signs Temp 97.6 F 07/03/22 08:00 Pulse 85 07/03/22 16:27 Resp 18 07/03/22 14:00 BP 155/77 07/03/22 12:00 Pulse Ox 95 07/03/22 12:00 FiO2 35 07/02/22 15:14 Intake & Output 07/02/22 07/03/22 07/03/22 18:59 06:59 18:59 Intake Total 358 Balance 358 Intake: Oral 358 Other: Voiding Method Toilet Urinal # Voids 1 2 - Exam Physical Exam: Revealed 61-year-old white male obese in no distress Head: Atraumatic normocephalic. HEENT:[Neck is supple.] [No neck masses.] [No thyromegaly.] [No JVD.] Chest: [Clear throughout, no crackles, no rhonchi, no wheezes.] Cardiac Exam: [Normal S1 and S2, no S3 gallop, 2/6 systolic murmur thought the precordium. Abdomen: [Soft, nontender, no megaly, no rebound, no guarding, normal bowel sounds.] Extremities: [No clubbing, no edema, no cyanosis.] Neurological Exam: [No focal neurologic deficit. Alert and oriented 3 Psychiatric: Normal mood affect and normal mental status examination.] Skin: No rashes. - Labs CBC & Chem 7: 07/03/22 11:06 07/03/22 11:06 Labs: Abnormal Lab Results - Last 24 Hours (Table) 07/02/22 07/02/22 07/03/22 Range/Units 01:38 20:18 05:45 WBC (3.8-10.6) k/uL RBC (4.30-5.90) m/uL Hgb (13.0-17.5) gm/dL Hct (39.0-53.0) % Neutrophils # (1.3-7.7) k/uL Lymphocytes # (1.0-4.8) k/uL BUN (9-20) mg/dL Glucose (74-99) mg/dL POC Glucose (mg/dL) 166 H 195 H (70-110) mg/dL Procalcitonin 0.15 H (0.02-0.09) ng/mL 07/03/22 07/03/22 07/03/22 Range/Units 11:06 11:06 11:22 WBC 15.0 H (3.8-10.6) k/uL RBC 3.53 L (4.30-5.90) m/uL Hgb 11.0 L (13.0-17.5) gm/dL Hct 32.7 L (39.0-53.0) % Neutrophils # 13.5 H (1.3-7.7) k/uL Lymphocytes # 0.8 L (1.0-4.8) k/uL BUN 36 H (9-20) mg/dL Glucose 138 H (74-99) mg/dL POC Glucose (mg/dL) 151 H (70-110) mg/dL Procalcitonin (0.02-0.09) ng/mL 07/03/22 Range/Units 16:12 WBC (3.8-10.6) k/uL RBC (4.30-5.90) m/uL Hgb (13.0-17.5) gm/dL Hct (39.0-53.0) % Neutrophils # (1.3-7.7) k/uL Lymphocytes # (1.0-4.8) k/uL BUN (9-20) mg/dL Glucose (74-99) mg/dL POC Glucose (mg/dL) 162 H (70-110) mg/dL Procalcitonin (0.02-0.09) ng/mL Assessment and Plan Assessment: Assessment: Acute hypoxemic respiratory failure secondary to an acute exacerbation of suspected diastolic versus systolic congestive heart failure Acute exacerbation of chronic obstructive pulmonary disease secondary to above Acute kidney injury, current creatinine 1.43 Previous history of ventilatory dependent respiratory failure in September 2021 History of heavy chronic tobacco dependence, quit in September 2021 Hypertension History of congestive heart failure Chronic pain syndrome utilizing methadone History of marijuana use Recommendation: Continue diuretics Continue bronchodilators Cardiology consultation Echocardiogram if none done in the last 6 months. We'll continue to follow Time with Patient: Less than 30
--- NOTE | 2022-07-03 17:28 | CA ---
Transthoracic Echo Report Name: Stu Tineo Age: 61 Gender: M : 1960 Exam Date: 07/03/2022 13:15 Exam Location: [place] [facility] Ht (in): 69 Wt (lb): 225 Ordering Physician: Umang Brown MD Attending/Referring Phys: Material Expediter Ladonna Chan RDCS Procedure CPT: Indications: Hypoxia Cardiac Hx: Technical Quality: Good Contrast 1: Total Dose (mL): Contrast 2: Total Dose (mL): MEASUREMENTS (Male / Female) Normal Values 2D ECHO LV Diastolic Diameter PLAX 4.9 cm 4.2 - 5.9 / 3.9 - 5.3 cm LV Systolic Diameter PLAX 3.7 cm IVS Diastolic Thickness 1.4 cm 0.6 - 1.0 / 0.6 - 0.9 cm LVPW Diastolic Thickness 1.4 cm 0.6 - 1.0 / 0.6 - 0.9 cm LV Relative Wall Thickness 0.6 RV Internal Dim ED PLAX 3.5 cm LA Systolic Diameter LX 4.6 cm 3.0 - 4.0 / 2.7 - 3.8 cm LA Volume 93.0 cm??? 18 - 58 / 22 - 52 cm??? M-MODE Aortic Root Diameter MM 3.3 cm MV E Point Septal Separation 0.3 cm AV Cusp Separation MM 2.1 cm DOPPLER AV Peak Velocity 224.8 cm/s AV Peak Gradient 20.2 mmHg AV Mean Velocity 156.1 cm/s AV Mean Gradient 11.0 mmHg AV Velocity Time Integral 46.1 cm LVOT Peak Velocity 157.5 cm/s LVOT Peak Gradient 9.9 mmHg MV Peak Velocity 249.0 cm/s MV Peak Gradient 24.8 mmHg MV Mean Velocity 131.3 cm/s MV Mean Gradient 8.2 mmHg MV Velocity Time Integral 46.6 cm MV Area PHT 3.9 cm??? Mitral E Point Velocity 186.1 cm/s Mitral A Point Velocity 124.5 cm/s Mitral E to A Ratio 1.5 MV Deceleration Time 192.9 ms MV E' Velocity 8.5 cm/s Mitral E to MV E' Ratio 21.9 TR Peak Velocity 358.2 cm/s TR Peak Gradient 51.3 mmHg Right Ventricular Systolic Press 55.4 mmHg FINDINGS Left Ventricle Left ventricular ejection fraction is estimated at 55-60 %. Left ventricular cavity size normal. Moderate concentric left ventricular hypertrophy. No obvious regional wall motion abnormalities. Right Ventricle Mild right ventricular dilatation. Moderate to severe pulmonary hypertension. Right ventricular systolic pressure estimated at 55 mm hg. Right Atrium Normal right atrial size. Left Atrium Mildly increased left atrial diameter. Severely increased left atrial volume. Mildly increased left atrial area. Mitral Valve Mitral valve thickened. Moderate mitral regurgitation. Moderate mitral stenosis with mean gradient of 8 mmHg and max gradient of 25 mmHg Aortic Valve Trileaflet aortic valve. No aortic valve stenosis or regurgitation. However there is a gradient on AOV peak gradient is 20 mmHg and mean gradient of 8 mmHg Tricuspid Valve Structurally normal tricuspid valve. Mild tricuspid regurgitation. Pulmonic Valve Structurally normal pulmonic valve. Trace pulmonic regurgitation. Pericardium Normal pericardium. No pericardial effusion. Aorta Normal size aortic root and proximal ascending aorta. CONCLUSIONS Normal LV size and systolic function with moderate concentric LVH. Left atrium is mildly enlarged. There is heavy calcification of mitral valve leaflets with restriction. There is also mitral annular calcification. Probable mild to moderate mitral calcific stenosis. There is aortic valve sclerosis with mild increase in gradient no pericardial effusion. Moderate pulmonary hypertension Previewed by: Dr. Amador Ocampo MD (Electronically Signed) Final Date: 03 July 2022 17:27
[2022-07-03 20:12] LABS: Glucose,Whole Blood 153 mg/dL (70-110)
[2022-07-03] MEDS: ATORVASTATIN 10 MG TAB PO SCH (20:35)
[2022-07-04 06:00] LABS: Glucose,Whole Blood 152 mg/dL (70-110)
[2022-07-04] MEDS: INSULIN ASPART (NovoLOG) 100 UNIT/ML VIAL SQ SCH ×3 (06:06→18:48)
[2022-07-04] MEDS: methylPREDNISolone SOD SUCCI 40 MG/ML 1 ML VIAL IV SCH ×3 (06:06→18:48)
[2022-07-04 08:28] LABS: Basophils % (A) 0 %; Eosinophils % (A) 0 %; HCT 33.6 % (39.0-53.0); HGB 11.3 gm/dL (13.0-17.5); Lymphocytes # (A) 0.8 k/uL (1.0-4.8); Lymphocytes % (A) 6 %; MCH 30.8 pg (25.0-35.0); MCHC 33.6 g/dL (31.0-37.0); MCV 91.7 fL (80.0-100.0); Mean Platelet Volume 8.6; Monocytes # (A) 0.4 k/uL (0-1.0); Monocytes % (A) 3 %; Neutrophils % (A) 91 %; Platelet Count 217 k/uL (150-450); RBC 3.67 m/uL (4.30-5.90); RDW 15.2 % (11.5-15.5); WBC 14.2 k/uL (3.8-10.6)
[2022-07-04] MEDS ORDERED: FUROSEMIDE 20 MG TAB PO SCH (09:00)
[2022-07-04] MEDS: ALBUTEROL NEBULIZED 2.5 MG/3 ML INHALATION SCH ×3 (09:01→15:43)
[2022-07-04] MEDS: SYMBICORT 80-4.5 MCG INHALER INHALATION SCH (09:02)
[2022-07-04] MEDS: IPRATROPIUM 0.5 MG/2.5 ML NEBU INHALATION SCH ×3 (09:02→15:43)
[2022-07-04 09:13] LABS: Calcium 9.1 mg/dL (8.4-10.2); Potassium 4.1 mmol/L (3.5-5.1)
[2022-07-04] MEDS: DOXYCYCLINE 100 MG CAP PO SCH (09:43)
[2022-07-04] MEDS: METHADONE 10 MG TAB PO SCH ×2 (09:44→18:47)
[2022-07-04] MEDS: amLODIPine 5 MG TAB PO SCH (09:44)
[2022-07-04] MEDS: METOPROLOL SUCCINATE (ER) 100 MG TAB.ER.24H PO SCH (09:44)
[2022-07-04] MEDS: HEPARIN SODIUM,PORCINE/PF 5,000 UNIT/0.5 ML SYRINGE SQ SCH ×2 (10:20→18:49)
[2022-07-04 11:32] LABS: Glucose,Whole Blood 127 mg/dL (70-110)
--- NOTE | 2022-07-04 11:37 | P.CRDCN ---
History of Present Illness History of present illness: HISTORY OF PRESENT ILLNESS: This is a 61-year-old male with a past medical history significant for paroxysmal atrial fibrillation, hypertension, and hyperlipidemia. Patient does not follow with a pre press manager. We have been asked to see the patient in consultation for congestive heart failure. Patient examined at the bedside. Patient states he went to to bed Thursday night and woke up feeling congested and short of breath. Patient came to the hospital for further evaluation. Patient states he has been coughing up brown colored sputum. Patient was started on IV l asix. He currently denies SOB. Denies chest pain or pressure. Vital signs are stable. * EKG reveals sinus mechanism with no signs of acute ischemia * Chest xray findings compatible with resolving congestive heart failure. * Laboratory data: WBC 9.1. Hemoglobin 5.04. Platelet count 211. Sodium 135. Potassium 4.7. BUN 14. Creatinine 0.93. proBNP 1380. * Current home cardiac medications include lisinopril 40 mg daily, simvastatin 10 mg at night, metoprolol succinate 100 mg daily * Echocardiogram completed revealing ejection fraction 55-60% with moderate MR and moderate pulmonary hypertension REVIEW OF SYSTEMS: At the time of my exam: CONSTITUTIONAL: Denies fever or chills. HEENT: Denies blurred vision, vision changes, or eye pain. Denies hemoptysis CARDIOVASCULAR: Denies chest pain. Denies orthopnea. Denies PND. Denies palpitations RESPIRATORY: Denies shortness of breath. GASTROINTESTINAL: Denies abdominal pain. Denies nausea or vomiting. HEMATOLOGIC: Denies bleeding disorders. GENITOURINARY: Denies any blood in urine. SKIN: Denies pruitis. Denies rash. PHYSICAL EXAM: VITAL SIGNS: Reviewed. GENERAL: Well-developed in no acute distress. HEENT: Head is normocephalic. Pupils are equal, round. Sclerae anicteric. Mucous membranes of the mouth are moist. Neck supple. No JVD or thyromegaly LUNGS: Respirations even and unlabored. Lungs essentially clear to auscultation bilaterally. HEART: Regular rate and rhythm. S1 and S2 heard.systolic murmur noted ABDOMEN: Soft. Nondistended. Nontender. EXTREMITIES: Normal range of motion. No clubbing or cyanosis. Peripheral pulses intact. Trace lower extremity edema NEUROLOGIC: Awake and alert. Oriented x 3. ASSESSMENT: Acute heart failure with preserved ejection fraction Paroxysmal atrial fibrillation Moderate mitral regurgitation Moderate pulmonary hypertension Hypertension Hyperlipidemia PLAN: 2-D echo obtained and reviewed Continue home cardiac medications Discontinue IV Lasix and begin oral Lasix Patient is stable for discharge home today from a cardiac standpoint He is to follow up on an outpatient basis Nurse practitioner note has been reviewed by physician. Signing provider agrees with the documented findings, assessment, and plan of care. Past Medical History Past Medical History: Heart Failure, COPD, Hypertension Additional Past Medical History / Comment(s): Sees Dr France outpatient History of Any Multi-Drug Resistant Organisms: MRSA Date of last positivie culture/infection: 10/12/21 MDRO Source:: Sputum Past Surgical History: Orthopedic Surgery Past Anesthesia/Blood Transfusion Reactions: No Reported Reaction Past Psychological History: No Psychological Hx Reported Smoking Status: Current every day smoker Past Alcohol Use History: None Reported Past Drug Use History: Marijuana, Opiates Medications and Allergies Home Medications Medication Instructions Recorded Confirmed Type Albuterol Sulfate [Albuterol 2 puff INHALATION RT-Q6H PRN 10/12/21 07/02/22 History Sulfate Hfa] Cyclobenzaprine [Flexeril] 10 mg PO HS PRN 10/12/21 07/02/22 History Fluticasone/Umeclidin/Vilanter 1 puff INHALATION RT-DAILY 10/12/21 07/02/22 History [Trelegy Ellipta 200-62.5-25] Loratadine [Claritin] 10 mg PO DAILY 10/12/21 07/02/22 History Methadone [Dolophine] 10 mg PO TID 10/12/21 07/02/22 History Metoprolol Succinate (ER) [Toprol 100 mg PO DAILY 10/12/21 07/02/22 History XL] Simvastatin 10 mg PO HS 10/12/21 07/02/22 History lisinopriL [Zestril] 40 mg PO DAILY 10/12/21 07/02/22 History Allergies Allergy/AdvReac Type Severity Reaction Status Date / Time No Known Allergies Allergy Verified 07/02/22 07:38 Physical Exam Vitals: Vital Signs Temp Pulse Pulse Resp BP Pulse Ox 07/04/22 02:00 97.5 F L 70 16 160/80 96 07/03/22 21:16 82 07/03/22 21:02 80 07/03/22 20:59 18 07/03/22 20:00 97.5 F L 83 16 171/83 98 07/03/22 16:27 85 07/03/22 16:14 92 07/03/22 16:00 85 18 155/70 95 07/03/22 14:00 18 07/03/22 12:38 88 07/03/22 12:20 80 07/03/22 12:00 72 18 155/77 95 07/03/22 09:16 90 07/03/22 08:59 88 97 07/03/22 08:00 97.6 F 74 18 162/88 97 Intake and Output 07/03/22 07/04/22 07/04/22 22:59 06:59 14:59 Intake Total 138 Output Total 1200 Balance 138 -1200 Intake: IV 20 Invasive Line 1 20 Oral 118 Output: Urine 1200 Results 07/04/22 07:25 07/04/22 07:25 CBC 07/03/22 Range/Units 11:06 WBC 15.0 H (3.8-10.6) k/uL RBC 3.53 L (4.30-5.90) m/uL Hgb 11.0 L (13.0-17.5) gm/dL Hct 32.7 L (39.0-53.0) % Plt Count 226 (150-450) k/uL Comprehensive Metabolic Panel 07/03/22 Range/Units 11:06 Sodium 138 (137-145) mmol/L Potassium 4.4 (3.5-5.1) mmol/L Chloride 105 (98-107) mmol/L Carbon Dioxide 27 (22-30) mmol/L BUN 36 H (9-20) mg/dL Creatinine 1.02 (0.66-1.25) mg/dL Glucose 138 H (74-99) mg/dL Calcium 9.0 (8.4-10.2) mg/dL Current Medications Generic Name Dose Route Start Last Admin Trade Name Freq PRN Reason Stop Dose Admin Albuterol Sulfate 2.5 mg 07/02/22 04:20 Albuterol Nebulized 2.5 Mg/3 Ml INHALATION RT-Q2H PRN Shortness Of Breath Or Wheezing Albuterol Sulfate 2.5 mg 07/02/22 08:00 07/03/22 21:01 Albuterol Nebulized 2.5 Mg/3 Ml INHALATION 2.5 mg RT-QID ZAIN Administration Amlodipine Besylate 5 mg 07/02/22 11:30 07/03/22 09:22 Amlodipine 5 Mg Tab PO 5 mg DAILY ZAIN Administration Atorvastatin Calcium 10 mg 07/02/22 21:00 07/03/22 20:35 Atorvastatin 10 Mg Tab PO 10 mg HS ZAIN Administration Budesonide/Formoterol Fumarate 2 puff 07/02/22 08:00 07/03/22 21:01 Symbicort 80-4.5 Mcg Inhaler INHALATION 2 puff RT-BID ZAIN Administration Doxycycline Monohydrate 100 mg 07/02/22 09:00 07/03/22 23:41 Doxycycline 100 Mg Cap PO 100 mg BID ZAIN Administration Protocol Furosemide 40 mg 07/03/22 11:15 07/03/22 20:35 Furosemide 10 Mg/Ml 4 Ml Vial IV 40 mg Q12HR ZAIN Administration Heparin Sodium (Porcine) 5,000 unit 07/02/22 08:00 07/03/22 23:41 Heparin Sodium,Porcine/Pf 5,000 Unit/0.5 Ml Syringe SQ 5,000 unit Q8HR ZAIN Administration Insulin Aspart 0 unit 07/03/22 07:30 07/04/22 06:06 Insulin Aspart (Novolog) 100 Unit/Ml Vial SQ 3 unit ACHS ZAIN Administration Protocol Ipratropium [place] 0.5 mg 07/02/22 04:36 Ipratropium 0.5 Mg/2.5 Ml Nebu INHALATION RT-Q2H PRN Shortness Of Breath Or Wheezing Ipratropium [place] 0.5 mg 07/02/22 08:00 07/03/22 21:01 Ipratropium 0.5 Mg/2.5 Ml Nebu INHALATION 0.5 mg RT-QID ZAIN Administration Methadone HCl 10 mg 07/02/22 16:00 07/03/22 20:35 Methadone 10 Mg Tab PO 10 mg TID ZAIN Administration Methylprednisolone Sodium Succinate 40 mg 07/02/22 06:00 07/04/22 06:06 Methylprednisolone Sod Succi 40 Mg/Ml 1 Ml Vial IV 40 mg Q6HR ZAIN Administration Metoprolol Succinate 100 mg 07/02/22 09:00 07/03/22 09:22 Metoprolol Succinate (Er) 100 Mg Tab.Er.24h PO 100 mg DAILY ZAIN Administration Naloxone HCl 0.2 mg 07/02/22 02:58 Naloxone 0.4 Mg/Ml 1 Ml Vial IV Q2M PRN Opioid Reversal Intake and Output 07/03/22 07/04/22 07/04/22 22:59 06:59 14:59 Intake Total 138 Output Total 1200 Balance 138 -1200 Intake: IV 20 Invasive Line 1 20 Oral 118 Output: Urine 1200 07/03/22 11:06 07/03/22 11:06
[2022-07-04 11:53] VITALS: RESP 18; TEMP 97.3
[2022-07-04 12:35] VITALS: BP 168/80
--- NOTE | 2022-07-04 14:33 | P.PN ---
Subjective Progress Note Date: 07/04/22 Principal diagnosis: Acute hypoxic respiratory failure secondary to acute diastolic congestive heart failure This is a very pleasant 61-year-old male patient who has a history of congestive heart failure, hypertension, marijuana use, opiate use on methadone, previous ventilatory dependent respiratory failure in September 2021, chronic tobacco dependence of 40 years however quit in September 2021, chronic obstructive pulmonary disease maintained Trelegy and albuterol in the outpatient setting. Early this morning he had developed increasing shortness of breath, EMS was called and the patient was found to be sitting in Tri-Pod position with 1-2 word sentences and had an O2 saturation of 79%. He was diaphoretic. He was placed on BiPAP and brought into the emergency room for the same. Chest x-ray revealed increased bilateral interstitial opacities with interstitial edema. White count 9.2. Hemoglobin 12.8. Platelets 286. Sodium 138. Potassium 4.7. Bicarb 27. BUN 29. Creatinine 1.43. Glucose 141. Troponin negative times one. ProBNP 1380. Influenza screen negative. RSV screen negative. COVID-19 screen negative. Arterial blood gases on 100% FiO2 revealed a PaO2 of 171, pCO2 57, pH 7.29. He is seen today in consultation in the emergency department. He is sitting up on a stretcher. Awake and alert. Continued on BiPAP at 14/6 and 50% FiO2. Feeling better over the past couple of hours. He was given Lasix 40 mg IVP 1 with good diuresis. He's been initiated on bronchodilators, IV Solu-Medrol. Heparin for DVT prophylaxis. Empiric antibiotics in the form of doxycycline. Reevaluated today on07/03/2022, patient is feeling better today, he is on nasal cannula, he was on a BiPAP yesterday, his chest x-ray is showing dramatic improvement in his bilateral interstitial edema. Clearly consistent with resolving congestive heart failure labs today showed WBC count 15 hemoglobin 11 electrodes are normal renal profile is normal Reevaluated today , patient is feeling much better today, asymptomatic. He is now on room air with O2 sats of 95%. His interstitial edema has completely resolved after a good course of diuretics. Cardiology saw the patient today and recommended oral diuretics and discharged home. He should have outpatient follow-up with cardiology Objective - Vital Signs Vital signs: Vital Signs Temp 97.3 F L 07/04/22 08:00 Pulse 82 07/04/22 12:11 Resp 18 07/04/22 12:00 BP 168/80 07/04/22 12:00 Pulse Ox 95 07/04/22 12:41 FiO2 35 07/02/22 15:14 Intake & Output 07/03/22 07/04/22 07/04/22 18:59 06:59 18:59 Intake Total 476 20 360 Output Total 1200 Balance 476 -1180 360 Intake: IV 20 Invasive Line 1 20 Oral 476 360 Output: Urine 1200 Other: # Voids 2 - Exam Physical Exam: Revealed 61-year-old white male obese in no distress Head: Atraumatic normocephalic. HEENT:[Neck is supple.] [No neck masses.] [No thyromegaly.] [No JVD.] Chest: [Clear throughout, no crackles, no rhonchi, no wheezes.] Cardiac Exam: [Normal S1 and S2, no S3 gallop, 2/6 systolic murmur thought the precordium. Abdomen: [Soft, nontender, no megaly, no rebound, no guarding, normal bowel sounds.] Extremities: [No clubbing, no edema, no cyanosis.] Neurological Exam: [No focal neurologic deficit. Alert and oriented 3 Psychiatric: Normal mood affect and normal mental status examination.] Skin: No rashes. - Labs CBC & Chem 7: 07/04/22 07:25 07/04/22 07:25 Labs: Abnormal Lab Results - Last 24 Hours (Table) 07/03/22 07/03/22 07/04/22 Range/Units 16:12 20:12 05:59 WBC (3.8-10.6) k/uL RBC (4.30-5.90) m/uL Hgb (13.0-17.5) gm/dL Hct (39.0-53.0) % Neutrophils # (1.3-7.7) k/uL Lymphocytes # (1.0-4.8) k/uL BUN (9-20) mg/dL Glucose (74-99) mg/dL POC Glucose (mg/dL) 162 H 153 H 152 H (70-110) mg/dL 07/04/22 07/04/22 07/04/22 Range/Units 07:25 07:25 11:30 WBC 14.2 H (3.8-10.6) k/uL RBC 3.67 L (4.30-5.90) m/uL Hgb 11.3 L (13.0-17.5) gm/dL Hct 33.6 L (39.0-53.0) % Neutrophils # 13.0 H (1.3-7.7) k/uL Lymphocytes # 0.8 L (1.0-4.8) k/uL BUN 40 H (9-20) mg/dL Glucose 125 H (74-99) mg/dL POC Glucose (mg/dL) 127 H (70-110) mg/dL Assessment and Plan Assessment: Assessment: Acute hypoxemic respiratory failure secondary to an acute exacerbation of suspected diastolic versus systolic congestive heart failure Possible Acute exacerbation of chronic obstructive pulmonary disease Acute kidney injury, current creatinine 1.43, resolving. Creatinine down to 1.20 Previous history of ventilatory dependent respiratory failure in September 2021 History of heavy chronic tobacco dependence, quit in September 2021 Hypertension History of congestive heart failure Chronic pain syndrome utilizing methadone History of marijuana use Recommendation: Continue diuretics Continue bronchodilators Cardiology is cleaning the patient for discharge I will clear the patient for discharge also Must have follow-up with cardiology in follow-up in my office within the next 2 weeks Time with Patient: Less than 30
--- NOTE | 2022-07-04 15:34 | P.DS ---
Providers Date of admission: 07/02/22 02:59 Expected date of discharge: 07/04/22 Attending physician: Peggy Ramirez MD Consults: 07/02/22 09:59 Consult Physician Routine Consulting Provider: Miguel Ángel Paiz Consult Reason/Comments: COPD exacerbation, Bipap dependence Do you want consulting provider notified?: Yes 07/03/22 17:00 Consult Physician Routine Consulting Provider: Hayden Fink Consult Reason/Comments: chf Do you want consulting provider notified?: Yes Primary care physician: Wali Schwartz MD Hospital Course: HPI: "61 year old male with COPD , on night time oxygen he is presenting with severe SOB, that started suddenly this evening after dinner, he went to lay down and rest then suddenly started experiencing severe SOB, notified EMS , who found him hypoxic and started him on CPAP with not much improvement . uppon arrival he was placed on bipap, ABG showed acute respiratory acidosis he denies any fever, chills, cough , sore throat , known sick contact, denies any smoking or smoke exposure. he works in [employer]. he denies any recent travel , hospital stay or any history of blood clots. patient uses night time oxygen sometimes. he claims that he was feeling fine yesterday , and all day today , however he was tired from work " . Progress note of 07/03/2022 "Assessment and Plan: Patient remains critically ill, prognosis guarded. Currently off of BiPAP on nasal cannula. Active: Acute hypoxic respiratory failure Acute COPD exacerbation Possible acute diastolic heart failure Possible community-acquired pneumonia Hyperglycemia Acute kidney injury Uncontrolled hypertension -Continue to wean supplemental oxygen -Pulmonology following, on bronchodilators, Solu-Medrol 40 IV every 6 hours, doxycycline 100 mg by mouth twice a day -Echocardiogram ordered -Lasix 40 mg IV every 12 hours ordered, needs close monitoring -Closely monitor urine output, and BMP, ordered -NELLIE inhibitor currently on hold due to acute kidney injury, amlodipine added to her home regimen Chronic: Dyslipidemia Chronic pain on methadone DVT ppx: Subcu heparin Code status: Full code" Today's note: Patient feels significantly better today Denied any new significant systemic symptoms General: nontoxic, no distress, appears at stated age, obese Derm: warm, dry Head: atraumatic, normocephalic, symmetric Eyes: EOMI, no lid lag, anicteric sclera Mouth: no lip lesion, mucus membranes moist Cardiovascular: S1S2 reg, no murmur Lungs: CTA bilateral, no rhonchi, no rales , no accessory muscle use on the supplemental oxygen Abdominal: soft, nontender to palpation, no guarding, no appreciable organomegaly Ext: no gross muscle atrophy, trace peripheral edema, no contractures Neuro: CN II-XI grossly intact, no focal neuro deficits Psych: Alert, oriented, appropriate affect Patient was therefore discharged home, to follow up with cardiology as well as pulmonology within a week Patient was discharged home on by mouth Lasix, tapering dose of steroid, antibiotic doxycycline, the lisinopril was discontinued and patient was started on amlodipine by cardiology. Patient was strongly advised not to smoke Patient was strongly advised to return to the ER should there be any worsening of symptoms Patient Condition at Discharge: Stable Plan - Discharge Summary New Discharge Prescriptions: New Doxycycline [Vibramycin] 100 mg PO BID #14 cap Furosemide [Lasix] 20 mg PO DAILY #30 tab amLODIPine [Norvasc] 5 mg PO DAILY #30 tab predniSONE 10 mg PO DAILY #21 tab Continue Simvastatin 10 mg PO HS Loratadine [Claritin] 10 mg PO DAILY Fluticasone/Umeclidin/Vilanter [Trelegy Ellipta 200-62.5-25] 1 puff INHALATION RT-DAILY Metoprolol Succinate (ER) [Toprol XL] 100 mg PO DAILY Methadone [Dolophine] 10 mg PO TID Cyclobenzaprine [Flexeril] 10 mg PO HS PRN PRN Reason: Muscle Spasm Albuterol Sulfate [Albuterol Sulfate Hfa] 2 puff INHALATION RT-Q6H PRN PRN Reason: Shortness Of Breath Discontinued lisinopriL [Zestril] 40 mg PO DAILY Discharge Medication List Albuterol Sulfate [Albuterol Sulfate Hfa] 2 puff INHALATION RT-Q6H PRN 10/12/21 [History] Cyclobenzaprine [Flexeril] 10 mg PO HS PRN 10/12/21 [History] Fluticasone/Umeclidin/Vilanter [Trelegy Ellipta 200-62.5-25] 1 puff INHALATION RT-DAILY 10/12/21 [History] Loratadine [Claritin] 10 mg PO DAILY 10/12/21 [History] Methadone [Dolophine] 10 mg PO TID 10/12/21 [History] Metoprolol Succinate (ER) [Toprol XL] 100 mg PO DAILY 10/12/21 [History] Simvastatin 10 mg PO HS 10/12/21 [History] Doxycycline [Vibramycin] 100 mg PO BID #14 cap 07/04/22 [Rx] Furosemide [Lasix] 20 mg PO DAILY #30 tab 07/04/22 [Rx] amLODIPine [Norvasc] 5 mg PO DAILY #30 tab 07/04/22 [Rx] predniSONE 10 mg PO DAILY #21 tab 07/04/22 [Rx] Follow up Appointment(s)/Referral(s): Miguel Ángel Paiz MD [STAFF PHYSICIAN] - 1 Week None,Stated [REFERRING] - 1-2 days Amador Ocampo MD [STAFF PHYSICIAN] - 1 Week
[2022-07-04 16:01] VITALS: PULSE 82
[2022-07-04 16:17] LABS: Glucose,Whole Blood 184 mg/dL (70-110)
== END 2022-07-04 19:31 | disposition home or self-care (01) | DRG 291 ==
LOC: EC 01:27 → 3SCARD 02:59
PROVIDERS: ADMIT Internal Medicine; ATTEND Internal Medicine
PROC: 5A09357 Assistance with Respiratory Ventilation, Less than 24 Consecutive Hours, Continuous Positive Airway Pressure (ICD-10-PCS; principal; 2022-07-02)
DX: I11.0 Hypertensive heart disease with heart failure (principal); I50.31 Acute diastolic (congestive) heart failure; J96.01 Acute respiratory failure with hypoxia; J96.02 Acute respiratory failure with hypercapnia; J44.1 Chronic obstructive pulmonary disease with (acute) exacerbation; J44.0 Chronic obstructive pulmonary disease with (acute) lower respiratory infection; N17.9 Acute kidney failure, unspecified; Z99.11 Dependence on respirator [ventilator] status; R73.9 Hyperglycemia, unspecified; Z20.822 Contact with and (suspected) exposure to COVID-19; G89.4 Chronic pain syndrome; I27.20 Pulmonary hypertension, unspecified; E78.5 Hyperlipidemia, unspecified; I48.0 Paroxysmal atrial fibrillation; R01.1 Cardiac murmur, unspecified; R00.0 Tachycardia, unspecified; I08.1 Rheumatic disorders of both mitral and tricuspid valves; Z79.51 Long term (current) use of inhaled steroids; Z79.899 Other long term (current) drug therapy; Z79.891 Long term (current) use of opiate analgesic; Z86.14 Personal history of Methicillin resistant Staphylococcus aureus infection; Z71.6 Tobacco abuse counseling
CPT/HCPCS: 36415; 36600; 71045; 80048; 80053; 82805; 83690; 83735; 83880; 84145; 84484; 85025; 85610; 85730; 87636; 93005; 93306; 94640; 94644; 94660; 94760; 96365; 96366; 96372; 96375; 96376; 99291

== ENCOUNTER 2022-11-19 00:43 | Inpatient (IN) | payer MEDICAID, OTHER ==
[2022-11-19] MEDS ORDERED: SODIUM CHLORIDE 0.9% 1,000 ML IV STA (00:48)
[2022-11-19] MEDS ORDERED: NOREPINEPHRINE 4 MG in SODIUM CHLORIDE 0.9% 250 ML IV ONE (00:48)
[2022-11-19] MEDS ORDERED: levETIRAcetam IV 2,000 MG in SODIUM CHLORIDE 0.9% 250 ML IVPB ONE (01:15)
[2022-11-19 01:16] LABS: ABG Base Excess -5.9 mmol/L; ABG HCO3 23 mmol/L (21-25); ABG Oxygen Saturation 99.2 % (94-97); ABG PCO2 65 mmHg (35-45); ABG PO2 345 mmHg (83-108); ABG TCO2 25 mmol/L (19-24); Allen Test Performed? Yes
[2022-11-19] MEDS ORDERED: DEXAMETHASONE SOD PHOSPHATE 10 MG/ML 1 ML VIAL IV STA (01:16)
[2022-11-19 01:20] LABS: Basophils % (A) 0 %; Eosinophils # (A) 0.3 k/uL (0-0.7); Eosinophils % (A) 3 %; HGB 11.5 gm/dL (13.0-17.5); Hypochromasia Slight; Lymphocytes # (A) 3.3 k/uL (1.0-4.8); Lymphocytes % (A) 34 %; MCH 31.2 pg (25.0-35.0); MCHC 32.8 g/dL (31.0-37.0); MCV 95.1 fL (80.0-100.0); Mean Platelet Volume 8.7; Monocytes # (A) 0.4 k/uL (0-1.0); Monocytes % (A) 4 %; Neutrophils # (A) 5.6 k/uL (1.3-7.7); Neutrophils % (A) 57 %; Platelet Count 228 k/uL (150-450); RBC 3.68 m/uL (4.30-5.90); RDW 14.4 % (11.5-15.5); WBC 9.8 k/uL (3.8-10.6)
--- NOTE | 2022-11-19 01:20 | ED ---
General Adult HPI - General Chief complaint: Cardiac Arrest/CPR Stated complaint: Cardiac Arrest Time Seen by Provider: 11/19/22 00:47 Source: EMS Mode of arrival: EMS - History of Present Illness Initial comments: Dictation was produced using [employer] dictation software. please excuse any grammatical, word or spelling errors. Chief Complaint: 61-year-old male presents with cardiac arrest History of Present Illness:'s 61-year-old male presents to the emergency department from home via EMS for cardiac arrest. History of present illness obtained exclusively from EMS upon initial arrival. Patient allegedly arrested at home. He went without CPR for approximately 2 minutes until EMS arrived. CPR was started immediately. Total downtime was approximately 20-25 minutes. He did receive 4 epinephrines. He did have return of spontaneous circulation after several rounds of cardiopulmonary resuscitation. According to EMS he has had similar issues in the past secondary to hypoxic respiratory failure leading to intubation. Apparently is at home waiting for ride to come to the emergency room Unable to obtain ROS secondary to mental status - Related Data Home Medications Medication Instructions Recorded Confirmed Albuterol Sulfate [Albuterol 2 puff INHALATION RT-Q6H PRN 10/12/21 07/02/22 Sulfate Hfa] Cyclobenzaprine [Flexeril] 10 mg PO HS PRN 10/12/21 07/02/22 Fluticasone/Umeclidin/Vilanter 1 puff INHALATION RT-DAILY 10/12/21 07/02/22 [Trelegy Ellipta 200-62.5-25] Loratadine [Claritin] 10 mg PO DAILY 10/12/21 07/02/22 Methadone [Dolophine] 10 mg PO TID 10/12/21 07/02/22 Metoprolol Succinate (ER) [Toprol 100 mg PO DAILY 10/12/21 07/02/22 XL] Simvastatin 10 mg PO HS 10/12/21 07/02/22 Previous Rx's Medication Instructions Recorded Doxycycline [Vibramycin] 100 mg PO BID #14 cap 07/04/22 Furosemide [Lasix] 20 mg PO DAILY #30 tab 07/04/22 amLODIPine [Norvasc] 5 mg PO DAILY #30 tab 07/04/22 predniSONE 10 mg PO DAILY #21 tab 07/04/22 Allergies Allergy/AdvReac Type Severity Reaction Status Date / Time No Known Allergies Allergy Verified 07/02/22 07:38 Review of Systems ROS Statement: Those systems with pertinent positive or pertinent negative responses have been documented in the HPI. ROS Other: All systems not noted in ROS Statement are negative. Past Medical History Past Medical History: Heart Failure, COPD, Hypertension Additional Past Medical History / Comment(s): Sees Dr France outpatient History of Any Multi-Drug Resistant Organisms: MRSA Date of last positivie culture/infection: 10/12/21 MDRO Source:: Sputum Past Surgical History: Orthopedic Surgery Past Anesthesia/Blood Transfusion Reactions: No Reported Reaction Past Psychological History: No Psychological Hx Reported Smoking Status: Current every day smoker Past Alcohol Use History: None Reported Past Drug Use History: Marijuana, Opiates General Exam - General Exam Comments Initial Comments: PHYSICAL EXAM: General Impression: Obtunded, unresponsive, pupils unreactive to light HEENT: Normocephalic atraumatic Cardiovascular: Slightly tachycardic Chest: Bilateral breath sounds Abdomen: abdomen soft, non-distended, no organomegaly, some mottling over the anterior abdomen Musculoskeletal: thready pulses equal in all extremities, no peripheral edema Neurological: No movement, brief second long episodes of what appears to be tonic clonic convulsions Skin: Intact with no visualized rashes Course Vital Signs 11/19/22 11/19/22 11/19/22 00:44 00:45 00:53 Temperature 95.7 F L Pulse Rate 108 H Respiratory 20 Rate Blood Pressure 78/47 O2 Sat by Pulse 88 L Oximetry Fraction of 100 Inspired Oxygen (FIO2) 11/19/22 11/19/22 11/19/22 01:00 01:40 01:50 Temperature Pulse Rate 76 75 Respiratory Rate Blood Pressure O2 Sat by Pulse Oximetry Fraction of 100 Inspired Oxygen (FIO2) 11/19/22 01:53 Temperature Pulse Rate Respiratory Rate Blood Pressure O2 Sat by Pulse Oximetry Fraction of 60 Inspired Oxygen (FIO2) - Reevaluation(s) Reevaluation #1: 11/19/22 01:19 Patient seen and evaluated initially in trauma bay #1. Patient did have a pulse upon arrival Initial blood pressures were hypotensive. Central venous catheter and arterial line placed in the right groin. Patient started on single dose pressors initially. Chart review was performed showing the patient had suffered hypoxic respiratory arrest in September of last year. Does have history of heart failure, A. fib and anticoagulation use 11/19/22 02:16 More information was obtained from Rolan who is patient's girlfriend. She with this event states that he was short of breath for a significant amount of the day. Monique is unable to come to the emergency department due to her own health issues. She may however send her daughter to come and visit with the patient. I did receive contact information for Misael Tineo who is patient's brother. Misael says that patient has other siblings. CODE STATUS was discussed Misael. He states that he is not ready to make a decision. He is however told of what to expect should patient's condition acutely worsen. Medical Decision Making - Medical Decision Making Was pt. sent in by a medical professional or institution (, PA, LEARNING DEVELOPMENT SPECIALIST, urgent care, hospital, or care home...) When possible be specific @ -No Did you speak to anyone other than the patient for history (EMS, parent, family, police, friend...)? What history was obtained from this source @ -No Did you review nursing and triage notes (agree or disagree)? Why? @ -I reviewed and agree with nursing and triage notes Were old charts reviewed (outside hosp., previous admission, EMS record, old EKG, old radiological studies, urgent care reports/EKG's, care home records)? Report findings @ -No old charts were reviewed Differential Diagnosis (chest pain, altered mental status, abdominal pain women, abdominal pain men, vaginal bleeding, musculoskeletal, weakness, fever, dyspnea, syncope, headache, dizziness, GI bleed, back pain, seizure, CVA, palpatations, mental health)? @ -Differential Dyspnea: Coronary syndrome, arrhythmia, tamponade, asthma, COPD, pulmonary embolism, pneumonia, pneumothorax, pulmonary effusion, anaphylaxis, diabetic ketoacidosis, flailed chest, pulmonary contusion, diaphragmatic rupture, anemia, neuromuscular, this is not meant to be an all-inclusive list. EKG interpreted by me (3pts min.). @ -My EKG interpretation: Ventricular rate 113, A. fib with RVR, QRS 112, QTC 426. Lateral precordial lead ST depressions. X-rays interpreted by me (1pt min.). @ -. Chest x-ray shows cardiac megaly with pulmonary edema CT interpreted by me (1pt min.). @ -CT brain shows no intracranial bleeding U/S interpreted by me (1pt. min.). @ -None done What testing was considered but not performed or refused? (CT, X-rays, U/S, labs)? Why? @ -None What meds were considered but not given or refused? Why? @ -None Did you discuss the management of the patient with other professionals (professionals i.e. Dr., PA, LEARNING DEVELOPMENT SPECIALIST, lab, RT, psych nurse, social sciences chair, straddle truck driver, teacher, environmental compliance officer, shoe parts caser)? Give summary @ -Discussed with membership sales manager, Dr. Meneses and Dr. Ramirez for admission Was smoking cessation discussed for >3mins.? @ -No Was critical care preformed (if so, how long)? @ -yes, 77 minutes Were there social determinants of health that impacted care today? How? (Homelessness, low income, unemployed, alcoholism, drug addiction, transportation, low edu. Level, literacy, decrease access to med. care, fci, rehab)? @ -No Was there de-escalation of care discussed even if they declined (Discuss DNR or withdrawal of care, Hospice)? DNR status @ -No What co-morbidities impacted this encounter? (DM, HTN, Smoking, COPD, CAD, Cancer, CVA, ARF, Chemo, Hep., AIDS, mental health diagnosis, sleep apnea, morbid obesity)? @ -None Was patient admitted / discharged? Hospital course, mention meds given and route, prescriptions, significant lab abnormalities, going to OR and other pertinent info. @ -61-year-old male presents to emergency department after cardiac arrest. Suspect that cardiac arrest secondary to hypoxic respiratory failure. Laboratory evaluation within acceptable limits. Patient showing signs of hypoxic encephalopathy including seizures and fixed pupils. Patient will be admitted to intensive care unit. Undiagnosed new problem with uncertain prognosis? @ -No Drug Therapy requiring intensive monitoring for toxicity (Heparin, Nitro, Insulin, Cardizem)? @ -No Were any procedures done? @ -No Diagnosis/symptom? Acute, or Chronic, or Acute on Chronic? Uncomplicated (without systemic symptoms) or Complicated (systemic symptoms)? @ -1. Cardiac arrest, Side effects of treatment? @ - Exacerbation, Progression, or Severe Exacerbation? @ -No Poses a threat to life or bodily function? How? (Chest pain, [place], [place], pneumonia, PE, COPD, DKA, ARF, appy, cholecystitis, CVA, Diverticulitis, Homicidal, Suicidal, threat to staff... and all critical care pts) @ -yes - Lab Data Result diagrams: 11/19/22 01:13 11/19/22 01:13 Lab Results 11/19/22 11/19/22 11/19/22 Range/Units 01:13 01:13 01:13 WBC 9.8 (3.8-10.6) k/uL RBC 3.68 L (4.30-5.90) m/uL Hgb 11.5 L (13.0-17.5) gm/dL Hct 35.0 L (39.0-53.0) % MCV 95.1 (80.0-100.0) fL MCH 31.2 (25.0-35.0) pg MCHC 32.8 (31.0-37.0) g/dL RDW 14.4 (11.5-15.5) % Plt Count 228 (150-450) k/uL MPV 8.7 Neutrophils % 57 % Lymphocytes % 34 % Monocytes % 4 % Eosinophils % 3 % Basophils % 0 % Neutrophils # 5.6 (1.3-7.7) k/uL Lymphocytes # 3.3 (1.0-4.8) k/uL Monocytes # 0.4 (0-1.0) k/uL Eosinophils # 0.3 (0-0.7) k/uL Basophils # 0.0 (0-0.2) k/uL Hypochromasia Slight PT 10.3 (9.0-12.0) sec INR 1.0 (<1.2) APTT 21.3 L (22.0-30.0) sec Sample Site ABG pH (7.35-7.45) ABG pCO2 (35-45) mmHg ABG pO2 (83-108) mmHg ABG HCO3 (21-25) mmol/L ABG Total CO2 (19-24) mmol/L ABG O2 Saturation (94-97) % ABG Base Excess mmol/L Raoul Test FiO2 % Sodium (137-145) mmol/L Potassium (3.5-5.1) mmol/L Chloride (98-107) mmol/L Carbon Dioxide (22-30) mmol/L Anion Gap mmol/L BUN (9-20) mg/dL Creatinine (0.66-1.25) mg/dL Est GFR (CKD-EPI)AfAm (>60 ml/min/1.73 sqM) Est GFR (CKD-EPI)NonAf (>60 ml/min/1.73 sqM) Glucose (74-99) mg/dL Plasma Lactic Acid Jayce (0.7-2.0) mmol/L Calcium (8.4-10.2) mg/dL Magnesium (1.6-2.3) mg/dL Total Bilirubin (0.2-1.3) mg/dL AST (17-59) U/L ALT (4-49) U/L Alkaline Phosphatase (38-126) U/L Troponin I (0.000-0.034) ng/mL NT-Pro-B Natriuret Pep pg/mL Total Protein (6.3-8.2) g/dL Albumin (3.5-5.0) g/dL Blood Type O Positive Blood Type Recheck No Previous Record Bld Type Recheck Status CABO Indicated Antibody Screen NEGATIVE Spec Expiration Date 11/22/2022 - 231211/19/22 11/19/22 11/19/22 Range/Units 01:13 01:13 01:13 WBC (3.8-10.6) k/uL RBC (4.30-5.90) m/uL Hgb (13.0-17.5) gm/dL Hct (39.0-53.0) % MCV (80.0-100.0) fL MCH (25.0-35.0) pg MCHC (31.0-37.0) g/dL RDW (11.5-15.5) % Plt Count (150-450) k/uL MPV Neutrophils % % Lymphocytes % % Monocytes % % Eosinophils % % Basophils % % Neutrophils # (1.3-7.7) k/uL Lymphocytes # (1.0-4.8) k/uL Monocytes # (0-1.0) k/uL Eosinophils # (0-0.7) k/uL Basophils # (0-0.2) k/uL Hypochromasia PT (9.0-12.0) sec INR (<1.2) APTT (22.0-30.0) sec Sample Site ABG pH (7.35-7.45) ABG pCO2 (35-45) mmHg ABG pO2 (83-108) mmHg ABG HCO3 (21-25) mmol/L ABG Total CO2 (19-24) mmol/L ABG O2 Saturation (94-97) % ABG Base Excess mmol/L Raoul Test FiO2 % Sodium 135 L (137-145) mmol/L Potassium 4.6 (3.5-5.1) mmol/L Chloride 98 (98-107) mmol/L Carbon Dioxide 19 L (22-30) mmol/L Anion Gap 18 mmol/L BUN 30 H (9-20) mg/dL Creatinine 1.91 H (0.66-1.25) mg/dL Est GFR (CKD-EPI)AfAm 43 (>60 ml/min/1.73 sqM) Est GFR (CKD-EPI)NonAf 38 (>60 ml/min/1.73 sqM) Glucose 252 H (74-99) mg/dL Plasma Lactic Acid Jayce 9.2 H* (0.7-2.0) mmol/L Calcium 8.6 (8.4-10.2) mg/dL Magnesium 2.5 H (1.6-2.3) mg/dL Total Bilirubin 0.4 (0.2-1.3) mg/dL AST 57 (17-59) U/L ALT 33 (4-49) U/L Alkaline Phosphatase 114 (38-126) U/L Troponin I 0.012 (0.000-0.034) ng/mL NT-Pro-B Natriuret Pep 1750 pg/mL Total Protein 6.2 L (6.3-8.2) g/dL Albumin 3.4 L (3.5-5.0) g/dL Blood Type Blood Type Recheck Bld Type Recheck Status Antibody Screen Spec Expiration Date 11/19/22 Range/Units 01:20 WBC (3.8-10.6) k/uL RBC (4.30-5.90) m/uL Hgb (13.0-17.5) gm/dL Hct (39.0-53.0) % MCV (80.0-100.0) fL MCH (25.0-35.0) pg MCHC (31.0-37.0) g/dL RDW (11.5-15.5) % Plt Count (150-450) k/uL MPV Neutrophils % % Lymphocytes % % Monocytes % % Eosinophils % % Basophils % % Neutrophils # (1.3-7.7) k/uL Lymphocytes # (1.0-4.8) k/uL Monocytes # (0-1.0) k/uL Eosinophils # (0-0.7) k/uL Basophils # (0-0.2) k/uL Hypochromasia PT (9.0-12.0) sec INR (<1.2) APTT (22.0-30.0) sec Sample Site katrina ABG pH 7.16 L* (7.35-7.45) ABG pCO2 65 H (35-45) mmHg ABG pO2 345 H (83-108) mmHg ABG HCO3 23 (21-25) mmol/L ABG Total CO2 25 H (19-24) mmol/L ABG O2 Saturation 99.2 H (94-97) % ABG Base Excess -5.9 mmol/L Raoul Test Yes FiO2 100 % Sodium (137-145) mmol/L Potassium (3.5-5.1) mmol/L Chloride (98-107) mmol/L Carbon Dioxide (22-30) mmol/L Anion Gap mmol/L BUN (9-20) mg/dL Creatinine (0.66-1.25) mg/dL Est GFR (CKD-EPI)AfAm (>60 ml/min/1.73 sqM) Est GFR (CKD-EPI)NonAf (>60 ml/min/1.73 sqM) Glucose (74-99) mg/dL Plasma Lactic Acid Jayce (0.7-2.0) mmol/L Calcium (8.4-10.2) mg/dL Magnesium (1.6-2.3) mg/dL Total Bilirubin (0.2-1.3) mg/dL AST (17-59) U/L ALT (4-49) U/L Alkaline Phosphatase (38-126) U/L Troponin I (0.000-0.034) ng/mL NT-Pro-B Natriuret Pep pg/mL Total Protein (6.3-8.2) g/dL Albumin (3.5-5.0) g/dL Blood Type Blood Type Recheck Bld Type Recheck Status Antibody Screen Spec Expiration Date Disposition Clinical Impression: Cardiac arrest Disposition: ADMITTED IP TO THIS HOSP Condition: Critical Decision Time: 02:00
[2022-11-19] MEDS ORDERED: IPRATROPIUM-ALBUTEROL 3 ML NEB INHALATION STA (01:22)
[2022-11-19 01:25] LABS: ABG PH 7.16 (7.35-7.45)
[2022-11-19] MEDS ORDERED: LORazepam 2 MG/ML INJ IV STA ×2 (01:25→03:05)
[2022-11-19 01:31] LABS: ALT 33 U/L (4-49); AST 57 U/L (17-59); African American GFR (CKD) 43 (>60 ml/min/1.73 sqM); Albumin 3.4 g/dL (3.5-5.0); Alkaline Phosphatase 114 U/L (38-126); Anion Gap 18 mmol/L; Blood Urea Nitrogen 30 mg/dL (9-20); Calcium 8.6 mg/dL (8.4-10.2); Carbon Dioxide 19 mmol/L (22-30); Chloride 98 mmol/L (98-107); Glucose 252 mg/dL (74-99); Magnesium 2.5 mg/dL (1.6-2.3); Non-African American GFR(CKD) 38 (>60 ml/min/1.73 sqM); Potassium 4.6 mmol/L (3.5-5.1); Sodium 135 mmol/L (137-145); Total Bilirubin 0.4 mg/dL (0.2-1.3); Total Protein 6.2 g/dL (6.3-8.2)
[2022-11-19 01:39] LABS: NT-Pro-B-Type Natriuretic Pept 1750 pg/mL
[2022-11-19] MEDS ORDERED: NALOXONE 0.4 MG/ML 1 ML VIAL IV PRN (01:43)
--- NOTE | 2022-11-19 01:46 | XR ---
EXAM: XR Chest, 1 View CLINICAL HISTORY: ITS.REASON XR Reason: cardiac arrest TECHNIQUE: Frontal view of the chest. COMPARISON: XR Chest dated 07/03/22 FINDINGS: Lungs: Central vascular congestion and bilateral airspace disease, mostly perihilar infiltrates. Pleural space: Small right pleural effusion. No pneumothorax. Heart: Mild cardiomegaly. Mediastinum: Unremarkable. Bones/joints: Unremarkable. Tubes, lines and devices: Enteric tube tip in the proximal to mid stomach. Endotracheal tube tip superimposed with the enteric tube. Likely 6 cm above the martine. IMPRESSION: Cardiomegaly. Central vascular congestion and bilateral airspace disease, mostly perihilar infiltrates. Small right pleural effusion. Findings may relate to pulmonary edema.
[2022-11-19 02:02] LABS: Partial Thromboplastin Time 21.3 sec (22.0-30.0); Prothrombin Time 10.3 sec (9.0-12.0)
[2022-11-19 02:38] LABS: Glucose,Whole Blood 198 mg/dL (70-110)
--- NOTE | 2022-11-19 02:52 | CT ---
EXAM: CT Head Without Intravenous Contrast CLINICAL HISTORY: ITS.REASON CT Reason: post cardiac arrest TECHNIQUE: Axial computed tomography images of the head/brain without intravenous contrast. CTDI is 49.1 mGy and DLP is 1159.4 mGy-cm. This CT exam was performed using one or more of the following dose reduction techniques: automated exposure control, adjustment of the mA and/or kV according to patient size, and/or use of iterative reconstruction technique. COMPARISON: CT Head dated 10/12/21 FINDINGS: Brain: Unremarkable. No hemorrhage. No significant white matter disease. No edema. Ventricles: Unremarkable. No ventriculomegaly. Bones/joints: Unremarkable. No acute fracture. Soft tissues: Unremarkable. Sinuses: Paranasal sinus mucosal thickening. Fluid levels in the sphenoid sinuses. Mastoid air cells: Unremarkable as visualized. No mastoid effusion. Tubes, lines and devices: Endotracheal and enteric tubes. IMPRESSION: No acute findings in the head/brain.
[2022-11-19] MEDS ORDERED: SODIUM BICARB 8.4% 50 ML SYR (1 MEQ/ML) IV STA (02:55)
[2022-11-19] MEDS ORDERED: FUROSEMIDE 10 MG/ML 10 ML VIAL IV STA (02:56)
[2022-11-19] MEDS ORDERED: SODIUM BICARB 8.4% 50 ML SYR (1 MEQ/ML) ONE (02:56)
[2022-11-19] MEDS: IPRATROPIUM-ALBUTEROL 3 ML NEB INHALATION SCH ×5 (03:00→20:46)
[2022-11-19] MEDS: SODIUM CHLORIDE 0.9% 1,000 ML IV SCH ×2 (03:05→23:53)
[2022-11-19 03:08] LABS: ABG Base Excess 3.9 mmol/L; ABG HCO3 31 mmol/L (21-25); ABG Oxygen Saturation 94.2 % (94-97); ABG PCO2 68 mmHg (35-45); ABG PH 7.26 (7.35-7.45); ABG PO2 81 mmHg (83-108); ABG TCO2 33 mmol/L (19-24)
[2022-11-19] MEDS: PIPERACILLIN-TAZOBACTAM 3.375 GM in SODIUM CHLORIDE 0.9% 100 ML IVPB SCH ×3 (03:17→17:57)
[2022-11-19 03:22] LABS: Allen Test Performed? no
[2022-11-19] MEDS: NOREPINEPHRINE 4 MG in SODIUM CHLORIDE 0.9% 250 ML IV SCH ×2 (03:55→20:45)
[2022-11-19] MEDS ORDERED: IPRATROPIUM-ALBUTEROL 3 ML NEB INHALATION PRN (04:00)
[2022-11-19 04:49] LABS: Basophils % (A) 0 %; Eosinophils % (A) 0 %; HCT 32.3 % (39.0-53.0); Lymphocytes # (A) 0.7 k/uL (1.0-4.8); Lymphocytes % (A) 6 %; MCH 30.7 pg (25.0-35.0); MCHC 34.1 g/dL (31.0-37.0); MCV 90.2 fL (80.0-100.0); Mean Platelet Volume 8.2; Monocytes # (A) 0.7 k/uL (0-1.0); Monocytes % (A) 6 %; Neutrophils # (A) 10.3 k/uL (1.3-7.7); Neutrophils % (A) 87 %; Platelet Count 204 k/uL (150-450); RBC 3.59 m/uL (4.30-5.90); RDW 14.5 % (11.5-15.5); WBC 11.8 k/uL (3.8-10.6)
[2022-11-19 04:59] LABS: African American GFR (CKD) 49 (>60 ml/min/1.73 sqM); Anion Gap 5 mmol/L; Blood Urea Nitrogen 34 mg/dL (9-20); Calcium 8.3 mg/dL (8.4-10.2); Carbon Dioxide 31 mmol/L (22-30); Chloride 100 mmol/L (98-107); Glucose 165 mg/dL (74-99); Magnesium 2.2 mg/dL (1.6-2.3); Non-African American GFR(CKD) 42 (>60 ml/min/1.73 sqM); Potassium 4.4 mmol/L (3.5-5.1); Sodium 136 mmol/L (137-145)
--- NOTE | 2022-11-19 05:06 | P.CNPUL ---
History of Present Illness Consult date: 11/19/22 Requesting physician: Twan Owens Reason for consult: other (ICU management; cardiac arrest) Chief complaint: Respiratory distress, cardiac arrest History of present illness: I am seeing this patient in consultation today 11/19/2022 in the intensive care unit status post cardiac arrest with prolonged downtime. Patient is a 61-year-old white male with past medical history significant for COPD, previous ventilator dependent respiratory failure, congestive heart failure, hypertension, chronic pain on methadone, and ex-tobacco smoker. According to the patient's significant other, he was feeling well for most of the day yesterday, he did go to work, and was feeling fine when he got home. Early this morning, he was in some respiratory distress and was taking a breathing treatment. The patient's girlfriend witnessed him go unresponsive while on the phone with EMS. Once EMS arrived, he was pulseless, they initiated CPR and he had a prolonged estimated downtime of 20-25 minutes. Presenting rhythm is reportedly PEA. He received a total of 4 A of epinephrine. He did have return of spontaneous circulation after several rounds of CPR. The patient was transferred to [facility] emergency room and he was intubated. A right femoral central line and arterial line was placed in the emergency room. Patient is currently in the ICU, intubated to the mechanical ventilator, completely unresponsive without sedation. Initial ventilator settings were assist control, respiratory rate 16, tidal volume 500, FiO2 100%, and PEEP of 5. Initial ABG on arrival showed a pO2 of 345, pCO2 of 65, pH is 7.16. During transport, the patient's oxygen demand increased. PEEP was increased to 10 and respiratory rate increased to 24. Repeat ABGs on these settings show a pO2 of 81, pCO2 of 68, pH of 7.26. Chest x-ray shows endotracheal tube approximately 6 cm above the martine, and oral gastric tube within the stomach. Chest x-ray is concerning for pulmonary edema. No obvious pneumothorax. I did start him on Lasix. He has no respiratory drive underneath the ventilator. Not on any sedation. Noncontrast CT of the brain did not show any acute intracranial abnormality. He is having intermittent myoclonic jerks and was loaded with 2 g of Keppra as well as when necessary Ativan. There is obviously concern for anoxic brain injury. EEG is scheduled for morning. Hemodynamically, the patient is hypotensive and was started on low-dose norepinephrine which is currently infusing at 0.03 mcg/kg/m. Normal saline is KVO. ECG on arrival to the emergency room showed A. fib RVR, however, heart rhythm is currently normal sinus on the bedside monitor. CBC shows a WBC count of 9.8, hemoglobin 11.5, hematocrit 35, platelets 228. BMP shows sodium 135, potassium 4.6, chloride 98, serum bicarb 19, BUN 30, creatinine 1.91, glucose 252. Lactic acid level was 9.2. Patient was given 1 L normal saline bolus the emergency room. Troponin less than 0.012. NT proBNP 1750. Indwelling catheter with pale yellow urine. He is hypothermic. Overall, prognosis is very guarded due to patient's prolonged downtime and concern for anoxic brain injury. He will be monitored in the intensive care unit. Review of Systems ROS unobtainable: due to endotracheal tube Past Medical History Past Medical History: Heart Failure, COPD, Hypertension Additional Past Medical History / Comment(s): Sees Dr France outpatient History of Any Multi-Drug Resistant Organisms: MRSA Date of last positivie culture/infection: 10/12/21 MDRO Source:: Sputum Past Surgical History: Orthopedic Surgery Past Anesthesia/Blood Transfusion Reactions: No Reported Reaction Past Psychological History: No Psychological Hx Reported Smoking Status: Current every day smoker Past Alcohol Use History: None Reported Past Drug Use History: Marijuana, Opiates - Past Family History Father Family Medical History: Cancer Sister(s) Family Medical History: Cancer Medications and Allergies Home Medications Medication Instructions Recorded Confirmed Type Albuterol Sulfate [Albuterol 2 puff INHALATION RT-Q6H PRN 10/12/21 11/19/22 History Sulfate Hfa] Cyclobenzaprine [Flexeril] 10 mg PO HS PRN 10/12/21 11/19/22 History Fluticasone/Umeclidin/Vilanter 1 puff INHALATION RT-DAILY 10/12/21 11/19/22 History [Trelegy Ellipta 200-62.5-25] Loratadine [Claritin] 10 mg PO DAILY 10/12/21 11/19/22 History Methadone [Dolophine] 10 mg PO Q8H 10/12/21 11/19/22 History Metoprolol Succinate (ER) [Toprol 100 mg PO DAILY 10/12/21 11/19/22 History XL] Simvastatin 10 mg PO HS 10/12/21 11/19/22 History Furosemide [Lasix] 20 mg PO DAILY #30 tab 07/04/22 11/19/22 Rx amLODIPine [Norvasc] 5 mg PO DAILY #30 tab 07/04/22 11/19/22 Rx Albuterol Nebulized [Ventolin 2.5 mg INHALATION RT-Q4H PRN 11/19/22 11/19/22 History Nebulized] lisinopriL 40 mg PO DAILY 11/19/22 11/19/22 History Allergies Allergy/AdvReac Type Severity Reaction Status Date / Time No Known Allergies Allergy Verified 11/19/22 09:01 Physical Exam Vitals: Vital Signs Temp Pulse Resp BP Pulse Ox FiO2 11/19/22 03:21 66 11/19/22 03:20 66 24 96 11/19/22 03:10 66 24 95 11/19/22 03:01 66 11/19/22 03:00 96.4 F L 68 20 98/58 94 L 100 11/19/22 02:57 100 11/19/22 02:50 68 20 88 L 11/19/22 02:40 67 20 86 L 11/19/22 02:27 34.7 F L 77 20 111/58 100 11/19/22 01:53 60 11/19/22 01:50 75 11/19/22 01:40 35.4 F L 74 20 96/56 100 11/19/22 01:00 100 11/19/22 00:53 100 11/19/22 00:45 95.7 F L 11/19/22 00:44 108 H 20 78/47 88 L Intake and Output 11/18/22 11/18/22 11/19/22 14:59 22:59 06:59 Intake Total 28.866 Output Total 130 Balance -101.134 Intake: IV 20 Sodium Chloride 0.9% 1, 20 000 ml @ 20 mls/hr IV . Q24H [facility] Rx#:[id number] Intake, IV Titration 8.866 Amount Norepinephrine 4 mg In 8.866 Sodium Chloride 0.9% 250 ml @ 0.03 MCG/KG/MIN 14. 776 mls/hr IV .[id number] ONE Rx#:[id number] Output: Urine 130 Other: Weight 103 kg ABP, PAP, CO, CI - Last 8 Hours Arterial Blood Pressure 111/55 Arterial Blood Pressure 119/57 Arterial Blood Pressure 118/61 Arterial Blood Pressure 114/58 Arterial Blood Pressure 125/71 GENERAL EXAM: Unresponsive even to painful stimuli, intubated to the mechanical ventilator, not on any sedation HEAD: Normocephalic and atraumatic EYES: Normal reaction of pupils, equal size. NOSE: Clear with pink turbinates. THROAT: No erythema or exudates. NECK: No masses, no JVD. CHEST: No chest wall deformity. LUNGS: Equal air entry with diffuse rhonchi throughout and minimal expiratory wheezes. Intubated to the mechanical ventilator. Synchronous with current settings, no intrinsic respiratory drive. Peak pressure 30 and plateau pressure 22. Minimal secretions. CVS: S1 and S2 normal with no audible murmur, regular rhythm. No extra heart sounds ABDOMEN: Obese abdomen, no hepatosplenomegaly, active bowel sounds, no guarding or rigidity. OG tube to low intermittent suction with minimal brown output SPINE: No scoliosis or deformity SKIN: No rashes CENTRAL NERVOUS SYSTEM: Unresponsive to even painful stimuli, not on any sedation, DTRs 1-2+ throughout, Babinski's negative bilaterally, intermittent myoclonic jerks involving the whole body. EXTREMITIES: There is no peripheral edema. No clubbing, or cyanosis. [place] ia. Peripheral pulses are intact. Results - Laboratory Findings CBC and BMP: 11/19/22 04:13 11/19/22 04:13 ABG ABG pH 7.26 (7.35-7.45) L 11/19/22 03:02 ABG pCO2 68 mmHg (35-45) H 11/19/22 03:02 ABG pO2 81 mmHg (83-108) L 11/19/22 03:02 ABG O2 Saturation 94.2 % (94-97) 11/19/22 03:02 PT/INR, D-dimer PT 10.3 sec (9.0-12.0) 11/19/22 01:13 INR 1.0 (<1.2) 11/19/22 01:13 Abnormal lab findings: Abnormal Labs 11/19/22 11/19/22 11/19/22 01:13 01:13 01:13 RBC 3.68 L Hgb 11.5 L Hct 35.0 L APTT 21.3 L ABG pH ABG pCO2 ABG pO2 ABG HCO3 ABG Total CO2 ABG O2 Saturation Sodium 135 L Carbon Dioxide 19 L BUN 30 H Creatinine 1.91 H Glucose 252 H POC Glucose (mg/dL) Plasma Lactic Acid Jayce Magnesium 2.5 H Total Protein 6.2 L Albumin 3.4 L 11/19/22 11/19/22 11/19/22 01:13 01:20 02:37 RBC Hgb Hct APTT ABG pH 7.16 L* ABG pCO2 65 H ABG pO2 345 H ABG HCO3 ABG Total CO2 25 H ABG O2 Saturation 99.2 H Sodium Carbon Dioxide BUN Creatinine Glucose POC Glucose (mg/dL) 198 H Plasma Lactic Acid Jayce 9.2 H* Magnesium Total Protein Albumin 11/19/22 03:02 RBC Hgb Hct APTT ABG pH 7.26 L ABG pCO2 68 H ABG pO2 81 L ABG HCO3 31 H ABG Total CO2 33 H ABG O2 Saturation Sodium Carbon Dioxide BUN Creatinine Glucose POC Glucose (mg/dL) Plasma Lactic Acid Jayce Magnesium Total Protein Albumin - Diagnostic Findings Chest x-ray: image reviewed Assessment and Plan Assessment: Cardiac arrest, with prolonged downtime of 20-25 minutes. Presenting rhythm was reportedly PEA, achieving return of spontaneous circulation after multiple rounds of CPR and 4 A of epinephrine. Suspected anoxic brain injury, Noncontrast CT of the brain did not show any acute intracranial abnormality. There are intermittent myoclonic jerks. Acute hypoxemic and hypercapnic respiratory failure, likely secondary to an exacerbation of diastolic congestive heart failure, intubated to the mechanical ventilator. Chest x-ray is concerning for pulmonary edema. Recent e chocardiogram done on 07/03/2022 shows a preserved left ventricular ejection fraction of 55-60% with moderate concentric LVH. Moderate mitral regurgitation and stenosis. There is moderate to severe pulmonary hypertension with RVSP of 55 mmHg. Acute COPD exacerbation Hypotension, currently on low-dose norepinephrine. Anion gap metabolic acidosis, secondary to cardiac arrest and lactic acidosis Acute kidney injury, related to hypotension and ATN Hypothermia Normocytic, normochromic anemia Hyperlipidemia Chronic pain, maintained on methadone outpatient History of ventilator dependent respiratory failure Plan: This is a joint evaluation was done along with a nurse practitioner. The patient's is post cardiac arrest and the patient had a prolonged downtime estimated to be more than 20 minutes. The patient was intubated and placed on a mechanical ventilator in addition chest x-ray was consistent with acute pulmonary edema. Is known to have CHF with preserved LV function and COPD. At this point in time, he is intubated on a mechanical ventilator. He is having myoclonic jerks episodically despite being on a combination of propofol, Keppra and being fully loaded with Dilantin. His pupils are round 2 mm in size, sluggishly reactive to light. No cough or gag. Nevertheless, he does have a breathing reflex. Neurologically on the case. Initial CAT scan of the brain was negative. Chest x-ray was consistent with pulmonary edema and the patient is currently on diuretics. Hemodynamically, he is hypotensive and the patient is currently on norepinephrine which is running at 0.04 microvascular kilogram per minute. Most recent blood gas shows a pH of 7.31 with a pCO2 59 and pO2 of 231 and this was on FiO2 100% with a PEEP of 10. There is also improvement in his underlying acid-base status. Function is improved and the creatinine is down to 1.7 and urine output is more than 100 mL an hour. Obviously, the patient has signs of severe anoxic encephalopathy. Is having myoclonic jerks. We'll consult neurology. We'll obtain EEG. We'll make adjustments on his antiepileptic medications accordingly. We'll continue diuretics. We'll continue bronchodilators. We'll discontinue the steroids for now. Continue IV Zosyn as an empiric antibiotic coverage. IV fluids are KVO. Gradually wean off pressors. Repeat an echocardiogram. Awaiting family to arrive. Prognosis is very poor. Evaluation was on a more than 30 minutes. Time with Patient: Greater than 30
--- NOTE | 2022-11-19 05:46 | P.HPIM ---
History of Present Illness H&P Date: 11/19/22 Chief Complaint: cardiac arrest 61-year-old male with COPD, congestive heart failure, chronic pain on methadone Patient unable to provide any meaningful history at this time he is intubated post cardiac arrest History obtained by reviewing medical records. Patient was at home he was feeling some shortness of breath and was utilizing his nebulizer to help him breathe better when he had a witnessed episode of unresponsiveness EMS was notified and arrived within couple minutes and immediately initiated CPR which lasted about 25 minutes requiring 4 rounds of epinephrine no shockable rhythm then he had a return of spontaneous circulation and was brought into the ER for evaluation. Patient was intubated and admitted to the ICU, he was initiated on low-dose levothyroid for cardiovascular support, CT of the brain showed no acute pathology, chest x-ray showed some pulmonary edema. Patient remains unresponsive with occasional sudden twitches. Patient was loaded with Keppra in the ED, however this is suspected to be myoclonic jerks secondary to possible anoxic brain injury EKG in the chart upon arrival to the ED shows A. fib with RVR however upon evaluation in the ICU he has converted into normal sinus rhythm No further history is obtainable at this time review of systems Unable to obtain on exam Constitutional: Unresponsive without sedation intubated on mechanical ventilation Eyes: Anicteric sclerae, moist conjunctiva, Pupils equal round constricted ENMT: NC/AT, NG tube showing thick gaviria in color drainage Neck: Supple, no masses, or JVD No carotid bruits No thyromegaly Lungs: Audible breath sounds bilaterally no wheezing Clear to percussion Normal respiratory effort, no accessory muscle use Cardiovascular: Heart regular in rate and rhythm, No murmurs, gallops, or rubs No peripheral edema Abdominal: Soft Nontender, no guarding, rebound or rigidity Abdomen moving with respiration Normoactive bowel sounds No hepatomegaly, No splenomegaly No palpable mass No abdominal wall hernia noted Skin: Normal temperature, tone, texture, turgor No induration No subcutaneous nodules No rash, lesions No ulcers Extremities: No digital cyanosis No clubbing Pedal pulses intact and symmetrical Radial pulses intact and symmetrical No calf tenderness Psychiatric: Unresponsive not sedated on mechanical ventilation Neuro sudden twitches and jerking movement involving the bilateral upper extremity and the head suspected myoclonic jerks Lymphatics: no palpable cervical or supraclavicular lymph nodes Past Medical History Past Medical History: Heart Failure, COPD, Hypertension Additional Past Medical History / Comment(s): Sees Dr France outpatient History of Any Multi-Drug Resistant Organisms: MRSA Date of last positivie culture/infection: 10/12/21 MDRO Source:: Sputum Past Surgical History: Orthopedic Surgery Past Anesthesia/Blood Transfusion Reactions: No Reported Reaction Past Psychological History: No Psychological Hx Reported Smoking Status: Current every day smoker Past Alcohol Use History: None Reported Past Drug Use History: Marijuana, Opiates - Past Family History Father Family Medical History: Cancer Sister(s) Family Medical History: Cancer Medications and Allergies Home Medications Medication Instructions Recorded Confirmed Type Albuterol Sulfate [Albuterol 2 puff INHALATION RT-Q6H PRN 10/12/21 07/02/22 History Sulfate Hfa] Cyclobenzaprine [Flexeril] 10 mg PO HS PRN 10/12/21 07/02/22 History Fluticasone/Umeclidin/Vilanter 1 puff INHALATION RT-DAILY 10/12/21 07/02/22 History [Trelegy Ellipta 200-62.5-25] Loratadine [Claritin] 10 mg PO DAILY 10/12/21 07/02/22 History Methadone [Dolophine] 10 mg PO TID 10/12/21 07/02/22 History Metoprolol Succinate (ER) [Toprol 100 mg PO DAILY 10/12/21 07/02/22 History XL] Simvastatin 10 mg PO HS 10/12/21 07/02/22 History Doxycycline [Vibramycin] 100 mg PO BID #14 cap 07/04/22 Rx Furosemide [Lasix] 20 mg PO DAILY #30 tab 07/04/22 Rx amLODIPine [Norvasc] 5 mg PO DAILY #30 tab 07/04/22 Rx predniSONE 10 mg PO DAILY #21 tab 07/04/22 Rx Allergies Allergy/AdvReac Type Severity Reaction Status Date / Time No Known Allergies Allergy Verified 07/02/22 07:38 Physical Exam Vitals: Vital Signs Temp Pulse Resp BP Pulse Ox FiO2 11/19/22 05:20 69 24 98 11/19/22 05:10 73 24 113/66 97 11/19/22 05:00 98.8 F 70 24 99 100 11/19/22 04:50 72 24 97 11/19/22 04:40 71 24 96 11/19/22 04:30 70 24 95 11/19/22 04:20 70 24 94 L 11/19/22 04:10 69 24 90/60 93 L 11/19/22 04:00 97.0 F L 68 24 95 100 11/19/22 03:50 67 24 95 11/19/22 03:40 67 24 95 11/19/22 03:30 67 24 94 L 11/19/22 03:21 66 11/19/22 03:20 66 24 96 11/19/22 03:10 66 24 95 11/19/22 03:01 66 11/19/22 03:00 96.4 F L 68 20 98/58 94 L 100 11/19/22 02:57 100 11/19/22 02:50 68 20 88 L 11/19/22 02:40 67 20 86 L 11/19/22 02:27 34.7 F L 77 20 111/58 100 11/19/22 01:53 60 11/19/22 01:50 75 11/19/22 01:40 35.4 F L 74 20 96/56 100 11/19/22 01:00 100 11/19/22 00:53 100 11/19/22 00:45 95.7 F L 11/19/22 00:44 108 H 20 78/47 88 L Intake and Output 11/18/22 11/18/22 11/19/22 14:59 22:59 06:59 Intake Total 79.752 Output Total 280 Balance -200.248 Intake: IV 65 Piperacillin-Tazobactam 3 25 .375 gm In Sodium Chloride 0.9% 100 ml @ 25 mls/hr IVPB Q8H [facility] Rx#: [id number] Sodium Chloride 0.9% 1, 40 000 ml @ 20 mls/hr IV . Q24H [facility] Rx#:[id number] Intake, IV Titration 14.752 Amount Norepinephrine 4 mg In 5.886 Sodium Chloride 0.9% 250 ml @ 0.03 MCG/KG/MIN 11. 773 mls/hr IV .[id number] [facility] Rx#:[id number] Norepinephrine 4 mg In 8.866 Sodium Chloride 0.9% 250 ml @ 0.03 MCG/KG/MIN 14. 776 mls/hr IV .[id number] ONE Rx#:[id number] Output: Urine 280 Other: Voiding Method Indwelling Catheter Weight 103 kg ABP, PAP, CO, CI - Last 8 Hours Arterial Blood Pressure 142/60 Arterial Blood Pressure 112/50 Arterial Blood Pressure 132/70 Arterial Blood Pressure 106/50 Arterial Blood Pressure 110/51 Arterial Blood Pressure 109/51 Arterial Blood Pressure 110/53 Arterial Blood Pressure 108/52 Arterial Blood Pressure 108/53 Arterial Blood Pressure 114/57 Arterial Blood Pressure 112/56 Arterial Blood Pressure 116/56 Arterial Blood Pressure 111/55 Arterial Blood Pressure 119/57 Arterial Blood Pressure 118/61 Arterial Blood Pressure 114/58 Arterial Blood Pressure 125/71 Results CBC & Chem 7: 11/19/22 04:13 11/19/22 04:13 Labs: Abnormal Lab Results - Last 24 Hours (Table) 11/19/22 11/19/22 11/19/22 Range/Units 01:13 01:13 01:13 WBC (3.8-10.6) k/uL RBC 3.68 L (4.30-5.90) m/uL Hgb 11.5 L (13.0-17.5) gm/dL Hct 35.0 L (39.0-53.0) % Neutrophils # (1.3-7.7) k/uL Lymphocytes # (1.0-4.8) k/uL APTT 21.3 L (22.0-30.0) sec D-Dimer (<0.60) mg/L FEU ABG pH (7.35-7.45) ABG pCO2 (35-45) mmHg ABG pO2 (83-108) mmHg ABG HCO3 (21-25) mmol/L ABG Total CO2 (19-24) mmol/L ABG O2 Saturation (94-97) % Sodium 135 L (137-145) mmol/L Carbon Dioxide 19 L (22-30) mmol/L BUN 30 H (9-20) mg/dL Creatinine 1.91 H (0.66-1.25) mg/dL Glucose 252 H (74-99) mg/dL POC Glucose (mg/dL) (70-110) mg/dL Plasma Lactic Acid Jayce (0.7-2.0) mmol/L Calcium (8.4-10.2) mg/dL Magnesium 2.5 H (1.6-2.3) mg/dL Troponin I (0.000-0.034) ng/mL Total Protein 6.2 L (6.3-8.2) g/dL Albumin 3.4 L (3.5-5.0) g/dL 11/19/22 11/19/22 11/19/22 Range/Units 01:13 01:20 02:37 WBC (3.8-10.6) k/uL RBC (4.30-5.90) m/uL Hgb (13.0-17.5) gm/dL Hct (39.0-53.0) % Neutrophils # (1.3-7.7) k/uL Lymphocytes # (1.0-4.8) k/uL APTT (22.0-30.0) sec D-Dimer (<0.60) mg/L FEU ABG pH 7.16 L* (7.35-7.45) ABG pCO2 65 H (35-45) mmHg ABG pO2 345 H (83-108) mmHg ABG HCO3 (21-25) mmol/L ABG Total CO2 25 H (19-24) mmol/L ABG O2 Saturation 99.2 H (94-97) % Sodium (137-145) mmol/L Carbon Dioxide (22-30) mmol/L BUN (9-20) mg/dL Creatinine (0.66-1.25) mg/dL Glucose (74-99) mg/dL POC Glucose (mg/dL) 198 H (70-110) mg/dL Plasma Lactic Acid Jayce 9.2 H* (0.7-2.0) mmol/L Calcium (8.4-10.2) mg/dL Magnesium (1.6-2.3) mg/dL Troponin I (0.000-0.034) ng/mL Total Protein (6.3-8.2) g/dL Albumin (3.5-5.0) g/dL 11/19/22 11/19/22 11/19/22 Range/Units 03:02 04:13 04:13 WBC 11.8 H (3.8-10.6) k/uL RBC 3.59 L (4.30-5.90) m/uL Hgb 11.0 L (13.0-17.5) gm/dL Hct 32.3 L (39.0-53.0) % Neutrophils # 10.3 H (1.3-7.7) k/uL Lymphocytes # 0.7 L (1.0-4.8) k/uL APTT (22.0-30.0) sec D-Dimer (<0.60) mg/L FEU ABG pH 7.26 L (7.35-7.45) ABG pCO2 68 H (35-45) mmHg ABG pO2 81 L (83-108) mmHg ABG HCO3 31 H (21-25) mmol/L ABG Total CO2 33 H (19-24) mmol/L ABG O2 Saturation (94-97) % Sodium 136 L (137-145) mmol/L Carbon Dioxide 31 H (22-30) mmol/L BUN 34 H (9-20) mg/dL Creatinine 1.74 H (0.66-1.25) mg/dL Glucose 165 H (74-99) mg/dL POC Glucose (mg/dL) (70-110) mg/dL Plasma Lactic Acid Jayce (0.7-2.0) mmol/L Calcium 8.3 L (8.4-10.2) mg/dL Magnesium (1.6-2.3) mg/dL Troponin I (0.000-0.034) ng/mL Total Protein (6.3-8.2) g/dL Albumin (3.5-5.0) g/dL 11/19/22 11/19/22 Range/Units 04:13 04:13 WBC (3.8-10.6) k/uL RBC (4.30-5.90) m/uL Hgb (13.0-17.5) gm/dL Hct (39.0-53.0) % Neutrophils # (1.3-7.7) k/uL Lymphocytes # (1.0-4.8) k/uL APTT (22.0-30.0) sec D-Dimer >34.00 H (<0.60) mg/L FEU ABG pH (7.35-7.45) ABG pCO2 (35-45) mmHg ABG pO2 (83-108) mmHg ABG HCO3 (21-25) mmol/L ABG Total CO2 (19-24) mmol/L ABG O2 Saturation (94-97) % Sodium (137-145) mmol/L Carbon Dioxide (22-30) mmol/L BUN (9-20) mg/dL Creatinine (0.66-1.25) mg/dL Glucose (74-99) mg/dL POC Glucose (mg/dL) (70-110) mg/dL Plasma Lactic Acid Jayce (0.7-2.0) mmol/L Calcium (8.4-10.2) mg/dL Magnesium (1.6-2.3) mg/dL Troponin I 0.351 H* (0.000-0.034) ng/mL Total Protein (6.3-8.2) g/dL Albumin (3.5-5.0) g/dL Thrombosis Risk Factor Assmnt - Choose All That Apply Any of the Below Risk Factors Present?: Yes Each Factor Represents 1 point: Abnormal pulmonary function (COPD), Age 41-60 years, Obesity (BMI >25) Each Risk Factor Represents 2 Points: Central venous access, Patient confined to bed Thrombosis Risk Factor Assessment Total Risk Factor Score: 7 Thrombosis Risk Factor Assessment Level: High Risk Assessment and Plan Assessment: 61-year-old male brought in by EMS after a witnessed cardiac arrest none shockable rhythm with 25 minutes downtime requiring 4 rounds of epinephrine I discussed the case with the ED doctor and accepted the admission for ICU care post cardiac arrest with anticipated length of stay more than 2 midnights Sudden witnessed cardiopulmonary arrest unknown underlying cause Patient intubated on mechanical ventilation without any sedation Continue supportive care in the ICU Acute hypoxic and hypercapnic respiratory failure secondary to above Cardiovascular support with low dose Levophed Monitor urine output Dennis catheter in place Initial EKG after arrest showing A. fib with RVR however spontaneously converted to normal sinus rhythm Troponins are negative Check echocardiogram Patient was started on Zosyn for suspected possible aspiration White count is 9.8, afebrile currently actually hypothermic continue with active warming Myoclonic jerks suspected secondary to possible anoxic brain injury Check EEG in the morning Patient loaded with 2 g of Keppra Neurology evaluation Acute kidney injury Creatinine 1.9 BUN 30 Sodium 135 potassium 4.6 Lactic acid 9.2 Continued IV fluid hydration with normal saline Guarded prognosis Full code DVT prophylaxis heparin subcu 3 times a day
[2022-11-19] MEDS ORDERED: methylPREDNISolone SOD SUCCI 125 MG/2 ML VIAL IV SCH (06:00)
[2022-11-19] MEDS ORDERED: PHENYTOIN SODIUM INJ 1,000 MG in SODIUM CHLORIDE 0.9% 100 ML IVPB STA ×2 (06:08→07:11)
[2022-11-19 06:41] LABS: ABG Base Excess 3.1 mmol/L; ABG HCO3 29 mmol/L (21-25); ABG Oxygen Saturation 99.4 % (94-97); ABG PCO2 59 mmHg (35-45); ABG PH 7.31 (7.35-7.45); ABG PO2 231 mmHg (83-108); ABG TCO2 31 mmol/L (19-24)
[2022-11-19 06:45] LABS: Glucose,Whole Blood 214 mg/dL (70-110)
[2022-11-19 06:46] LABS: Allen Test Performed? no
[2022-11-19] MEDS: FORMOTEROL FUMARATE 20 MCG/2 ML NEBU INHALATION SCH ×2 (07:52→20:46)
[2022-11-19] MEDS: BUDESONIDE 1 MG/2 ML NEBU INHALATION SCH ×2 (07:52→20:46)
[2022-11-19] MEDS: MIDAZOLAM HCL 50 MG in SODIUM CHLORIDE 0.9% 40 ML IV SCH ×2 (08:10→18:20)
[2022-11-19] MEDS: FUROSEMIDE 10 MG/ML 10 ML VIAL IV SCH ×2 (08:16→19:46)
[2022-11-19] MEDS: HEPARIN SODIUM,PORCINE 5,000 UNIT/ML 1 ML VIAL SQ SCH ×3 (08:16→23:53)
[2022-11-19] MEDS: levETIRAcetam IV 500 MG/5 ML VIAL IVP SCH ×2 (08:17→19:45)
[2022-11-19] MEDS: PANTOPRAZOLE 40 MG/10 ML VIAL IVP SCH (08:17)
[2022-11-19] MEDS: CHLORHEXIDINE GLUCONATE 15 ML CUP MUCOUS MEM SCH ×2 (08:17→19:46)
[2022-11-19] MEDS ORDERED: levETIRAcetam IV 1,500 MG in SODIUM CHLORIDE 0.9% 250 ML IVPB SCH (09:00)
--- NOTE | 2022-11-19 09:06 | XR ---
EXAMINATION TYPE: XR chest 1V DATE OF EXAM: 11/19/2022 COMPARISON: 11/19/2022 HISTORY: Shortness of breath TECHNIQUE: Single frontal view of the chest is obtained. FINDINGS: ET and NG tube stable. Persistent diffuse interstitial pattern with subsegmental basilar c onsolidation. No pneumothorax. Postsurgical changes left shoulder. Bilateral AC joint uropathy. Ather osclerotic change aorta. IMPRESSION: Correlate for CHF otherwise consider interstitial pneumonitis. Findings mildly
--- NOTE | 2022-11-19 10:45 | CA ---
Transthoracic Echo Report Name: Stu Tineo Age: 61 Gender: M : 1960 Exam Date: 11/19/2022 07:59 Exam Location: [facility] Ht (in): 70 Wt (lb): 227 Ordering Physician: Olman Alvarez Attending/Referring Phys: [employer] Professor Thierry Mccormick Procedure CPT: Indications: Post cardiac arrest Cardiac Hx: Technical Quality: Fair Contrast 1: Total Dose (mL): Contrast 2: Total Dose (mL): MEASUREMENTS (Male / Female) Normal Values 2D ECHO LV Diastolic Diameter PLAX 4.7 cm 4.2 - 5.9 / 3.9 - 5.3 cm LV Systolic Diameter PLAX 3.5 cm IVS Diastolic Thickness 1.5 cm 0.6 - 1.0 / 0.6 - 0.9 cm LVPW Diastolic Thickness 1.4 cm 0.6 - 1.0 / 0.6 - 0.9 cm LV Relative Wall Thickness 0.6 RV Internal Dim ED PLAX 3.9 cm LVOT Diameter 1.8 cm Aortic Root Diameter 2.3 cm LA Systolic Diameter LX 3.2 cm 3.0 - 4.0 / 2.7 - 3.8 cm LV Diastolic Volume MOD BP 70.3 cm??? 67 - 155 / 56 - 104 cm??? LV Systolic Volume MOD BP 30.2 cm??? 22 - 58 / 19 - 49 cm??? LV Ejection Fraction MOD BP 57.0 % >= 55 % LV Cardiac Index MOD BP 1470.4 cm???/min???m??? LV Diastolic Volume MOD 4C 73.9 cm??? LV Systolic Volume MOD 4C 33.4 cm??? LV Ejection Fraction MOD 4C 54.9 % LV Cardiac Index MOD 4C 1489.3 cm???/min???m??? LV Diastolic Length 4C 7.1 cm LV Systolic Length 4C 5.9 cm LV Diastolic Volume MOD 2C 66.0 cm??? LV Systolic Volume MOD 2C 26.4 cm??? LV Ejection Fraction MOD 2C 60.0 % LV Cardiac Index MOD 2C 1453.5 cm???/min???m??? LV Diastolic Length 2C 7.2 cm LV Systolic Length 2C 6.1 cm DOPPLER AV Peak Velocity 149.2 cm/s AV Peak Gradient 8.9 mmHg LVOT Peak Velocity 104.0 cm/s LVOT Peak Gradient 4.3 mmHg AV Area Cont Eq pk 1.9 cm??? MV Peak Velocity 136.5 cm/s MV Peak Gradient 7.5 mmHg MV Mean Velocity 68.5 cm/s MV Mean Gradient 2.4 mmHg MV Velocity Time Integral 30.8 cm MR Peak Velocity 201.1 cm/s MR Peak Gradient 16.2 mmHg Mitral E Point Velocity 105.4 cm/s Mitral A Point Velocity 69.5 cm/s Mitral E to A Ratio 1.5 MV Deceleration Time 197.5 ms MV E' Velocity 7.4 cm/s Mitral E to MV E' Ratio 14.2 TR Peak Velocity 223.8 cm/s TR Peak Gradient 20.0 mmHg Right Ventricular Systolic Press 25.3 mmHg PV Peak Velocity 105.7 cm/s PV Peak Gradient 4.5 mmHg FINDINGS Left Ventricle Normal LV size. Mild concentric LVH.left ventricular ejection fraction is estimated at 50-55 %. Right Ventricle Normal right ventricular size. RVSP= 32mmhg. Right Atrium Normal right atrial size. Left Atrium Normal left atrial size. Mitral Valve Structurally normal mitral valve. Mild MR. Aortic Valve Aortic valve not well visualized. No aortic valve stenosis or regurgitation. Tricuspid Valve Structurally normal tricuspid valve. Mild TR. Pulmonic Valve Pulmonic valve not well visualized. No pulmonic regurgitation. Pericardium Normal pericardium. Aorta Normal size aortic root . CONCLUSIONS Off axis views. LVH with preserved systolic function Previewed by: Dr. Sarabjit Moreland MD (Electronically Signed) Final Date: 19 November 2022 10:44
[2022-11-19 11:52] LABS: Glucose,Whole Blood 222 mg/dL (70-110)
--- NOTE | 2022-11-19 12:17 | EEG ---
ELECTROENCEPHALOGRAM REPORT PREAMBLE: This is a 61-year-old male with cardiac arrest. Patient is comatose. EEG FINDINGS: This is a 21-channel portable EEG recorded with video component, utilizing 10/20 international system with referential and bipolar montages. The recording starts and continues with presence of burst suppressed pattern. The suppression consists of isoelectric EEG, intermixed with bursts of high amplitude poly spikes and slow waves, associated with significant myoclonic jerks of the body. These bursts may last for 1 to 6 seconds at a time. IMPRESSION: This is a severely abnormal EEG due to presence of burst suppressed pattern. Suppressed pattern consists of isoelectric EEG, with burst consisting of high amplitude polyspike and slow wave lasting for 1 to 6 seconds. This is suggestive of severe generalized cerebral dysfunction and the pattern can be seen with severe anoxic encephalopathy. In an appropriate clinical setting, this may suggest status epilepticus. Clinical correlation and followup EEG recommended. ALEXANDER / KEVIN: [id number] / MTDD
--- NOTE | 2022-11-19 16:29 | P.CRDCN ---
History of Present Illness Consult date: 11/19/22 History of present illness: HISTORY OF PRESENTING ILLNESS This is a pleasant 61-year-old with past medical history significant for COPD, HFpEF, chronic pain on methadone. Patient was intubated and sedated been he was evaluated bedside. History is mostly obtained from the medical charts. Apparently patient was having worsening shortness of breath over last few days for which he was using nebulizations and breathing treatments. Prior to the hospital he had an unwitnessed episode of unresponsiveness for which EMS was notified. On arrival to the scene, CPR was started immediately. Patient was coded for 25 minutes with 4 rounds of epinephrine and non-shockable rhythms. Eventually he had had a return of spontaneous circulation and was brought to the ER. On admission his EKG showed atrial fibrillation with rapid ventricular response. There are no telemetry strips on EKG strips available from EMS to be reviewed. Lab shows hemoglobin 11, BUN 34, creatinine 1.74, troponin 0.01, 0.2, 0.9 His home medications include lisinopril 40 mg, amlodipine 5 mg, simvastatin 10 mg, metoprolol 100 mg, Lasix 20 mg, methadone PRIOR CARDIAC TESTING Echocardiogram during this admission showed preserved LV systolic function. This was a limited study due to off axis views REVIEW OF SYSTEMS 14 point review of system is negative except what is mentioned above in HPI. PHYSICAL EXAMINATION Vital signs reviewed. Head: Normocephalic. Eyes: Sclerae nonicteric. Neck: Brisk carotid upstroke, no jugular venous distention. Lungs: ET tube in place, on vent support, air entry noted in bilateral lung olvera Heart: Irregularly irregular, S1-S2, no S3, no murmur or rub. Abdomen: Soft nontender, positive bowel sounds no organomegaly. Extremities: No edema, intact distal pulses. Neurological: Patient is sedated and intubated. ASSESSMENT Witnessed loo-ck-poacgcng cardiac arrest New-onset atrial fibrillation with RVR. [id number] score 0 Elevated troponin likely due to CPR and RADHA Ventilatory dependent respiratory failure Myoclonic jerks with suspected anoxic brain injury RADHA PLAN Patient is in sinus rhythm at this time. Resume metoprolol at 50 mg twice a day once off pressors. Patient would not benefit from cardiac catheterization at this time Supportive care by ICU team and primary team Patient has guarded prognosis, Past Medical History Past Medical History: Heart Failure, COPD, Hypertension Additional Past Medical History / Comment(s): Sees Dr France outpatient History of Any Multi-Drug Resistant Organisms: MRSA Date of last positivie culture/infection: 10/12/21 MDRO Source:: Sputum Past Surgical History: Orthopedic Surgery Past Anesthesia/Blood Transfusion Reactions: No Reported Reaction Past Psychological History: No Psychological Hx Reported Smoking Status: Current every day smoker Past Alcohol Use History: None Reported Past Drug Use History: Marijuana, Opiates - Past Family History Father Family Medical History: Cancer Sister(s) Family Medical History: Cancer Medications and Allergies Home Medications Medication Instructions Recorded Confirmed Type Albuterol Sulfate [Albuterol 2 puff INHALATION RT-Q6H PRN 10/12/21 11/19/22 History Sulfate Hfa] Cyclobenzaprine [Flexeril] 10 mg PO HS PRN 10/12/21 11/19/22 History Fluticasone/Umeclidin/Vilanter 1 puff INHALATION RT-DAILY 10/12/21 11/19/22 History [Trelegy Ellipta 200-62.5-25] Loratadine [Claritin] 10 mg PO DAILY 10/12/21 11/19/22 History Methadone [Dolophine] 10 mg PO Q8H 10/12/21 11/19/22 History Metoprolol Succinate (ER) [Toprol 100 mg PO DAILY 10/12/21 11/19/22 History XL] Simvastatin 10 mg PO HS 10/12/21 11/19/22 History Furosemide [Lasix] 20 mg PO DAILY #30 tab 07/04/22 11/19/22 Rx amLODIPine [Norvasc] 5 mg PO DAILY #30 tab 07/04/22 11/19/22 Rx Albuterol Nebulized [Ventolin 2.5 mg INHALATION RT-Q4H PRN 11/19/22 11/19/22 History Nebulized] lisinopriL 40 mg PO DAILY 11/19/22 11/19/22 History Allergies Allergy/AdvReac Type Severity Reaction Status Date / Time No Known Allergies Allergy Verified 11/19/22 09:01 Physical Exam Vitals: Vital Signs Temp Pulse Resp BP Pulse Ox FiO2 11/19/22 16:00 99.1 F 77 24 97 50 11/19/22 15:30 76 24 97 11/19/22 15:15 78 11/19/22 15:02 76 11/19/22 15:00 75 24 97 50 11/19/22 14:30 79 24 97 11/19/22 14:00 79 24 97 11/19/22 13:30 82 24 97 11/19/22 13:00 84 24 98 11/19/22 12:30 83 24 96 11/19/22 12:00 99.7 F H 79 24 97 50 11/19/22 11:34 50 11/19/22 11:30 76 24 95 11/19/22 11:00 76 24 95 11/19/22 10:50 75 11/19/22 10:30 76 24 96 11/19/22 10:00 77 24 95 50 11/19/22 09:30 78 14 96 11/19/22 09:00 77 24 95 11/19/22 08:30 24 92 L 11/19/22 08:13 82 11/19/22 08:03 80 11/19/22 08:02 80 11/19/22 08:00 99.9 F H 79 28 H 90 L 50 11/19/22 07:52 80 11/19/22 07:30 81 24 91 L 50 11/19/22 07:00 81 29 H 92 L 50 11/19/22 06:50 84 26 H 92 L 11/19/22 06:44 50 11/19/22 06:40 81 27 H 98 11/19/22 06:30 81 24 97 11/19/22 06:20 24 98 11/19/22 06:10 24 98 11/19/22 06:00 99.0 F 75 24 98 100 11/19/22 05:50 74 24 98 11/19/22 05:40 74 24 98 11/19/22 05:30 74 24 97 11/19/22 05:20 69 24 98 11/19/22 05:10 73 24 113/66 97 11/19/22 05:00 98.8 F 70 24 99 100 11/19/22 04:50 72 24 97 11/19/22 04:40 71 24 96 11/19/22 04:30 70 24 95 11/19/22 04:20 70 24 94 L 11/19/22 04:10 69 24 90/60 93 L 11/19/22 04:00 97.0 F L 68 24 95 100 11/19/22 03:50 67 24 95 11/19/22 03:40 67 24 95 11/19/22 03:30 67 24 94 L 11/19/22 03:21 66 11/19/22 03:20 66 24 96 11/19/22 03:10 66 24 95 11/19/22 03:01 66 11/19/22 03:00 96.4 F L 68 20 98/58 94 L 100 11/19/22 02:57 100 11/19/22 02:50 68 20 88 L 11/19/22 02:40 67 20 86 L 11/19/22 02:27 34.7 F L 77 20 111/58 100 11/19/22 01:53 60 11/19/22 01:50 75 11/19/22 01:40 35.4 F L 74 20 96/56 100 11/19/22 01:00 100 11/19/22 00:53 100 11/19/22 00:45 95.7 F L 11/19/22 00:44 108 H 20 78/47 88 L Intake and Output 11/19/22 11/19/22 11/19/22 06:59 14:59 22:59 Intake Total 169.752 370.829 40 Output Total 530 825 100 Balance -360.248 -454.171 -60 Intake: IV 155 260 40 Piperacillin-Tazobactam 3 75 100 .375 gm In Sodium Chloride 0.9% 100 ml @ 25 mls/hr IVPB Q8H [facility] Rx#: [id number] Sodium Chloride 0.9% 1, 80 160 40 000 ml @ 20 mls/hr IV . Q24H [facility] Rx#:[id number] Intake, IV Titration 14.752 110.829 Amount Midazolam HCl 50 mg In 8.751 Sodium Chloride 0.9% 40 ml @ 1 MG/HR 1 mls/hr IV .Q24H [facility] Rx#:[id number] Norepinephrine 4 mg In 5.886 19.884 Sodium Chloride 0.9% 250 ml @ 0.03 MCG/KG/MIN 11. 773 mls/hr IV .[id number] [facility] Rx#:[id number] Norepinephrine 4 mg In 8.866 Sodium Chloride 0.9% 250 ml @ 0.03 MCG/KG/MIN 14. 776 mls/hr IV .[id number] [facility] Rx#:[id number] propofoL 1,000 mg In 82.194 Empty Bag 1 bag @ 15 MCG/ KG/MIN 9.27 mls/hr IV . [id number] [facility] Rx#:[id number] Output: Urine 530 825 100 Other: Voiding Method Indwelling Catheter Indwelling Catheter Indwelling Catheter Weight 103 kg ABP, PAP, CO, CI - Last 8 Hours Arterial Blood Pressure 109/45 Arterial Blood Pressure 104/44 Arterial Blood Pressure 101/43 Arterial Blood Pressure 106/44 Arterial Blood Pressure 103/44 Arterial Blood Pressure 110/46 Arterial Blood Pressure 121/51 Arterial Blood Pressure 114/50 Arterial Blood Pressure 118/51 Arterial Blood Pressure 95/42 Arterial Blood Pressure 94/42 Arterial Blood Pressure 92/42 Arterial Blood Pressure 93/42 Arterial Blood Pressure 97/41 Arterial Blood Pressure 91/42 Arterial Blood Pressure 88/44 Results 11/19/22 04:13 11/19/22 04:13 Cardiac Enzymes 11/19/22 11/19/22 11/19/22 Range/Units 01:13 01:13 04:13 AST 57 (17-59) U/L Troponin I 0.012 0.351 H* (0.000-0.034) ng/mL 11/19/22 Range/Units 12:19 AST (17-59) U/L Troponin I 0.977 H* (0.000-0.034) ng/mL Coagulation 11/19/22 Range/Units 01:13 PT 10.3 (9.0-12.0) sec APTT 21.3 L (22.0-30.0) sec CBC 11/19/22 11/19/22 Range/Units 01:13 04:13 WBC 9.8 11.8 H (3.8-10.6) k/uL RBC 3.68 L 3.59 L (4.30-5.90) m/uL Hgb 11.5 L 11.0 L (13.0-17.5) gm/dL Hct 35.0 L 32.3 L (39.0-53.0) % Plt Count 228 204 (150-450) k/uL Comprehensive Metabolic Panel 11/19/22 11/19/22 Range/Units 01:13 04:13 Sodium 135 L 136 L (137-145) mmol/L Potassium 4.6 4.4 (3.5-5.1) mmol/L Chloride 98 100 (98-107) mmol/L Carbon Dioxide 19 L 31 H (22-30) mmol/L BUN 30 H 34 H (9-20) mg/dL Creatinine 1.91 H 1.74 H (0.66-1.25) mg/dL Glucose 252 H 165 H (74-99) mg/dL Calcium 8.6 8.3 L (8.4-10.2) mg/dL AST 57 (17-59) U/L ALT 33 (4-49) U/L Alkaline Phosphatase 114 (38-126) U/L Total Protein 6.2 L (6.3-8.2) g/dL Albumin 3.4 L (3.5-5.0) g/dL Current Medications Generic Name Dose Route Start Last Admin Trade Name Freq PRN Reason Stop Dose Admin Albuterol/Ipratropium 3 ml 11/19/22 04:00 11/19/22 15:02 Ipratropium-Albuterol 3 Ml Neb INHALATION 3 ml RT-Q4H [facility] Administration Albuterol/Ipratropium 3 ml 11/19/22 04:00 Ipratropium-Albuterol 3 Ml Neb INHALATION RT-Q4H PRN Shortness Of Breath Budesonide 1 mg 11/19/22 08:00 11/19/22 07:52 Budesonide 1 Mg/2 Ml Nebu INHALATION 1 mg RT-BID [facility] Administration Chlorhexidine Gluconate 15 ml 11/19/22 09:00 11/19/22 08:17 Chlorhexidine Gluconate 15 Ml Cup MUCOUS MEM 15 ml BID [facility] Administration Formoterol Fumarate 20 mcg 11/19/22 08:00 11/19/22 07:52 Formoterol Fumarate 20 Mcg/2 Ml Nebu INHALATION 20 mcg RT-BID [facility] Administration Furosemide 60 mg 11/19/22 09:00 11/19/22 08:16 Furosemide 10 Mg/Ml 10 Ml Vial IV 60 mg Q12HR [facility] Administration Heparin Sodium (Porcine) 5,000 unit 11/19/22 08:00 11/19/22 08:16 Heparin Sodium,Porcine 5,000 Unit/Ml 1 Ml Vial SQ 5,000 unit Q8HR [facility] Administration Sodium Chloride 1,000 mls @ 20 mls/hr 11/19/22 01:45 11/19/22 03:05 Saline 0.9% IV 20 mls/hr .Q24H [facility] Administration Propofol 1,000 mg/ IV Solution 100 mls @ 9.27 mls/hr 11/19/22 03:00 11/19/22 12:34 IV 40 mcg/kg/min .[id number] [facility] 24.72 mls/hr Titration Protocol 15 MCG/KG/MIN Piperacillin Sod/Tazobactam 100 mls @ 25 mls/hr 11/19/22 03:00 11/19/22 11:54 Sod 3.375 gm/ Sodium Chloride IVPB 25 mls/hr Q8H [facility] Administration Protocol Norepinephrine Bitartrate 4 mg 254 mls @ 11.773 mls/hr 11/19/22 03:45 11/19/22 10:48 / Sodium Chloride IV 0.04 mcg/kg/min .[id number] [facility] 15.697 mls/hr Titration Protocol 0.03 MCG/KG/MIN Midazolam HCl 50 mg/ Sodium 50 mls @ 1 mls/hr 11/19/22 08:00 11/19/22 13:36 Chloride IV 5 mg/hr .Q24H [facility] 5 mls/hr Titration Protocol 1 MG/HR Levetiracetam 1,500 mg 11/19/22 09:00 11/19/22 08:17 Levetiracetam Iv 500 Mg/5 Ml Vial IVP 1,500 mg Q12HR [facility] Administration Naloxone HCl 0.2 mg 11/19/22 01:43 Naloxone 0.4 Mg/Ml 1 Ml Vial IV Q2M PRN Opioid Reversal Pantoprazole Sodium 40 mg 11/19/22 09:00 11/19/22 08:17 Pantoprazole 40 Mg/10 Ml Vial IVP 40 mg DAILY [facility] Administration Intake and Output 11/19/22 11/19/22 11/19/22 06:59 14:59 22:59 Intake Total 169.752 370.829 40 Output Total 530 825 100 Balance -360.248 -454.171 -60 Intake: IV 155 260 40 Piperacillin-Tazobactam 3 75 100 .375 gm In Sodium Chloride 0.9% 100 ml @ 25 mls/hr IVPB Q8H [facility] Rx#: [id number] Sodium Chloride 0.9% 1, 80 160 40 000 ml @ 20 mls/hr IV . Q24H [facility] Rx#:[id number] Intake, IV Titration 14.752 110.829 Amount Midazolam HCl 50 mg In 8.751 Sodium Chloride 0.9% 40 ml @ 1 MG/HR 1 mls/hr IV .Q24H [facility] Rx#:[id number] Norepinephrine 4 mg In 5.886 19.884 Sodium Chloride 0.9% 250 ml @ 0.03 MCG/KG/MIN 11. 773 mls/hr IV .[id number] [facility] Rx#:[id number] Norepinephrine 4 mg In 8.866 Sodium Chloride 0.9% 250 ml @ 0.03 MCG/KG/MIN 14. 776 mls/hr IV .[id number] [facility] Rx#:[id number] propofoL 1,000 mg In 82.194 Empty Bag 1 bag @ 15 MCG/ KG/MIN 9.27 mls/hr IV . [id number] [facility] Rx#:[id number] Output: Urine 530 825 100 Other: Voiding Method Indwelling Catheter Indwelling Catheter Indwelling Catheter Weight 103 kg 11/19/22 04:13 11/19/22 04:13
[2022-11-19 18:36] LABS: Glucose,Whole Blood 168 mg/dL (70-110)
[2022-11-20 00:02] LABS: Glucose,Whole Blood 185 mg/dL (70-110)
[2022-11-20] MEDS: IPRATROPIUM-ALBUTEROL 3 ML NEB INHALATION SCH ×6 (00:05→20:20)
[2022-11-20] MEDS: MIDAZOLAM HCL 50 MG in SODIUM CHLORIDE 0.9% 40 ML IV SCH ×2 (00:12→11:05)
[2022-11-20] MEDS: PIPERACILLIN-TAZOBACTAM 3.375 GM in SODIUM CHLORIDE 0.9% 100 ML IVPB SCH ×3 (02:58→20:25)
[2022-11-20 04:04] LABS: Basophils % (A) 0 %; Eosinophils % (A) 0 %; HCT 30.9 % (39.0-53.0); HGB 10.5 gm/dL (13.0-17.5); Lymphocytes # (A) 1.1 k/uL (1.0-4.8); Lymphocytes % (A) 7 %; MCH 30.4 pg (25.0-35.0); MCHC 33.9 g/dL (31.0-37.0); MCV 89.8 fL (80.0-100.0); Mean Platelet Volume 8.7; Monocytes # (A) 0.8 k/uL (0-1.0); Monocytes % (A) 5 %; Neutrophils # (A) 14.1 k/uL (1.3-7.7); Neutrophils % (A) 88 %; Platelet Count 205 k/uL (150-450); RBC 3.44 m/uL (4.30-5.90); RDW 14.7 % (11.5-15.5); WBC 16.1 k/uL (3.8-10.6)
[2022-11-20 04:16] LABS: African American GFR (CKD) 40 (>60 ml/min/1.73 sqM); Anion Gap 7 mmol/L; Blood Urea Nitrogen 48 mg/dL (9-20); Calcium 8.2 mg/dL (8.4-10.2); Carbon Dioxide 29 mmol/L (22-30); Chloride 101 mmol/L (98-107); Glucose 168 mg/dL (74-99); Non-African American GFR(CKD) 35 (>60 ml/min/1.73 sqM); Potassium 3.9 mmol/L (3.5-5.1); Sodium 137 mmol/L (137-145)
[2022-11-20 06:09] LABS: ABG HCO3 29 mmol/L (21-25); ABG Oxygen Saturation 99.1 % (94-97); ABG PCO2 44 mmHg (35-45); ABG PH 7.44 (7.35-7.45); ABG PO2 157 mmHg (83-108); ABG TCO2 31 mmol/L (19-24); Allen Test Performed? Yes; Glucose,Whole Blood 173 mg/dL (70-110)
[2022-11-20] MEDS ORDERED: DEXTROSE 50% SYRINGE 50 ML IVP PRN ×2 (06:18)
[2022-11-20] MEDS: INSULIN ASPART (NovoLOG) 100 UNIT/ML VIAL SQ SCH ×3 (06:33→18:58)
[2022-11-20] MEDS: FORMOTEROL FUMARATE 20 MCG/2 ML NEBU INHALATION SCH ×2 (07:25→20:20)
[2022-11-20] MEDS: BUDESONIDE 1 MG/2 ML NEBU INHALATION SCH ×2 (07:25→20:20)
--- NOTE | 2022-11-20 08:21 | XR ---
EXAMINATION TYPE: XR chest 1V DATE OF EXAM: 11/20/2022 COMPARISON: 11/19/2022 HISTORY: Tube placement TECHNIQUE: Single frontal view of the chest is obtained. FINDINGS: ET and NG tube stable. Persistent diffuse interstitial pattern with subsegmental basilar c onsolidation. No pneumothorax. Postsurgical changes left shoulder. Bilateral AC joint uropathy. Ather osclerotic change aorta. IMPRESSION: Interval near complete resolution of venous congestion. Correlate for underlying COPD an d chronic interstitial lung disease.
[2022-11-20] MEDS: HEPARIN SODIUM,PORCINE 5,000 UNIT/ML 1 ML VIAL SQ SCH ×2 (09:36→17:06)
[2022-11-20] MEDS: FUROSEMIDE 10 MG/ML 10 ML VIAL IV SCH (09:36)
[2022-11-20] MEDS: PANTOPRAZOLE 40 MG/10 ML VIAL IVP SCH (09:37)
[2022-11-20] MEDS: CHLORHEXIDINE GLUCONATE 15 ML CUP MUCOUS MEM SCH ×2 (09:37→20:26)
[2022-11-20] MEDS: levETIRAcetam IV 500 MG/5 ML VIAL IVP SCH ×2 (09:37→20:26)
--- NOTE | 2022-11-20 09:57 | P.PN ---
Subjective Progress Note Date: 11/20/22 I am seeing this patient in consultation today 11/19/2022 in the intensive care unit status post cardiac arrest with prolonged downtime. Patient is a 61-year-old white male with past medical history significant for COPD, previous ventilator dependent respiratory failure, congestive heart failure, hypert ension, chronic pain on methadone, and ex-tobacco smoker. According to the patient's significant other, he was feeling well for most of the day yesterday, he did go to work, and was feeling fine when he got home. Early this morning, he was in some respiratory distress and was taking a breathing treatment. The patient's girlfriend witnessed him go unresponsive while on the phone with EMS. Once EMS arrived, he was pulseless, they initiated CPR and he had a prolonged estimated downtime of 20-25 minutes. Presenting rhythm is reportedly PEA. He received a total of 4 A of epinephrine. He did have return of spontaneous circulation after several rounds of CPR. The patient was transferred to [facility] emergency room and he was intubated. A right femoral central line and arterial line was placed in the emergency room. Patient is currently in the ICU, intubated to the mechanical ventilator, completely unresponsive without sedation. Initial ventilator settings were assist control, respiratory rate 16, tidal volume 500, FiO2 100%, and PEEP of 5. Initial ABG on arrival showed a pO2 of 345, pCO2 of 65, pH is 7.16. During transport, the patient's oxygen demand increased. PEEP was increased to 10 and respiratory rate increased to 24. Repeat ABGs on these settings show a pO2 of 81, pCO2 of 68, pH of 7.26. Chest x-ray shows endotracheal tube approximately 6 cm above the martine, and oral gastric tube within the stomach. Chest x-ray is concerning for pulmonary edema. No obvious pneumothorax. I did start him on Lasix. He has no respiratory drive underneath the ventilator. Not on any sedation. Noncontrast CT of the brain did not show any acute intracranial abnormality. He is having intermittent myoclonic jerks and was loaded with 2 g of Keppra as well as when necessary Ativan. There is obviously concern for anoxic brain injury. EEG is scheduled for morning. Hemodynamically, the patient is hypotensive and was started on low-dose norepinephrine which is currently infusing at 0.03 mcg/kg/m. Normal saline is KVO. ECG on arrival to the emergency room showed A. fib RVR, however, heart rhythm is currently normal sinus on the bedside monitor. CBC shows a WBC count of 9.8, hemoglobin 11.5, hematocrit 35, platelets 228. BMP shows sodium 135, potassium 4.6, chloride 98, serum bicarb 19, BUN 30, creatinine 1.91, glucose 252. Lactic acid level was 9.2. Patient was given 1 L normal saline bolus the emergency room. Troponin less than 0.012. NT proBNP 1750. Indwelling catheter with pale yellow urine. He is hypothermic. Overall, prognosis is very guarded due to patient's prolonged downtime and concern for anoxic brain injury. He will be monitored in the intensive care unit. On today's evaluation of a 2022, the patient is being seen for a follow-up. Patient is post cardiac arrest. Patient has anoxic encephalopathy. Yesterday, the patient was having frequent myoclonic jerks and those jerks have essentially subsided. He still has some episodic jerks whenever he is stimulated. He is currently on Keppra 1500 mg twice a day. His EGD was completed yesterday and it showed severe abnormalities with evidence of burst suppression pattern. The s uppressed pattern consisted of isoelectric EEG would burst consisting of high amplitude polyspike and slow wave lasting a few seconds. This is consistent with severe anoxic encephalopathy. The patient is currently on propofol running at 40 mcg/kg/m. He is also on a Versed drip at 4 mg an hour that was added to control his seizure activity in addition to Keppra. He remains on a mechanical ventilator. His assist-control mode at a rate of 24, tidal volume of 100, FiO2 of 40% with a PEEP of 10. The blood gas from today shows a pH of 7.44 with a pCO2 of 44 and pO2 of 157. His chest x-ray shows resolution of the pulmonary edema and there is adequate aeration of both lungs without evidence of any pneumothorax. Echocardiogram was completed and the patient has an EF of around 55%. No valvular abnormalities noted. He sustained an acute kidney injury. Is on Lasix 60 mg IV twice a day and he is in negative fluid balance of 1.6 L. His kidney failure is still active and the patient's creatinine is up to 2.04. Nevertheless, is nonoliguric and is producing adequate amount of urine output. His hemoglobin is at 16.1, platelet count is at 205 in the hemoglobin is at 10.5. Electrolytes are all within normal limits. He is on IV Zosyn as an empiric antibiotic coverage for the possibility of an aspiration. He is afebrile. No other significant events otherwise. Objective - Vital Signs Vital signs: Vital Signs Temp 97.7 F 11/20/22 04:00 Pulse 84 11/20/22 07:56 Resp 24 11/20/22 07:00 BP 116/60 11/19/22 17:30 Pulse Ox 97 11/20/22 07:00 FiO2 40 11/20/22 07:29 Intake & Output 11/19/22 11/20/22 11/20/22 18:59 06:59 18:59 Intake Total 574.187 810.342 137.922 Output Total 1075 2175 65 Balance -500.813 -1364.658 72.922 Weight 100.8 kg Intake: IV 340 240 20 Piperacillin-Tazobactam 3 100 .375 gm In Sodium Chloride 0.9% 100 ml @ 25 mls/hr IVPB Q8H [facility] Rx#: [id number] Sodium Chloride 0.9% 1, 240 240 20 000 ml @ 20 mls/hr IV . Q24H [facility] Rx#:[id number] Intake, IV Titration 234.187 570.342 117.922 Amount Midazolam HCl 50 mg In 32.418 29.333 Sodium Chloride 0.9% 40 ml @ 1 MG/HR 1 mls/hr IV .Q24H [facility] Rx#:[id number] Norepinephrine 4 mg In 19.884 285.685 17.922 Sodium Chloride 0.9% 250 ml @ 0.03 MCG/KG/MIN 11. 773 mls/hr IV .[id number] [facility] Rx#:[id number] propofoL 1,000 mg In 181.885 255.324 100 Empty Bag 1 bag @ 15 MCG/ KG/MIN 9.27 mls/hr IV . [id number] [facility] Rx#:[id number] Output: Urine 1075 2175 65 Other: Voiding Method Indwelling Catheter Indwelling Catheter ABP, PAP, CO, CI - Last Documented Arterial Blood Pressure 137/56 - Exam GENERAL EXAM: Unresponsive even to painful stimuli, intubated to the mechanical ventilator, not on any sedation HEAD: Normocephalic and atraumatic EYES: Normal reaction of pupils, equal size. NOSE: Clear with pink turbinates. THROAT: No erythema or exudates. NECK: No masses, no JVD. CHEST: No chest wall deformity. LUNGS: Equal air entry with diffuse rhonchi throughout and minimal expiratory wheezes. Intubated to the mechanical ventilator. Synchronous with current settings, no intrinsic respiratory drive. Peak pressure 30 and plateau pressure 22. Minimal secretions. CVS: S1 and S2 normal with no audible murmur, regular rhythm. No extra heart sounds ABDOMEN: Obese abdomen, no hepatosplenomegaly, active bowel sounds, no guarding or rigidity. OG tube to low intermittent suction with minimal brown output SPINE: No scoliosis or deformity SKIN: No rashes CENTRAL NERVOUS SYSTEM: Unresponsive to even painful stimuli, not on any sedation, DTRs 1-2+ throughout, Babinski's negative bilaterally, intermittent myoclonic jerks involving the whole body. EXTREMITIES: There is no peripheral edema. No clubbing, or cyanosis. [place]. Peripheral pulses are intact. - Labs CBC & Chem 7: 11/20/22 03:43 11/20/22 03:43 Labs: Abnormal Lab Results - Last 24 Hours (Table) 11/19/22 11/19/22 11/19/22 Range/Units 11:50 12:19 18:35 WBC (3.8-10.6) k/uL RBC (4.30-5.90) m/uL Hgb (13.0-17.5) gm/dL Hct (39.0-53.0) % Neutrophils # (1.3-7.7) k/uL ABG pO2 (83-108) mmHg ABG HCO3 (21-25) mmol/L ABG Total CO2 (19-24) mmol/L ABG O2 Saturation (94-97) % BUN (9-20) mg/dL Creatinine (0.66-1.25) mg/dL Glucose (74-99) mg/dL POC Glucose (mg/dL) 222 H 168 H (70-110) mg/dL Calcium (8.4-10.2) mg/dL Troponin I 0.977 H* (0.000-0.034) ng/mL 11/20/22 11/20/22 11/20/22 Range/Units 00:01 03:43 03:43 WBC 16.1 H (3.8-10.6) k/uL RBC 3.44 L (4.30-5.90) m/uL Hgb 10.5 L (13.0-17.5) gm/dL Hct 30.9 L (39.0-53.0) % Neutrophils # 14.1 H (1.3-7.7) k/uL ABG pO2 (83-108) mmHg ABG HCO3 (21-25) mmol/L ABG Total CO2 (19-24) mmol/L ABG O2 Saturation (94-97) % BUN 48 H (9-20) mg/dL Creatinine 2.04 H (0.66-1.25) mg/dL Glucose 168 H (74-99) mg/dL POC Glucose (mg/dL) 185 H (70-110) mg/dL Calcium 8.2 L (8.4-10.2) mg/dL Troponin I (0.000-0.034) ng/mL 11/20/22 11/20/22 Range/Units 06:08 06:08 WBC (3.8-10.6) k/uL RBC (4.30-5.90) m/uL Hgb (13.0-17.5) gm/dL Hct (39.0-53.0) % Neutrophils # (1.3-7.7) k/uL ABG pO2 157 H (83-108) mmHg ABG HCO3 29 H (21-25) mmol/L ABG Total CO2 31 H (19-24) mmol/L ABG O2 Saturation 99.1 H (94-97) % BUN (9-20) mg/dL Creatinine (0.66-1.25) mg/dL Glucose (74-99) mg/dL POC Glucose (mg/dL) 173 H (70-110) mg/dL Calcium (8.4-10.2) mg/dL Troponin I (0.000-0.034) ng/mL Microbiology - Last 24 Hours (Table) 11/19/22 01:30 Gram Stain - Preliminary Sputum Assessment and Plan Assessment: Cardiac arrest, with prolonged downtime of 20-25 minutes. Presenting rhythm was reportedly PEA, achieving return of spontaneous circulation after multiple rounds of CPR and 4 A of epinephrine. Severe anoxic brain injury, Noncontrast CT of the brain did not show any acute intracranial abnormality. There are intermittent myoclonic jerks. EEG was noted. The patient is currently on a combination of propofol running at 40 g addition to Versed 10 mg and is also on Keppra. Episodes of myoclonic jerks have subsided although the patient still having some occasional episodes. Acute hypoxemic and hypercapnic respiratory failure, likely secondary to an exacerbation of diastolic congestive heart failure, intubated to the mechanical ventilator. Chest x-ray is concerning for pulmonary edema. Recent echocardiogram done on 07/03/2022 shows a preserved left ventricular ejection fraction of 55-60% with moderate concentric LVH. Moderate mitral regurgitation and stenosis. There is moderate to severe pulmonary hypertension with RVSP of 55 mmHg. Acute COPD exacerbation Hypotension, recovered. The patient is currently off pressors Anion gap metabolic acidosis, secondary to cardiac arrest and lactic acidosis Acute kidney injury, related to hypotension and ATN Hypothermia, currently stable Normocytic, normochromic anemia Hyperlipidemia Chronic pain, maintained on methadone outpatient History of ventilator dependent respiratory failure Plan: Patient has signs of severe anoxic encephalopathy Patient is currently on a combination of propofol, Versed and his neurologic exam is quite limited. On today's evaluation, I noticed no major cranial nerve reflexes. No cough. No gag and his breathing to flex was also suboptimal as the patient was unable to breathe after being disconnected from the mechanical ventilator for 2 minutes. His pupils are round 2 mm in size, sluggishly reactive to light. We will obtain a follow-up EEG today and a follow-up CAT scan of the brain and neurology is on the case. Continue Keppra Discontinue Lasix Dropped to PEEP down to 5 Dropped respiratory rate down to 20 IV fluids are at KVO Start the patient on enteral feeding for nutritional support with a vital high- protein Echo was noted Neurology consultation appreciated Merchandising Execution Manager on the case Will be communicating with the family with the various results. Unfortunately, patient has signs of significant neurologic damage and signs of anoxic encephalopathy and he carries a very poor prognosis due to his cardiac arrest and prolonged downtime. [facility] is on the case We'll continue to follow make further recommendations based on his progress. Consider care evaluation,> 30min Time with Patient: Greater than 30
--- NOTE | 2022-11-20 10:09 | P.CNNES ---
History of Present Illness Consult date: 11/19/22 Requesting physician: Twan Owens Reason for Consult: Seizures, status post cardiac arrest History of Present Illness: Patient is a 61-year-old male with history of COPD, asthma brought to the hospital via ambulance early this morning at 12:43 AM for cardiac arrest. As per EMS flow sheet, they received a call at 11:59 PM. When they arrived at the scene at 12:02 AM, patient was laying supine on the living room floor with 5 department performing CPR. Patient's significant other states that patient was yelling for her from the couch and when she came into the room, patient was in respiratory distress using nebulizer treatment. She states that she called 911 and while on the phone patient collapsed and stopped breathing approximately 1-2 minutes prior to 5 department arrival. Patient was on the floor, p ulseless/apneic upon their arrival. Blood glucose was 134 mg/dL. CPR was started at that time. Patient has history of COPD/CHF and a history of heart problems. Patient uses home oxygen via nasal cannula. Patient was feeling okay earlier them seemed to be doing better than usual as per patient's significant other statement. Patient's GCS was 3, pulseless/apneic. Skin was pale and cyanotic and pupils were dilated and nonreactive. Patient was in PEA. Patient received for total doses of epinephrine. Patient was intubated at the scene. ROSC was achieved at approximately 12:25 AM. Patient was in atrial fibrillation with rapid ventricular rate. Patient had a brief episode of narrow complex tachycardia that resolved without intervention. Vital signs on arrival blood pressure 78/47, pulse rate 108, temperature 97.5 patient's temperature did go up to 98.8. Blood pressure also improved. Patient's blood test shows normal CBC with hemoglobin 11.5, PT/PTT normal, pH 7.16, pCO2 65, pO2 345 and saturation 99.2. Sodium 135 present 4.6, BUN 30, creatinine 1.91. Lactate 9.2. Hepatic panel is normal, troponin negative. Subsequent troponin elevated 0.351. White cells has gone up to 11.8. CT head revealed no acute findings. I personally reviewed CT head and agree with the findings. When compared to the CT head from 10/12/2021, the ventricles appears unchanged. EKG shows atrial fibrillation with rapid ventricular rate. 2-D echo with left ventricular hypertrophy with preserved systolic function with EF 50- 55%. Normal left atrial size. Chest x-ray correlate for CHF otherwise consider interstitial pneumonitis. Overnight patient has developed periodic intermittent myoclonic seizures. After a few seconds, patient has generalized body jerks lasting for 1-3 seconds. [place] has received 1500 mg Keppra IV, 1 g of Dilantin, started on Versed, currently at 2 mg per hour. Patient continues to have myoclonic jerking. Review of Systems Patient's nurse does not know any more details about review of systems. Per family, patient had shortness of breath otherwise healthy. ROS unobtainable: due to endotracheal tube, due to mental status Past Medical History Past Medical History: Heart Failure, COPD, Hypertension Additional Past Medical History / Comment(s): Sees Dr France outpatient History of Any Multi-Drug Resistant Organisms: MRSA Date of last positivie culture/infection: 10/12/21 MDRO Source:: Sputum Past Surgical History: Orthopedic Surgery Past Anesthesia/Blood Transfusion Reactions: No Reported Reaction Past Psychological History: No Psychological Hx Reported Smoking Status: Current every day smoker Past Alcohol Use History: None Reported Past Drug Use History: Marijuana, Opiates - Past Family History Father Family Medical History: Cancer Sister(s) Family Medical History: Cancer Medications and Allergies Home Medications Medication Instructions Recorded Confirmed Type Albuterol Sulfate [Albuterol 2 puff INHALATION RT-Q6H PRN 10/12/21 11/19/22 History Sulfate Hfa] Cyclobenzaprine [Flexeril] 10 mg PO HS PRN 10/12/21 11/19/22 History Fluticasone/Umeclidin/Vilanter 1 puff INHALATION RT-DAILY 10/12/21 11/19/22 History [Trelegy Ellipta 200-62.5-25] Loratadine [Claritin] 10 mg PO DAILY 10/12/21 11/19/22 History Methadone [Dolophine] 10 mg PO Q8H 10/12/21 11/19/22 History Metoprolol Succinate (ER) [Toprol 100 mg PO DAILY 10/12/21 11/19/22 History XL] Simvastatin 10 mg PO HS 10/12/21 11/19/22 History Furosemide [Lasix] 20 mg PO DAILY #30 tab 07/04/22 11/19/22 Rx amLODIPine [Norvasc] 5 mg PO DAILY #30 tab 07/04/22 11/19/22 Rx Albuterol Nebulized [Ventolin 2.5 mg INHALATION RT-Q4H PRN 11/19/22 11/19/22 History Nebulized] lisinopriL 40 mg PO DAILY 11/19/22 11/19/22 History Allergies Allergy/AdvReac Type Severity Reaction Status Date / Time No Known Allergies Allergy Verified 11/19/22 09:01 Physical Examination - Vital Signs Vital Signs: Vital Signs Temp Pulse Resp BP Pulse Ox FiO2 11/19/22 11:34 50 11/19/22 11:00 76 24 95 11/19/22 10:50 75 11/19/22 10:30 76 24 96 11/19/22 10:00 77 24 95 50 11/19/22 09:30 78 14 96 11/19/22 09:00 77 24 95 11/19/22 08:30 24 92 L 11/19/22 08:13 82 11/19/22 08:03 80 11/19/22 08:02 80 11/19/22 08:00 99.9 F H 79 28 H 90 L 50 11/19/22 07:52 80 11/19/22 07:30 81 24 91 L 50 11/19/22 07:00 81 29 H 92 L 50 11/19/22 06:50 84 26 H 92 L 11/19/22 06:44 50 11/19/22 06:40 81 27 H 98 11/19/22 06:30 81 24 97 11/19/22 06:20 24 98 11/19/22 06:10 24 98 11/19/22 06:00 99.0 F 75 24 98 100 11/19/22 05:50 74 24 98 11/19/22 05:40 74 24 98 11/19/22 05:30 74 24 97 11/19/22 05:20 69 24 98 11/19/22 05:10 73 24 113/66 97 11/19/22 05:00 98.8 F 70 24 99 100 11/19/22 04:50 72 24 97 11/19/22 04:40 71 24 96 11/19/22 04:30 70 24 95 11/19/22 04:20 70 24 94 L 11/19/22 04:10 69 24 90/60 93 L 11/19/22 04:00 97.0 F L 68 24 95 100 11/19/22 03:50 67 24 95 11/19/22 03:40 67 24 95 11/19/22 03:30 67 24 94 L 11/19/22 03:21 66 11/19/22 03:20 66 24 96 11/19/22 03:10 66 24 95 11/19/22 03:01 66 11/19/22 03:00 96.4 F L 68 20 98/58 94 L 100 11/19/22 02:57 100 11/19/22 02:50 68 20 88 L 11/19/22 02:40 67 20 86 L 11/19/22 02:27 34.7 F L 77 20 111/58 100 11/19/22 01:53 60 11/19/22 01:50 75 11/19/22 01:40 35.4 F L 74 20 96/56 100 11/19/22 01:00 100 11/19/22 00:53 100 11/19/22 00:45 95.7 F L 11/19/22 00:44 108 H 20 78/47 88 L Intake and Output 11/18/22 11/19/22 11/19/22 22:59 06:59 14:59 Intake Total 169.752 169.324 Output Total 530 450 Balance -360.248 -280.676 Intake: IV 155 100 Piperacillin-Tazobactam 3 75 .375 gm In Sodium Chloride 0.9% 100 ml @ 25 mls/hr IVPB Q8H [facility] Rx#: [id number] Sodium Chloride 0.9% 1, 80 100 000 ml @ 20 mls/hr IV . Q24H [facility] Rx#:[id number] Intake, IV Titration 14.752 69.324 Amount Norepinephrine 4 mg In 5.886 19.884 Sodium Chloride 0.9% 250 ml @ 0.03 MCG/KG/MIN 11. 773 mls/hr IV .[id number] [facility] Rx#:[id number] Norepinephrine 4 mg In 8.866 Sodium Chloride 0.9% 250 ml @ 0.03 MCG/KG/MIN 14. 776 mls/hr IV .[id number] [facility] Rx#:[id number] propofoL 1,000 mg In 49.44 Empty Bag 1 bag @ 15 MCG/ KG/MIN 9.27 mls/hr IV . [id number] [facility] Rx#:[id number] Output: Urine 530 450 Other: Voiding Method Indwelling Catheter Indwelling Catheter Weight 103 kg ABP, PAP, CO, CI - Last 8 Hours Arterial Blood Pressure 94/42 Arterial Blood Pressure 92/42 Arterial Blood Pressure 93/42 Arterial Blood Pressure 97/41 Arterial Blood Pressure 91/42 Arterial Blood Pressure 88/44 Arterial Blood Pressure 80/38 Arterial Blood Pressure 107/47 Arterial Blood Pressure 111/50 Arterial Blood Pressure 114/52 Arterial Blood Pressure 122/42 Arterial Blood Pressure 140/60 Arterial Blood Pressure 137/53 Arterial Blood Pressure 152/57 Arterial Blood Pressure 122/53 Arterial Blood Pressure 115/50 Arterial Blood Pressure 115/51 Arterial Blood Pressure 114/51 Arterial Blood Pressure 142/60 Arterial Blood Pressure 112/50 Arterial Blood Pressure 132/70 Arterial Blood Pressure 106/50 Arterial Blood Pressure 110/51 Arterial Blood Pressure 109/51 Arterial Blood Pressure 110/53 Arterial Blood Pressure 108/52 Arterial Blood Pressure 108/53 Patient is a middle aged male, who is intubated, sedated on propofol as well as Versed drip. Patient is comatose, not responding to any painful stimuli. Patient has weak gag and cough reflex. He is breathing over the ventilator. Pupils are small 4 mm, minimally reacting sluggishly. Oculocephalics are absent. Corneals absent. Patient does not respond to painful stimuli. Does not respond to calling name. Reflexes are 1 at the knees bilaterally, but absent all over and the plantars are flat. Cerebellar functions cannot be tested. Tone is equal bilaterally. Patient having intermittent myoclonic jerking of the body, almost like electrocution, occurring every 10-30 seconds, lasting for 1-3 seconds. It has improved since received Dilantin and Keppra. On general examination, there is no carotid bruit or murmur, S1-S2 audible. Chest is clear on consultation. Abdomen is soft nontender. No organomegaly, bowel sounds present. Peripheral pulses are present. No edema. Results - Laboratory Findings CBC and BMP: 11/20/22 03:43 11/20/22 03:43 Abnormal Lab Findings: Abnormal Labs 11/19/22 11/19/22 11/19/22 01:13 01:13 01:13 WBC RBC 3.68 L Hgb 11.5 L Hct 35.0 L Neutrophils # Lymphocytes # APTT 21.3 L D-Dimer ABG pH ABG pCO2 ABG pO2 ABG HCO3 ABG Total CO2 ABG O2 Saturation Sodium 135 L Carbon Dioxide 19 L BUN 30 H Creatinine 1.91 H Glucose 252 H POC Glucose (mg/dL) Plasma Lactic Acid Jayce Calcium Magnesium 2.5 H Troponin I Total Protein 6.2 L Albumin 3.4 L Procalcitonin 11/19/22 11/19/22 11/19/22 01:13 01:20 02:37 WBC RBC Hgb Hct Neutrophils # Lymphocytes # APTT D-Dimer ABG pH 7.16 L* ABG pCO2 65 H ABG pO2 345 H ABG HCO3 ABG Total CO2 25 H ABG O2 Saturation 99.2 H Sodium Carbon Dioxide BUN Creatinine Glucose POC Glucose (mg/dL) 198 H Plasma Lactic Acid Jayce 9.2 H* Calcium Magnesium Troponin I Total Protein Albumin Procalcitonin 11/19/22 11/19/22 11/19/22 03:02 04:13 04:13 WBC 11.8 H RBC 3.59 L Hgb 11.0 L Hct 32.3 L Neutrophils # 10.3 H Lymphocytes # 0.7 L APTT D-Dimer ABG pH 7.26 L ABG pCO2 68 H ABG pO2 81 L ABG HCO3 31 H ABG Total CO2 33 H ABG O2 Saturation Sodium 136 L Carbon Dioxide 31 H BUN 34 H Creatinine 1.74 H Glucose 165 H POC Glucose (mg/dL) Plasma Lactic Acid Jayce Calcium 8.3 L Magnesium Troponin I Total Protein Albumin Procalcitonin 11/19/22 11/19/22 11/19/22 04:13 04:13 04:13 WBC RBC Hgb Hct Neutrophils # Lymphocytes # APTT D-Dimer >34.00 H ABG pH ABG pCO2 ABG pO2 ABG HCO3 ABG Total CO2 ABG O2 Saturation Sodium Carbon Dioxide BUN Creatinine Glucose POC Glucose (mg/dL) Plasma Lactic Acid Jayce Calcium Magnesium Troponin I 0.351 H* Total Protein Albumin Procalcitonin 0.38 H 11/19/22 11/19/22 06:40 06:44 WBC RBC Hgb Hct Neutrophils # Lymphocytes # APTT D-Dimer ABG pH 7.31 L ABG pCO2 59 H ABG pO2 231 H ABG HCO3 29 H ABG Total CO2 31 H ABG O2 Saturation 99.4 H Sodium Carbon Dioxide BUN Creatinine Glucose POC Glucose (mg/dL) 214 H Plasma Lactic Acid Jayce Calcium Magnesium Troponin I Total Protein Albumin Procalcitonin Assessment and Plan Assessment: * Status post witnessed cardiac arrest, with downtime of at least 28 minutes before ROSC was obtained. Patient at present showing significant anoxic encephalopathy. * Myoclonic seizures, likely from severe anoxic encephalopathy. * CHF with pulmonary edema * COPD with exacerbation * Acute kidney injury * Hyponatremia, resolved * Hyperlipidemia * Hypertension * Tobacco use Plan: * Stat EEG was performed, which was severely abnormal due to presence of burst suppression pattern. Suppressed pattern consisted of isoelectric EEG with bursts consisting of high amplitude spike and slow wave lasting for 1-6 seconds. Clinically the burst associated with generalized body convulsion. Overall, this EEG is suggestive of severe generalized cerebral dysfunction and the pattern can be seen with severe anoxic encephalopathy. * Based upon the duration of cardiac arrest, clinical examination and EEG fin dings, the prognosis appears poor. However at this time examination is limited because of patient being on high-dose sedation. We will observe and follow neurologic examination in 24 hours. * I had a prolonged discussion with multiple family members, and discussed with them about current clinical condition and prognosis. * Repeat CT head, and EEG in the morning. * Patient will be continued on Keppra. Stat Dilantin level checked was 14.4. * Continue Keppra 1500 mg every 12 hours. Also on Versed, now increased to 6 mg per hour. Also on propofol. This seizure activity has almost resolved at the time I had a family meeting later during the day. * Other medical management as per IM and critical care team. * Neurology will follow. Thank you for the consult. Time with Patient: Greater than 30
[2022-11-20 12:10] LABS: Glucose,Whole Blood 143 mg/dL (70-110)
--- NOTE | 2022-11-20 12:15 | P.PN ---
Subjective Progress Note Date: 11/20/22 Patient remains on ventilator with sedation from propofol and Versed General: intubated, sedated HEENT: normocephalic, atraumatic, no tracheal deviation Respiratory: symmetric chest rise, no cyanosis, ventilator dependent CVS: perfusing all extremities, no distal gangrene, no pitting edema GI: soft, ND : no SPT, no CVAT, laboy not present Neuro: sedated Hospital course: 61-year-old man with a medical history of hypertension, hyperlipidemia, COPD, methadone dependence present after cardiac arrest. Patient had 25 minutes of downtime in the field before achieving return of spontaneous circulation prior to arrival. In the emergency room, patient's temperature was 95.7, heart rate was 108, 78/47, 88% on nonrebreather. Initial CBC demonstrated blood cell count of 9.8, hemoglobin of 11.5. BMP showed sodium of 135, CO2 of 19, gap of 18, BUNs of 30, creatinine of 1.91. Liver function test showed total protein 6.2, albumin of 3.4. BNP was 1750. Lactic acid is 9.2. Troponin was 0.012. Coags are unremarkable. Troponin subsequent elevated to 0.351 then 0.977. Pro- calcitonin is 0.38. Phenytoin level is 14.4. Patient's chest x-ray showed cardiomegaly, right-sided pulmonary infiltrate. EKG showed atrial fibrillation with rapid ventricular response. Brain CT head no acute findings in the head/brain. Case was discussed with the emergency room provider and decision was made to admit the patient to the intensive care unit for further evaluation. Patient was intubated in the emergency room. Patient was seen by pulmonology, neurology, cardiology. Neurology recommended EEG which showed isoelectric pattern with intermittent sharp waves concerning for severe anoxic brain injury. Echocardiogram demonstrated 50-55% EF, RVSP of 32. Assessment: Cardiac arrest Anoxic brain injury Acute Kidney Injury Seizures COPD without exacerbation Plan: Patient is afebrile, 116/60, heart rate 99, 96% on 40% of FiO2 CBC demonstrated leukocytosis to 16.1, hemoglobin of 10.5. Basic metabolic panel shows be in the 48, creatinine 2.04. Patient remains on Versed drip Patient no longer requiring levo fed Patient remains on Zosyn Lasix was discontinued Objective - Vital Signs Vital signs: Vital Signs Temp 98 F 11/20/22 08:00 Pulse 105 H 11/20/22 11:50 Resp 20 11/20/22 11:00 BP 116/60 11/20/22 11:00 Pulse Ox 96 11/20/22 11:00 FiO2 40 11/20/22 11:20 Intake & Output 11/19/22 11/20/22 11/20/22 18:59 06:59 18:59 Intake Total 574.187 810.342 461.455 Output Total 1075 2175 1665 Balance -500.813 -1364.658 -1203.545 Weight 100.8 kg Intake: IV 340 240 200 Piperacillin-Tazobactam 3 100 100 .375 gm In Sodium Chloride 0.9% 100 ml @ 25 mls/hr IVPB Q8H [facility] Rx#: [id number] Sodium Chloride 0.9% 1, 240 240 100 000 ml @ 20 mls/hr IV . Q24H [facility] Rx#:[id number] Intake, IV Titration 234.187 570.342 261.455 Amount Midazolam HCl 50 mg In 32.418 29.333 43.533 Sodium Chloride 0.9% 40 ml @ 1 MG/HR 1 mls/hr IV .Q24H [facility] Rx#:[id number] Norepinephrine 4 mg In 19.884 285.685 17.922 Sodium Chloride 0.9% 250 ml @ 0.03 MCG/KG/MIN 11. 773 mls/hr IV .[id number] [facility] Rx#:[id number] propofoL 1,000 mg In 181.885 255.324 200 Empty Bag 1 bag @ 15 MCG/ KG/MIN 9.27 mls/hr IV . [id number] [facility] Rx#:[id number] Oral 0 Output: Urine 1075 2175 1665 Other: Voiding Method Indwelling Catheter Indwelling Catheter Indwelling Catheter ABP, PAP, CO, CI - Last Documented Arterial Blood Pressure 127/51 - Labs CBC & Chem 7: 11/20/22 03:43 11/20/22 03:43 Labs: Abnormal Lab Results - Last 24 Hours (Table) 11/19/22 11/19/22 11/20/22 Range/Units 12:19 18:35 00:01 WBC (3.8-10.6) k/uL RBC (4.30-5.90) m/uL Hgb (13.0-17.5) gm/dL Hct (39.0-53.0) % Neutrophils # (1.3-7.7) k/uL ABG pO2 (83-108) mmHg ABG HCO3 (21-25) mmol/L ABG Total CO2 (19-24) mmol/L ABG O2 Saturation (94-97) % BUN (9-20) mg/dL Creatinine (0.66-1.25) mg/dL Glucose (74-99) mg/dL POC Glucose (mg/dL) 168 H 185 H (70-110) mg/dL Calcium (8.4-10.2) mg/dL Troponin I 0.977 H* (0.000-0.034) ng/mL 11/20/22 11/20/22 11/20/22 Range/Units 03:43 03:43 06:08 WBC 16.1 H (3.8-10.6) k/uL RBC 3.44 L (4.30-5.90) m/uL Hgb 10.5 L (13.0-17.5) gm/dL Hct 30.9 L (39.0-53.0) % Neutrophils # 14.1 H (1.3-7.7) k/uL ABG pO2 157 H (83-108) mmHg ABG HCO3 29 H (21-25) mmol/L ABG Total CO2 31 H (19-24) mmol/L ABG O2 Saturation 99.1 H (94-97) % BUN 48 H (9-20) mg/dL Creatinine 2.04 H (0.66-1.25) mg/dL Glucose 168 H (74-99) mg/dL POC Glucose (mg/dL) (70-110) mg/dL Calcium 8.2 L (8.4-10.2) mg/dL Troponin I (0.000-0.034) ng/mL 11/20/22 Range/Units 06:08 WBC (3.8-10.6) k/uL RBC (4.30-5.90) m/uL Hgb (13.0-17.5) gm/dL Hct (39.0-53.0) % Neutrophils # (1.3-7.7) k/uL ABG pO2 (83-108) mmHg ABG HCO3 (21-25) mmol/L ABG Total CO2 (19-24) mmol/L ABG O2 Saturation (94-97) % BUN (9-20) mg/dL Creatinine (0.66-1.25) mg/dL Glucose (74-99) mg/dL POC Glucose (mg/dL) 173 H (70-110) mg/dL Calcium (8.4-10.2) mg/dL Troponin I (0.000-0.034) ng/mL Microbiology - Last 24 Hours (Table) 11/19/22 01:30 Gram Stain - Preliminary Sputum
--- NOTE | 2022-11-20 12:56 | CT ---
EXAMINATION TYPE: CT brain wo con CT DLP: 1189.4 mGycm, Automated exposure control for dose reduction was used. DATE OF EXAM: 11/20/2022 12:42 PM COMPARISON: Prior CT Brain from 11/19/2022, 10/12/2021. CLINICAL INDICATION:Male, 61 years old with history of follow up, Follow up, cardiac arrest TECHNIQUE: Brain: Multiple axial CT images of the brain were obtained without IV contrast. Coronal and sagittal reformats reviewed. FINDINGS: Brain: Extra-axial spaces: No abnormal extra-axial fluid collections. Ventricular system: Diminutive in appearance Cerebral parenchyma: No acute intraparenchymal hemorrhage or mass effect. There is diffuse loss of gr ay-white differentiation. Cerebellum: Unremarkable. Mass effect: No evidence of midline shift. Intracranial vasculature: Atherosclerotic calcifications of the intracranial vessels. Soft tissues: Normal. Calvarium/osseous structures: No depressed skull fracture. Paranasal sinuses and mastoid air cells: Mild scattered paranasal sinus disease. Visualized orbits: Orbital contents are intact. Other: Partial visualization of endotracheal and orogastric tubes. IMPRESSION: Diffuse loss of waldrop-white differentiation consistent with global hypoperfusion complex related to re ported cardiac arrest. No acute intracranial hemorrhage.
[2022-11-20] MEDS: METOPROLOL TARTRATE 25 MG TAB PO SCH ×2 (17:05→20:27)
--- NOTE | 2022-11-20 17:08 | P.PN ---
Subjective Progress Note Date: 11/20/22 SUBJECTIVE No clinical progress. As per critical care team, no significant neurological function on exam. Await EEG and official neurological results. Sinus tachycardia on telemetry, no other arrythmia. PHYSICAL EXAMINATION Vital signs reviewed. Head: Normocephalic. Eyes: Sclerae nonicteric. Neck: Brisk carotid upstroke, no jugular venous distention. Lungs: ET tube in place, on vent support, air entry noted in bilateral lung olvera Heart: Irregularly irregular, S1-S2, no S3, no murmur or rub. Abdomen: Soft nontender, positive bowel sounds no organomegaly. Extremities: No edema, intact distal pulses. Neurological: Patient is sedated and intubated. ASSESSMENT Witnessed [id number] cardiac arrest New-onset atrial fibrillation with RVR. [id number] score 0 Elevated troponin likely due to CPR and RADHA Ventilatory dependent respiratory failure Myoclonic jerks with suspected anoxic brain injury RADHA PLAN Patient is in sinus rhythm at this time. Resume metoprolol at 50 mg twice a day once off pressors. Patient would not benefit from cardiac catheterization at this time Supportive care by ICU team and primary team Patient has guarded prognosis, Cardiology team will sign off HISTORY OF PRESENTING ILLNESS This is a pleasant 61-year-old with past medical history significant for COPD, HFpEF, chronic pain on methadone. Patient was intubated and sedated been he was evaluated bedside. History is mostly obtained from the medical charts. Apparently patient was having worsening shortness of breath over last few days for which he was using nebulizations and breathing treatments. Prior to the hospital he had an unwitnessed episode of unresponsiveness for which EMS was notified. On arrival to the scene, CPR was started immediately. Patient was coded for 25 minutes with 4 rounds of epinephrine and non-shockable rhythms. Ev entually he had had a return of spontaneous circulation and was brought to the ER. On admission his EKG showed atrial fibrillation with rapid ventricular response. There are no telemetry strips on EKG strips available from EMS to be reviewed. Lab shows hemoglobin 11, BUN 34, creatinine 1.74, troponin 0.01, 0.2, 0.9 His home medications include lisinopril 40 mg, amlodipine 5 mg, simvastatin 10 mg, metoprolol 100 mg, Lasix 20 mg, methadone PRIOR CARDIAC TESTING Echocardiogram during this admission showed preserved LV systolic function. This was a limited study due to off axis views Objective - Vital Signs Vital signs: Vital Signs Temp 97.7 F 11/20/22 12:00 Pulse 107 H 11/20/22 16:23 Resp 22 11/20/22 14:00 BP 116/60 11/20/22 14:00 Pulse Ox 95 11/20/22 14:00 FiO2 40 11/20/22 15:41 Intake & Output 11/19/22 11/20/22 11/20/22 18:59 06:59 18:59 Intake Total 574.187 810.342 521.455 Output Total 1075 2175 2190 Balance -500.813 -1364.658 -1668.545 Weight 100.8 kg 100.8 kg Intake: IV 340 240 260 Piperacillin-Tazobactam 3 100 100 .375 gm In Sodium Chloride 0.9% 100 ml @ 25 mls/hr IVPB Q8H [facility] Rx#: [id number] Sodium Chloride 0.9% 1, 240 240 160 000 ml @ 20 mls/hr IV . Q24H [facility] Rx#:[id number] Intake, IV Titration 234.187 570.342 261.455 Amount Midazolam HCl 50 mg In 32.418 29.333 43.533 Sodium Chloride 0.9% 40 ml @ 1 MG/HR 1 mls/hr IV .Q24H [facility] Rx#:[id number] Norepinephrine 4 mg In 19.884 285.685 17.922 Sodium Chloride 0.9% 250 ml @ 0.03 MCG/KG/MIN 11. 773 mls/hr IV .[id number] [facility] Rx#:[id number] propofoL 1,000 mg In 181.885 255.324 200 Empty Bag 1 bag @ 15 MCG/ KG/MIN 9.27 mls/hr IV . [id number] [facility] Rx#:[id number] Oral 0 Output: Urine 1075 2175 2190 Other: Voiding Method Indwelling Catheter Indwelling Catheter Indwelling Catheter ABP, PAP, CO, CI - Last Documented Arterial Blood Pressure 130/59 - Labs CBC & Chem 7: 11/20/22 03:43 11/20/22 03:43 Labs: Abnormal Lab Results - Last 24 Hours (Table) 11/19/22 11/20/22 11/20/22 Range/Units 18:35 00:01 03:43 WBC 16.1 H (3.8-10.6) k/uL RBC 3.44 L (4.30-5.90) m/uL Hgb 10.5 L (13.0-17.5) gm/dL Hct 30.9 L (39.0-53.0) % Neutrophils # 14.1 H (1.3-7.7) k/uL ABG pO2 (83-108) mmHg ABG HCO3 (21-25) mmol/L ABG Total CO2 (19-24) mmol/L ABG O2 Saturation (94-97) % BUN (9-20) mg/dL Creatinine (0.66-1.25) mg/dL Glucose (74-99) mg/dL POC Glucose (mg/dL) 168 H 185 H (70-110) mg/dL Calcium (8.4-10.2) mg/dL 11/20/22 11/20/22 11/20/22 Range/Units 03:43 06:08 06:08 WBC (3.8-10.6) k/uL RBC (4.30-5.90) m/uL Hgb (13.0-17.5) gm/dL Hct (39.0-53.0) % Neutrophils # (1.3-7.7) k/uL ABG pO2 157 H (83-108) mmHg ABG HCO3 29 H (21-25) mmol/L ABG Total CO2 31 H (19-24) mmol/L ABG O2 Saturation 99.1 H (94-97) % BUN 48 H (9-20) mg/dL Creatinine 2.04 H (0.66-1.25) mg/dL Glucose 168 H (74-99) mg/dL POC Glucose (mg/dL) 173 H (70-110) mg/dL Calcium 8.2 L (8.4-10.2) mg/dL 11/20/22 Range/Units 12:09 WBC (3.8-10.6) k/uL RBC (4.30-5.90) m/uL Hgb (13.0-17.5) gm/dL Hct (39.0-53.0) % Neutrophils # (1.3-7.7) k/uL ABG pO2 (83-108) mmHg ABG HCO3 (21-25) mmol/L ABG Total CO2 (19-24) mmol/L ABG O2 Saturation (94-97) % BUN (9-20) mg/dL Creatinine (0.66-1.25) mg/dL Glucose (74-99) mg/dL POC Glucose (mg/dL) 143 H (70-110) mg/dL Calcium (8.4-10.2) mg/dL Microbiology - Last 24 Hours (Table) 11/19/22 01:30 Gram Stain - Preliminary Sputum Sputum Culture - Preliminary
--- NOTE | 2022-11-20 17:59 | EEG ---
ELECTROENCEPHALOGRAM REPORT PREAMBLE: This is a 61-year-old male with cardiac arrest. EEG FINDINGS: This is a 21-channel digital EEG recorded with video component, utilizing 10/20 International System with referential and bipolar montages. The background consists of diffuse suppressed background with sporadic low-amplitude delta or theta slowing seen in bihemispheric region. Background is not reactive to photic stimulation or to eye opening or closing. Different stages of sleep were not seen. No focal or generalized epileptiform activity was seen. IMPRESSION: This is an abnormal EEG due to background slowing of severe degree, consistent with a history of anoxic encephalopathy. When compared to the EEG from yesterday, the epileptiform activity and bursts have completely resolved. No epileptiform activity was seen in this study. MMODL / IJN: [id number] /
[2022-11-20 18:55] LABS: Glucose,Whole Blood 134 mg/dL (70-110)
[2022-11-20] MEDS ORDERED: SODIUM CHLORIDE 3%(HYPERTONIC) 500 ML IV ONE (19:00)
[2022-11-20] MEDS: NOREPINEPHRINE 4 MG in SODIUM CHLORIDE 0.9% 250 ML IV SCH (19:12)
[2022-11-20 20:31] LABS: Potassium 3.8 mmol/L (3.5-5.1)
[2022-11-20] MEDS: SODIUM CHLORIDE 0.9% IVPB SCH (20:46)
[2022-11-20] MEDS: PHENYTOIN SODIUM IVPB SCH (20:46)
[2022-11-21] MEDS: IPRATROPIUM-ALBUTEROL 3 ML NEB INHALATION SCH ×6 (00:15→20:20)
[2022-11-21 00:29] LABS: Glucose,Whole Blood 151 mg/dL (70-110)
[2022-11-21] MEDS: HEPARIN SODIUM,PORCINE 5,000 UNIT/ML 1 ML VIAL SQ SCH ×4 (00:33→23:06)
[2022-11-21] MEDS: INSULIN ASPART (NovoLOG) 100 UNIT/ML VIAL SQ SCH ×5 (00:33→23:05)
[2022-11-21] MEDS: MIDAZOLAM HCL 50 MG in SODIUM CHLORIDE 0.9% 40 ML IV SCH (00:41)
--- NOTE | 2022-11-21 01:00 | P.PN ---
Subjective Progress Note Date: 11/20/22 Patient was seen for a follow-up. Patient currently on Versed drip at 4 mg per hour. Also on propofol at 35 mcg/kg per minute. Patient also on Keppra IV. Seizures have resolved. Objective - Vital Signs Vital signs: Vital Signs Temp 98.2 F 11/20/22 16:00 Pulse 112 H 11/20/22 17:00 Resp 23 11/20/22 17:00 BP 116/60 11/20/22 17:00 Pulse Ox 95 11/20/22 17:00 FiO2 40 11/20/22 16:00 Intake & Output 11/19/22 11/20/22 11/20/22 18:59 06:59 18:59 Intake Total 574.187 810.342 671.455 Output Total 1075 2175 2590 Balance -500.813 -1364.658 -1918.545 Weight 100.8 kg 100.8 kg Intake: IV 340 240 320 Piperacillin-Tazobactam 3 100 100 .375 gm In Sodium Chloride 0.9% 100 ml @ 25 mls/hr IVPB Q8H [facility] Rx#: [id number] Sodium Chloride 0.9% 1, 240 240 220 000 ml @ 20 mls/hr IV . Q24H [facility] Rx#:[id number] Intake, IV Titration 234.187 570.342 261.455 Amount Midazolam HCl 50 mg In 32.418 29.333 43.533 Sodium Chloride 0.9% 40 ml @ 1 MG/HR 1 mls/hr IV .Q24H [facility] Rx#:[id number] Norepinephrine 4 mg In 19.884 285.685 17.922 Sodium Chloride 0.9% 250 ml @ 0.03 MCG/KG/MIN 11. 773 mls/hr IV .[id number] [facility] Rx#:[id number] propofoL 1,000 mg In 181.885 255.324 200 Empty Bag 1 bag @ 15 MCG/ KG/MIN 9.27 mls/hr IV . [id number] [facility] Rx#:[id number] Oral 0 Tube Feeding 60 Other 30 Output: Urine 1075 2175 2590 Other: Voiding Method Indwelling Catheter Indwelling Catheter Indwelling Catheter ABP, PAP, CO, CI - Last Documented Arterial Blood Pressure 143/64 - Exam Patient is intubated, sedated as above. Patient not responding to calling name, or painful stimuli. Pupils are small about 3 mm, minimally reacting, inconsistently. Oculocephalics absent. Corneals absent. Patient has no gag, but does have cough reflex on deep suctioning. Deep tendon reflexes are trace at the knees, but absent elsewhere. Plantars are flat. Patient does not withdraw to painful stimuli. No obvious seizure activity noticed at this time, although with deep suctioning, patient did have some myoclonic twitching of the abdominal region. Patient does appear to be breathing over the ventilator, 22 for set at 20. - Labs CBC & Chem 7: 11/20/22 03:43 11/20/22 23:18 Labs: Abnormal Lab Results - Last 24 Hours (Table) 11/19/22 11/20/22 11/20/22 Range/Units 18:35 00:01 03:43 WBC 16.1 H (3.8-10.6) k/uL RBC 3.44 L (4.30-5.90) m/uL Hgb 10.5 L (13.0-17.5) gm/dL Hct 30.9 L (39.0-53.0) % Neutrophils # 14.1 H (1.3-7.7) k/uL ABG pO2 (83-108) mmHg ABG HCO3 (21-25) mmol/L ABG Total CO2 (19-24) mmol/L ABG O2 Saturation (94-97) % BUN (9-20) mg/dL Creatinine (0.66-1.25) mg/dL Glucose (74-99) mg/dL POC Glucose (mg/dL) 168 H 185 H (70-110) mg/dL Calcium (8.4-10.2) mg/dL 11/20/22 11/20/22 11/20/22 Range/Units 03:43 06:08 06:08 WBC (3.8-10.6) k/uL RBC (4.30-5.90) m/uL Hgb (13.0-17.5) gm/dL Hct (39.0-53.0) % Neutrophils # (1.3-7.7) k/uL ABG pO2 157 H (83-108) mmHg ABG HCO3 29 H (21-25) mmol/L ABG Total CO2 31 H (19-24) mmol/L ABG O2 Saturation 99.1 H (94-97) % BUN 48 H (9-20) mg/dL Creatinine 2.04 H (0.66-1.25) mg/dL Glucose 168 H (74-99) mg/dL POC Glucose (mg/dL) 173 H (70-110) mg/dL Calcium 8.2 L (8.4-10.2) mg/dL 11/20/22 Range/Units 12:09 WBC (3.8-10.6) k/uL RBC (4.30-5.90) m/uL Hgb (13.0-17.5) gm/dL Hct (39.0-53.0) % Neutrophils # (1.3-7.7) k/uL ABG pO2 (83-108) mmHg ABG HCO3 (21-25) mmol/L ABG Total CO2 (19-24) mmol/L ABG O2 Saturation (94-97) % BUN (9-20) mg/dL Creatinine (0.66-1.25) mg/dL Glucose (74-99) mg/dL POC Glucose (mg/dL) 143 H (70-110) mg/dL Calcium (8.4-10.2) mg/dL Microbiology - Last 24 Hours (Table) 11/19/22 01:30 Gram Stain - Preliminary Sputum Sputum Culture - Preliminary Assessment and Plan Assessment: * Status post witnessed cardiac arrest, with downtime of at least 28 minutes before ROSC was obtained. Patient at present showing signs of significant anoxic encephalopathy. * Myoclonic seizures, likely from severe anoxic encephalopathy, now seems to have resolved. * CHF with pulmonary edema * COPD with exacerbation * Acute kidney injury * Hyponatremia, resolved * Hyperlipidemia * Hypertension * Tobacco use Plan: * Repeat EEG today 11/20/2022 was abnormal due to background slowing of severe degree, consistent with history of anoxic encephalopathy. When compared to the EEG from yesterday, the epileptiform activity and bursts have completely resolved. No epileptiform activity was seen in this study. * Initial EEG 11/19/2022 was performed, which was severely abnormal due to presence of burst suppression pattern. Suppressed pattern consisted of isoelectric EEG with bursts consisting of high amplitude spike and slow wave lasting for 1-6 seconds. Clinically the burst associated with generalized body convulsion. Overall, this EEG is suggestive of severe generalized cerebral dysfunction and the pattern can be seen with severe anoxic encephalopathy. * Repeat CT head revealed diffuse loss of waldrop-white differentiation consistent with global hypoperfusion complex related to reported cardiac arrest. No ac konstantin intracranial hemorrhage. I personally reviewed CT head, agree with the findings. * Based upon the duration of cardiac arrest, clinical examination and EEG findings, the prognosis appears poor. * I had a prolonged discussion with family members. Computed tomography scan report, EEG reports were discussed. Patient's family wants to give some more time. It was decided to start hypertonic saline solution to reduce cerebral edema. We will start decreasing Versed drip by 1 mg every 2 hours until off. We will try to see how patient does off sedation. Patient will be continued on propofol for now. * Repeat neurological examination in the morning. * Patient will be continued on Keppra. We will decrease Keppra down to 1000 mg twice a day because of moderate renal insufficiency. * Stat Dilantin level checked was 14.4. Continue Dilantin 250 mg twice a day. * Other medical management as per IM and critical care team. Time with Patient: Greater than 30
[2022-11-21] MEDS: amLODIPine 5 MG TAB PO SCH ×3 (01:16→20:07)
[2022-11-21] MEDS: hydrALAZINE HCL 20 MG/ML 1 ML VIAL IVP PRN ×3 (02:54→21:40)
[2022-11-21] MEDS: PIPERACILLIN-TAZOBACTAM 3.375 GM in SODIUM CHLORIDE 0.9% 100 ML IVPB SCH ×3 (02:58→18:26)
[2022-11-21 05:14] LABS: African American GFR (CKD) 55 (>60 ml/min/1.73 sqM); Anion Gap 4 mmol/L; Blood Urea Nitrogen 39 mg/dL (9-20); Calcium 8.5 mg/dL (8.4-10.2); Carbon Dioxide 32 mmol/L (22-30); Chloride 107 mmol/L (98-107); Glucose 136 mg/dL (74-99); Non-African American GFR(CKD) 47 (>60 ml/min/1.73 sqM); Potassium 3.7 mmol/L (3.5-5.1); Sodium 143 mmol/L (137-145)
[2022-11-21 05:15] LABS: HCT 31.3 % (39.0-53.0); HGB 10.5 gm/dL (13.0-17.5); MCH 30.4 pg (25.0-35.0); MCHC 33.4 g/dL (31.0-37.0); Mean Platelet Volume 8.1; Platelet Count 217 k/uL (150-450); RBC 3.44 m/uL (4.30-5.90); RDW 14.9 % (11.5-15.5); WBC 11.1 k/uL (3.8-10.6)
[2022-11-21] MEDS ORDERED: Potassium Replacement Protocol 1 EACH MISC MISCELLANE PRN ×2 (07:54→14:31)
[2022-11-21] MEDS: SODIUM CHLORIDE 0.9% 1,000 ML IV SCH (07:55)
[2022-11-21] MEDS ORDERED: POTASSIUM BICARBONATE/CIT AC 20 MEQ TABLET.EFF NG-TUBE SCH (08:00)
[2022-11-21] MEDS: FORMOTEROL FUMARATE 20 MCG/2 ML NEBU INHALATION SCH ×2 (08:20→20:20)
[2022-11-21] MEDS: BUDESONIDE 1 MG/2 ML NEBU INHALATION SCH ×2 (08:20→20:20)
[2022-11-21] MEDS: levETIRAcetam IV 500 MG/5 ML VIAL IVP SCH ×2 (08:34→20:07)
[2022-11-21] MEDS: CHLORHEXIDINE GLUCONATE 15 ML CUP MUCOUS MEM SCH ×2 (08:34→20:07)
[2022-11-21] MEDS: METOPROLOL TARTRATE 25 MG TAB PO SCH ×2 (08:35→20:07)
[2022-11-21] MEDS: PANTOPRAZOLE 40 MG/10 ML VIAL IVP SCH (08:35)
[2022-11-21] MEDS: SODIUM CHLORIDE 0.9% IVPB SCH ×2 (08:45→20:20)
[2022-11-21] MEDS: PHENYTOIN SODIUM IVPB SCH ×2 (08:45→20:20)
[2022-11-21 08:59] LABS: Basophils # (M) 0.11 k/uL (0-0.2); Lymphocytes # (M) 1.44 k/uL (1.0-4.8); Monocytes # (M) 0.67 k/uL (0-1.0); Neutrophils # (M) 8.99 k/uL (1.3-7.7); Neutrophils % (M) 81 %; Nucleated Red Blood Cells 0 /100 WBC (0-0); Total Cells Counted 200
[2022-11-21] MEDS ORDERED: SODIUM CHLORIDE 3%(HYPERTONIC) 500 ML IV ONE ×2 (09:00→18:00)
[2022-11-21] MEDS ORDERED: amLODIPine 5 MG TAB PO SCH (09:00)
--- NOTE | 2022-11-21 09:18 | XR ---
EXAMINATION TYPE: XR chest 1V DATE OF EXAM: 11/21/2022 COMPARISON: 11/20/2022 HISTORY: Tube placement TECHNIQUE: Single frontal view of the chest is obtained. FINDINGS: ET and NG tube noted with the left lower lobe infiltrate and small effusion. While coarsen ing of the interstitium. Heart is enlarged. Hypertrophic and degenerative changes of the spine. Posts urgical change left shoulder. Atherosclerotic change aorta. NG tube is been pulled back to the mid es ophagus. IMPRESSION: 1. NG tube is been pulled back to the mid esophagus. There are 2 left lower lobe infiltrate and small effusion. Correlate for mild residual venous congestion.
--- NOTE | 2022-11-21 10:16 | XR ---
EXAMINATION TYPE: XR chest 1V portable DATE OF EXAM: 11/21/2022 COMPARISON: 11/21/2022 HISTORY: NG tube placement TECHNIQUE: Single frontal view of the chest is obtained. FINDINGS: ET stable. There is left lower lobe infiltrate and small effusion. While coarsening of the interstitium. Heart is enlarged. Hypertrophic and degenerative changes of the spine. Postsurgical ch sara left shoulder not included in the [id number] on current exam. Bilateral hypertrophic arthropa thy of the AC joints. Atherosclerotic change aorta. NG tube is now seen in good position with the tip coiled within the stomach. IMPRESSION: 1. Stable pleural parenchymal changes. 2. Left lower lobe infiltrate and small effusion stable.
--- NOTE | 2022-11-21 10:43 | P.PN ---
Subjective Progress Note Date: 11/21/22 I am seeing this patient in consultation today 11/19/2022 in the intensive care unit status post cardiac arrest with prolonged downtime. Patient is a 61-year-old white male with past medical history significant for COPD, previous ventilator dependent respiratory failure, congestive heart failure, hypert ension, chronic pain on methadone, and ex-tobacco smoker. According to the patient's significant other, he was feeling well for most of the day yesterday, he did go to work, and was feeling fine when he got home. Early this morning, he was in some respiratory distress and was taking a breathing treatment. The patient's girlfriend witnessed him go unresponsive while on the phone with EMS. Once EMS arrived, he was pulseless, they initiated CPR and he had a prolonged estimated downtime of 20-25 minutes. Presenting rhythm is reportedly PEA. He received a total of 4 A of epinephrine. He did have return of spontaneous circulation after several rounds of CPR. The patient was transferred to [facility] emergency room and he was intubated. A right femoral central line and arterial line was placed in the emergency room. Patient is currently in the ICU, intubated to the mechanical ventilator, completely unresponsive without sedation. Initial ventilator settings were assist control, respiratory rate 16, tidal volume 500, FiO2 100%, and PEEP of 5. Initial ABG on arrival showed a pO2 of 345, pCO2 of 65, pH is 7.16. During transport, the patient's oxygen demand increased. PEEP was increased to 10 and respiratory rate increased to 24. Repeat ABGs on these settings show a pO2 of 81, pCO2 of 68, pH of 7.26. Chest x-ray shows endotracheal tube approximately 6 cm above the martine, and oral gastric tube within the stomach. Chest x-ray is concerning for pulmonary edema. No obvious pneumothorax. I did start him on Lasix. He has no respiratory drive underneath the ventilator. Not on any sedation. Noncontrast CT of the brain did not show any acute intracranial abnormality. He is having intermittent myoclonic jerks and was loaded with 2 g of Keppra as well as when necessary Ativan. There is obviously concern for anoxic brain injury. EEG is scheduled for morning. Hemodynamically, the patient is hypotensive and was started on low-dose norepinephrine which is currently infusing at 0.03 mcg/kg/m. Normal saline is KVO. ECG on arrival to the emergency room showed A. fib RVR, however, heart rhythm is currently normal sinus on the bedside monitor. CBC shows a WBC count of 9.8, hemoglobin 11.5, hematocrit 35, platelets 228. BMP shows sodium 135, potassium 4.6, chloride 98, serum bicarb 19, BUN 30, creatinine 1.91, glucose 252. Lactic acid level was 9.2. Patient was given 1 L normal saline bolus the emergency room. Troponin less than 0.012. NT proBNP 1750. Indwelling catheter with pale yellow urine. He is hypothermic. Overall, prognosis is very guarded due to patient's prolonged downtime and concern for anoxic brain injury. He will be monitored in the intensive care unit. On today's evaluation of a 2022, the patient is being seen for a follow-up. Patient is post cardiac arrest. Patient has anoxic encephalopathy. Yesterday, the patient was having frequent myoclonic jerks and those jerks have essentially subsided. He still has some episodic jerks whenever he is stimulated. He is currently on Keppra 1500 mg twice a day. His EGD was completed yesterday and it showed severe abnormalities with evidence of burst suppression pattern. The s uppressed pattern consisted of isoelectric EEG would burst consisting of high amplitude polyspike and slow wave lasting a few seconds. This is consistent with severe anoxic encephalopathy. The patient is currently on propofol running at 40 mcg/kg/m. He is also on a Versed drip at 4 mg an hour that was added to control his seizure activity in addition to Keppra. He remains on a mechanical ventilator. His assist-control mode at a rate of 24, tidal volume of 100, FiO2 of 40% with a PEEP of 10. The blood gas from today shows a pH of 7.44 with a pCO2 of 44 and pO2 of 157. His chest x-ray shows resolution of the pulmonary edema and there is adequate aeration of both lungs without evidence of any pneumothorax. Echocardiogram was completed and the patient has an EF of around 55%. No valvular abnormalities noted. He sustained an acute kidney injury. Is on Lasix 60 mg IV twice a day and he is in negative fluid balance of 1.6 L. His kidney failure is still active and the patient's creatinine is up to 2.04. Nevertheless, is nonoliguric and is producing adequate amount of urine output. His hemoglobin is at 16.1, platelet count is at 205 in the hemoglobin is at 10.5. Electrolytes are all within normal limits. He is on IV Zosyn as an empiric antibiotic coverage for the possibility of an aspiration. He is afebrile. No other significant events otherwise. On 11/21/2022, the patient is being seen for a follow-up. He is post cardiac arrest and he remains essentially unresponsive. He was taken off the Versed drip and the patient is currently on propofol which is running at 20 mcg/kg/m. A repeat CAT scan of the brain was done yesterday that showed diffuse loss and waldrop and white matter differentiation consistent with global hypoperfusion post cardiac arrest probably some KENO WRITER edema. Based on that, the patient was started on 3% hypertonic saline which is currently running at 50 mL an hour. This is per neurology's recommendations. A repeat EEG was done yesterday on 11/20/2022 and it showed background slowing, severe consistent with anoxic encephalopathy. The epileptic foci have essentially recovered. No myoclonic jerks for now. He is on Keppra 1 g every 12 hours and is also on Dilantin per neurology. Does not respond to any painful stimulation. He is breathing above the mechanical ventilator. He has a positive cough and a gag. He is on a mechanical ve ntilator on assist control mode at the rate of 20, tidal volume is at 500, FiO2 is at 40% with a PEEP of 5. His chest x-ray shows some interstitial edema and orotracheal tube is in a good location. Sodium level is at 143, BUN is at 39 with a creatinine of 1.58. The previous occurrence of 11.4 with a hemoglobin of 10.5. The patient is running a low-grade fever 100.9 and he is receiving external warming. He is covered empirically with broad-spectrum antibiotics and the patient is currently on IV Zosyn. Blood pressure was noted to be elevated. He was started on Norvasc 5 mg and I'm going to increase the dose up to 10 mg for effective blood pressure control. He is also on hydralazine 10 mg IV as needed every 6 hours and is also on metoprolol at a dose of 25 mg by mouth twice a day. He has also developed an acute kidney injury and the creatinine currently is at 1.58 which is improved compared to yesterday. Urine output is in order of 100 mL an hour. He is started on enteral feeding and the patient is receiving vital HP at the rate of 40 mL an hour Objective - Vital Signs Vital signs: Vital Signs Temp 100.9 F H 11/21/22 08:00 Pulse 100 11/21/22 10:00 Resp 28 H 11/21/22 10:00 BP 163/75 11/21/22 10:00 Pulse Ox 94 L 11/21/22 10:00 FiO2 40 11/21/22 08:22 Intake & Output 11/20/22 11/21/22 11/21/22 18:59 06:59 18:59 Intake Total 842.922 715.917 649.908 Output Total 2690 1320 1110 Balance -1847.078 -604.083 -460.092 Weight 100.8 kg Intake: IV 340 300 160 Piperacillin-Tazobactam 3 100 100 100 .375 gm In Sodium Chloride 0.9% 100 ml @ 25 mls/hr IVPB Q8H [facility] Rx#: [id number] Sodium Chloride 0.9% 1, 240 200 60 000 ml @ 20 mls/hr IV . Q24H [facility] Rx#:[id number] Intake, IV Titration 392.922 335.917 239.908 Amount Midazolam HCl 50 mg In 75.000 15.917 Sodium Chloride 0.9% 40 ml @ 1 MG/HR 1 mls/hr IV .Q24H [facility] Rx#:[id number] Norepinephrine 4 mg In 17.922 Sodium Chloride 0.9% 250 ml @ 0.03 MCG/KG/MIN 11. 773 mls/hr IV .[id number] [facility] Rx#:[id number] Phenytoin Sodium Inj 250 45 mg In Sodium Chloride 0.9 % 45 ml @ 100 mls/hr IVPB Q12HR [facility] Rx#:[id number] Sodium Chloride 3%( 120 Hypertonic) 500 ml @ 30 mls/hr IV .[id number] [facility] Rx #:[id number] Sodium Chloride 3%( 150 Hypertonic) 500 ml @ 50 mls/hr IV .Q10H [facility] Rx#: [id number] propofoL 1,000 mg In 300 200 44.908 Empty Bag 1 bag @ 15 MCG/ KG/MIN 9.27 mls/hr IV . [id number] [facility] Rx#:[id number] Oral 0 0 0 Tube Feeding 80 80 120 Other 30 130 Output: Urine 2690 1320 1110 Other: Voiding Method Indwelling Catheter Indwelling Catheter ABP, PAP, CO, CI - Last Documented Arterial Blood Pressure 185/81 - Exam GENERAL EXAM: Unresponsive even to painful stimuli, intubated to the mechanical ventilator, not on any sedation, the patient is breathing above the mechanical ventilator at the rate of 30, his sed rate is at 20. HEAD: Normocephalic and atraumatic EYES: Normal reaction of pupils, equal size. NOSE: Clear with pink turbinates. THROAT: No erythema or exudates. NECK: No masses, no JVD. CHEST: No chest wall deformity. LUNGS: Equal air entry with diffuse rhonchi throughout and minimal expiratory wheezes. Intubated to the mechanical ventilator. Synchronous with current settings, no intrinsic respiratory drive. Peak pressure 30 and plateau pressure 22. Minimal secretions. CVS: S1 and S2 normal with no audible murmur, regular rhythm. No extra heart sounds ABDOMEN: Obese abdomen, no hepatosplenomegaly, active bowel sounds, no guarding or rigidity. OG tube to low intermittent suction with minimal brown output SPINE: No scoliosis or deformity SKIN: No rashes CENTRAL NERVOUS SYSTEM: Unresponsive to even painful stimuli, not on any sedation, DTRs diminished throughout, Babinski's negative bilaterally, no evidence of any myoclonic jerks on today's evaluations. Pupils are round 5 mm in size, reactive to light. Positive cough and a gag. EXTREMITIES: There is no peripheral edema. No clubbing, or cyanosis. [place]. Peripheral pulses are intact. - Labs CBC & Chem 7: 11/21/22 04:52 11/21/22 04:52 Labs: Abnormal Lab Results - Last 24 Hours (Table) 11/20/22 11/20/22 11/21/22 Range/Units 12:09 18:53 00:28 WBC (3.8-10.6) k/uL RBC (4.30-5.90) m/uL Hgb (13.0-17.5) gm/dL Hct (39.0-53.0) % Neutrophils # (Manual) (1.3-7.7) k/uL Carbon Dioxide (22-30) mmol/L BUN (9-20) mg/dL Creatinine (0.66-1.25) mg/dL Glucose (74-99) mg/dL POC Glucose (mg/dL) 143 H 134 H 151 H (70-110) mg/dL 11/21/22 11/21/22 Range/Units 04:52 04:52 WBC 11.1 H (3.8-10.6) k/uL RBC 3.44 L (4.30-5.90) m/uL Hgb 10.5 L (13.0-17.5) gm/dL Hct 31.3 L (39.0-53.0) % Neutrophils # (Manual) 8.99 H (1.3-7.7) k/uL Carbon Dioxide 32 H (22-30) mmol/L BUN 39 H (9-20) mg/dL Creatinine 1.58 H (0.66-1.25) mg/dL Glucose 136 H (74-99) mg/dL POC Glucose (mg/dL) (70-110) mg/dL Microbiology - Last 24 Hours (Table) 11/19/22 01:30 Gram Stain - Preliminary Sputum Sputum Culture - Preliminary Assessment and Plan Assessment: Cardiac arrest, with prolonged downtime of 20-25 minutes. Presenting rhythm was reportedly PEA, achieving return of spontaneous circulation after multiple rounds of CPR and 4 A of epinephrine. Severe anoxic brain injury, Noncontrast CT of the brain did not show any acute intracranial abnormality. There are intermittent myoclonic jerks. EEG was noted. The patient is currently on a combination of propofol running at 40 g addition to Versed 10 mg and is also on Keppra. Episodes of myoclonic jerks have subsided although the patient still having some occasional episodes. On today's evaluation, no evidence of any myoclonic jerks and the EEG that was done yesterday showed no ongoing epileptic foci. The patient is currently on accommodation of Keppra and Dilantin. Repeat CAT scan of the brain showed effacement of the white/waldrop matter and the patient was started on hypertonic saline for KENO WRITER edema. He remains unresponsive. Acute hypoxemic and hypercapnic respiratory failure, likely secondary to an exacerbation of diastolic congestive heart failure, intubated to the mechanical ventilator. Chest x-ray is concerning for pulmonary edema. Recent echocardiogram done on 07/03/2022 shows a preserved left ventricular ejection fraction of 55-60% with moderate concentric LVH. Moderate mitral regurgitation and stenosis. There is moderate to severe pulmonary hypertension with RVSP of 55 mmHg. Acute COPD exacerbation, currently stable without active bronchospasm wheezing and the peak airway pressure has dropped compared to yesterday. He remains on bronchodilators Hypotension, recovered. The patient is currently off pressors Anion gap metabolic acidosis, secondary to cardiac arrest and lactic acidosis Acute kidney injury, related to hypotension and ATN, renal function is improved compared to yesterday Hypothermia, with subsequent hyperthermia and the patient is currently receiving external cooling Normocytic, normochromic anemia Hyperlipidemia Chronic pain, maintained on methadone outpatient History of ventilator dependent respiratory failure Enteral feeding for nutritional support was initiated yesterday Plan: Patient has signs of severe anoxic encephalopathy Continue hypertonic saline Continue Keppra Continue Dilantin CAT scan of the brain and EEG was noted from yesterday No ventilator changes for today Continue enteral feeding Chest x-ray was noted Blood gas was noted Monitor fever pattern Continue IV Zosyn This is likely a central fever External cooling Keep propofol for now Echo was noted Carries the Norvasc to 5 mg twice a day in addition to hydralazine and metopr olol for blood pressure control Neurology consultation appreciated [employer] on the case Will be communicating with the family with the various results. Unfortunately, patient has signs of significant neurologic damage and signs of anoxic encephalopathy and he carries a very poor prognosis due to his cardiac arrest and prolonged downtime. [facility] is on the case We'll continue to follow make further recommendations based on his progress. Consider care evaluation,> 30min Time with Patient: Greater than 30
[2022-11-21 12:17] LABS: Glucose,Whole Blood 137 mg/dL (70-110)
[2022-11-21] MEDS: niCARdipine 20 MG in SODIUM CHLORIDE 0.9% 192 ML IV SCH ×4 (13:56→19:40)
--- NOTE | 2022-11-21 14:21 | P.PN ---
Subjective Progress Note Date: 11/21/22 Patient remains on ventilator with sedation from propofol and Versed General: intubated, sedated HEENT: normocephalic, atraumatic, no tracheal deviation Respiratory: symmetric chest rise, no cyanosis, ventilator dependent CVS: perfusing all extremities, no distal gangrene, no pitting edema GI: soft, ND : no SPT, no CVAT, laboy not present Neuro: sedated Hospital course: 61-year-old man with a medical history of hypertension, hyperlipidemia, COPD, methadone dependence present after cardiac arrest. Patient had 25 minutes of downtime in the field before achieving return of spontaneous circulation prior to arrival. In the emergency room, patient's temperature was 95.7, heart rate was 108, 78/47, 88% on nonrebreather. Initial CBC demonstrated blood cell count of 9.8, hemoglobin of 11.5. BMP showed sodium of 135, CO2 of 19, gap of 18, BUNs of 30, creatinine of 1.91. Liver function test showed total protein 6.2, albumin of 3.4. BNP was 1750. Lactic acid is 9.2. Troponin was 0.012. Coags are unremarkable. Troponin subsequent elevated to 0.351 then 0.977. Pro- calcitonin is 0.38. Phenytoin level is 14.4. Patient's chest x-ray showed cardiomegaly, right-sided pulmonary infiltrate. EKG showed atrial fibrillation with rapid ventricular response. Brain CT head no acute findings in the head/brain. Case was discussed with the emergency room provider and decision was made to admit the patient to the intensive care unit for further evaluation. Patient was intubated in the emergency room. Patient was seen by pulmonology, neurology, cardiology. Neurology recommended EEG which showed isoelectric pattern with intermittent sharp waves concerning for severe anoxic brain injury. Echocardiogram demonstrated 50-55% EF, RVSP of 32. Assessment: Cardiac arrest Anoxic brain injury Acute Kidney Injury Seizures COPD without exacerbation Plan: Patient is febrile to 100.9, 163/75, heart rate 101, 96% on 40% of FiO2 CBC demonstrated leukocytosis to 11.1, hemoglobin of 10.5. Basic metabolic panel shows be in the 39, creatinine 1.58. Patient remains on Versed drip Patient no longer requiring levo fed Patient remains on Zosyn Lasix was discontinued Objective - Vital Signs Vital signs: Vital Signs Temp 100.2 F H 11/21/22 12:00 Pulse 101 H 11/21/22 14:00 Resp 27 H 11/21/22 14:00 BP 163/75 11/21/22 14:00 Pulse Ox 96 11/21/22 14:00 FiO2 40 11/21/22 12:03 Intake & Output 11/20/22 11/21/22 11/21/22 18:59 06:59 18:59 Intake Total 842.922 474.550 7099.507 Output Total 2690 1320 1860 Balance -1847.078 -604.083 -695.493 Weight 100.8 kg 102.3 kg Intake: IV 340 300 240 Piperacillin-Tazobactam 3 100 100 100 .375 gm In Sodium Chloride 0.9% 100 ml @ 25 mls/hr IVPB Q8H [facility] Rx#: [id number] Sodium Chloride 0.9% 1, 240 200 140 000 ml @ 20 mls/hr IV . Q24H [facility] Rx#:[id number] Intake, IV Titration 392.922 335.917 484.507 Amount Midazolam HCl 50 mg In 75.000 15.917 Sodium Chloride 0.9% 40 ml @ 1 MG/HR 1 mls/hr IV .Q24H [facility] Rx#:[id number] Norepinephrine 4 mg In 17.922 Sodium Chloride 0.9% 250 ml @ 0.03 MCG/KG/MIN 11. 773 mls/hr IV .[id number] [facility] Rx#:[id number] Phenytoin Sodium Inj 250 45 mg In Sodium Chloride 0.9 % 45 ml @ 100 mls/hr IVPB Q12HR [facility] Rx#:[id number] Sodium Chloride 3%( 120 Hypertonic) 500 ml @ 30 mls/hr IV .[id number] [facility] Rx #:[id number] Sodium Chloride 3%( 350 Hypertonic) 500 ml @ 50 mls/hr IV .Q10H [facility] Rx#: [id number] niCARdipine 20 mg In 9.167 Sodium Chloride 0.9% 192 ml @ 5 MG/HR 50 mls/hr IV .Q4H [facility] Rx#:[id number] propofoL 1,000 mg In 300 200 80.340 Empty Bag 1 bag @ 15 MCG/ KG/MIN 9.27 mls/hr IV . [id number] [facility] Rx#:[id number] Oral 0 0 0 Tube Feeding 80 80 280 Other 30 160 Output: Urine 2690 1320 1860 Other: Voiding Method Indwelling Catheter Indwelling Catheter Indwelling Catheter ABP, PAP, CO, CI - Last Documented Arterial Blood Pressure 197/82 - Labs CBC & Chem 7: 11/21/22 04:52 11/21/22 13:40 Labs: Abnormal Lab Results - Last 24 Hours (Table) 11/20/22 11/21/22 11/21/22 Range/Units 18:53 00:28 04:52 WBC 11.1 H (3.8-10.6) k/uL RBC 3.44 L (4.30-5.90) m/uL Hgb 10.5 L (13.0-17.5) gm/dL Hct 31.3 L (39.0-53.0) % Neutrophils # (Manual) 8.99 H (1.3-7.7) k/uL Carbon Dioxide (22-30) mmol/L BUN (9-20) mg/dL Creatinine (0.66-1.25) mg/dL Glucose (74-99) mg/dL POC Glucose (mg/dL) 134 H 151 H (70-110) mg/dL 11/21/22 11/21/22 Range/Units 04:52 12:15 WBC (3.8-10.6) k/uL RBC (4.30-5.90) m/uL Hgb (13.0-17.5) gm/dL Hct (39.0-53.0) % Neutrophils # (Manual) (1.3-7.7) k/uL Carbon Dioxide 32 H (22-30) mmol/L BUN 39 H (9-20) mg/dL Creatinine 1.58 H (0.66-1.25) mg/dL Glucose 136 H (74-99) mg/dL POC Glucose (mg/dL) 137 H (70-110) mg/dL Microbiology - Last 24 Hours (Table) 11/19/22 01:30 Gram Stain - Final Sputum Sputum Culture - Final
[2022-11-21] MEDS: POTASSIUM CHLORIDE 20 MEQ in WATER FOR INJECTION 1 100ML.BAG IVPB SCH ×2 (14:55→16:22)
[2022-11-21] MEDS: hydrALAZINE HCL 50 MG TAB PO SCH ×2 (15:00→21:24)
[2022-11-21 17:58] LABS: Glucose,Whole Blood 186 mg/dL (70-110)
[2022-11-21 18:23] LABS: Glucose,Whole Blood 193 mg/dL (70-110)
[2022-11-21 19:40] LABS: Potassium 3.6 mmol/L (3.5-5.1)
[2022-11-21] MEDS: NOREPINEPHRINE 4 MG in SODIUM CHLORIDE 0.9% 250 ML IV SCH (20:08)
[2022-11-21] MEDS ORDERED: cloNIDine HCL 0.2 MG TAB PO STA (20:36)
[2022-11-21 23:06] LABS: Glucose,Whole Blood 129 mg/dL (70-110)
[2022-11-22] MEDS: IPRATROPIUM-ALBUTEROL 3 ML NEB INHALATION SCH ×6 (00:20→20:39)
[2022-11-22] MEDS: SODIUM CHLORIDE 0.9% 1,000 ML IV SCH (01:34)
[2022-11-22 02:43] LABS: Basophils % (A) 0 %; Eosinophils % (A) 0 %; HCT 31.3 % (39.0-53.0); HGB 10.2 gm/dL (13.0-17.5); Lymphocytes # (A) 0.9 k/uL (1.0-4.8); Lymphocytes % (A) 8 %; MCH 30.4 pg (25.0-35.0); MCHC 32.5 g/dL (31.0-37.0); MCV 93.7 fL (80.0-100.0); Mean Platelet Volume 8.6; Monocytes # (A) 0.6 k/uL (0-1.0); Monocytes % (A) 5 %; Neutrophils # (A) 8.9 k/uL (1.3-7.7); Neutrophils % (A) 85 %; Platelet Count 190 k/uL (150-450); RBC 3.35 m/uL (4.30-5.90); RDW 15.4 % (11.5-15.5); WBC 10.5 k/uL (3.8-10.6)
[2022-11-22 02:55] LABS: Chloride 120 mmol/L (98-107)
[2022-11-22 02:57] LABS: African American GFR (CKD) 73 (>60 ml/min/1.73 sqM); Anion Gap 4 mmol/L; Blood Urea Nitrogen 34 mg/dL (9-20); Calcium 8.4 mg/dL (8.4-10.2); Carbon Dioxide 26 mmol/L (22-30); Glucose 162 mg/dL (74-99); Magnesium 2.2 mg/dL (1.6-2.3); Non-African American GFR(CKD) 63 (>60 ml/min/1.73 sqM); Potassium 3.4 mmol/L (3.5-5.1); Sodium 150 mmol/L (137-145)
[2022-11-22] MEDS: hydrALAZINE HCL 20 MG/ML 1 ML VIAL IVP PRN (03:35)
[2022-11-22] MEDS: PIPERACILLIN-TAZOBACTAM 3.375 GM in SODIUM CHLORIDE 0.9% 100 ML IVPB SCH ×3 (03:36→18:02)
[2022-11-22] MEDS: cloNIDine HCL 0.2 MG TAB PO SCH ×3 (03:36→20:00)
[2022-11-22] MEDS: POTASSIUM BICARBONATE/CIT AC 20 MEQ TABLET.EFF NG-TUBE SCH ×4 (03:39→20:00)
[2022-11-22] MEDS ORDERED: LORazepam 2 MG/ML INJ IV STA (04:05)
[2022-11-22] MEDS: niCARdipine 20 MG in SODIUM CHLORIDE 0.9% 192 ML IV SCH ×2 (04:16→09:06)
[2022-11-22] MEDS ORDERED: SODIUM CHLORIDE 3%(HYPERTONIC) 500 ML IV ONE (04:46)
[2022-11-22 06:05] LABS: Glucose,Whole Blood 184 mg/dL (70-110)
[2022-11-22 06:08] LABS: ABG Base Excess 2.2 mmol/L; ABG HCO3 26 mmol/L (21-25); ABG Oxygen Saturation 96.8 % (94-97); ABG PCO2 36 mmHg (35-45); ABG PH 7.46 (7.35-7.45); ABG PO2 83 mmHg (83-108); ABG TCO2 27 mmol/L (19-24); Allen Test Performed? Yes
[2022-11-22] MEDS: INSULIN ASPART (NovoLOG) 100 UNIT/ML VIAL SQ SCH ×4 (06:24→23:56)
[2022-11-22] MEDS: FORMOTEROL FUMARATE 20 MCG/2 ML NEBU INHALATION SCH ×2 (08:21→20:39)
[2022-11-22] MEDS: BUDESONIDE 1 MG/2 ML NEBU INHALATION SCH ×2 (08:21→20:39)
[2022-11-22] MEDS: ACETAMINOPHEN IV (For NPO) 1,000 MG in EMPTY BAG 1 BAG IVPB PRN ×2 (08:53→20:01)
[2022-11-22] MEDS: HEPARIN SODIUM,PORCINE 5,000 UNIT/ML 1 ML VIAL SQ SCH ×3 (09:08→23:49)
[2022-11-22] MEDS: METOPROLOL TARTRATE 25 MG TAB PO SCH (09:08)
[2022-11-22] MEDS: PANTOPRAZOLE 40 MG/10 ML VIAL IVP SCH (09:08)
[2022-11-22] MEDS: levETIRAcetam IV 500 MG/5 ML VIAL IVP SCH ×2 (09:08→20:00)
[2022-11-22] MEDS: CHLORHEXIDINE GLUCONATE 15 ML CUP MUCOUS MEM SCH ×2 (09:09→20:00)
[2022-11-22] MEDS: amLODIPine 5 MG TAB PO SCH ×2 (09:09→20:00)
[2022-11-22] MEDS: hydrALAZINE HCL 50 MG TAB PO SCH ×3 (09:09→20:00)
--- NOTE | 2022-11-22 09:19 | P.PN ---
Subjective Progress Note Date: 11/22/22 I am seeing this patient in consultation today 11/19/2022 in the intensive care unit status post cardiac arrest with prolonged downtime. Patient is a 61-year-old white male with past medical history significant for COPD, previous ventilator dependent respiratory failure, congestive heart failure, hypert ension, chronic pain on methadone, and ex-tobacco smoker. According to the patient's significant other, he was feeling well for most of the day yesterday, he did go to work, and was feeling fine when he got home. Early this morning, he was in some respiratory distress and was taking a breathing treatment. The patient's girlfriend witnessed him go unresponsive while on the phone with EMS. Once EMS arrived, he was pulseless, they initiated CPR and he had a prolonged estimated downtime of 20-25 minutes. Presenting rhythm is reportedly PEA. He received a total of 4 A of epinephrine. He did have return of spontaneous circulation after several rounds of CPR. The patient was transferred to [facility] emergency room and he was intubated. A right femoral central line and arterial line was placed in the emergency room. Patient is currently in the ICU, intubated to the mechanical ventilator, completely unresponsive without sedation. Initial ventilator settings were assist control, respiratory rate 16, tidal volume 500, FiO2 100%, and PEEP of 5. Initial ABG on arrival showed a pO2 of 345, pCO2 of 65, pH is 7.16. During transport, the patient's oxygen demand increased. PEEP was increased to 10 and respiratory rate increased to 24. Repeat ABGs on these settings show a pO2 of 81, pCO2 of 68, pH of 7.26. Chest x-ray shows endotracheal tube approximately 6 cm above the martine, and oral gastric tube within the stomach. Chest x-ray is concerning for pulmonary edema. No obvious pneumothorax. I did start him on Lasix. He has no respiratory drive underneath the ventilator. Not on any sedation. Noncontrast CT of the brain did not show any acute intracranial abnormality. He is having intermittent myoclonic jerks and was loaded with 2 g of Keppra as well as when necessary Ativan. There is obviously concern for anoxic brain injury. EEG is scheduled for morning. Hemodynamically, the patient is hypotensive and was started on low-dose norepinephrine which is currently infusing at 0.03 mcg/kg/m. Normal saline is KVO. ECG on arrival to the emergency room showed A. fib RVR, however, heart rhythm is currently normal sinus on the bedside monitor. CBC shows a WBC count of 9.8, hemoglobin 11.5, hematocrit 35, platelets 228. BMP shows sodium 135, potassium 4.6, chloride 98, serum bicarb 19, BUN 30, creatinine 1.91, glucose 252. Lactic acid level was 9.2. Patient was given 1 L normal saline bolus the emergency room. Troponin less than 0.012. NT proBNP 1750. Indwelling catheter with pale yellow urine. He is hypothermic. Overall, prognosis is very guarded due to patient's prolonged downtime and concern for anoxic brain injury. He will be monitored in the intensive care unit. On today's evaluation of a 2022, the patient is being seen for a follow-up. Patient is post cardiac arrest. Patient has anoxic encephalopathy. Yesterday, the patient was having frequent myoclonic jerks and those jerks have essentially subsided. He still has some episodic jerks whenever he is stimulated. He is currently on Keppra 1500 mg twice a day. His EGD was completed yesterday and it showed severe abnormalities with evidence of burst suppression pattern. The s uppressed pattern consisted of isoelectric EEG would burst consisting of high amplitude polyspike and slow wave lasting a few seconds. This is consistent with severe anoxic encephalopathy. The patient is currently on propofol running at 40 mcg/kg/m. He is also on a Versed drip at 4 mg an hour that was added to control his seizure activity in addition to Keppra. He remains on a mechanical ventilator. His assist-control mode at a rate of 24, tidal volume of 100, FiO2 of 40% with a PEEP of 10. The blood gas from today shows a pH of 7.44 with a pCO2 of 44 and pO2 of 157. His chest x-ray shows resolution of the pulmonary edema and there is adequate aeration of both lungs without evidence of any pneumothorax. Echocardiogram was completed and the patient has an EF of around 55%. No valvular abnormalities noted. He sustained an acute kidney injury. Is on Lasix 60 mg IV twice a day and he is in negative fluid balance of 1.6 L. His kidney failure is still active and the patient's creatinine is up to 2.04. Nevertheless, is nonoliguric and is producing adequate amount of urine output. His hemoglobin is at 16.1, platelet count is at 205 in the hemoglobin is at 10.5. Electrolytes are all within normal limits. He is on IV Zosyn as an empiric antibiotic coverage for the possibility of an aspiration. He is afebrile. No other significant events otherwise. On 11/21/2022, the patient is being seen for a follow-up. He is post cardiac arrest and he remains essentially unresponsive. He was taken off the Versed drip and the patient is currently on propofol which is running at 20 mcg/kg/m. A repeat CAT scan of the brain was done yesterday that showed diffuse loss and waldrop and white matter differentiation consistent with global hypoperfusion post cardiac arrest probably some [employer] edema. Based on that, the patient was started on 3% hypertonic saline which is currently running at 50 mL an hour. This is per neurology's recommendations. A repeat EEG was done yesterday on 11/20/2022 and it showed background slowing, severe consistent with anoxic encephalopathy. The epileptic foci have essentially recovered. No myoclonic jerks for now. He is on Keppra 1 g every 12 hours and is also on Dilantin per neurology. Does not respond to any painful stimulation. He is breathing above the mechanical ventilator. He has a positive cough and a gag. He is on a mechanical ve ntilator on assist control mode at the rate of 20, tidal volume is at 500, FiO2 is at 40% with a PEEP of 5. His chest x-ray shows some interstitial edema and orotracheal tube is in a good location. Sodium level is at 143, BUN is at 39 with a creatinine of 1.58. The previous occurrence of 11.4 with a hemoglobin of 10.5. The patient is running a low-grade fever 100.9 and he is receiving external warming. He is covered empirically with broad-spectrum antibiotics and the patient is currently on IV Zosyn. Blood pressure was noted to be elevated. He was started on Norvasc 5 mg and I'm going to increase the dose up to 10 mg for effective blood pressure control. He is also on hydralazine 10 mg IV as needed every 6 hours and is also on metoprolol at a dose of 25 mg by mouth twice a day. He has also developed an acute kidney injury and the creatinine currently is at 1.58 which is improved compared to yesterday. Urine output is in order of 100 mL an hour. He is started on enteral feeding and the patient is receiving vital HP at the rate of 40 mL an hour 11/22/2022, the patient remains on a mechanical ventilator. He remains on propofol, no Versed. Propofol was increased up to 50 g as the patient was having issues with tachypnea and irregular breathing and is completely unrespo nsive. He remains on hypertonic saline 3% on a rate of 50 mL an hour. His sodium level is up to 151. Meanwhile, he remains on a mechanical ventilator. He remains on assist-control mode. I switched him from the volume cycle 2 of pressure cycling mode of mechanical ventilation. He is on a pressure control of 20, PEEP of 5, rate of 20 with a respiratory, 0.9. His generating a tidal volume is above 600. His minute ventilation is at 18. He has having issues with fever. His T-max is currently at 101.3. At the same time, he is tachycardic, and tachypneic. At the same time, the patient is also hypertensive. Overnight, clonidine was added to his regimen and he was using the Cardene drip for blood pressure control. Currently is running at the rate of 5 mg an hour. Most recent BP is 1 4149. His heart rate is around 1:30, sinus. Pulse ox is 93% on the current ventilator setting. Patient is at 7.46 with a pCO2 of 36 and pO2 of 83. Chest x-ray shows cardiomegaly. Orotracheal tube is in good location. No airspace disease or consolidations. There is some mild pulmonary vascular congestion. White cell cause of 10.5, hematemesis 10.2, platelets of 190. Sodium is at 151, potassium is at 3.4, current 120, he has 34 with a creatinine of 1.25. Blood sugars at 184. He is covered with IV Zosyn as broad-spectrum antibiotic coverage. He is back on his metoprolol at a dose of 2 5 mg twice a day. Is also on hydralazine 50 mg 3 times a day and Norvasc 5 mg by mouth twice a day for blood pressure control. He was also started on enteral feeding for nutritional support. He is on vital high-protein at the rate of 45 mL an hour. Noted the patient was seizure-free. Nevertheless, 4 AM this morning, he did a lot of seizure and his Keppra dose was modified to 1.5 g twice a day in addition to Dilantin. Neurology remains on the case. Objective - Vital Signs Vital signs: Vital Signs Temp 101.8 F H 11/22/22 07:00 Pulse 123 H 11/22/22 08:24 Resp 34 H 11/22/22 07:00 BP 163/75 11/21/22 19:00 Pulse Ox 95 11/22/22 07:00 FiO2 40 11/22/22 08:22 Intake & Output 11/21/22 11/22/22 11/22/22 18:59 06:59 18:59 Intake Total 2416.880 2467.107 315.986 Output Total 2220 1550 145 Balance 196.880 917.107 170.986 Weight 102.3 kg 100.5 kg Intake: IV 420 990 70 Phenytoin Sodium Inj 250 100 mg In Sodium Chloride 0.9 % 45 ml @ 100 mls/hr IVPB Q12HR [facility] Rx#:[id number] Piperacillin-Tazobactam 3 200 100 .375 gm In Sodium Chloride 0.9% 100 ml @ 25 mls/hr IVPB Q8H [facility] Rx#: [id number] Sodium Chloride 0.9% 1, 220 240 20 000 ml @ 20 mls/hr IV . Q24H [facility] Rx#:[id number] Sodium Chloride 3%( 550 50 Hypertonic) 500 ml @ 50 mls/hr IV .Q10H [facility] Rx#: [id number] Intake, IV Titration 1346.880 647.107 200.986 Amount Phenytoin Sodium Inj 250 45 mg In Sodium Chloride 0.9 % 45 ml @ 100 mls/hr IVPB Q12HR [facility] Rx#:[id number] Potassium Chloride 20 meq 200 In Water For Injection 1 100ml.bag @ 50 mls/hr IVPB Q2H [facility] Rx#: [id number] Sodium Chloride 3%( 500 Hypertonic) 500 ml @ 50 mls/hr IV .Q10H [facility] Rx#: [id number] Sodium Chloride 3%( 50 50 Hypertonic) 500 ml @ 50 mls/hr IV .Q10H [facility] Rx#: [id number] niCARdipine 20 mg In 391.251 346.250 104.166 Sodium Chloride 0.9% 192 ml @ 5 MG/HR 50 mls/hr IV .Q4H [facility] Rx#:[id number] propofoL 1,000 mg In 160.629 250.857 96.82 Empty Bag 1 bag @ 15 MCG/ KG/MIN 9.27 mls/hr IV . [id number] [facility] Rx#:[id number] Oral 0 0 Tube Feeding 460 540 45 Other 190 290 Output: Urine 2220 1550 145 Other: Voiding Method Indwelling Catheter Indwelling Catheter ABP, PAP, CO, CI - Last Documented Arterial Blood Pressure 169/65 - Exam GENERAL EXAM: Unresponsive even to painful stimuli, intubated to the mechanical ventilator, not on any sedation, the patient is breathing above the mechanical ventilator HEAD: Normocephalic and atraumatic EYES: Normal reaction of pupils, equal size. NOSE: Clear with pink turbinates. THROAT: No erythema or exudates. NECK: No masses, no JVD. CHEST: No chest wall deformity. LUNGS: Equal air entry with diffuse rhonchi throughout and minimal expiratory wheezes. Intubated to the mechanical ventilator. Synchronous with current settings, no intrinsic respiratory drive. Peak pressure 30 and plateau pressure 22. Minimal secretions. CVS: S1 and S2 normal with no audible murmur, regular rhythm. No extra heart sounds ABDOMEN: Obese abdomen, no hepatosplenomegaly, active bowel sounds, no guarding or rigidity. OG tube to low intermittent suction with minimal brown output SPINE: No scoliosis or deformity SKIN: No rashes CENTRAL NERVOUS SYSTEM: Unresponsive to even painful stimuli, not on any sedation, DTRs diminished throughout, Babinski's negative bilaterally, no evidence of any myoclonic jerks on today's evaluations. Pupils are round 5 mm in size, reactive to light. Positive cough and a gag. EXTREMITIES: There is no peripheral edema. No clubbing, or cyanosis. [place]. Peripheral pulses are intact. - Labs CBC & Chem 7: 11/22/22 02:00 11/22/22 06:00 Labs: Abnormal Lab Results - Last 24 Hours (Table) 11/21/22 11/21/22 11/21/22 Range/Units 06:00 12:15 17:57 RBC (4.30-5.90) m/uL Hgb (13.0-17.5) gm/dL Hct (39.0-53.0) % Neutrophils # (1.3-7.7) k/uL Lymphocytes # (1.0-4.8) k/uL ABG pH (7.35-7.45) ABG HCO3 (21-25) mmol/L ABG Total CO2 (19-24) mmol/L Sodium (137-145) mmol/L Potassium (3.5-5.1) mmol/L Chloride (98-107) mmol/L BUN (9-20) mg/dL Glucose (74-99) mg/dL POC Glucose (mg/dL) 137 H 186 H (70-110) mg/dL Hemoglobin A1c 6.2 H (<=6.0) % 11/21/22 11/21/22 11/21/22 Range/Units 18:15 18:22 22:00 RBC (4.30-5.90) m/uL Hgb (13.0-17.5) gm/dL Hct (39.0-53.0) % Neutrophils # (1.3-7.7) k/uL Lymphocytes # (1.0-4.8) k/uL ABG pH (7.35-7.45) ABG HCO3 (21-25) mmol/L ABG Total CO2 (19-24) mmol/L Sodium 148 H 147 H (137-145) mmol/L Potassium (3.5-5.1) mmol/L Chloride (98-107) mmol/L BUN (9-20) mg/dL Glucose (74-99) mg/dL POC Glucose (mg/dL) 193 H (70-110) mg/dL Hemoglobin A1c (<=6.0) % 11/21/22 11/22/22 11/22/22 Range/Units 23:04 02:00 02:00 RBC 3.35 L (4.30-5.90) m/uL Hgb 10.2 L (13.0-17.5) gm/dL Hct 31.3 L (39.0-53.0) % Neutrophils # 8.9 H (1.3-7.7) k/uL Lymphocytes # 0.9 L (1.0-4.8) k/uL ABG pH (7.35-7.45) ABG HCO3 (21-25) mmol/L ABG Total CO2 (19-24) mmol/L Sodium 150 H (137-145) mmol/L Potassium (3.5-5.1) mmol/L Chloride (98-107) mmol/L BUN (9-20) mg/dL Glucose (74-99) mg/dL POC Glucose (mg/dL) 129 H (70-110) mg/dL Hemoglobin A1c (<=6.0) % 11/22/22 11/22/22 11/22/22 Range/Units 02:00 06:00 06:04 RBC (4.30-5.90) m/uL Hgb (13.0-17.5) gm/dL Hct (39.0-53.0) % Neutrophils # (1.3-7.7) k/uL Lymphocytes # (1.0-4.8) k/uL ABG pH (7.35-7.45) ABG HCO3 (21-25) mmol/L ABG Total CO2 (19-24) mmol/L Sodium 150 H 151 H (137-145) mmol/L Potassium 3.4 L (3.5-5.1) mmol/L Chloride 120 H (98-107) mmol/L BUN 34 H (9-20) mg/dL Glucose 162 H (74-99) mg/dL POC Glucose (mg/dL) 184 H (70-110) mg/dL Hemoglobin A1c (<=6.0) % 11/22/22 Range/Units 06:05 RBC (4.30-5.90) m/uL Hgb (13.0-17.5) gm/dL Hct (39.0-53.0) % Neutrophils # (1.3-7.7) k/uL Lymphocytes # (1.0-4.8) k/uL ABG pH 7.46 H (7.35-7.45) ABG HCO3 26 H (21-25) mmol/L ABG Total CO2 27 H (19-24) mmol/L Sodium (137-145) mmol/L Potassium (3.5-5.1) mmol/L Chloride (98-107) mmol/L BUN (9-20) mg/dL Glucose (74-99) mg/dL POC Glucose (mg/dL) (70-110) mg/dL Hemoglobin A1c (<=6.0) % Microbiology - Last 24 Hours (Table) 11/19/22 01:30 Gram Stain - Final Sputum Sputum Culture - Final Assessment and Plan Assessment: Cardiac arrest, with prolonged downtime of 20-25 minutes. Presenting rhythm was reportedly PEA, achieving return of spontaneous circulation after multiple rounds of CPR and 4 A of epinephrine. Severe anoxic brain injury, Noncontrast CT of the brain did not show any acute intracranial abnormality. There are intermittent myoclonic jerks. EEG was noted. The patient is currently on a combination of propofol running at 40 g addition to Versed 10 mg and is also on Keppra. Episodes of myoclonic jerks have subsided although the patient still having some occasional episodes. On today's evaluation, no evidence of any myoclonic jerks and the EEG that was done yesterday showed no ongoing epileptic foci. The patient is currently on accommodation of Keppra and Dilantin. Repeat CAT scan of the brain showed effacement of the white/waldrop matter and the patient was started on hypertonic saline for [employer] edema. He remains unresponsive. The patient remains on hypertonic saline Hypernatremia the patient is on 3% saline at the rate of 50 mL an hour Acute hypoxemic and hypercapnic respiratory failure, likely secondary to an exacerbation of diastolic congestive heart failure, intubated to the mechanical ventilator. Chest x-ray is concerning for pulmonary edema. Recent echocardiogra m done on 07/03/2022 shows a preserved left ventricular ejection fraction of 55- 60% with moderate concentric LVH. Moderate mitral regurgitation and stenosis. There is moderate to severe pulmonary hypertension with RVSP of 55 mmHg. the patient remains on a mechanical ventilator, switch to pressure control mode of mechanical ventilation Acute COPD exacerbation, currently stable without active bronchospasm wheezing and the peak airway pressure has dropped compared to yesterday. He remains on bronchodilators Hypotension, recovered. The patient is currently off pressors Hypertension, currently on metoprolol, hydralazine, Norvasc and Cardene drip. Anion gap metabolic acidosis, secondary to cardiac arrest and lactic acidosis, recovered Acute kidney injury, related to hypotension and ATN, recovered Hyperthermia, likely central. No clear indication for an infection patient remains on IV Zosyn Normocytic, normochromic anemia Hyperlipidemia Chronic pain, maintained on methadone outpatient History of ventilator dependent respiratory failure Enteral feeding for nutritional support was initiated yesterday Plan: Change the patient to pressure control mode of mechanical ventilation Keep propofol IV Tylenol for temperature control External cooling Cultures were sent Continue IV Zosyn Patient has signs of severe anoxic encephalopathy, suspected fever essential Continue hypertonic saline Continue Keppra Continue Dilantin Continue enteral feeding Chest x-ray was noted Echo was noted Switch this patient is a clevidipine drip. At the same time, continue metoprolol increase the dose up to 50 mg 3 times a day, Norvasc 5 mg twice a day, hydralazine 100 mg 3 times a day, clonidine 0.2 mg 3 times a day, Lantus titrate the clonidine drip for blood pressure control, Neurology consultation appreciated, may need a follow-up CAT scan of the brain today [employer] on the case Will be communicating with the family with the various results. Unfortunately, patient has signs of significant neurologic damage and signs of anoxic encephalopathy and he carries a very poor prognosis due to his cardiac arrest and prolonged downtime. [facility] is on the case We'll continue to follow make further recommendations based on his progress. Consider care evaluation,> 30min Time with Patient: Greater than 30
[2022-11-22] MEDS ORDERED: hydrALAZINE HCL 50 MG TAB PO STA (09:20)
[2022-11-22] MEDS ORDERED: METOPROLOL TARTRATE 25 MG TAB PO STA (09:20)
--- NOTE | 2022-11-22 09:22 | XR ---
EXAMINATION TYPE: XR chest 1V portable DATE OF EXAM: 11/22/2022 Comparison: 11/21/2022 Clinical History: 61-year-old male Tube placement Findings: Heart is borderline enlarged. ET and NG tubes are satisfactory. Mild interstitial prominence. Some pa tchy medial right basilar opacity is similar. No pleural effusion. Impression: 1. Borderline cardiomegaly. Mild interstitial density is similar. Correlate for mild pulmonary vascul ar congestion. 2. Similar patchy right basilar opacity.
--- NOTE | 2022-11-22 09:26 | P.PN ---
Subjective Progress Note Date: 11/21/22 Patient was seen for a follow-up. Patient is off Versed drip. Patient is not showing any seizure activity. Currently on propofol at 35 mcg/kg per minute. Patient also on Keppra IV. Seizures have resolved. Clinically no change. Objective - Vital Signs Vital signs: Vital Signs Temp 100.9 F H 11/21/22 08:00 Pulse 100 11/21/22 10:00 Resp 28 H 11/21/22 10:00 BP 163/75 11/21/22 10:00 Pulse Ox 94 L 11/21/22 10:00 FiO2 40 11/21/22 08:22 Intake & Output 11/20/22 11/21/22 11/21/22 18:59 06:59 18:59 Intake Total 842.922 715.917 605 Output Total 2690 1320 1110 Balance -1847.078 -604.083 -505 Weight 100.8 kg Intake: IV 340 300 160 Piperacillin-Tazobactam 3 100 100 100 .375 gm In Sodium Chloride 0.9% 100 ml @ 25 mls/hr IVPB Q8H [facility] Rx#: [id number] Sodium Chloride 0.9% 1, 240 200 60 000 ml @ 20 mls/hr IV . Q24H [facility] Rx#:[id number] Intake, IV Titration 392.922 335.917 195 Amount Midazolam HCl 50 mg In 75.000 15.917 Sodium Chloride 0.9% 40 ml @ 1 MG/HR 1 mls/hr IV .Q24H [facility] Rx#:[id number] Norepinephrine 4 mg In 17.922 Sodium Chloride 0.9% 250 ml @ 0.03 MCG/KG/MIN 11. 773 mls/hr IV .[id number] [facility] Rx#:[id number] Phenytoin Sodium Inj 250 45 mg In Sodium Chloride 0.9 % 45 ml @ 100 mls/hr IVPB Q12HR [facility] Rx#:[id number] Sodium Chloride 3%( 120 Hypertonic) 500 ml @ 30 mls/hr IV .[id number] [facility] Rx #:[id number] Sodium Chloride 3%( 150 Hypertonic) 500 ml @ 50 mls/hr IV .Q10H [facility] Rx#: [id number] propofoL 1,000 mg In 300 200 Empty Bag 1 bag @ 15 MCG/ KG/MIN 9.27 mls/hr IV . [id number] [facility] Rx#:[id number] Oral 0 0 0 Tube Feeding 80 80 120 Other 30 130 Output: Urine 2690 1320 1110 Other: Voiding Method Indwelling Catheter Indwelling Catheter ABP, PAP, CO, CI - Last Documented Arterial Blood Pressure 185/81 - Exam Patient is intubated, sedated as above. Patient not responding to calling name, or painful stimuli. Pupils are small about 4 mm, reacting to light more consistently. Oc ulocephalics absent. Corneals are present. Patient has positive gag, and a good cough reflex on deep suctioning. Deep tendon reflexes are trace at the knees, but absent elsewhere. Plantars are flat. Patient does not withdraw to painful stimuli. No obvious seizure activity noticed at this time, even with deep suctioning. Patient does appear to be breathing over the ventilator, 26 for set at 20. - Labs CBC & Chem 7: 11/22/22 02:00 11/22/22 06:00 Labs: Abnormal Lab Results - Last 24 Hours (Table) 11/20/22 11/20/22 11/21/22 Range/Units 12:09 18:53 00:28 WBC (3.8-10.6) k/uL RBC (4.30-5.90) m/uL Hgb (13.0-17.5) gm/dL Hct (39.0-53.0) % Neutrophils # (Manual) (1.3-7.7) k/uL Carbon Dioxide (22-30) mmol/L BUN (9-20) mg/dL Creatinine (0.66-1.25) mg/dL Glucose (74-99) mg/dL POC Glucose (mg/dL) 143 H 134 H 151 H (70-110) mg/dL 11/21/22 11/21/22 Range/Units 04:52 04:52 WBC 11.1 H (3.8-10.6) k/uL RBC 3.44 L (4.30-5.90) m/uL Hgb 10.5 L (13.0-17.5) gm/dL Hct 31.3 L (39.0-53.0) % Neutrophils # (Manual) 8.99 H (1.3-7.7) k/uL Carbon Dioxide 32 H (22-30) mmol/L BUN 39 H (9-20) mg/dL Creatinine 1.58 H (0.66-1.25) mg/dL Glucose 136 H (74-99) mg/dL POC Glucose (mg/dL) (70-110) mg/dL Microbiology - Last 24 Hours (Table) 11/19/22 01:30 Gram Stain - Preliminary Sputum Sputum Culture - Preliminary Assessment and Plan Assessment: * Status post witnessed cardiac arrest, with downtime of at least 28 minutes before ROSC was obtained. Patient at present showing signs of significant anoxic encephalopathy. * Myoclonic seizures, likely from severe anoxic encephalopathy, now resolved. * CHF with pulmonary edema * COPD with exacerbation * Acute kidney injury * Hyponatremia, resolved * Hyperlipidemia * Hypertension * Tobacco use Plan: * Patient is currently on hypertonic saline solution at 50 mL per hour. Patient showing some improvement in brainstem reflexes, but no improvement in cortical function. * Repeat EEG 11/20/2022 was abnormal due to background slowing of severe degree, consistent with history of anoxic encephalopathy. When compared to the EEG from yesterday, the epileptiform activity and bursts have completely resolved. No epileptiform activity was seen in this study. * Initial EEG 11/19/2022 was performed, which was severely abnormal due to presence of burst suppression pattern. Suppressed pattern consisted of isoelectric EEG with bursts consisting of high amplitude spike and slow wave lasting for 1-6 seconds. Clinically the burst associated with generalized body convulsion. Overall, this EEG is suggestive of severe generalized cerebral dysfunction and the pattern can be seen with severe anoxic encephalopathy. * Repeat CT head 11/20/2022 revealed diffuse loss of waldrop-white differentiation consistent with global hypoperfusion complex related to reported cardiac arrest. No acute intracranial hemorrhage. I personally reviewed CT head, agree with the findings. * Based upon the duration of cardiac arrest, clinical examination and EEG findings, the prognosis appears poor. * Repeat neurological examination in the morning. * Patient will be continued on Keppra. We will decrease Keppra down to 1000 mg twice a day because of moderate renal insufficiency. * Continue Dilantin 250 mg twice a day. Repeat Dilantin level. * Other medical management as per IM and critical care team.
[2022-11-22] MEDS: PHENYTOIN SODIUM IVPB SCH ×2 (09:30→20:31)
[2022-11-22] MEDS: SODIUM CHLORIDE 0.9% IVPB SCH ×2 (09:30→20:31)
[2022-11-22 12:04] LABS: Glucose,Whole Blood 153 mg/dL (70-110)
--- NOTE | 2022-11-22 15:28 | P.PN ---
Subjective Progress Note Date: 11/22/22 Patient remains on ventilator with sedation from propofol and Versed General: intubated, sedated HEENT: normocephalic, atraumatic, no tracheal deviation Respiratory: symmetric chest rise, no cyanosis, ventilator dependent CVS: perfusing all extremities, no distal gangrene, no pitting edema GI: soft, ND : no SPT, no CVAT, laboy not present Neuro: sedated Hospital course: 61-year-old man with a medical history of hypertension, hyperlipidemia, COPD, methadone dependence present after cardiac arrest. Patient had 25 minutes of downtime in the field before achieving return of spontaneous circulation prior to arrival. In the emergency room, patient's temperature was 95.7, heart rate was 108, 78/47, 88% on nonrebreather. Initial CBC demonstrated blood cell count of 9.8, hemoglobin of 11.5. BMP showed sodium of 135, CO2 of 19, gap of 18, BUNs of 30, creatinine of 1.91. Liver function test showed total protein 6.2, albumin of 3.4. BNP was 1750. Lactic acid is 9.2. Troponin was 0.012. Coags are unremarkable. Troponin subsequent elevated to 0.351 then 0.977. Pro- calcitonin is 0.38. Phenytoin level is 14.4. Patient's chest x-ray showed cardiomegaly, right-sided pulmonary infiltrate. EKG showed atrial fibrillation with rapid ventricular response. Brain CT head no acute findings in the head/brain. Case was discussed with the emergency room provider and decision was made to admit the patient to the intensive care unit for further evaluation. Patient was intubated in the emergency room. Patient was seen by pulmonology, neurology, cardiology. Neurology recommended EEG which showed isoelectric pattern with intermittent sharp waves concerning for severe anoxic brain injury. Echocardiogram demonstrated 50-55% EF, RVSP of 32. Assessment: Cardiac arrest Anoxic brain injury Acute Kidney Injury Seizures COPD without exacerbation Plan: Patient is febrile to 101.3, 119/60, heart rate 82, 95% on 40% of FiO2 CBC demonstrated leukocytosis to 10.5, hemoglobin of 10.2. Basic metabolic panel shows Na 150-155, K 3.4, BUN 34, Cr 1.25, phenytoin 7 Patients versed gtt is titrated off Remains on propofol now 50mcg Patient now on clonidine 0.2mg q8h, amlodipine 5mg BID, hydralazine 50mg TID, metoprolol 50mg TID Patient remains on Zosyn Continue 3% saline Prognosis very poor. Discussed with neurology, they would like to continue 3% saline and repeat CTH today. Objective - Vital Signs Vital signs: Vital Signs Temp 99.1 F 11/22/22 12:00 Pulse 82 11/22/22 15:00 Resp 26 H 11/22/22 15:00 BP 119/60 11/22/22 15:00 Pulse Ox 95 11/22/22 15:00 FiO2 40 11/22/22 12:00 Intake & Output 11/21/22 11/22/22 11/22/22 18:59 06:59 18:59 Intake Total 2416.880 2467.107 944.231 Output Total 2220 1550 990 Balance 196.880 917.107 -45.769 Weight 102.3 kg 100.5 kg Intake: IV 420 990 440.0 Phenytoin Sodium Inj 250 100 45 mg In Sodium Chloride 0.9 % 45 ml @ 100 mls/hr IVPB Q12HR [facility] Rx#:[id number] Piperacillin-Tazobactam 3 200 100 75 .375 gm In Sodium Chloride 0.9% 100 ml @ 25 mls/hr IVPB Q8H [facility] Rx#: [id number] Sodium Chloride 0.9% 1, 220 240 20 000 ml @ 20 mls/hr IV . Q24H [facility] Rx#:[id number] Sodium Chloride 3%( 50.0 Hypertonic) 500 ml @ 12.5 mls/hr IV .Q24H [facility] Rx#: [id number] Sodium Chloride 3%( 550 250 Hypertonic) 500 ml @ 50 mls/hr IV .Q10H [facility] Rx#: [id number] Intake, IV Titration 1346.880 647.107 204.231 Amount Phenytoin Sodium Inj 250 45 mg In Sodium Chloride 0.9 % 45 ml @ 100 mls/hr IVPB Q12HR [facility] Rx#:[id number] Potassium Chloride 20 meq 200 In Water For Injection 1 100ml.bag @ 50 mls/hr IVPB Q2H [facility] Rx#: [id number] Sodium Chloride 3%( 500 Hypertonic) 500 ml @ 50 mls/hr IV .Q10H [facility] Rx#: [id number] Sodium Chloride 3%( 50 50 Hypertonic) 500 ml @ 50 mls/hr IV .Q10H [facility] Rx#: [id number] niCARdipine 20 mg In 391.251 346.250 104.166 Sodium Chloride 0.9% 192 ml @ 5 MG/HR 50 mls/hr IV .Q4H [facility] Rx#:[id number] propofoL 1,000 mg In 160.629 250.857 100.065 Empty Bag 1 bag @ 15 MCG/ KG/MIN 9.27 mls/hr IV . [id number] [facility] Rx#:[id number] Oral 0 0 Tube Feeding 460 540 270 Other 190 290 30 Output: Urine 2220 1550 990 Other: Voiding Method Indwelling Catheter Indwelling Catheter Indwelling Catheter ABP, PAP, CO, CI - Last Documented Arterial Blood Pressure 131/52 - Labs CBC & Chem 7: 11/22/22 02:00 11/22/22 14:30 Labs: Abnormal Lab Results - Last 24 Hours (Table) 11/21/22 11/21/22 11/21/22 Range/Units 06:00 17:57 18:15 RBC (4.30-5.90) m/uL Hgb (13.0-17.5) gm/dL Hct (39.0-53.0) % Neutrophils # (1.3-7.7) k/uL Lymphocytes # (1.0-4.8) k/uL ABG pH (7.35-7.45) ABG HCO3 (21-25) mmol/L ABG Total CO2 (19-24) mmol/L Sodium 148 H (137-145) mmol/L Potassium (3.5-5.1) mmol/L Chloride (98-107) mmol/L BUN (9-20) mg/dL Glucose (74-99) mg/dL POC Glucose (mg/dL) 186 H (70-110) mg/dL Hemoglobin A1c 6.2 H (<=6.0) % 11/21/22 11/21/22 11/21/22 Range/Units 18:22 22:00 23:04 RBC (4.30-5.90) m/uL Hgb (13.0-17.5) gm/dL Hct (39.0-53.0) % Neutrophils # (1.3-7.7) k/uL Lymphocytes # (1.0-4.8) k/uL ABG pH (7.35-7.45) ABG HCO3 (21-25) mmol/L ABG Total CO2 (19-24) mmol/L Sodium 147 H (137-145) mmol/L Potassium (3.5-5.1) mmol/L Chloride (98-107) mmol/L BUN (9-20) mg/dL Glucose (74-99) mg/dL POC Glucose (mg/dL) 193 H 129 H (70-110) mg/dL Hemoglobin A1c (<=6.0) % 11/22/22 11/22/22 11/22/22 Range/Units 02:00 02:00 02:00 RBC 3.35 L (4.30-5.90) m/uL Hgb 10.2 L (13.0-17.5) gm/dL Hct 31.3 L (39.0-53.0) % Neutrophils # 8.9 H (1.3-7.7) k/uL Lymphocytes # 0.9 L (1.0-4.8) k/uL ABG pH (7.35-7.45) ABG HCO3 (21-25) mmol/L ABG Total CO2 (19-24) mmol/L Sodium 150 H 150 H (137-145) mmol/L Potassium 3.4 L (3.5-5.1) mmol/L Chloride 120 H (98-107) mmol/L BUN 34 H (9-20) mg/dL Glucose 162 H (74-99) mg/dL POC Glucose (mg/dL) (70-110) mg/dL Hemoglobin A1c (<=6.0) % 11/22/22 11/22/22 11/22/22 Range/Units 06:00 06:04 06:05 RBC (4.30-5.90) m/uL Hgb (13.0-17.5) gm/dL Hct (39.0-53.0) % Neutrophils # (1.3-7.7) k/uL Lymphocytes # (1.0-4.8) k/uL ABG pH 7.46 H (7.35-7.45) ABG HCO3 26 H (21-25) mmol/L ABG Total CO2 27 H (19-24) mmol/L Sodium 151 H (137-145) mmol/L Potassium (3.5-5.1) mmol/L Chloride (98-107) mmol/L BUN (9-20) mg/dL Glucose (74-99) mg/dL POC Glucose (mg/dL) 184 H (70-110) mg/dL Hemoglobin A1c (<=6.0) % 11/22/22 11/22/22 11/22/22 Range/Units 09:51 12:03 14:30 RBC (4.30-5.90) m/uL Hgb (13.0-17.5) gm/dL Hct (39.0-53.0) % Neutrophils # (1.3-7.7) k/uL Lymphocytes # (1.0-4.8) k/uL ABG pH (7.35-7.45) ABG HCO3 (21-25) mmol/L ABG Total CO2 (19-24) mmol/L Sodium 154 H 155 H (137-145) mmol/L Potassium (3.5-5.1) mmol/L Chloride (98-107) mmol/L BUN (9-20) mg/dL Glucose (74-99) mg/dL POC Glucose (mg/dL) 153 H (70-110) mg/dL Hemoglobin A1c (<=6.0) %
[2022-11-22] MEDS: METOPROLOL TARTRATE 50 MG TAB PO SCH ×2 (16:09→20:00)
--- NOTE | 2022-11-22 16:58 | CT ---
EXAMINATION TYPE: CT brain wo con DATE OF EXAM: 11/22/2022 COMPARISON: 11/20/2022 HISTORY: anoxia CT DLP: 1151.4 mGycm Automated exposure control for dose reduction was used. FINDINGS: As on the prior study the ventricles and sulci over the convexities are diminutive and along with mar ked decrease in waldrop-white matter differentiation findings are consistent with diffuse brain edema co nsistent with anoxia. There is been no interval change since the prior study. There is no acute intra or extra-axial hemorrhage. There is no shift of the midline structures. There is an air-fluid level in the right maxillary sinus consistent with acute sinusitis. There is ev idence for chronic sinusitis involving the right maxillary sinus, ethmoid air cells and sphenoid sinu s. There is fluid in the mastoid air cells bilaterally IMPRESSION: 1. DIFFUSE BRAIN EDEMA CONSISTENT WITH THE HISTORY OF ANOXIA DESCRIBED ABOVE. 2. NO INTERVAL CHANGE SINCE PRIOR STUDY. 3. NO ACUTE BLEED OR MASS EFFECT. 4. ACUTE AND CHRONIC SINUSITIS AND MASTOIDITIS DESCRIBED ABOVE.
[2022-11-22 17:57] LABS: Glucose,Whole Blood 144 mg/dL (70-110)
[2022-11-22] MEDS: NOREPINEPHRINE 4 MG in SODIUM CHLORIDE 0.9% 250 ML IV SCH (18:26)
[2022-11-22] MEDS ORDERED: cloNIDine HCL 0.2 MG TAB PO SCH (22:00)
[2022-11-22 23:45] LABS: Glucose,Whole Blood 130 mg/dL (70-110)
[2022-11-22] MEDS: CLEVIDIPINE BUTYRATE 25 MG in EMPTY BAG 1 BAG IV SCH (23:54)
[2022-11-23] MEDS: hydrALAZINE HCL 20 MG/ML 1 ML VIAL IVP PRN (00:03)
[2022-11-23] MEDS: IPRATROPIUM-ALBUTEROL 3 ML NEB INHALATION SCH ×6 (00:09→20:14)
[2022-11-23] MEDS: LORazepam 2 MG/ML INJ IV PRN ×3 (00:20→05:26)
[2022-11-23] MEDS: CLEVIDIPINE BUTYRATE 25 MG in EMPTY BAG 1 BAG IV SCH ×7 (01:04→20:18)
[2022-11-23] MEDS: PIPERACILLIN-TAZOBACTAM 3.375 GM in SODIUM CHLORIDE 0.9% 100 ML IVPB SCH ×3 (01:59→18:22)
[2022-11-23] MEDS: SODIUM CHLORIDE 0.9% 1,000 ML IV SCH (02:02)
[2022-11-23] MEDS: cloNIDine HCL 0.2 MG TAB PO SCH ×3 (03:04→20:01)
[2022-11-23 04:37] LABS: African American GFR (CKD) 65 (>60 ml/min/1.73 sqM); Anion Gap 6 mmol/L; Blood Urea Nitrogen 34 mg/dL (9-20); Calcium 8.4 mg/dL (8.4-10.2); Carbon Dioxide 24 mmol/L (22-30); Chloride 123 mmol/L (98-107); Glucose 171 mg/dL (74-99); Non-African American GFR(CKD) 56 (>60 ml/min/1.73 sqM); Potassium 3.4 mmol/L (3.5-5.1); Sodium 153 mmol/L (137-145)
[2022-11-23 04:48] LABS: Basophils % (A) 0 %; Eosinophils % (A) 0 %; Hypochromasia Slight; Lymphocytes # (A) 1.2 k/uL (1.0-4.8); Lymphocytes % (A) 9 %; MCH 30.1 pg (25.0-35.0); MCHC 32.1 g/dL (31.0-37.0); MCV 93.7 fL (80.0-100.0); Mean Platelet Volume 8.6; Monocytes # (A) 0.5 k/uL (0-1.0); Monocytes % (A) 4 %; Neutrophils # (A) 10.6 k/uL (1.3-7.7); Neutrophils % (A) 85 %; Platelet Count 187 k/uL (150-450); RBC 3.31 m/uL (4.30-5.90); RDW 15.1 % (11.5-15.5); WBC 12.4 k/uL (3.8-10.6)
[2022-11-23] MEDS: ACETAMINOPHEN IV (For NPO) 1,000 MG in EMPTY BAG 1 BAG IVPB PRN (05:06)
[2022-11-23 05:53] LABS: Glucose,Whole Blood 189 mg/dL (70-110)
[2022-11-23] MEDS: INSULIN ASPART (NovoLOG) 100 UNIT/ML VIAL SQ SCH ×3 (05:56→18:21)
[2022-11-23] MEDS: POTASSIUM BICARBONATE/CIT AC 20 MEQ TABLET.EFF NG-TUBE SCH ×2 (05:57→06:45)
[2022-11-23 06:07] LABS: ABG Base Excess 1.7 mmol/L; ABG HCO3 26 mmol/L (21-25); ABG Oxygen Saturation 95.3 % (94-97); ABG PCO2 36 mmHg (35-45); ABG PH 7.46 (7.35-7.45); ABG PO2 73 mmHg (83-108); ABG TCO2 27 mmol/L (19-24); Allen Test Performed? Yes
--- NOTE | 2022-11-23 07:47 | XR ---
EXAMINATION TYPE: XR chest 1V portable DATE OF EXAM: 11/23/2022 COMPARISON: 11/22/2022 HISTORY: SOB, Follow Up FINDINGS: Indwelling tubes and catheters are unchanged. Increasing basilar infiltrates. Stable appearance of the cardio-mediastinal structures at this time. Pleural effusion unchanged. IMPRESSION: 1. Stable portable chest. Clinical correlation and follow up until resolution is recommended.
[2022-11-23] MEDS: BUDESONIDE 1 MG/2 ML NEBU INHALATION SCH ×2 (08:23→20:14)
[2022-11-23] MEDS: FORMOTEROL FUMARATE 20 MCG/2 ML NEBU INHALATION SCH ×2 (08:23→20:14)
[2022-11-23] MEDS: levETIRAcetam IV 500 MG/5 ML VIAL IVP SCH ×2 (08:45→20:00)
[2022-11-23] MEDS: hydrALAZINE HCL 50 MG TAB PO SCH ×3 (08:46→20:01)
[2022-11-23] MEDS: PANTOPRAZOLE 40 MG/10 ML VIAL IVP SCH (08:46)
[2022-11-23] MEDS: CHLORHEXIDINE GLUCONATE 15 ML CUP MUCOUS MEM SCH ×2 (08:46→20:01)
[2022-11-23] MEDS: amLODIPine 5 MG TAB PO SCH ×2 (08:46→20:01)
[2022-11-23] MEDS: HEPARIN SODIUM,PORCINE 5,000 UNIT/ML 1 ML VIAL SQ SCH ×2 (08:46→16:43)
[2022-11-23] MEDS: METOPROLOL TARTRATE 50 MG TAB PO SCH ×3 (08:46→20:01)
[2022-11-23] MEDS: SODIUM CHLORIDE 0.9% IVPB SCH ×2 (09:00→20:00)
[2022-11-23] MEDS: PHENYTOIN SODIUM IVPB SCH ×2 (09:00→20:00)
--- NOTE | 2022-11-23 09:51 | P.PN ---
Subjective Progress Note Date: 11/23/22 I am seeing this patient in consultation today 11/19/2022 in the intensive care unit status post cardiac arrest with prolonged downtime. Patient is a 61-year-old white male with past medical history significant for COPD, previous ventilator dependent respiratory failure, congestive heart failure, hypert ension, chronic pain on methadone, and ex-tobacco smoker. According to the patient's significant other, he was feeling well for most of the day yesterday, he did go to work, and was feeling fine when he got home. Early this morning, he was in some respiratory distress and was taking a breathing treatment. The patient's girlfriend witnessed him go unresponsive while on the phone with EMS. Once EMS arrived, he was pulseless, they initiated CPR and he had a prolonged estimated downtime of 20-25 minutes. Presenting rhythm is reportedly PEA. He received a total of 4 A of epinephrine. He did have return of spontaneous circulation after several rounds of CPR. The patient was transferred to [facility] emergency room and he was intubated. A right femoral central line and arterial line was placed in the emergency room. Patient is currently in the ICU, intubated to the mechanical ventilator, completely unresponsive without sedation. Initial ventilator settings were assist control, respiratory rate 16, tidal volume 500, FiO2 100%, and PEEP of 5. Initial ABG on arrival showed a pO2 of 345, pCO2 of 65, pH is 7.16. During transport, the patient's oxygen demand increased. PEEP was increased to 10 and respiratory rate increased to 24. Repeat ABGs on these settings show a pO2 of 81, pCO2 of 68, pH of 7.26. Chest x-ray shows endotracheal tube approximately 6 cm above the martine, and oral gastric tube within the stomach. Chest x-ray is concerning for pulmonary edema. No obvious pneumothorax. I did start him on Lasix. He has no respiratory drive underneath the ventilator. Not on any sedation. Noncontrast CT of the brain did not show any acute intracranial abnormality. He is having intermittent myoclonic jerks and was loaded with 2 g of Keppra as well as when necessary Ativan. There is obviously concern for anoxic brain injury. EEG is scheduled for morning. Hemodynamically, the patient is hypotensive and was started on low-dose norepinephrine which is currently infusing at 0.03 mcg/kg/m. Normal saline is KVO. ECG on arrival to the emergency room showed A. fib RVR, however, heart rhythm is currently normal sinus on the bedside monitor. CBC shows a WBC count of 9.8, hemoglobin 11.5, hematocrit 35, platelets 228. BMP shows sodium 135, potassium 4.6, chloride 98, serum bicarb 19, BUN 30, creatinine 1.91, glucose 252. Lactic acid level was 9.2. Patient was given 1 L normal saline bolus the emergency room. Troponin less than 0.012. NT proBNP 1750. Indwelling catheter with pale yellow urine. He is hypothermic. Overall, prognosis is very guarded due to patient's prolonged downtime and concern for anoxic brain injury. He will be monitored in the intensive care unit. On today's evaluation of a 2022, the patient is being seen for a follow-up. Patient is post cardiac arrest. Patient has anoxic encephalopathy. Yesterday, the patient was having frequent myoclonic jerks and those jerks have essentially subsided. He still has some episodic jerks whenever he is stimulated. He is currently on Keppra 1500 mg twice a day. His EGD was completed yesterday and it showed severe abnormalities with evidence of burst suppression pattern. The s uppressed pattern consisted of isoelectric EEG would burst consisting of high amplitude polyspike and slow wave lasting a few seconds. This is consistent with severe anoxic encephalopathy. The patient is currently on propofol running at 40 mcg/kg/m. He is also on a Versed drip at 4 mg an hour that was added to control his seizure activity in addition to Keppra. He remains on a mechanical ventilator. His assist-control mode at a rate of 24, tidal volume of 100, FiO2 of 40% with a PEEP of 10. The blood gas from today shows a pH of 7.44 with a pCO2 of 44 and pO2 of 157. His chest x-ray shows resolution of the pulmonary edema and there is adequate aeration of both lungs without evidence of any pneumothorax. Echocardiogram was completed and the patient has an EF of around 55%. No valvular abnormalities noted. He sustained an acute kidney injury. Is on Lasix 60 mg IV twice a day and he is in negative fluid balance of 1.6 L. His kidney failure is still active and the patient's creatinine is up to 2.04. Nevertheless, is nonoliguric and is producing adequate amount of urine output. His hemoglobin is at 16.1, platelet count is at 205 in the hemoglobin is at 10.5. Electrolytes are all within normal limits. He is on IV Zosyn as an empiric antibiotic coverage for the possibility of an aspiration. He is afebrile. No other significant events otherwise. On 11/21/2022, the patient is being seen for a follow-up. He is post cardiac arrest and he remains essentially unresponsive. He was taken off the Versed drip and the patient is currently on propofol which is running at 20 mcg/kg/m. A repeat CAT scan of the brain was done yesterday that showed diffuse loss and waldrop and white matter differentiation consistent with global hypoperfusion post cardiac arrest probably some [employer] edema. Based on that, the patient was started on 3% hypertonic saline which is currently running at 50 mL an hour. This is per neurology's recommendations. A repeat EEG was done yesterday on 11/20/2022 and it showed background slowing, severe consistent with anoxic encephalopathy. The epileptic foci have essentially recovered. No myoclonic jerks for now. He is on Keppra 1 g every 12 hours and is also on Dilantin per neurology. Does not respond to any painful stimulation. He is breathing above the mechanical ventilator. He has a positive cough and a gag. He is on a mechanical ve ntilator on assist control mode at the rate of 20, tidal volume is at 500, FiO2 is at 40% with a PEEP of 5. His chest x-ray shows some interstitial edema and orotracheal tube is in a good location. Sodium level is at 143, BUN is at 39 with a creatinine of 1.58. The previous occurrence of 11.4 with a hemoglobin of 10.5. The patient is running a low-grade fever 100.9 and he is receiving external warming. He is covered empirically with broad-spectrum antibiotics and the patient is currently on IV Zosyn. Blood pressure was noted to be elevated. He was started on Norvasc 5 mg and I'm going to increase the dose up to 10 mg for effective blood pressure control. He is also on hydralazine 10 mg IV as needed every 6 hours and is also on metoprolol at a dose of 25 mg by mouth twice a day. He has also developed an acute kidney injury and the creatinine currently is at 1.58 which is improved compared to yesterday. Urine output is in order of 100 mL an hour. He is started on enteral feeding and the patient is receiving vital HP at the rate of 40 mL an hour 11/22/2022, the patient remains on a mechanical ventilator. He remains on propofol, no Versed. Propofol was increased up to 50 g as the patient was having issues with tachypnea and irregular breathing and is completely unrespo nsive. He remains on hypertonic saline 3% on a rate of 50 mL an hour. His sodium level is up to 151. Meanwhile, he remains on a mechanical ventilator. He remains on assist-control mode. I switched him from the volume cycle 2 of pressure cycling mode of mechanical ventilation. He is on a pressure control of 20, PEEP of 5, rate of 20 with a respiratory, 0.9. His generating a tidal volume is above 600. His minute ventilation is at 18. He has having issues with fever. His T-max is currently at 101.3. At the same time, he is tachycardic, and tachypneic. At the same time, the patient is also hypertensive. Overnight, clonidine was added to his regimen and he was using the Cardene drip for blood pressure control. Currently is running at the rate of 5 mg an hour. Most recent BP is 1 4149. His heart rate is around 1:30, sinus. Pulse ox is 93% on the current ventilator setting. Patient is at 7.46 with a pCO2 of 36 and pO2 of 83. Chest x-ray shows cardiomegaly. Orotracheal tube is in good location. No airspace disease or consolidations. There is some mild pulmonary vascular congestion. White cell cause of 10.5, hematemesis 10.2, platelets of 190. Sodium is at 151, potassium is at 3.4, current 120, he has 34 with a creatinine of 1.25. Blood sugars at 184. He is covered with IV Zosyn as broad-spectrum antibiotic coverage. He is back on his metoprolol at a dose of 2 5 mg twice a day. Is also on hydralazine 50 mg 3 times a day and Norvasc 5 mg by mouth twice a day for blood pressure control. He was also started on enteral feeding for nutritional support. He is on vital high-protein at the rate of 45 mL an hour. Noted the patient was seizure-free. Nevertheless, 4 AM this morning, he did a lot of seizure and his Keppra dose was modified to 1.5 g twice a day in addition to Dilantin. Neurology remains on the case. 11/23/2022, the patient is still on propofol running at 50 mcg/kg/m. Severely impaired neurologically. No seizure activity has been noted. Nevertheless, a repeat CAT scan of the brain was done yesterday and the patient was found to have diffuse brain edema consistent with his anoxic encephalopathy. No interval change compared to the earlier evaluation. The patient also has some chronic sinus disease. He was placed on hypertonic saline. Sodium came up to 153 and the patient is currently on normal saline at [facility]. Chloride is 123. BUN is 34 with a creatinine of 1.37. Pupils are pinpoint. Cough is extremely weak/absent. Babinski's cannot be elicited. No sensory or motor function. He is currently on a mechanical ventilator and overnight, he did have breathing efforts above the set rate. No seizure activity has no weakness. The patient remains on Keppra 1.5 g every 12 hours and he is also on Dilantin to 50 mg every 12 hours. He continues to have ongoing issues with elevated blood pressure. He is on Plavix appearing drip running at 8 mg an hour and in addition to that, the patient is on hydralazine 100 mg 3 times a day, metoprolol 50 mg 3 times a day, and clonidine 0.2 mg 3 times a day. Most recent systolic blood pressure is 145 with a diastolic of 54. We should be able to gradually wean off the drip based on his blood pressure response. He is on pressure control mode of mechanical ventilation with a pressure control 20, PEEP of 5, FiO2 of 40% and rate of 20. Is having copious amounts of respiratory secretions. Nevertheless, the chest x- ray shows adequate expansion of both lungs. There is some increased interstitial edema bilaterally. ET tube is in a good location. He has adequate oxygenation for now. He is covered with IV Zosyn. The white suppository 0.4, hemoglobin is 10 and a platelet count is at 187. He is receiving enteral feeding for nutritional support and currently is on vital HP at rate of 45 mL an hour. He is afebrile this morning. Over the past 24 hours, the patient was st ill spiking temperatures with a T-max of 101.3. Sputum culture is negative. Pro-calcitonin level was at 0.38. Objective - Vital Signs Vital signs: Vital Signs Temp 100.6 F H 11/23/22 04:00 Pulse 105 H 11/23/22 08:23 Resp 22 11/23/22 07:00 BP 138/63 11/23/22 06:00 Pulse Ox 93 L 11/23/22 07:00 FiO2 40 11/23/22 08:22 Intake & Output 11/22/22 11/23/22 11/23/22 18:59 06:59 18:59 Intake Total 3711.395 2110.957 111.285 Output Total 1190 1420 Balance 65.856 -173.043 111.285 Weight 103 kg Intake: IV 505.0 760 ACETAMINOPHEN IV (For NPO 200 ) 1,000 mg In Empty Bag 1 bag @ 400 mls/hr IVPB Q6HR PRN Rx#:[id number] Phenytoin Sodium Inj 250 45 45 mg In Sodium Chloride 0.9 % 45 ml @ 100 mls/hr IVPB Q12HR ZAIN Rx#:[id number] Piperacillin-Tazobactam 3 100 275 .375 gm In Sodium Chloride 0.9% 100 ml @ 25 mls/hr IVPB Q8H ZAIN Rx#: [id number] Sodium Chloride 0.9% 1, 60 240 000 ml @ 20 mls/hr IV . Q24H ZAIN Rx#:[id number] Sodium Chloride 3%( 50.0 Hypertonic) 500 ml @ 12.5 mls/hr IV .Q24H ONE Rx#: [id number] Sodium Chloride 3%( 250 Hypertonic) 500 ml @ 50 mls/hr IV .Q10H ONE Rx#: [id number] Intake, IV Titration 330.856 441.957 111.285 Amount Clevidipine Butyrate 25 77.067 50 mg In Empty Bag 1 bag @ 1 MG/HR 2 mls/hr IV .Q24H ZAIN Rx#:[id number] niCARdipine 20 mg In 104.166 Sodium Chloride 0.9% 192 ml @ 5 MG/HR 50 mls/hr IV .Q4H ZAIN Rx#:[id number] propofoL 1,000 mg In 226.690 364.89 61.285 Empty Bag 1 bag @ 15 MCG/ KG/MIN 9.27 mls/hr IV . [id number] ZAIN Rx#:[id number] Tube Feeding 360 45 Other 60 Output: Urine 1190 1420 Other: Voiding Method Indwelling Catheter Indwelling Catheter ABP, PAP, CO, CI - Last Documented Arterial Blood Pressure 147/53 - Exam GENERAL EXAM: Unresponsive even to painful stimuli, intubated to the mechanical ventilator, not on any sedation, the patient is breathing above the mechanical ventilator HEAD: Normocephalic and atraumatic EYES: Normal reaction of pupils, equal size. NOSE: Clear with pink turbinates. THROAT: No erythema or exudates. NECK: No masses, no JVD. CHEST: No chest wall deformity. LUNGS: Equal air entry with diffuse rhonchi throughout and minimal expiratory wheezes. Intubated to the mechanical ventilator. Synchronous with current settings, no intrinsic respiratory drive. Peak pressure 30 and plateau pressure 22. Minimal secretions. CVS: S1 and S2 normal with no audible murmur, regular rhythm. No extra heart sounds ABDOMEN: Obese abdomen, no hepatosplenomegaly, active bowel sounds, no guarding or rigidity. OG tube to low intermittent suction with minimal brown output SPINE: No scoliosis or deformity SKIN: No rashes CENTRAL NERVOUS SYSTEM: Unresponsive to even painful stimuli, not on any sedation, DTRs diminished throughout, Babinski's negative bilaterally, no evidence of any myoclonic jerks on today's evaluations. Pupils are round 2 mm in size, reactive to light. Positive cough and a gag. EXTREMITIES: There is no peripheral edema. No clubbing, or cyanosis. [place]ia. Peripheral pulses are intact. - Labs CBC & Chem 7: 11/23/22 04:05 11/23/22 04:05 Labs: Abnormal Lab Results - Last 24 Hours (Table) 11/22/22 11/22/22 11/22/22 Range/Units 09:51 12:03 14:30 WBC (3.8-10.6) k/uL RBC (4.30-5.90) m/uL Hgb (13.0-17.5) gm/dL Hct (39.0-53.0) % Neutrophils # (1.3-7.7) k/uL ABG pH (7.35-7.45) ABG pO2 (83-108) mmHg ABG HCO3 (21-25) mmol/L ABG Total CO2 (19-24) mmol/L Sodium 154 H 155 H (137-145) mmol/L Potassium (3.5-5.1) mmol/L Chloride (98-107) mmol/L BUN (9-20) mg/dL Creatinine (0.66-1.25) mg/dL Glucose (74-99) mg/dL POC Glucose (mg/dL) 153 H (70-110) mg/dL 11/22/22 11/22/22 11/22/22 Range/Units 17:16 17:16 17:55 WBC (3.8-10.6) k/uL RBC (4.30-5.90) m/uL Hgb (13.0-17.5) gm/dL Hct (39.0-53.0) % Neutrophils # (1.3-7.7) k/uL ABG pH (7.35-7.45) ABG pO2 (83-108) mmHg ABG HCO3 (21-25) mmol/L ABG Total CO2 (19-24) mmol/L Sodium 153 H (137-145) mmol/L Potassium 3.3 L (3.5-5.1) mmol/L Chloride (98-107) mmol/L BUN (9-20) mg/dL Creatinine (0.66-1.25) mg/dL Glucose (74-99) mg/dL POC Glucose (mg/dL) 144 H (70-110) mg/dL 11/22/22 11/22/22 11/23/22 Range/Units 21:15 23:43 01:35 WBC (3.8-10.6) k/uL RBC (4.30-5.90) m/uL Hgb (13.0-17.5) gm/dL Hct (39.0-53.0) % Neutrophils # (1.3-7.7) k/uL ABG pH (7.35-7.45) ABG pO2 (83-108) mmHg ABG HCO3 (21-25) mmol/L ABG Total CO2 (19-24) mmol/L Sodium 153 H 156 H (137-145) mmol/L Potassium (3.5-5.1) mmol/L Chloride (98-107) mmol/L BUN (9-20) mg/dL Creatinine (0.66-1.25) mg/dL Glucose (74-99) mg/dL POC Glucose (mg/dL) 130 H (70-110) mg/dL 11/23/22 11/23/22 11/23/22 Range/Units 04:05 04:05 05:52 WBC 12.4 H (3.8-10.6) k/uL RBC 3.31 L (4.30-5.90) m/uL Hgb 10.0 L (13.0-17.5) gm/dL Hct 31.0 L (39.0-53.0) % Neutrophils # 10.6 H (1.3-7.7) k/uL ABG pH (7.35-7.45) ABG pO2 (83-108) mmHg ABG HCO3 (21-25) mmol/L ABG Total CO2 (19-24) mmol/L Sodium 153 H (137-145) mmol/L Potassium 3.4 L (3.5-5.1) mmol/L Chloride 123 H (98-107) mmol/L BUN 34 H (9-20) mg/dL Creatinine 1.37 H (0.66-1.25) mg/dL Glucose 171 H (74-99) mg/dL POC Glucose (mg/dL) 189 H (70-110) mg/dL 11/23/22 Range/Units 06:02 WBC (3.8-10.6) k/uL RBC (4.30-5.90) m/uL Hgb (13.0-17.5) gm/dL Hct (39.0-53.0) % Neutrophils # (1.3-7.7) k/uL ABG pH 7.46 H (7.35-7.45) ABG pO2 73 L (83-108) mmHg ABG HCO3 26 H (21-25) mmol/L ABG Total CO2 27 H (19-24) mmol/L Sodium (137-145) mmol/L Potassium (3.5-5.1) mmol/L Chloride (98-107) mmol/L BUN (9-20) mg/dL Creatinine (0.66-1.25) mg/dL Glucose (74-99) mg/dL POC Glucose (mg/dL) (70-110) mg/dL Assessment and Plan Assessment: Cardiac arrest, with prolonged downtime of 20-25 minutes. Presenting rhythm was reportedly PEA, achieving return of spontaneous circulation after multiple rounds of CPR and 4 A of epinephrine. Severe anoxic brain injury, Noncontrast CT of the brain did not show any acute intracranial abnormality. There are intermittent myoclonic jerks. EEG was noted. The patient is currently on a combination of propofol running at 40 g addition to Versed 10 mg and is also on Keppra. Episodes of myoclonic jerks have subsided although the patient still having some occasional episodes. On today's evaluation, no evidence of any myoclonic jerks and the EEG that was done yesterday showed no ongoing epileptic foci. The patient is currently on accommodation of Keppra and Dilantin. Repeat CAT scan of the brain showed effacement of the white/waldrop matter and the patient was started on hypertonic saline for [employer] edema. He remains unresponsive. The patientt was given hypertonic saline and his sodium level is elevated and the patient has currently off the drip. Hypernatremia the patient is currently off the hypertonic saline Acute hypoxemic and hypercapnic respiratory failure, likely secondary to an exacerbation of diastolic congestive heart failure, intubated to the mechanical ventilator. Chest x-ray is concerning for pulmonary edema. Recent echocardiogram done on 07/03/2022 shows a preserved left ventricular ejection fraction of 55-60% with moderate concentric LVH. Moderate mitral regurgitation and stenosis. There is moderate to severe pulmonary hypertension with RVSP of 55 mmHg. the patient remains on a mechanical ventilator, switch to pressure control mode of mechanical ventilation Acute COPD exacerbation, currently stable without active bronchospasm wheezing and the peak airway pressure has dropped compared to yesterday. He remains on bronchodilators Hypertension, currently on metoprolol, hydralazine, Norvasc and clevidipine drip at 8 mg an hour Anion gap metabolic acidosis, secondary to cardiac arrest and lactic acidosis, recovered Acute kidney injury, related to hypotension and ATN, recovered Hyperthermia, likely central. No clear indication for an infection patient remains on IV Zosyn Normocytic, normochromic anemia Hyperlipidemia Chronic pain, maintained on methadone outpatient History of ventilator dependent respiratory failure Enteral feeding for nutritional support was initiated yesterday Plan: No banned changes and keep the patient on a pressure control mode of mechanical ventilation Keep propofol IV Tylenol for temperature control External cooling Cultures were sent, results are negative for now Continue IV Zosyn, and as an empiric antibiotic coverage Patient has signs of severe anoxic encephalopathy, suspected fever essential Continue Keppra Continue Dilantin Continue enteral feeding Chest x-ray was noted Echo was noted Neurology consultation appreciated, may need a follow-up CAT scan of the brain was done yesterday showed significant [employer] edema secondary to anoxic encephalopathy/anoxic brain injury [employer] on the case Will be communicating with the family with the various results. Unfortunately, patient has signs of significant neurologic damage and signs of anoxic encephalopathy and he carries a very poor prognosis due to his cardiac arrest and prolonged downtime. [facility] is on the case We'll continue to follow make further recommendations based on his progress. Consider care evaluation,> 30min Time with Patient: Greater than 30
[2022-11-23] MEDS ORDERED: PHENYTOIN SODIUM INJ 500 MG in SODIUM CHLORIDE 0.9% 50 ML IVPB STA (11:05)
--- NOTE | 2022-11-23 11:08 | P.PN ---
Subjective Progress Note Date: 11/22/22 Patient was seen for a follow-up. Patient is off Versed drip. Patient currently on propofol 50 mcg/kg per minute. This was turned off at 5:10 PM. I examined the patient before turning off sedation as well as 20 minute after stopping the sedation. Patient was not showing any seizure activity while sedation was on. Patient also on Keppra IV. Per nursing report, patient had a 4 minute seizure last night for which he was given Ativan. At present no seizures were noticed before sedation was turned off. Objective - Vital Signs Vital signs: Vital Signs Temp 100.6 F H 11/23/22 04:00 Pulse 105 H 11/23/22 08:23 Resp 22 11/23/22 07:00 BP 138/63 11/23/22 06:00 Pulse Ox 93 L 11/23/22 07:00 FiO2 40 11/23/22 08:22 Intake & Output 11/22/22 11/23/22 11/23/22 18:59 06:59 18:59 Intake Total 7616.545 2905.957 111.285 Output Total 1190 1420 Balance 65.856 -173.043 111.285 Weight 103 kg Intake: IV 505.0 760 ACETAMINOPHEN IV (For NPO 200 ) 1,000 mg In Empty Bag 1 bag @ 400 mls/hr IVPB Q6HR PRN Rx#:[id number] Phenytoin Sodium Inj 250 45 45 mg In Sodium Chloride 0.9 % 45 ml @ 100 mls/hr IVPB Q12HR [facility] Rx#:[id number] Piperacillin-Tazobactam 3 100 275 .375 gm In Sodium Chloride 0.9% 100 ml @ 25 mls/hr IVPB Q8H [facility] Rx#: [id number] Sodium Chloride 0.9% 1, 60 240 000 ml @ 20 mls/hr IV . Q24H [facility] Rx#:[id number] Sodium Chloride 3%( 50.0 Hypertonic) 500 ml @ 12.5 mls/hr IV .Q24H [facility] Rx#: [id number] Sodium Chloride 3%( 250 Hypertonic) 500 ml @ 50 mls/hr IV .Q10H [facility] Rx#: [id number] Intake, IV Titration 330.856 441.957 111.285 Amount Clevidipine Butyrate 25 77.067 50 mg In Empty Bag 1 bag @ 1 MG/HR 2 mls/hr IV .Q24H [facility] Rx#:[id number] niCARdipine 20 mg In 104.166 Sodium Chloride 0.9% 192 ml @ 5 MG/HR 50 mls/hr IV .Q4H [facility] Rx#:[id number] propofoL 1,000 mg In 226.690 364.89 61.285 Empty Bag 1 bag @ 15 MCG/ KG/MIN 9.27 mls/hr IV . [id number] [facility] Rx#:[id number] Tube Feeding 360 45 Other 60 Output: Urine 1190 1420 Other: Voiding Method Indwelling Catheter Indwelling Catheter ABP, PAP, CO, CI - Last Documented Arterial Blood Pressure 147/53 - Exam Patient is intubated, sedated with propofol 50 mcg/kg per minute. Patient not responding to calling name. With painful stimuli, patient did slightly open his eyes, had a blank stare, did not make eye contact. Did not track. Pupils are about 4 mm, reacting to light more consistently. Oculocephalics are present. Corneals are present. Patient has positive gag, and a good cough reflex on deep suctioning. Deep tendon reflexes are trace at the knees, but absent elsewhere. Plantars are flat. Patient does not withdraw to painful stimuli, although his eyes became slightly more open. No obvious seizure activity noticed at this time. Patient does appear to be breathing over the ventilator, 26 for set at 20. Sedation was discontinued at 5:10 PM. Patient examined at 5:25 PM Patient slightly more opening eyes. However still not making eye contact, or following directions or tracking. With painful stimulus, patient started having seizure like activity, with abdominal jerking, then rhythmic foot twitching bilaterally. This was noticed by myself, the nurse and also the family members noticed it. - Labs CBC & Chem 7: 11/23/22 04:05 11/23/22 04:05 Labs: Abnormal Lab Results - Last 24 Hours (Table) 11/22/22 11/22/22 11/22/22 Range/Units 12:03 14:30 17:16 WBC (3.8-10.6) k/uL RBC (4.30-5.90) m/uL Hgb (13.0-17.5) gm/dL Hct (39.0-53.0) % Neutrophils # (1.3-7.7) k/uL ABG pH (7.35-7.45) ABG pO2 (83-108) mmHg ABG HCO3 (21-25) mmol/L ABG Total CO2 (19-24) mmol/L Sodium 155 H (137-145) mmol/L Potassium 3.3 L (3.5-5.1) mmol/L Chloride (98-107) mmol/L BUN (9-20) mg/dL Creatinine (0.66-1.25) mg/dL Glucose (74-99) mg/dL POC Glucose (mg/dL) 153 H (70-110) mg/dL 11/22/22 11/22/22 11/22/22 Range/Units 17:16 17:55 21:15 WBC (3.8-10.6) k/uL RBC (4.30-5.90) m/uL Hgb (13.0-17.5) gm/dL Hct (39.0-53.0) % Neutrophils # (1.3-7.7) k/uL ABG pH (7.35-7.45) ABG pO2 (83-108) mmHg ABG HCO3 (21-25) mmol/L ABG Total CO2 (19-24) mmol/L Sodium 153 H 153 H (137-145) mmol/L Potassium (3.5-5.1) mmol/L Chloride (98-107) mmol/L BUN (9-20) mg/dL Creatinine (0.66-1.25) mg/dL Glucose (74-99) mg/dL POC Glucose (mg/dL) 144 H (70-110) mg/dL 11/22/22 11/23/22 11/23/22 Range/Units 23:43 01:35 04:05 WBC 12.4 H (3.8-10.6) k/uL RBC 3.31 L (4.30-5.90) m/uL Hgb 10.0 L (13.0-17.5) gm/dL Hct 31.0 L (39.0-53.0) % Neutrophils # 10.6 H (1.3-7.7) k/uL ABG pH (7.35-7.45) ABG pO2 (83-108) mmHg ABG HCO3 (21-25) mmol/L ABG Total CO2 (19-24) mmol/L Sodium 156 H (137-145) mmol/L Potassium (3.5-5.1) mmol/L Chloride (98-107) mmol/L BUN (9-20) mg/dL Creatinine (0.66-1.25) mg/dL Glucose (74-99) mg/dL POC Glucose (mg/dL) 130 H (70-110) mg/dL 11/23/22 11/23/22 11/23/22 Range/Units 04:05 05:52 06:02 WBC (3.8-10.6) k/uL RBC (4.30-5.90) m/uL Hgb (13.0-17.5) gm/dL Hct (39.0-53.0) % Neutrophils # (1.3-7.7) k/uL ABG pH 7.46 H (7.35-7.45) ABG pO2 73 L (83-108) mmHg ABG HCO3 26 H (21-25) mmol/L ABG Total CO2 27 H (19-24) mmol/L Sodium 153 H (137-145) mmol/L Potassium 3.4 L (3.5-5.1) mmol/L Chloride 123 H (98-107) mmol/L BUN 34 H (9-20) mg/dL Creatinine 1.37 H (0.66-1.25) mg/dL Glucose 171 H (74-99) mg/dL POC Glucose (mg/dL) 189 H (70-110) mg/dL Assessment and Plan Assessment: * Status post witnessed cardiac arrest, with downtime of at least 28 minutes before ROSC was obtained. Patient at present showing signs of significant anoxic encephalopathy. * Myoclonic seizures, likely from severe anoxic encephalopathy, now resolved. However does appear back on completely stopping sedation and with noxious stimulus. * CHF with pulmonary edema * COPD with exacerbation * Acute kidney injury * Hyponatremia, resolved * Hyperlipidemia * Hypertension * Tobacco use Plan: * Patient is currently on hypertonic saline solution at 50 mL per hour. Patient's sodium is 155. We will discontinue hypertonic saline solution. Patient showing some improvement in brainstem reflexes, but no improvement in cortical function. With stopping sedatives, and with painful stimulus, provoked seizure. Patient was resumed on propofol. * Repeat EEG 11/20/2022 was abnormal due to background slowing of severe degree, consistent with history of anoxic encephalopathy. When compared to the EEG from yesterday, the epileptiform activity and bursts have completely resolved. No epileptiform activity was seen in this study. * Initial EEG 11/19/2022 was performed, which was severely abnormal due to presence of burst suppression pattern. Suppressed pattern consisted of isoelectric EEG with bursts consisting of high amplitude spike and slow wave lasting for 1-6 seconds. Clinically the burst associated with generalized body convulsion. Overall, this EEG is suggestive of severe generalized cerebral dysfunction and the pattern can be seen with severe anoxic encephalopathy. * Repeat CT head 11/22/2022 revealed diffuse brain edema consistent with the history of anoxia. No interval change since prior study. No acute bleed or mass effect. Acute and chronic sinusitis and mastoiditis. I personally reviewed CT head agree with the findings. Also reviewed CT head films on the computer with the patient's family. * At present patient is 84 hours (3.5 days) post cardiac arrest and continues to be in comatose state. Based upon the duration of cardiac arrest, current clinical examination and EEG findings, the prognosis appears poor. Discussed with patient's family in detail. They have made patient DO NOT RESUSCITATE. * Continue Keppra. Increase Keppra to 1500 mg twice a day. * Dilantin level is 7.0. Patient currently on Dilantin 250 mg twice a day. We will give an extra loading dose of Dilantin 500 mg. * Other medical management as per IM and critical care team. * Discussed with patient's brother, patient's significant other and other family members in detail.
[2022-11-23 11:40] LABS: Glucose,Whole Blood 112 mg/dL (70-110)
--- NOTE | 2022-11-23 16:35 | P.PN ---
Subjective Progress Note Date: 11/23/22 Patient remains on ventilator. CTH shows global anoxic brain injury and swelling. General: intubated, sedated HEENT: normocephalic, atraumatic, no tracheal deviation Respiratory: symmetric chest rise, no cyanosis, ventilator dependent CVS: perfusing all extremities, no distal gangrene, no pitting edema GI: soft, ND : no SPT, no CVAT, laboy not present Neuro: sedated Hospital course: 61-year-old man with a medical history of hypertension, hyperlipidemia, COPD, methadone dependence present after cardiac arrest. Patient had 25 minutes of downtime in the field before achieving return of spontaneous circulation prior to arrival. In the emergency room, patient's temperature was 95.7, heart rate was 108, 78/47, 88% on nonrebreather. Initial CBC demonstrated blood cell count of 9.8, hemoglobin of 11.5. BMP showed sodium of 135, CO2 of 19, gap of 18, BUNs of 30, creatinine of 1.91. Liver function test showed total protein 6.2, albumin of 3.4. BNP was 1750. Lactic acid is 9.2. Troponin was 0.012. Coags are unremarkable. Troponin subsequent elevated to 0.351 then 0.977. Pro-calcitonin is 0.38. Phenytoin level is 14.4. Patient's chest x-ray showed cardiomegaly, right-sided pulmonary infiltrate. EKG showed atrial fibrillation with rapid ventricular response. Brain CT head no acute findings in the head/brain. Case was discussed with the emergency room provider and decision wa s made to admit the patient to the intensive care unit for further evaluation. Patient was intubated in the emergency room. Patient was seen by pulmonology, neurology, cardiology. Neurology recommended EEG which showed isoelectric pattern with intermittent sharp waves concerning for severe anoxic brain injury. Echocardiogram demonstrated 50-55% EF, RVSP of 32. Assessment: Cardiac arrest Anoxic brain injury Acute Kidney Injury Seizures COPD without exacerbation Plan: Patient is febrile to 101.3, 119/60, heart rate 82, 95% on 40% of FiO2 CBC demonstrated leukocytosis to 10.5, hemoglobin of 10.2. Basic metabolic panel shows Na 150-155, K 3.4, BUN 34, Cr 1.25, phenytoin 7 Patients versed gtt is titrated off Remains on propofol now 50mcg Patient now on clonidine 0.2mg q8h, amlodipine 5mg BID, hydralazine 100mg TID, metoprolol 50mg TID Patient remains on Zosyn Continue 3% saline Prognosis very poor. Discussed with pulmonology, patients prognosis is very poor (see same day ACP note) Objective - Vital Signs Vital signs: Vital Signs Temp 101.6 F H 11/23/22 12:00 Pulse 101 H 11/23/22 16:23 Resp 26 H 11/23/22 15:00 BP 138/63 11/23/22 06:00 Pulse Ox 92 L 11/23/22 15:00 FiO2 40 11/23/22 16:05 Intake & Output 11/22/22 11/23/22 11/23/22 18:59 06:59 18:59 Intake Total 0151.704 0910.957 811.285 Output Total 1190 1420 855 Balance 65.856 -173.043 -43.715 Weight 103 kg Intake: IV 505.0 760 160 ACETAMINOPHEN IV (For NPO 200 ) 1,000 mg In Empty Bag 1 bag @ 400 mls/hr IVPB Q6HR PRN Rx#:[id number] Phenytoin Sodium Inj 250 45 45 mg In Sodium Chloride 0.9 % 45 ml @ 100 mls/hr IVPB Q12HR [facility] Rx#:[id number] Piperacillin-Tazobactam 3 100 275 .375 gm In Sodium Chloride 0.9% 100 ml @ 25 mls/hr IVPB Q8H [facility] Rx#: [id number] Sodium Chloride 0.9% 1, 60 240 160 000 ml @ 20 mls/hr IV . Q24H [facility] Rx#:[id number] Sodium Chloride 3%( 50.0 Hypertonic) 500 ml @ 12.5 mls/hr IV .Q24H ONE Rx#: [id number] Sodium Chloride 3%( 250 Hypertonic) 500 ml @ 50 mls/hr IV .Q10H ONE Rx#: [id number] Intake, IV Titration 330.856 441.957 261.285 Amount Clevidipine Butyrate 25 77.067 100 mg In Empty Bag 1 bag @ 1 MG/HR 2 mls/hr IV .Q24H [facility] Rx#:[id number] niCARdipine 20 mg In 104.166 Sodium Chloride 0.9% 192 ml @ 5 MG/HR 50 mls/hr IV .Q4H [facility] Rx#:[id number] propofoL 1,000 mg In 226.690 364.89 161.285 Empty Bag 1 bag @ 15 MCG/ KG/MIN 9.27 mls/hr IV . [id number] [facility] Rx#:[id number] Tube Feeding 360 45 360 Other 60 30 Output: Urine 1190 1420 855 Other: Voiding Method Indwelling Catheter Indwelling Catheter Indwelling Catheter ABP, PAP, CO, CI - Last Documented Arterial Blood Pressure 147/55 - Labs CBC & Chem 7: 11/23/22 04:05 11/23/22 04:05 Labs: Abnormal Lab Results - Last 24 Hours (Table) 11/22/22 11/22/22 11/22/22 Range/Units 17:16 17:16 17:55 WBC (3.8-10.6) k/uL RBC (4.30-5.90) m/uL Hgb (13.0-17.5) gm/dL Hct (39.0-53.0) % Neutrophils # (1.3-7.7) k/uL ABG pH (7.35-7.45) ABG pO2 (83-108) mmHg ABG HCO3 (21-25) mmol/L ABG Total CO2 (19-24) mmol/L Sodium 153 H (137-145) mmol/L Potassium 3.3 L (3.5-5.1) mmol/L Chloride (98-107) mmol/L BUN (9-20) mg/dL Creatinine (0.66-1.25) mg/dL Glucose (74-99) mg/dL POC Glucose (mg/dL) 144 H (70-110) mg/dL 11/22/22 11/22/22 11/23/22 Range/Units 21:15 23:43 01:35 WBC (3.8-10.6) k/uL RBC (4.30-5.90) m/uL Hgb (13.0-17.5) gm/dL Hct (39.0-53.0) % Neutrophils # (1.3-7.7) k/uL ABG pH (7.35-7.45) ABG pO2 (83-108) mmHg ABG HCO3 (21-25) mmol/L ABG Total CO2 (19-24) mmol/L Sodium 153 H 156 H (137-145) mmol/L Potassium (3.5-5.1) mmol/L Chloride (98-107) mmol/L BUN (9-20) mg/dL Creatinine (0.66-1.25) mg/dL Glucose (74-99) mg/dL POC Glucose (mg/dL) 130 H (70-110) mg/dL 11/23/22 11/23/22 11/23/22 Range/Units 04:05 04:05 05:52 WBC 12.4 H (3.8-10.6) k/uL RBC 3.31 L (4.30-5.90) m/uL Hgb 10.0 L (13.0-17.5) gm/dL Hct 31.0 L (39.0-53.0) % Neutrophils # 10.6 H (1.3-7.7) k/uL ABG pH (7.35-7.45) ABG pO2 (83-108) mmHg ABG HCO3 (21-25) mmol/L ABG Total CO2 (19-24) mmol/L Sodium 153 H (137-145) mmol/L Potassium 3.4 L (3.5-5.1) mmol/L Chloride 123 H (98-107) mmol/L BUN 34 H (9-20) mg/dL Creatinine 1.37 H (0.66-1.25) mg/dL Glucose 171 H (74-99) mg/dL POC Glucose (mg/dL) 189 H (70-110) mg/dL 11/23/22 11/23/22 Range/Units 06:02 11:39 WBC (3.8-10.6) k/uL RBC (4.30-5.90) m/uL Hgb (13.0-17.5) gm/dL Hct (39.0-53.0) % Neutrophils # (1.3-7.7) k/uL ABG pH 7.46 H (7.35-7.45) ABG pO2 73 L (83-108) mmHg ABG HCO3 26 H (21-25) mmol/L ABG Total CO2 27 H (19-24) mmol/L Sodium (137-145) mmol/L Potassium (3.5-5.1) mmol/L Chloride (98-107) mmol/L BUN (9-20) mg/dL Creatinine (0.66-1.25) mg/dL Glucose (74-99) mg/dL POC Glucose (mg/dL) 112 H (70-110) mg/dL
[2022-11-23] MEDS: NOREPINEPHRINE 4 MG in SODIUM CHLORIDE 0.9% 250 ML IV SCH (16:43)
--- NOTE | 2022-11-23 16:43 | P.PN ---
Progress Note - Text Progress Note Date: 11/23/22 Advance care plan note I spent 46 minutes speaking [id number] with patient's family members at bedside including: Girlfriend, 3 daughters, son, 4 siblings, 2 [id number] regarding patient's severe medical condition secondary to significant anoxic brain injury from prolonged downtime from CPR. Our discussion entailed end-of-life wishes, and the role of surrogate decision making. We decided that given patient's significantly poor clinical condition, patient likely would have made the decision withdraw care if he were able to make that decision for himself. 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 A very common theme with the very supportive family was identifying how much of a caring, compassionate person Stu was. In the end, it was agreed that Stu would have wanted to be comfortable in his passing, and would have wanted to share the gift of life through organ donation with those that he may help. Patient's wishes will be respected, and his care will be transitioned to comfort care, gift of life was notified regarding possibility of organ donation.
[2022-11-23 17:56] LABS: Glucose,Whole Blood 138 mg/dL (70-110)
[2022-11-23] MEDS: ACETAMINOPHEN TAB 500 MG TAB PO PRN (18:42)
--- NOTE | 2022-11-23 19:35 | P.PN ---
Subjective Progress Note Date: 11/23/22 Patient was seen for a follow-up. Patient is off Versed drip. Patient currently on propofol 50 mcg/kg per minute. Patient also on Clavipex at 6 mg per hour. No obvious seizure activity noted. Please refer to examination below. Objective - Vital Signs Vital signs: Vital Signs Temp 101 F H 11/23/22 16:00 Pulse 93 11/23/22 19:00 Resp 29 H 11/23/22 19:00 BP 152/68 11/23/22 17:45 Pulse Ox 94 L 11/23/22 19:00 FiO2 40 11/23/22 16:05 Intake & Output 11/23/22 11/23/22 11/24/22 06:59 18:59 06:59 Intake Total 3254.377 2979.285 65 Output Total 1420 1090 110 Balance -173.043 -3.715 -45 Weight 103 kg Intake: IV 760 220 20 ACETAMINOPHEN IV (For NPO 200 ) 1,000 mg In Empty Bag 1 bag @ 400 mls/hr IVPB Q6HR PRN Rx#:[id number] Phenytoin Sodium Inj 250 45 mg In Sodium Chloride 0.9 % 45 ml @ 100 mls/hr IVPB Q12HR [facility] Rx#:[id number] Piperacillin-Tazobactam 3 275 .375 gm In Sodium Chloride 0.9% 100 ml @ 25 mls/hr IVPB Q8H [facility] Rx#: [id number] Sodium Chloride 0.9% 1, 240 220 20 000 ml @ 20 mls/hr IV . Q24H [facility] Rx#:[id number] Intake, IV Titration 441.957 311.285 Amount Clevidipine Butyrate 25 77.067 150 mg In Empty Bag 1 bag @ 1 MG/HR 2 mls/hr IV .Q24H [facility] Rx#:[id number] propofoL 1,000 mg In 364.89 161.285 Empty Bag 1 bag @ 15 MCG/ KG/MIN 9.27 mls/hr IV . [id number] [facility] Rx#:[id number] Tube Feeding 45 495 45 Other 60 Output: Urine 1420 1090 110 Other: Voiding Method Indwelling Catheter Indwelling Catheter ABP, PAP, CO, CI - Last Documented Arterial Blood Pressure 142/60 - Exam Patient is intubated, sedated with propofol 50 mcg/kg per minute. Patient not responding to calling name. With painful stimuli, patient did slightly open his eyes, had a blank stare, did not make eye contact. Did not track. Pupils are about 3 mm, reacting to light very slightly. Oculocephalics are present. Corneals are present. Patient has positive gag, and a good cough reflex on deep suctioning. Deep tendon reflexes are trace at the knees, but absent elsewhere. Plantars are flat. Patient does not withdraw to painful stimuli, although he did slight decerebrate posturing of the extremities. His eyes were slightly more opening. No tracking. No obvious seizure activity noticed at this time. Patient does appear to be breathing over the ventilator, 26 for set at 20. No response with nailbed pressure in the lower limbs. - Labs CBC & Chem 7: 11/23/22 04:05 11/23/22 04:05 Labs: Abnormal Lab Results - Last 24 Hours (Table) 11/22/22 11/22/22 11/23/22 Range/Units 21:15 23:43 01:35 WBC (3.8-10.6) k/uL RBC (4.30-5.90) m/uL Hgb (13.0-17.5) gm/dL Hct (39.0-53.0) % Neutrophils # (1.3-7.7) k/uL ABG pH (7.35-7.45) ABG pO2 (83-108) mmHg ABG HCO3 (21-25) mmol/L ABG Total CO2 (19-24) mmol/L Sodium 153 H 156 H (137-145) mmol/L Potassium (3.5-5.1) mmol/L Chloride (98-107) mmol/L BUN (9-20) mg/dL Creatinine (0.66-1.25) mg/dL Glucose (74-99) mg/dL POC Glucose (mg/dL) 130 H (70-110) mg/dL 11/23/22 11/23/22 11/23/22 Range/Units 04:05 04:05 05:52 WBC 12.4 H (3.8-10.6) k/uL RBC 3.31 L (4.30-5.90) m/uL Hgb 10.0 L (13.0-17.5) gm/dL Hct 31.0 L (39.0-53.0) % Neutrophils # 10.6 H (1.3-7.7) k/uL ABG pH (7.35-7.45) ABG pO2 (83-108) mmHg ABG HCO3 (21-25) mmol/L ABG Total CO2 (19-24) mmol/L Sodium 153 H (137-145) mmol/L Potassium 3.4 L (3.5-5.1) mmol/L Chloride 123 H (98-107) mmol/L BUN 34 H (9-20) mg/dL Creatinine 1.37 H (0.66-1.25) mg/dL Glucose 171 H (74-99) mg/dL POC Glucose (mg/dL) 189 H (70-110) mg/dL 11/23/22 11/23/22 11/23/22 Range/Units 06:02 11:39 17:55 WBC (3.8-10.6) k/uL RBC (4.30-5.90) m/uL Hgb (13.0-17.5) gm/dL Hct (39.0-53.0) % Neutrophils # (1.3-7.7) k/uL ABG pH 7.46 H (7.35-7.45) ABG pO2 73 L (83-108) mmHg ABG HCO3 26 H (21-25) mmol/L ABG Total CO2 27 H (19-24) mmol/L Sodium (137-145) mmol/L Potassium (3.5-5.1) mmol/L Chloride (98-107) mmol/L BUN (9-20) mg/dL Creatinine (0.66-1.25) mg/dL Glucose (74-99) mg/dL POC Glucose (mg/dL) 112 H 138 H (70-110) mg/dL Assessment and Plan Assessment: * Status post witnessed cardiac arrest, with downtime of at least 28 minutes before ROSC was obtained. Patient continues to show signs of severe anoxic encephalopathy. Patient continues to be comatose with GCS of 5 (E2,V1,M2). * Myoclonic seizures, likely from severe anoxic encephalopathy, now resolved. However does appear back on completely stopping sedation and with noxious stimulus. * CHF with pulmonary edema * COPD with exacerbation * Acute kidney injury, resolved * Hyponatremia, resolved * Hyperlipidemia * Hypertension * Tobacco use Plan: * Patient is off hypertonic saline solution. Patient was resumed on propofol. * Repeat EEG 11/20/2022 was abnormal due to background slowing of severe degree, consistent with history of anoxic encephalopathy. When compared to the EEG from yesterday, the epileptiform activity and bursts have completely resolved. No epileptiform activity was seen in this study. * Initial EEG 11/19/2022 was performed, which was severely abnormal due to presence of burst suppression pattern. Suppressed pattern consisted of iso electric EEG with bursts consisting of high amplitude spike and slow wave lasting for 1-6 seconds. Clinically the burst associated with generalized body convulsion. Overall, this EEG is suggestive of severe generalized cerebral dysfunction and the pattern can be seen with severe anoxic encephalopathy. * Repeat CT head 11/22/2022 revealed diffuse brain edema consistent with the history of anoxia. No interval change since prior study. No acute bleed or mass effect. Acute and chronic sinusitis and mastoiditis. I personally reviewed CT head agree with the findings. Also reviewed CT head films on the computer with the patient's family on 11/22/2022. * At present patient is 108 hours (4.5 days) post cardiac arrest and continues to almost comatose state. No significant improvement noticed so far. Based upon the duration of cardiac arrest, current clinical examination and EEG findings, the prognosis for meaningful recovery appears poor. Family has made patient DO NOT RESUSCITATE. * Dr. Lacy has held a detailed family meeting, and apparently they have made patient comfort care. * Continue Keppra. Increase Keppra to 1500 mg twice a day. * Dilantin level is 7.0. Patient has received extra loading dose of Dilantin 500 mg. Patient currently on Dilantin 250 mg twice a day. * Other medical management as per IM and critical care team. * Dr. Alireza Mays covering neurology service starting from tomorrow morning. Please call neurology for any other concerns.
[2022-11-23 23:07] LABS: Basophils % (A) 0 %; Eosinophils # (A) 0.4 k/uL (0-0.7); Eosinophils % (A) 4 %; HCT 31.4 % (39.0-53.0); Hypochromasia Slight; Lymphocytes # (A) 1.3 k/uL (1.0-4.8); Lymphocytes % (A) 12 %; MCHC 31.8 g/dL (31.0-37.0); MCV 94.4 fL (80.0-100.0); Mean Platelet Volume 9.2; Monocytes # (A) 0.5 k/uL (0-1.0); Monocytes % (A) 4 %; Neutrophils % (A) 78 %; Platelet Count 197 k/uL (150-450); RBC 3.33 m/uL (4.30-5.90); RDW 15.3 % (11.5-15.5); WBC 10.2 k/uL (3.8-10.6)
[2022-11-23 23:40] LABS: INR 0.9 (<1.2); Prothrombin Time 9.9 sec (9.0-12.0)
[2022-11-23 23:42] LABS: ALT 27 U/L (4-49); AST 55 U/L (17-59); African American GFR (CKD) 56 (>60 ml/min/1.73 sqM); Albumin 2.7 g/dL (3.5-5.0); Alkaline Phosphatase 65 U/L (38-126); Amylase 34 U/L (30-110); Anion Gap 8 mmol/L; Bilirubin, Delta 0.4 mg/dL (0.0-0.2); Bilirubin,Unconjugated 0.1 mg/dL (0.0-1.1); Blood Urea Nitrogen 39 mg/dL (9-20); Calcium 8.5 mg/dL (8.4-10.2); Carbon Dioxide 25 mmol/L (22-30); Chloride 123 mmol/L (98-107); Glucose 145 mg/dL (74-99); Lipase 36 U/L (23-300); Magnesium 2.8 mg/dL (1.6-2.3); Non-African American GFR(CKD) 48 (>60 ml/min/1.73 sqM); Phosphorus 3.9 mg/dL (2.5-4.5); Potassium 3.5 mmol/L (3.5-5.1); Sodium 156 mmol/L (137-145); Total Bilirubin 0.5 mg/dL (0.2-1.3); Total Protein 5.6 g/dL (6.3-8.2)
[2022-11-23 23:49] LABS: NT-Pro-B-Type Natriuretic Pept 2830 pg/mL
--- NOTE | 2022-11-23 23:50 | CT ---
EXAMINATION TYPE: CT ChestAbdPelvis wo con DATE OF EXAM: 11/23/2022 COMPARISON: None HISTORY: 61-year-old male [facility] TECHNIQUE: Contiguous axial scanning of the chest, abdomen, and pelvis without IV contrast. Coronal a nd sagittal reconstructions performed. CT DLP: 2020.8 mGycm Automated exposure control for dose reduction was used. FINDINGS: Chest: Patient is intubated. NG tube courses into the stomach. Heart upper limits of normal in size without pericardial effusion. LAD coronary artery calcifications. Mild aortic valve calcifications. Mild atherosclerotic arch calcifications with conventional arch vessel branching anatomy. Mildly enlarged caliber to the main right and left pulmonary arteries up to 3.1 cm may reflect underl jamel pulmonary hypertension. A few nonenlarged mediastinal lymph nodes are present. Mildly enlarged right paratracheal 1.3 cm and borderline lower left paratracheal 1 cm. Lungs show prominent dependent opacification in the lower lobes with crowded air bronchograms. Small amount of focal tree-in-bud groundglass density lateral right midlung. Moderate centrilobular emphyse ma. No pleural effusion. ABDOMEN: Noncontrast appearance of the liver, gallbladder, right adrenal gland, right kidney, spleen with a an terior splenule, and atrophic pancreas show no gross abnormality. Mild thickening of the left adrenal gland without discrete nodularity. Punctate 2 mm nonobstructive l eft renal calculus. Possible 1.2 cm left renal artery aneurysm. Possible severe atherosclerotic calcification proximal SMA. Mild to moderate atherosclerotic calcifications abdominal aorta and common iliac arteries. Mild fusiform ectasia infrarenal abdominal aorta at 2.6 cm. No dilated small bowel, free fluid, or free air. No mesenteric or retroperitoneal lymphadenopathy. Normal appendix. Moderate stool burden. No pericolonic inflammatory change. Mild generalized anasarca change. Pelvis: Dennis catheter is present. Nonspecific mild circumferential bladder wall thickening. Intraluminal georges dder air relating to instrumentation. A couple pelvic phleboliths. No abnormal fluid collection in th e pelvis or pelvic lymphadenopathy. Right femoral lines are present. Bones: Moderate to advanced degenerative disc disease L4-L5 and L5-S1. Additional hypertrophic facet arthrop athy lower lumbar spine. Anterior endplate spondylosis lower thoracic spine. Mild degenerative change at the hips. IMPRESSION: 1. SEVERE SUBSEGMENTAL ATELECTASIS DEPENDENTLY IN THE LOWER LOBES. SMALL FOCUS OF TREE-IN-BUD GROUNDG LASS LATERAL RIGHT MIDLUNG IS NONSPECIFIC. 2. LAD CORONARY ARTERY CALCIFICATIONS. POSSIBLE PULMONARY ARTERIAL HYPERTENSION. 3. PUNCTATE 2 MM NONOBSTRUCTIVE LEFT RENAL CALCULUS. 4. POSSIBLE SEVERE ATHEROSCLEROTIC NARROWING AT THE PROXIMAL SMA. POSSIBLE 1.2 CM LEFT RENAL ARTERY A NEURYSM. 5. ADDITIONAL INCIDENTAL FINDINGS ABOVE.
[2022-11-23 23:59] LABS: Glucose,Whole Blood 120 mg/dL (70-110)
[2022-11-24] MEDS: POTASSIUM CHLORIDE ER 20 MEQ TAB.ER PO SCH ×2 (00:04→01:16)
[2022-11-24] MEDS: HEPARIN SODIUM,PORCINE 5,000 UNIT/ML 1 ML VIAL SQ SCH ×4 (00:04→23:55)
[2022-11-24] MEDS: INSULIN ASPART (NovoLOG) 100 UNIT/ML VIAL SQ SCH ×4 (00:04→18:47)
[2022-11-24 00:05] LABS: ABG Base Excess 2.8 mmol/L; ABG HCO3 27 mmol/L (21-25); ABG Oxygen Saturation 93.8 % (94-97); ABG PCO2 37 mmHg (35-45); ABG PH 7.47 (7.35-7.45); ABG PO2 66 mmHg (83-108); ABG TCO2 28 mmol/L (19-24); Allen Test Performed? Yes
[2022-11-24] MEDS: IPRATROPIUM-ALBUTEROL 3 ML NEB INHALATION SCH ×6 (00:13→20:20)
[2022-11-24] MEDS: CLEVIDIPINE BUTYRATE 25 MG in EMPTY BAG 1 BAG IV SCH ×6 (01:39→23:43)
[2022-11-24] MEDS: SODIUM CHLORIDE 0.9% 1,000 ML IV SCH (02:02)
[2022-11-24] MEDS: PIPERACILLIN-TAZOBACTAM 3.375 GM in SODIUM CHLORIDE 0.9% 100 ML IVPB SCH ×3 (02:56→18:48)
[2022-11-24] MEDS: cloNIDine HCL 0.2 MG TAB PO SCH ×3 (04:07→21:04)
[2022-11-24 06:04] LABS: Glucose,Whole Blood 140 mg/dL (70-110)
[2022-11-24 06:09] LABS: ABG Base Excess 0.8 mmol/L; ABG HCO3 25 mmol/L (21-25); ABG Oxygen Saturation 95.6 % (94-97); ABG PCO2 37 mmHg (35-45); ABG PH 7.43 (7.35-7.45); ABG PO2 78 mmHg (83-108); ABG TCO2 26 mmol/L (19-24); Allen Test Performed? Yes
[2022-11-24 06:24] LABS: Basophils % (A) 0 %; Eosinophils # (A) 0.2 k/uL (0-0.7); Eosinophils % (A) 2 %; HCT 31.2 % (39.0-53.0); HGB 10.1 gm/dL (13.0-17.5); Hypochromasia Slight; Lymphocytes # (A) 1.3 k/uL (1.0-4.8); Lymphocytes % (A) 10 %; MCH 30.5 pg (25.0-35.0); MCHC 32.3 g/dL (31.0-37.0); MCV 94.3 fL (80.0-100.0); Mean Platelet Volume 9.1; Monocytes # (A) 0.5 k/uL (0-1.0); Monocytes % (A) 5 %; Neutrophils # (A) 9.9 k/uL (1.3-7.7); Neutrophils % (A) 82 %; Platelet Count 216 k/uL (150-450); RBC 3.31 m/uL (4.30-5.90); RDW 15.2 % (11.5-15.5); WBC 12.1 k/uL (3.8-10.6)
[2022-11-24 06:27] LABS: Appearance,Urine Cloudy (Clear); Bacteria,Urine Rare /hpf; Bilirubin,Urine Negative (Negative); Blood,Urine Large (Negative); Color,Urine Yellow; Glucose,Urine (UA) Negative (Negative); Ketones,Urine Negative (Negative); Leukocyte Esterase,Urine Negative (Negative); Mucus,Urine Rare /hpf; Nitrite,Urine Negative (Negative); PH, Urine 5.5 (5.0-8.0); Protein,Urine 1+ (Negative); RBC,Urine 26 /hpf (0-5); Specific Gravity,Urine 1.018 (1.001-1.035); Urobilinogen,Urine <2.0 mg/dL (<2.0); WBC,Urine 5 /hpf (0-5)
[2022-11-24 06:32] LABS: INR 0.9 (<1.2); Partial Thromboplastin Time 25.5 sec (22.0-30.0); Prothrombin Time 9.8 sec (9.0-12.0)
[2022-11-24 06:39] LABS: ALT 29 U/L (4-49); AST 62 U/L (17-59); African American GFR (CKD) 60 (>60 ml/min/1.73 sqM); Albumin 2.8 g/dL (3.5-5.0); Alkaline Phosphatase 67 U/L (38-126); Anion Gap 7 mmol/L; Bilirubin, Delta 0.4 mg/dL (0.0-0.2); Bilirubin,Unconjugated 0.2 mg/dL (0.0-1.1); Blood Urea Nitrogen 41 mg/dL (9-20); Calcium 8.3 mg/dL (8.4-10.2); Carbon Dioxide 24 mmol/L (22-30); Chloride 124 mmol/L (98-107); Glucose 159 mg/dL (74-99); Magnesium 2.8 mg/dL (1.6-2.3); Non-African American GFR(CKD) 52 (>60 ml/min/1.73 sqM); Phosphorus 6.5 mg/dL (2.5-4.5); Potassium 3.9 mmol/L (3.5-5.1); Sodium 155 mmol/L (137-145); Total Bilirubin 0.6 mg/dL (0.2-1.3); Total Protein 5.6 g/dL (6.3-8.2)
[2022-11-24] MEDS ORDERED: POTASSIUM CHLORIDE ER 20 MEQ TAB.ER PO SCH (07:00)
--- NOTE | 2022-11-24 08:49 | XR ---
EXAMINATION TYPE: XR chest 1V portable DATE OF EXAM: 11/24/2022 5:22 AM COMPARISON: Chest radiographs from 11/23/2022 TECHNIQUE: XR chest 1V portable Frontal view of the chest. CLINICAL INDICATION:Male, 61 years old with history of Tube placement; FINDINGS: Lungs/Pleura: There is no evidence of pleural effusion, focal consolidation, or pneumothorax. Pulmonary vascularity: Unremarkable. Heart/mediastinum: Cardiomediastinal silhouette is enlarged and stable. Musculoskeletal: No acute osseous pathology. Left shoulder rotator cuff repair anchors. Other findings: None Lines/Tubes: Endotracheal tube with distal tip 6.0 cm above the martine. Nasogastric tube with its distal tip and side-port projecting under the diaphragm. IMPRESSION: Stable exam, stable lines and tubes.
[2022-11-24] MEDS: BUDESONIDE 1 MG/2 ML NEBU INHALATION SCH ×2 (09:00→20:20)
[2022-11-24] MEDS: FORMOTEROL FUMARATE 20 MCG/2 ML NEBU INHALATION SCH ×2 (09:00→20:20)
[2022-11-24] MEDS: MIDAZOLAM HCL 50 MG in SODIUM CHLORIDE 0.9% 40 ML IV SCH (09:19)
[2022-11-24] MEDS: CHLORHEXIDINE GLUCONATE 15 ML CUP MUCOUS MEM SCH ×2 (09:20→21:04)
[2022-11-24] MEDS: levETIRAcetam IV 500 MG/5 ML VIAL IVP SCH ×2 (09:20→21:05)
[2022-11-24] MEDS: PANTOPRAZOLE 40 MG/10 ML VIAL IVP SCH (09:20)
[2022-11-24] MEDS: hydrALAZINE HCL 50 MG TAB PO SCH ×3 (09:21→21:04)
[2022-11-24] MEDS: METOPROLOL TARTRATE 50 MG TAB PO SCH ×3 (09:22→21:04)
[2022-11-24] MEDS: amLODIPine 5 MG TAB PO SCH ×2 (09:22→21:04)
[2022-11-24] MEDS: PHENYTOIN SODIUM IVPB SCH ×2 (10:00→20:50)
[2022-11-24] MEDS: SODIUM CHLORIDE 0.9% IVPB SCH ×2 (10:00→20:50)
[2022-11-24 11:34] VITALS: BMI 32.2
[2022-11-24 12:31] LABS: Glucose,Whole Blood 148 mg/dL (70-110)
[2022-11-24] MEDS: ACETAMINOPHEN TAB 500 MG TAB PO PRN ×2 (12:49→18:43)
--- NOTE | 2022-11-24 12:56 | P.PN ---
Subjective Progress Note Date: 11/24/22 Principal diagnosis: Cardiac arrest and severe anoxic brain injury I am seeing this patient in consultation today 11/19/2022 in the intensive care unit status post cardiac arrest with prolonged downtime. Patient is a 61-year-old white male with past medical history significant for COPD, previous ventilator dependent respiratory failure, congestive heart failure, hypertension, chronic pain on methadone, and ex-tobacco smoker. According to the patient's significant other, he was feeling well for most of the day yesterday, he did go to work, and was feeling fine when he got home. Early this morning, he was in some respiratory distress and was taking a breathing treatment. The patient's girlfriend witnessed him go unresponsive while on the phone with EMS. Once EMS arrived, he was pulseless, they initiated CPR and he had a prolonged estimated downtime of 20-25 minutes. Presenting rhythm is reportedly PEA. He received a total of 4 A of epinephrine. He did have return of spontaneous circulation after several rounds of CPR. The patient was transferred to [facility] emergency room and he was intubated. A right femoral central line and arterial line was placed in the emergency room. Patient is currently in the ICU, intubated to the mechanical ventilator, completely unresponsive without sedation. Initial ventilator settings were assist control, respiratory rate 16, tidal volume 500, FiO2 100%, and PEEP of 5. Initial ABG on arrival showed a pO2 of 345, pCO2 of 65, pH is 7.16. During transport, the patient's oxygen demand increased. PEEP was increased to 10 and respiratory rate increased to 24. Repeat ABGs on these settings show a pO2 of 81, pCO2 of 68, pH of 7.26. Chest x-ray shows endotracheal tube approximately 6 cm above the martine, and oral gastric tube within the stomach. Chest x-ray is concerning for pulmonary edema. No obvious pneumothorax. I did start him on Lasix. He has no respiratory drive underneath the ventilator. Not on any sedation. Noncontrast CT of the brain did not show any acute intracranial abnormality. He is having intermittent myoclonic jerks and was loaded with 2 g of Keppra as well as when necessary Ativan. There is obviously concern for anoxic brain injury. EEG is scheduled for morning. Hemodynamically, the patient is hypotensive and was started on low-dose norepinephrine which is currently infusing at 0.03 mcg/kg/m. Normal saline is KVO. ECG on arrival to the emergency room showed A. fib RVR, however, heart rhythm is currently normal sinus on the bedside monitor. CBC shows a WBC count of 9.8, hemoglobin 11.5, hematocrit 35, platelets 228. BMP shows sodium 135, potassium 4.6, chloride 98, serum bicarb 19, BUN 30, creatinine 1.91, glucose 252. Lactic acid level was 9.2. Patient was given 1 L normal saline bolus the emergency room. Troponin less than 0.012. NT proBNP 1750. Indwelling catheter with pale yellow urine. He is hypothermic. Overall, prognosis is very guarded due to patient's prolonged downtime and concern for anoxic brain injury. He will be monitored in the intensive care unit. 11/23/2022, the patient is still on propofol running at 50 mcg/kg/m. Severely impaired neurologically. No seizure activity has been noted. Nevertheless, a repeat CAT scan of the brain was done yesterday and the patient was found to have diffuse brain edema consistent with his anoxic encephalopathy. No interval change compared to the earlier evaluation. The patient also has some chronic sinus disease. He was placed on hypertonic saline. Sodium came up to 153 and the patient is currently on normal saline at KVO. Chloride is 123. BUN is 34 with a creatinine of 1.37. Pupils are pinpoint. Cough is extremely weak/absent. Babinski's cannot be elicited. No sensory or motor function. He is currently on a mechanical ventilator and overnight, he did have breathing efforts above the set rate. No seizure activity has no weakness. The patient remains on Keppra 1.5 g every 12 hours and he is also on Dilantin to 50 mg every 12 hours. He continues to have ongoing issues with elevated blood pressure. He is on Plavix appearing drip running at 8 mg an hour and in addition to that, the patient is on hydralazine 100 mg 3 times a day, metoprolol 50 mg 3 times a day, and clonidine 0.2 mg 3 times a day. Most recent systolic blood pressure is 145 with a diastolic of 54. We should be able to gradually wean off the drip based on his blood pressure response. He is on pressure control mode of mechanical ventilation with a pressure control 20, PEEP of 5, FiO2 of 40% and rate of 20. Is having copious amounts of respiratory secretions. Nevertheless, the chest x- ray shows adequate expansion of both lungs. There is some increased interstitial edema bilaterally. ET tube is in a good location. He has adequate oxygenation for now. He is covered with IV Zosyn. The white suppository 0.4, hemoglobin is 10 and a platelet count is at 187. He is receiving enteral fee ding for nutritional support and currently is on vital HP at rate of 45 mL an hour. He is afebrile this morning. Over the past 24 hours, the patient was still spiking temperatures with a T-max of 101.3. Sputum culture is negative. Pro-calcitonin level was at 0.38. Reevaluated today on 11/24/2022, remains intubated and mechanically ventilated. He is ON pressure control mode of mechanical ventilation, rate of 20, pressure control 20, inspiratory time of 0.9 and I cut it down to 0.8 FiO2 50% and PEEP of 5 ABG showed a pO2 of 78 pCO2 37 pH of 7.43. Remains on propofol at 20 mcg/kg/m, clubbing or exudates at 6 mg per hour, he is on vital HP at 40 mL per hour. Chest x-ray showed no evidence of active pulmonary disease endotracheal tube was noted to be about 6.0 see him above the martine, and I advised advancing the tube 2 cm down. The notes from the neurologist were noted, diagnostic st udies from neurology were all noted including EEG and CT of the head showing diffuse brain edema consistent with brain injury/anoxia. Patient is now being considered for organ transplant. And the organ aquatics coordinator is proceeding as expected in the meantime we'll plan to continue ventilatory support, hemodynamic support, and a nutritional support. As well as continue GI and DVT prophylaxis Objective - Vital Signs Vital signs: Vital Signs Temp 101.3 F H 11/24/22 12:00 Pulse 98 11/24/22 12:15 Resp 20 11/24/22 12:15 BP 152/70 11/24/22 12:00 Pulse Ox 96 11/24/22 12:15 FiO2 50 11/24/22 12:00 Intake & Output 11/23/22 11/24/22 11/24/22 18:59 06:59 18:59 Intake Total 1086.285 884.854 415 Output Total 1090 1395 975 Balance -3.715 -510.146 -560 Weight 101.9 kg Intake: IV 220 435 245 Phenytoin Sodium Inj 250 45 45 mg In Sodium Chloride 0.9 % 45 ml @ 100 mls/hr IVPB Q12HR [facility] Rx#:[id number] Piperacillin-Tazobactam 3 200 100 .375 gm In Sodium Chloride 0.9% 100 ml @ 25 mls/hr IVPB Q8H [facility] Rx#: [id number] Sodium Chloride 0.9% 1, 220 190 100 000 ml @ 20 mls/hr IV . Q24H [facility] Rx#:[id number] Intake, IV Titration 311.285 404.854 Amount Clevidipine Butyrate 25 150 180.134 mg In Empty Bag 1 bag @ 1 MG/HR 2 mls/hr IV .Q24H [facility] Rx#:[id number] propofoL 1,000 mg In 161.285 224.720 Empty Bag 1 bag @ 15 MCG/ KG/MIN 9.27 mls/hr IV . [id number] [facility] Rx#:[id number] Tube Feeding 495 45 110 Other 60 60 Output: Urine 1090 1395 975 Other: Voiding Method Indwelling Catheter Indwelling Catheter Indwelling Catheter ABP, PAP, CO, CI - Last Documented Arterial Blood Pressure 147/59 - Exam Physical Exam: Revealed a 61-year-old white male intubated, mechanically ventilated, not responding to any stimuli. Head: Atraumatic, normocephalic. Endotracheal tube and orogastric tube are HEENT:[Neck is supple.] [No neck masses.] [No thyromegaly.] [No JVD.] Chest: [Symmetrical chest expansion, clear bilaterally no rhonchi and no wheezes Cardiac Exam: [Normal S1 and S2, no S3 gallop, no murmur.] Abdomen: [Soft, nontender, no megaly, no rebound, no guarding, normal bowel sounds.] Extremities: [No clubbing, no edema, no cyanosis.] Neurological Exam: Unresponsive to any painful stimuli diminished deep tendon reflexes throughout, no evidence of any myoclonic jerks pupils 2 mm in size, reactive to light, positive gag reflex Psychiatric: Could not assess because of neurological status. Skin: No rashes - Labs CBC & Chem 7: 11/24/22 06:00 11/24/22 06:00 Labs: Abnormal Lab Results - Last 24 Hours (Table) 11/23/22 11/23/22 11/23/22 Range/Units 17:55 22:30 22:30 WBC (3.8-10.6) k/uL RBC (4.30-5.90) m/uL Hgb (13.0-17.5) gm/dL Hct (39.0-53.0) % Neutrophils # (1.3-7.7) k/uL Fibrinogen 782 H (200-500) mg/dL D-Dimer 2.37 H (<0.60) mg/L FEU ABG pH (7.35-7.45) ABG pO2 (83-108) mmHg ABG HCO3 (21-25) mmol/L ABG Total CO2 (19-24) mmol/L ABG O2 Saturation (94-97) % Sodium 156 H (137-145) mmol/L Chloride 123 H (98-107) mmol/L BUN 39 H (9-20) mg/dL Creatinine 1.55 H (0.66-1.25) mg/dL Glucose 145 H (74-99) mg/dL POC Glucose (mg/dL) 138 H (70-110) mg/dL Calcium (8.4-10.2) mg/dL Phosphorus (2.5-4.5) mg/dL Magnesium 2.8 H (1.6-2.3) mg/dL Delta Bilirubin 0.4 H (0.0-0.2) mg/dL AST (17-59) U/L CK-MB (CK-2) (0.0-3.4) ng/mL Total Protein 5.6 L (6.3-8.2) g/dL Albumin 2.7 L (3.5-5.0) g/dL Urine Protein (Negative) Urine Blood (Negative) Urine RBC (0-5) /hpf Urine Bacteria (None) /hpf Urine Mucus (None) /hpf 11/23/22 11/23/22 11/23/22 Range/Units 22:30 22:30 23:58 WBC (3.8-10.6) k/uL RBC 3.33 L (4.30-5.90) m/uL Hgb 10.0 L (13.0-17.5) gm/dL Hct 31.4 L (39.0-53.0) % Neutrophils # 8.0 H (1.3-7.7) k/uL Fibrinogen (200-500) mg/dL D-Dimer (<0.60) mg/L FEU ABG pH (7.35-7.45) ABG pO2 (83-108) mmHg ABG HCO3 (21-25) mmol/L ABG Total CO2 (19-24) mmol/L ABG O2 Saturation (94-97) % Sodium (137-145) mmol/L Chloride (98-107) mmol/L BUN (9-20) mg/dL Creatinine (0.66-1.25) mg/dL Glucose (74-99) mg/dL POC Glucose (mg/dL) 120 H (70-110) mg/dL Calcium (8.4-10.2) mg/dL Phosphorus (2.5-4.5) mg/dL Magnesium (1.6-2.3) mg/dL Delta Bilirubin (0.0-0.2) mg/dL AST (17-59) U/L CK-MB (CK-2) 4.5 H (0.0-3.4) ng/mL Total Protein (6.3-8.2) g/dL Albumin (3.5-5.0) g/dL Urine Protein (Negative) Urine Blood (Negative) Urine RBC (0-5) /hpf Urine Bacteria (None) /hpf Urine Mucus (None) /hpf 11/24/22 11/24/22 11/24/22 Range/Units 00:00 06:00 06:00 WBC 12.1 H (3.8-10.6) k/uL RBC 3.31 L (4.30-5.90) m/uL Hgb 10.1 L (13.0-17.5) gm/dL Hct 31.2 L (39.0-53.0) % Neutrophils # 9.9 H (1.3-7.7) k/uL Fibrinogen (200-500) mg/dL D-Dimer (<0.60) mg/L FEU ABG pH 7.47 H (7.35-7.45) ABG pO2 66 L (83-108) mmHg ABG HCO3 27 H (21-25) mmol/L ABG Total CO2 28 H (19-24) mmol/L ABG O2 Saturation 93.8 L (94-97) % Sodium (137-145) mmol/L Chloride (98-107) mmol/L BUN (9-20) mg/dL Creatinine (0.66-1.25) mg/dL Glucose (74-99) mg/dL POC Glucose (mg/dL) (70-110) mg/dL Calcium (8.4-10.2) mg/dL Phosphorus (2.5-4.5) mg/dL Magnesium (1.6-2.3) mg/dL Delta Bilirubin (0.0-0.2) mg/dL AST (17-59) U/L CK-MB (CK-2) (0.0-3.4) ng/mL Total Protein (6.3-8.2) g/dL Albumin (3.5-5.0) g/dL Urine Protein 1+ H (Negative) Urine Blood Large H (Negative) Urine RBC 26 H (0-5) /hpf Urine Bacteria Rare H (None) /hpf Urine Mucus Rare H (None) /hpf 11/24/22 11/24/22 11/24/22 Range/Units 06:00 06:03 06:06 WBC (3.8-10.6) k/uL RBC (4.30-5.90) m/uL Hgb (13.0-17.5) gm/dL Hct (39.0-53.0) % Neutrophils # (1.3-7.7) k/uL Fibrinogen (200-500) mg/dL D-Dimer (<0.60) mg/L FEU ABG pH (7.35-7.45) ABG pO2 78 L (83-108) mmHg ABG HCO3 (21-25) mmol/L ABG Total CO2 26 H (19-24) mmol/L ABG O2 Saturation (94-97) % Sodium 155 H (137-145) mmol/L Chloride 124 H (98-107) mmol/L BUN 41 H (9-20) mg/dL Creatinine 1.47 H (0.66-1.25) mg/dL Glucose 159 H (74-99) mg/dL POC Glucose (mg/dL) 140 H (70-110) mg/dL Calcium 8.3 L (8.4-10.2) mg/dL Phosphorus 6.5 H (2.5-4.5) mg/dL Magnesium 2.8 H (1.6-2.3) mg/dL Delta Bilirubin 0.4 H (0.0-0.2) mg/dL AST 62 H (17-59) U/L CK-MB (CK-2) (0.0-3.4) ng/mL Total Protein 5.6 L (6.3-8.2) g/dL Albumin 2.8 L (3.5-5.0) g/dL Urine Protein (Negative) Urine Blood (Negative) Urine RBC (0-5) /hpf Urine Bacteria (None) /hpf Urine Mucus (None) /hpf 11/24/22 Range/Units 12:30 WBC (3.8-10.6) k/uL RBC (4.30-5.90) m/uL Hgb (13.0-17.5) gm/dL Hct (39.0-53.0) % Neutrophils # (1.3-7.7) k/uL Fibrinogen (200-500) mg/dL D-Dimer (<0.60) mg/L FEU ABG pH (7.35-7.45) ABG pO2 (83-108) mmHg ABG HCO3 (21-25) mmol/L ABG Total CO2 (19-24) mmol/L ABG O2 Saturation (94-97) % Sodium (137-145) mmol/L Chloride (98-107) mmol/L BUN (9-20) mg/dL Creatinine (0.66-1.25) mg/dL Glucose (74-99) mg/dL POC Glucose (mg/dL) 148 H (70-110) mg/dL Calcium (8.4-10.2) mg/dL Phosphorus (2.5-4.5) mg/dL Magnesium (1.6-2.3) mg/dL Delta Bilirubin (0.0-0.2) mg/dL AST (17-59) U/L CK-MB (CK-2) (0.0-3.4) ng/mL Total Protein (6.3-8.2) g/dL Albumin (3.5-5.0) g/dL Urine Protein (Negative) Urine Blood (Negative) Urine RBC (0-5) /hpf Urine Bacteria (None) /hpf Urine Mucus (None) /hpf Assessment and Plan Assessment: Impression: Cardiac arrest with prolonged down time Severe anoxic brain injury Acute hypoxic and hypercapnic respiratory failure secondary to above Acute diastolic congestive heart failure History of underlying COPD Benign essential hypertension Anion gap metabolic acidosis secondary to cardiac arrest Acute kidney injury secondary to acute tubular necrosis Central hyperthermia Dyslipidemia Chronic pain syndrome, maintained on methadone on outpatient basis Recommendation: Continue present ventilatory support Continue hemodynamic support Continue enteral feeding/nutritional support Continue GI and DVT prophylaxis Proceed as per the recommendation of the transplant team Nose from different consultants including cardiology and neurology were noted. [facility] is on the case. We will continue to follow. Critical care time is over 30 Time with Patient: Greater than 30
[2022-11-24 13:45] LABS: ABG Base Excess 2.8 mmol/L; ABG HCO3 27 mmol/L (21-25); ABG Oxygen Saturation 96.7 % (94-97); ABG PCO2 37 mmHg (35-45); ABG PH 7.47 (7.35-7.45); ABG PO2 87 mmHg (83-108); ABG TCO2 28 mmol/L (19-24); Allen Test Performed? Yes
[2022-11-24 14:30] LABS: Basophils % (A) 0 %; Eosinophils # (A) 0.1 k/uL (0-0.7); Eosinophils % (A) 1 %; HCT 31.8 % (39.0-53.0); HGB 10.1 gm/dL (13.0-17.5); Hypochromasia Slight; Lymphocytes # (A) 1.3 k/uL (1.0-4.8); Lymphocytes % (A) 11 %; MCH 29.8 pg (25.0-35.0); MCHC 31.7 g/dL (31.0-37.0); MCV 94.3 fL (80.0-100.0); Mean Platelet Volume 9.2; Monocytes # (A) 0.6 k/uL (0-1.0); Monocytes % (A) 5 %; Neutrophils # (A) 9.2 k/uL (1.3-7.7); Neutrophils % (A) 81 %; Platelet Count 214 k/uL (150-450); RBC 3.37 m/uL (4.30-5.90); RDW 15.2 % (11.5-15.5); WBC 11.3 k/uL (3.8-10.6)
[2022-11-24] MEDS: NOREPINEPHRINE 4 MG in SODIUM CHLORIDE 0.9% 250 ML IV SCH (14:32)
[2022-11-24 14:41] LABS: INR 0.9 (<1.2); Partial Thromboplastin Time 26.6 sec (22.0-30.0); Prothrombin Time 9.4 sec (9.0-12.0)
[2022-11-24 14:45] LABS: ALT 30 U/L (4-49); AST 53 U/L (17-59); African American GFR (CKD) 61 (>60 ml/min/1.73 sqM); Albumin 2.7 g/dL (3.5-5.0); Alkaline Phosphatase 75 U/L (38-126); Anion Gap 7 mmol/L; Bilirubin, Delta 0.4 mg/dL (0.0-0.2); Bilirubin,Unconjugated 0.1 mg/dL (0.0-1.1); Blood Urea Nitrogen 40 mg/dL (9-20); Calcium 8.5 mg/dL (8.4-10.2); Carbon Dioxide 25 mmol/L (22-30); Chloride 126 mmol/L (98-107); Glucose 124 mg/dL (74-99); Magnesium 2.9 mg/dL (1.6-2.3); Non-African American GFR(CKD) 53 (>60 ml/min/1.73 sqM); Phosphorus 4.2 mg/dL (2.5-4.5); Potassium 3.8 mmol/L (3.5-5.1); Sodium 158 mmol/L (137-145); Total Bilirubin 0.5 mg/dL (0.2-1.3); Total Protein 5.7 g/dL (6.3-8.2)
[2022-11-24] MEDS: LORazepam 2 MG/ML INJ IV PRN (17:35)
--- NOTE | 2022-11-24 18:06 | P.PN ---
Subjective Progress Note Date: 11/24/22 Patient is a 61-year-old male with hypertension, dyslipidemia, COPD, and methadone dependency who presented with an [id number] cardiac arrest with approximately 25 minute down time. In the emergency room he underwent an extensive evaluation. He was emergently intubated in the emergency department. His vitals were remarkable for temperature of 95.7, heart rate 108, blood pressure 78/47, and O2 sat 88%. Initial laboratory analysis was remarkable for hemoglobin 11.5, sodium 135, CO2 19, gap 18, BUN 30, creatinine 1.91, and BNP 1750 with lactic acid of 9.2. His troponin elevated and maxed at 0.977. Chest x-ray showed right-sided pulmonary infiltrate. EKG demonstrated A. fib with RVR. CT head showed no acute findings. Patient was subsequently admitted to the ICU. Pulmonary, neurology, and cardiology were consulted. Patient underwent an EEG which showed isoelectric pattern with intermittent sharp waves concerning for severe anoxic brain injury. Echocardiogram demonstrated an ejection fraction of 50-55% with an RVSP of 32. Cardiology felt that his elevated trop onin was due to CPR, his chads score was 0. He did not feel he would benefit from cardiac catheterization. Repeat head CT from 11/22/22 showed diffuse brain edema consistent with anoxia and no interval change. [facility] following. Patient seen and examined at bedside. He is on the vent sedated with propofol. No acute events overnight. Vital signs reviewed General: nontoxic, no distress, appears at stated age Cardiovascular: S1S2 reg, no murmur, positive posterior tibial pulse bilateral, Lungs: course bs bilateral, no rhonchi, no rales , no accessory muscle use Abdominal: soft, nontender to palpation, no guarding, no appreciable organomegaly Ext: no gross muscle atrophy, traceedema b/l lower extremities, no contractures Neuro:breathing at level of vent Psych: Sedated on vent Assessment/Plan: [id number] cardiac arrest Myoclonic seizures from severe anoxic encephalopathy Severe anoxic encephalopathy Acute kidney injury, due to ATN Hypernatremia, currently off hypertonic saline Acute hypoxemic hypercapnic respiratory failure COPD with exacerbation Anion gap metabolic acidosis, resolved Pyrexia, likely central Normochromic normocytic anemia Dyslipidemia Chronic pain maintained on methadone -Current medications include DuoNeb and every 4 hours scheduled and when necessary, Pulmicort 1 mg ventilation twice daily,. Performance 20 mg twice daily -Clevidipine 6 mg/h -Catapres 0.2 mg every 8 hours, hydralazine 100 mg 3 times daily, metoprolol 50 mg 3 times daily -Phenytoin 250 mg every 12 hours, keppra 1500, IVP q 12 hours -Zosyn 3.375 g IV piggyback every 8 hours -Propofol for sedation -Neurology note reviewed from 11/23/22: Overall poor prognosis, chances of meaningful recovery are poor. -Pulmonary no reviewed from 11/23: Continue with IV Zosyn, propofol, poor overall prognosis flight following. - DNR, [facility] evaluation pending - increase free water with tube feeds to 75 cc/hr recheck labs in 4 hours. Free water deficit 5.4L Imaging: Chest x-ray is reviewed by myself shows patchy consolidation right middle lobe CT chest/abdomen/pelvis from 11/23 revealed hours severe subsegmental atelectasis dependently in the lower lobes with a small focus of tree-in-bud groundglass opacity right mid lung own, LAD coronary artery calcifications, possible pulmonary arterial hypertension, 2 mm nonobstructive left renal calculus, possible severe atherosclerotic narrowing of the proximal SMA Data Review: Vitals reviewed in T-max in the last 24 hours 101.6 Vitals reviewed from this morning show a heart rate of 93,bloodpressure 143/63, respirations 20, O2 sat 95% Labs reviewed and remarkable for white blood cell count 12.1, hemoglobin 10.1, sodium 155, chloride 124, BUN 41, creatinine 1.47, phosphorus 6.5, covert not detected, Dilantin level 7 DVT prophylaxis: Heparin SC Discussed with: Nursing This dictation was prepared using [employer] voice recognition software. Though every attempt is made to correct errors during dictation some may still exist. Objective - Vital Signs Vital signs: Vital Signs Temp 97.8 F 11/24/22 07:00 Pulse 93 11/24/22 07:00 Resp 20 11/24/22 07:00 BP 141/68 11/24/22 07:00 Pulse Ox 95 11/24/22 07:00 FiO2 50 11/24/22 04:12 Intake & Output 11/23/22 11/24/22 11/24/22 18:59 06:59 18:59 Intake Total 1086.285 884.854 Output Total 1090 1395 Balance -3.715 -510.146 Intake: IV 220 435 Phenytoin Sodium Inj 250 45 mg In Sodium Chloride 0.9 % 45 ml @ 100 mls/hr IVPB Q12HR [facility] Rx#:[id number] Piperacillin-Tazobactam 3 200 .375 gm In Sodium Chloride 0.9% 100 ml @ 25 mls/hr IVPB Q8H [facility] Rx#: [id number] Sodium Chloride 0.9% 1, 220 190 000 ml @ 20 mls/hr IV . Q24H [facility] Rx#:[id number] Intake, IV Titration 311.285 404.854 Amount Clevidipine Butyrate 25 150 180.134 mg In Empty Bag 1 bag @ 1 MG/HR 2 mls/hr IV .Q24H [facility] Rx#:[id number] propofoL 1,000 mg In 161.285 224.720 Empty Bag 1 bag @ 15 MCG/ KG/MIN 9.27 mls/hr IV . [id number] [facility] Rx#:[id number] Tube Feeding 495 45 Other 60 Output: Urine 1090 1395 Other: Voiding Method Indwelling Catheter Indwelling Catheter ABP, PAP, CO, CI - Last Documented Arterial Blood Pressure 143/63 - Labs CBC & Chem 7: 11/24/22 14:00 11/24/22 14:00 Labs: Abnormal Lab Results - Last 24 Hours (Table) 11/23/22 11/23/22 11/23/22 Range/Units 11:39 17:55 22:30 WBC (3.8-10.6) k/uL RBC (4.30-5.90) m/uL Hgb (13.0-17.5) gm/dL Hct (39.0-53.0) % Neutrophils # (1.3-7.7) k/uL Fibrinogen 782 H (200-500) mg/dL D-Dimer 2.37 H (<0.60) mg/L FEU ABG pH (7.35-7.45) ABG pO2 (83-108) mmHg ABG HCO3 (21-25) mmol/L ABG Total CO2 (19-24) mmol/L ABG O2 Saturation (94-97) % Sodium (137-145) mmol/L Chloride (98-107) mmol/L BUN (9-20) mg/dL Creatinine (0.66-1.25) mg/dL Glucose (74-99) mg/dL POC Glucose (mg/dL) 112 H 138 H (70-110) mg/dL Calcium (8.4-10.2) mg/dL Phosphorus (2.5-4.5) mg/dL Magnesium (1.6-2.3) mg/dL Delta Bilirubin (0.0-0.2) mg/dL AST (17-59) U/L CK-MB (CK-2) (0.0-3.4) ng/mL Total Protein (6.3-8.2) g/dL Albumin (3.5-5.0) g/dL Urine Protein (Negative) Urine Blood (Negative) Urine RBC (0-5) /hpf Urine Bacteria (None) /hpf Urine Mucus (None) /hpf 11/23/22 11/23/22 11/23/22 Range/Units 22:30 22:30 22:30 WBC (3.8-10.6) k/uL RBC 3.33 L (4.30-5.90) m/uL Hgb 10.0 L (13.0-17.5) gm/dL Hct 31.4 L (39.0-53.0) % Neutrophils # 8.0 H (1.3-7.7) k/uL Fibrinogen (200-500) mg/dL D-Dimer (<0.60) mg/L FEU ABG pH (7.35-7.45) ABG pO2 (83-108) mmHg ABG HCO3 (21-25) mmol/L ABG Total CO2 (19-24) mmol/L ABG O2 Saturation (94-97) % Sodium 156 H (137-145) mmol/L Chloride 123 H (98-107) mmol/L BUN 39 H (9-20) mg/dL Creatinine 1.55 H (0.66-1.25) mg/dL Glucose 145 H (74-99) mg/dL POC Glucose (mg/dL) (70-110) mg/dL Calcium (8.4-10.2) mg/dL Phosphorus (2.5-4.5) mg/dL Magnesium 2.8 H (1.6-2.3) mg/dL Delta Bilirubin 0.4 H (0.0-0.2) mg/dL AST (17-59) U/L CK-MB (CK-2) 4.5 H (0.0-3.4) ng/mL Total Protein 5.6 L (6.3-8.2) g/dL Albumin 2.7 L (3.5-5.0) g/dL Urine Protein (Negative) Urine Blood (Negative) Urine RBC (0-5) /hpf Urine Bacteria (None) /hpf Urine Mucus (None) /hpf 11/23/22 11/24/22 11/24/22 Range/Units 23:58 00:00 06:00 WBC (3.8-10.6) k/uL RBC (4.30-5.90) m/uL Hgb (13.0-17.5) gm/dL Hct (39.0-53.0) % Neutrophils # (1.3-7.7) k/uL Fibrinogen (200-500) mg/dL D-Dimer (<0.60) mg/L FEU ABG pH 7.47 H (7.35-7.45) ABG pO2 66 L (83-108) mmHg ABG HCO3 27 H (21-25) mmol/L ABG Total CO2 28 H (19-24) mmol/L ABG O2 Saturation 93.8 L (94-97) % Sodium (137-145) mmol/L Chloride (98-107) mmol/L BUN (9-20) mg/dL Creatinine (0.66-1.25) mg/dL Glucose (74-99) mg/dL POC Glucose (mg/dL) 120 H (70-110) mg/dL Calcium (8.4-10.2) mg/dL Phosphorus (2.5-4.5) mg/dL Magnesium (1.6-2.3) mg/dL Delta Bilirubin (0.0-0.2) mg/dL AST (17-59) U/L CK-MB (CK-2) (0.0-3.4) ng/mL Total Protein (6.3-8.2) g/dL Albumin (3.5-5.0) g/dL Urine Protein 1+ H (Negative) Urine Blood Large H (Negative) Urine RBC 26 H (0-5) /hpf Urine Bacteria Rare H (None) /hpf Urine Mucus Rare H (None) /hpf 11/24/22 11/24/22 11/24/22 Range/Units 06:00 06:00 06:03 WBC 12.1 H (3.8-10.6) k/uL RBC 3.31 L (4.30-5.90) m/uL Hgb 10.1 L (13.0-17.5) gm/dL Hct 31.2 L (39.0-53.0) % Neutrophils # 9.9 H (1.3-7.7) k/uL Fibrinogen (200-500) mg/dL D-Dimer (<0.60) mg/L FEU ABG pH (7.35-7.45) ABG pO2 (83-108) mmHg ABG HCO3 (21-25) mmol/L ABG Total CO2 (19-24) mmol/L ABG O2 Saturation (94-97) % Sodium 155 H (137-145) mmol/L Chloride 124 H (98-107) mmol/L BUN 41 H (9-20) mg/dL Creatinine 1.47 H (0.66-1.25) mg/dL Glucose 159 H (74-99) mg/dL POC Glucose (mg/dL) 140 H (70-110) mg/dL Calcium 8.3 L (8.4-10.2) mg/dL Phosphorus 6.5 H (2.5-4.5) mg/dL Magnesium 2.8 H (1.6-2.3) mg/dL Delta Bilirubin 0.4 H (0.0-0.2) mg/dL AST 62 H (17-59) U/L CK-MB (CK-2) (0.0-3.4) ng/mL Total Protein 5.6 L (6.3-8.2) g/dL Albumin 2.8 L (3.5-5.0) g/dL Urine Protein (Negative) Urine Blood (Negative) Urine RBC (0-5) /hpf Urine Bacteria (None) /hpf Urine Mucus (None) /hpf 11/24/22 Range/Units 06:06 WBC (3.8-10.6) k/uL RBC (4.30-5.90) m/uL Hgb (13.0-17.5) gm/dL Hct (39.0-53.0) % Neutrophils # (1.3-7.7) k/uL Fibrinogen (200-500) mg/dL D-Dimer (<0.60) mg/L FEU ABG pH (7.35-7.45) ABG pO2 78 L (83-108) mmHg ABG HCO3 (21-25) mmol/L ABG Total CO2 26 H (19-24) mmol/L ABG O2 Saturation (94-97) % Sodium (137-145) mmol/L Chloride (98-107) mmol/L BUN (9-20) mg/dL Creatinine (0.66-1.25) mg/dL Glucose (74-99) mg/dL POC Glucose (mg/dL) (70-110) mg/dL Calcium (8.4-10.2) mg/dL Phosphorus (2.5-4.5) mg/dL Magnesium (1.6-2.3) mg/dL Delta Bilirubin (0.0-0.2) mg/dL AST (17-59) U/L CK-MB (CK-2) (0.0-3.4) ng/mL Total Protein (6.3-8.2) g/dL Albumin (3.5-5.0) g/dL Urine Protein (Negative) Urine Blood (Negative) Urine RBC (0-5) /hpf Urine Bacteria (None) /hpf Urine Mucus (None) /hpf
[2022-11-24 18:19] LABS: Glucose,Whole Blood 115 mg/dL (70-110)
[2022-11-24 22:02] LABS: ABG Base Excess 1.2 mmol/L; ABG HCO3 26 mmol/L (21-25); ABG Oxygen Saturation 96.3 % (94-97); ABG PCO2 39 mmHg (35-45); ABG PH 7.43 (7.35-7.45); ABG PO2 86 mmHg (83-108); ABG TCO2 27 mmol/L (19-24); Allen Test Performed? Yes
[2022-11-24 22:33] LABS: Basophils % (A) 0 %; Eosinophils # (A) 0.2 k/uL (0-0.7); Eosinophils % (A) 1 %; HCT 31.5 % (39.0-53.0); Hypochromasia Slight; Lymphocytes # (A) 1.2 k/uL (1.0-4.8); Lymphocytes % (A) 10 %; MCH 30.3 pg (25.0-35.0); MCHC 31.8 g/dL (31.0-37.0); MCV 95.3 fL (80.0-100.0); Mean Platelet Volume 9.7; Monocytes # (A) 0.4 k/uL (0-1.0); Monocytes % (A) 3 %; Neutrophils # (A) 10.3 k/uL (1.3-7.7); Neutrophils % (A) 85 %; Platelet Count 231 k/uL (150-450); RBC 3.31 m/uL (4.30-5.90); RDW 15.1 % (11.5-15.5); WBC 12.2 k/uL (3.8-10.6)
[2022-11-24 22:58] LABS: ALT 31 U/L (4-49); AST 53 U/L (17-59); African American GFR (CKD) 56 (>60 ml/min/1.73 sqM); Albumin 2.7 g/dL (3.5-5.0); Alkaline Phosphatase 69 U/L (38-126); Anion Gap 6 mmol/L; Bilirubin, Delta 0.3 mg/dL (0.0-0.2); Bilirubin,Unconjugated 0.1 mg/dL (0.0-1.1); Blood Urea Nitrogen 40 mg/dL (9-20); Calcium 8.4 mg/dL (8.4-10.2); Carbon Dioxide 25 mmol/L (22-30); Chloride 127 mmol/L (98-107); Glucose 147 mg/dL (74-99); Magnesium 2.8 mg/dL (1.6-2.3); Non-African American GFR(CKD) 49 (>60 ml/min/1.73 sqM); Phosphorus 5.5 mg/dL (2.5-4.5); Potassium 3.9 mmol/L (3.5-5.1); Sodium 158 mmol/L (137-145); Total Bilirubin 0.4 mg/dL (0.2-1.3); Total Protein 5.6 g/dL (6.3-8.2)
[2022-11-24 23:03] LABS: INR 0.9 (<1.2); Partial Thromboplastin Time 25.4 sec (22.0-30.0); Prothrombin Time 9.6 sec (9.0-12.0)
[2022-11-24 23:42] LABS: Glucose,Whole Blood 139 mg/dL (70-110)
[2022-11-25] MEDS: IPRATROPIUM-ALBUTEROL 3 ML NEB INHALATION SCH ×6 (00:05→21:29)
[2022-11-25] MEDS: CLEVIDIPINE BUTYRATE 25 MG in EMPTY BAG 1 BAG IV SCH ×5 (01:46→23:28)
[2022-11-25] MEDS: INSULIN ASPART (NovoLOG) 100 UNIT/ML VIAL SQ SCH ×4 (01:49→18:49)
[2022-11-25] MEDS: hydrALAZINE HCL 20 MG/ML 1 ML VIAL IVP PRN (02:05)
[2022-11-25] MEDS: PIPERACILLIN-TAZOBACTAM 3.375 GM in SODIUM CHLORIDE 0.9% 100 ML IVPB SCH ×3 (02:46→18:02)
[2022-11-25] MEDS: cloNIDine HCL 0.2 MG TAB PO SCH ×3 (04:10→23:55)
[2022-11-25 05:46] LABS: Glucose,Whole Blood 145 mg/dL (70-110)
[2022-11-25 05:51] LABS: ABG Base Excess 1.8 mmol/L; ABG HCO3 25 mmol/L (21-25); ABG Oxygen Saturation 96.8 % (94-97); ABG PCO2 35 mmHg (35-45); ABG PH 7.47 (7.35-7.45); ABG PO2 85 mmHg (83-108); ABG TCO2 27 mmol/L (19-24); Allen Test Performed? Yes
[2022-11-25 06:13] LABS: Basophils % (A) 0 %; Eosinophils # (A) 0.1 k/uL (0-0.7); Eosinophils % (A) 1 %; HCT 33.5 % (39.0-53.0); HGB 10.7 gm/dL (13.0-17.5); Hypochromasia Slight; Lymphocytes # (A) 1.3 k/uL (1.0-4.8); Lymphocytes % (A) 10 %; MCH 30.2 pg (25.0-35.0); MCHC 31.9 g/dL (31.0-37.0); MCV 94.7 fL (80.0-100.0); Mean Platelet Volume 9.3; Monocytes # (A) 0.6 k/uL (0-1.0); Monocytes % (A) 5 %; Neutrophils # (A) 11.4 k/uL (1.3-7.7); Neutrophils % (A) 84 %; Platelet Count 246 k/uL (150-450); RBC 3.54 m/uL (4.30-5.90); RDW 15.1 % (11.5-15.5); WBC 13.6 k/uL (3.8-10.6)
[2022-11-25 06:17] LABS: ALT 33 U/L (4-49); AST 53 U/L (17-59); African American GFR (CKD) 63 (>60 ml/min/1.73 sqM); Albumin 2.8 g/dL (3.5-5.0); Alkaline Phosphatase 78 U/L (38-126); Anion Gap 7 mmol/L; Bilirubin, Delta 0.4 mg/dL (0.0-0.2); Bilirubin,Unconjugated 0.1 mg/dL (0.0-1.1); Blood Urea Nitrogen 39 mg/dL (9-20); Calcium 8.4 mg/dL (8.4-10.2); Carbon Dioxide 24 mmol/L (22-30); Chloride 125 mmol/L (98-107); Glucose 159 mg/dL (74-99); Magnesium 2.8 mg/dL (1.6-2.3); Non-African American GFR(CKD) 54 (>60 ml/min/1.73 sqM); Phosphorus 4.8 mg/dL (2.5-4.5); Potassium 3.7 mmol/L (3.5-5.1); Sodium 156 mmol/L (137-145); Total Bilirubin 0.5 mg/dL (0.2-1.3); Total Protein 5.9 g/dL (6.3-8.2)
[2022-11-25 06:30] LABS: INR 0.9 (<1.2); Prothrombin Time 9.5 sec (9.0-12.0)
[2022-11-25 06:45] LABS: Amorphous Sediment,Urine Rare /hpf; Appearance,Urine Clear (Clear); Bilirubin,Urine Negative (Negative); Blood,Urine Moderate (Negative); Color,Urine Light Yellow; Glucose,Urine (UA) Negative (Negative); Hyaline Casts,Urine 7 /lpf (0-2); Ketones,Urine Negative (Negative); Leukocyte Esterase,Urine Negative (Negative); Mucus,Urine Few /hpf; Nitrite,Urine Negative (Negative); PH, Urine 5.5 (5.0-8.0); Protein,Urine 1+ (Negative); RBC,Urine 34 /hpf (0-5); Specific Gravity,Urine 1.018 (1.001-1.035); Squamous Epithelial Cell,Urine 1 /hpf (0-4); Urobilinogen,Urine <2.0 mg/dL (<2.0); WBC,Urine 4 /hpf (0-5)
[2022-11-25] MEDS: SODIUM CHLORIDE 0.9% 1,000 ML IV SCH (06:50)
[2022-11-25] MEDS ORDERED: POTASSIUM BICARBONATE/CIT AC 20 MEQ TABLET.EFF NG-TUBE SCH ×3 (07:00→16:00)
[2022-11-25] MEDS: FORMOTEROL FUMARATE 20 MCG/2 ML NEBU INHALATION SCH ×2 (08:08→21:29)
[2022-11-25] MEDS: BUDESONIDE 1 MG/2 ML NEBU INHALATION SCH ×2 (08:08→21:29)
[2022-11-25] MEDS: SODIUM CHLORIDE 0.9% IVPB SCH ×2 (08:13→22:38)
[2022-11-25] MEDS: METOPROLOL TARTRATE 50 MG TAB PO SCH ×3 (08:13→23:55)
[2022-11-25] MEDS: CHLORHEXIDINE GLUCONATE 15 ML CUP MUCOUS MEM SCH ×2 (08:13→22:20)
[2022-11-25] MEDS: levETIRAcetam IV 500 MG/5 ML VIAL IVP SCH ×2 (08:13→22:38)
[2022-11-25] MEDS: amLODIPine 5 MG TAB PO SCH ×2 (08:13→23:55)
[2022-11-25] MEDS: PHENYTOIN SODIUM IVPB SCH ×2 (08:13→22:38)
[2022-11-25] MEDS: hydrALAZINE HCL 50 MG TAB PO SCH ×3 (08:13→23:55)
[2022-11-25] MEDS: PANTOPRAZOLE 40 MG/10 ML VIAL IVP SCH (08:13)
[2022-11-25] MEDS: HEPARIN SODIUM,PORCINE 5,000 UNIT/ML 1 ML VIAL SQ SCH ×2 (08:14→15:18)
--- NOTE | 2022-11-25 08:35 | XR ---
EXAMINATION TYPE: XR chest 1V portable DATE OF EXAM: 11/25/2022 COMPARISON: NONE HISTORY: Tube placement TECHNIQUE: Single frontal view of the chest is obtained. FINDINGS: No pneumothorax or sizable pleural effusion. Retrocardiac left basilar atelectasis or infi ltrate. The cardiomegaly. Coarsened interstitium.. The osseous structures are intact. ET and NG tu bes stable. Atherosclerotic change aorta. IMPRESSION: 1. Coarsened interstitium associated chronic interstitial lung disease or pneumonitis. Mild venous co ngestion, slightly correlate clinically. 2. Left basilar atelectasis or infiltrate stable.
[2022-11-25] MEDS: ACETAMINOPHEN TAB 500 MG TAB PO PRN (10:42)
[2022-11-25 12:07] LABS: Glucose,Whole Blood 151 mg/dL (70-110)
[2022-11-25] MEDS ORDERED: DEXTROSE 5% IN WATER 1,000 ML IV ONE ×2 (13:25→13:31)
[2022-11-25] MEDS ORDERED: DESMOPRESSIN ACETATE 4 MCG/ML VIAL (MDV) SQ SCH (13:30)
--- NOTE | 2022-11-25 13:31 | P.PN ---
Subjective Progress Note Date: 11/25/22 Principal diagnosis: Cardiac arrest and severe anoxic brain injury I am seeing this patient in consultation today 11/19/2022 in the intensive care unit status post cardiac arrest with prolonged downtime. Patient is a 61-year-old white male with past medical history significant for COPD, previous ventilator dependent respiratory failure, congestive heart failure, hypertension, chronic pain on methadone, and ex-tobacco smoker. According to the patient's significant other, he was feeling well for most of the day yesterday, he did go to work, and was feeling fine when he got home. Early this morning, he was in some respiratory distress and was taking a breathing treatment. The patient's girlfriend witnessed him go unresponsive while on the phone with EMS. Once EMS arrived, he was pulseless, they initiated CPR and he had a prolonged estimated downtime of 20-25 minutes. Presenting rhythm is reportedly PEA. He received a total of 4 A of epinephrine. He did have return of spontaneous circulation after several rounds of CPR. The patient was transferred to [facility] emergency room and he was intubated. A right femoral central line and arterial line was placed in the emergency room. Patient is currently in the ICU, intubated to the mechanical ventilator, completely unresponsive without sedation. Initial ventilator settings were assist control, respiratory rate 16, tidal volume 500, FiO2 100%, and PEEP of 5. Initial ABG on arrival showed a pO2 of 345, pCO2 of 65, pH is 7.16. During transport, the patient's oxygen demand increased. PEEP was increased to 10 and respiratory rate increased to 24. Repeat ABGs on these settings show a pO2 of 81, pCO2 of 68, pH of 7.26. Chest x-ray shows endotracheal tube approximately 6 cm above the martine, and oral gastric tube within the stomach. Chest x-ray is concerning for pulmonary edema. No obvious pneumothorax. I did start him on Lasix. He has no respiratory drive underneath the ventilator. Not on any sedation. Noncontrast CT of the brain did not show any acute intracranial abnormality. He is having intermittent myoclonic jerks and was loaded with 2 g of Keppra as well as when necessary Ativan. There is obviously concern for anoxic brain injury. EEG is scheduled for morning. Hemodynamically, the patient is hypotensive and was started on low-dose norepinephrine which is currently infusing at 0.03 mcg/kg/m. Normal saline is KVO. ECG on arrival to the emergency room showed A. fib RVR, however, heart rhythm is currently normal sinus on the bedside monitor. CBC shows a WBC count of 9.8, hemoglobin 11.5, hematocrit 35, platelets 228. BMP shows sodium 135, potassium 4.6, chloride 98, serum bicarb 19, BUN 30, creatinine 1.91, glucose 252. Lactic acid level was 9.2. Patient was given 1 L normal saline bolus the emergency room. Troponin less than 0.012. NT proBNP 1750. Indwelling catheter with pale yellow urine. He is hypothermic. Overall, prognosis is very guarded due to patient's prolonged downtime and concern for anoxic brain injury. He will be monitored in the intensive care unit. 11/23/2022, the patient is still on propofol running at 50 mcg/kg/m. Severely impaired neurologically. No seizure activity has been noted. Nevertheless, a repeat CAT scan of the brain was done yesterday and the patient was found to have diffuse brain edema consistent with his anoxic encephalopathy. No interval change compared to the earlier evaluation. The patient also has some chronic sinus disease. He was placed on hypertonic saline. Sodium came up to 153 and the patient is currently on normal saline at KVO. Chloride is 123. BUN is 34 with a creatinine of 1.37. Pupils are pinpoint. Cough is extremely weak/absent. Babinski's cannot be elicited. No sensory or motor function. He is currently on a mechanical ventilator and overnight, he did have breathing efforts above the set rate. No seizure activity has no weakness. The patient remains on Keppra 1.5 g every 12 hours and he is also on Dilantin to 50 mg every 12 hours. He continues to have ongoing issues with elevated blood pressure. He is on Plavix appearing drip running at 8 mg an hour and in addition to that, the patient is on hydralazine 100 mg 3 times a day, metoprolol 50 mg 3 times a day, and clonidine 0.2 mg 3 times a day. Most recent systolic blood pressure is 145 with a diastolic of 54. We should be able to gradually wean off the drip based on his blood pressure response. He is on pressure control mode of mechanical ventilation with a pressure control 20, PEEP of 5, FiO2 of 40% and rate of 20. Is having copious amounts of respiratory secretions. Nevertheless, the chest x- ray shows adequate expansion of both lungs. There is some increased interstitial edema bilaterally. ET tube is in a good location. He has adequate oxygenation for now. He is covered with IV Zosyn. The white suppository 0.4, hemoglobin is 10 and a platelet count is at 187. He is receiving enteral fee ding for nutritional support and currently is on vital HP at rate of 45 mL an hour. He is afebrile this morning. Over the past 24 hours, the patient was still spiking temperatures with a T-max of 101.3. Sputum culture is negative. Pro-calcitonin level was at 0.38. Reevaluated today on 11/24/2022, remains intubated and mechanically ventilated. He is ON pressure control mode of mechanical ventilation, rate of 20, pressure control 20, inspiratory time of 0.9 and I cut it down to 0.8 FiO2 50% and PEEP of 5 ABG showed a pO2 of 78 pCO2 37 pH of 7.43. Remains on propofol at 20 mcg/kg/m, clubbing or exudates at 6 mg per hour, he is on vital HP at 40 mL per hour. Chest x-ray showed no evidence of active pulmonary disease endotracheal tube was noted to be about 6.0 see him above the martine, and I advised advancing the tube 2 cm down. The notes from the neurologist were noted, diagnostic st udies from neurology were all noted including EEG and CT of the head showing diffuse brain edema consistent with brain injury/anoxia. Patient is now being considered for organ transplant. And the organ quality coordinator is proceeding as expected in the meantime we'll plan to continue ventilatory support, hemodynamic support, and a nutritional support. As well as continue GI and DVT prophylaxis Reevaluated today on 11/25/2022, patient remains intubated and mechanically ventilated, remains in the ICU, not much has happened over the last 24 hours, he is on pressure control mode of mechanical ventilation with pressure set at 20 inspiratory time is 0.8 FiO2 50% PEEP of 5 ABG showed a pO2 of 85 pCO2 35 pH of 7.47 patient is on clevidipine at 10 mg per hour to maintain adequate blood pres sure propofol at 20 mcg/kg/m, he is also on IV fluid at KVO. Chest x-ray is basically unremarkable minimal atelectasis at the bases 13.6 hemoglobin 10.7, sodium is relatively high at 156, and I'm recommending IV fluid to be changed to D5W running at 75 mL per hour. BUN is 39 and creatinine 1.41, based on his urine output and based on the hyponatremia the patient is developing, I believe the patient is developing diabetes insipidus, hence we will increase the fluid intake on this patient in the form of D5W and will also start the patient on DDAVP. Objective - Vital Signs Vital signs: Vital Signs Temp 100.6 F H 11/25/22 12:00 Pulse 97 11/25/22 13:00 Resp 20 11/25/22 13:00 BP 152/70 11/24/22 12:00 Pulse Ox 96 11/25/22 13:00 FiO2 50 11/25/22 12:00 Intake & Output 11/24/22 11/25/22 11/25/22 18:59 06:59 18:59 Intake Total 276.617 5845.364 895 Output Total 1745 1580 1155 Balance -870.898 206.364 -260 Weight 101.9 kg 103.7 kg Intake: IV 365 340 265 Phenytoin Sodium Inj 250 45 45 mg In Sodium Chloride 0.9 % 45 ml @ 100 mls/hr IVPB Q12HR [facility] Rx#:[id number] Piperacillin-Tazobactam 3 100 100 100 .375 gm In Sodium Chloride 0.9% 100 ml @ 25 mls/hr IVPB Q8H [facility] Rx#: [id number] Sodium Chloride 0.9% 1, 220 240 120 000 ml @ 20 mls/hr IV . Q24H [facility] Rx#:[id number] Intake, IV Titration 174.102 426.364 100 Amount Clevidipine Butyrate 25 50 203.433 mg In Empty Bag 1 bag @ 1 MG/HR 2 mls/hr IV .Q24H [facility] Rx#:[id number] propofoL 1,000 mg In 124.102 222.931 100 Empty Bag 1 bag @ 15 MCG/ KG/MIN 9.27 mls/hr IV . [id number] [facility] Rx#:[id number] Tube Feeding 170 120 80 Other 165 900 450 Output: Urine 1745 1580 1155 Other: Voiding Method Indwelling Catheter Indwelling Catheter Indwelling Catheter ABP, PAP, CO, CI - Last Documented Arterial Blood Pressure 135/56 - Exam Physical Exam: Revealed a 61-year-old white male intubated, mechanically ventilated, not responding to any stimuli. Head: Atraumatic, normocephalic. Endotracheal tube and orogastric tube are HEENT:[Neck is supple.] [No neck masses.] [No thyromegaly.] [No JVD.] Chest: [Symmetrical chest expansion, clear bilaterally no rhonchi and no wheezes Cardiac Exam: [Normal S1 and S2, no S3 gallop, no murmur.] Abdomen: [Soft, nontender, no megaly, no rebound, no guarding, normal bowel sounds.] Extremities: [No clubbing, no edema, no cyanosis.] Neurological Exam: Unresponsive to any painful stimuli diminished deep tendon reflexes throughout, no evidence of any myoclonic jerks pupils 2 mm in size, reactive to light, positive gag reflex Psychiatric: Could not assess because of neurological status. Skin: No rashes - Labs CBC & Chem 7: 11/25/22 05:45 11/25/22 10:15 Labs: Abnormal Lab Results - Last 24 Hours (Table) 11/24/22 11/24/22 11/24/22 Range/Units 13:39 14:00 14:00 WBC 11.3 H (3.8-10.6) k/uL RBC 3.37 L (4.30-5.90) m/uL Hgb 10.1 L (13.0-17.5) gm/dL Hct 31.8 L (39.0-53.0) % Neutrophils # 9.2 H (1.3-7.7) k/uL ABG pH 7.47 H (7.35-7.45) ABG HCO3 27 H (21-25) mmol/L ABG Total CO2 28 H (19-24) mmol/L Sodium 158 H (137-145) mmol/L Chloride 126 H (98-107) mmol/L BUN 40 H (9-20) mg/dL Creatinine 1.44 H (0.66-1.25) mg/dL Glucose 124 H (74-99) mg/dL POC Glucose (mg/dL) (70-110) mg/dL Phosphorus (2.5-4.5) mg/dL Magnesium 2.9 H (1.6-2.3) mg/dL Delta Bilirubin 0.4 H (0.0-0.2) mg/dL Total Protein 5.7 L (6.3-8.2) g/dL Albumin 2.7 L (3.5-5.0) g/dL Urine Protein (Negative) Urine Blood (Negative) Urine RBC (0-5) /hpf Amorphous Sediment (None) /hpf Hyaline Casts (0-2) /lpf Urine Mucus (None) /hpf 11/24/22 11/24/22 11/24/22 Range/Units 18:18 20:15 20:15 WBC 12.2 H (3.8-10.6) k/uL RBC 3.31 L (4.30-5.90) m/uL Hgb 10.0 L (13.0-17.5) gm/dL Hct 31.5 L (39.0-53.0) % Neutrophils # 10.3 H (1.3-7.7) k/uL ABG pH (7.35-7.45) ABG HCO3 (21-25) mmol/L ABG Total CO2 (19-24) mmol/L Sodium 158 H (137-145) mmol/L Chloride 127 H (98-107) mmol/L BUN 40 H (9-20) mg/dL Creatinine 1.54 H (0.66-1.25) mg/dL Glucose 147 H (74-99) mg/dL POC Glucose (mg/dL) 115 H (70-110) mg/dL Phosphorus 5.5 H (2.5-4.5) mg/dL Magnesium 2.8 H (1.6-2.3) mg/dL Delta Bilirubin 0.3 H (0.0-0.2) mg/dL Total Protein 5.6 L (6.3-8.2) g/dL Albumin 2.7 L (3.5-5.0) g/dL Urine Protein (Negative) Urine Blood (Negative) Urine RBC (0-5) /hpf Amorphous Sediment (None) /hpf Hyaline Casts (0-2) /lpf Urine Mucus (None) /hpf 11/24/22 11/24/22 11/25/22 Range/Units 21:58 23:41 05:44 WBC (3.8-10.6) k/uL RBC (4.30-5.90) m/uL Hgb (13.0-17.5) gm/dL Hct (39.0-53.0) % Neutrophils # (1.3-7.7) k/uL ABG pH (7.35-7.45) ABG HCO3 26 H (21-25) mmol/L ABG Total CO2 27 H (19-24) mmol/L Sodium (137-145) mmol/L Chloride (98-107) mmol/L BUN (9-20) mg/dL Creatinine (0.66-1.25) mg/dL Glucose (74-99) mg/dL POC Glucose (mg/dL) 139 H 145 H (70-110) mg/dL Phosphorus (2.5-4.5) mg/dL Magnesium (1.6-2.3) mg/dL Delta Bilirubin (0.0-0.2) mg/dL Total Protein (6.3-8.2) g/dL Albumin (3.5-5.0) g/dL Urine Protein (Negative) Urine Blood (Negative) Urine RBC (0-5) /hpf Amorphous Sediment (None) /hpf Hyaline Casts (0-2) /lpf Urine Mucus (None) /hpf 11/25/22 11/25/22 11/25/22 Range/Units 05:45 05:45 05:47 WBC 13.6 H (3.8-10.6) k/uL RBC 3.54 L (4.30-5.90) m/uL Hgb 10.7 L (13.0-17.5) gm/dL Hct 33.5 L (39.0-53.0) % Neutrophils # 11.4 H (1.3-7.7) k/uL ABG pH 7.47 H (7.35-7.45) ABG HCO3 (21-25) mmol/L ABG Total CO2 27 H (19-24) mmol/L Sodium 156 H (137-145) mmol/L Chloride 125 H (98-107) mmol/L BUN 39 H (9-20) mg/dL Creatinine 1.41 H (0.66-1.25) mg/dL Glucose 159 H (74-99) mg/dL POC Glucose (mg/dL) (70-110) mg/dL Phosphorus 4.8 H (2.5-4.5) mg/dL Magnesium 2.8 H (1.6-2.3) mg/dL Delta Bilirubin 0.4 H (0.0-0.2) mg/dL Total Protein 5.9 L (6.3-8.2) g/dL Albumin 2.8 L (3.5-5.0) g/dL Urine Protein (Negative) Urine Blood (Negative) Urine RBC (0-5) /hpf Amorphous Sediment (None) /hpf Hyaline Casts (0-2) /lpf Urine Mucus (None) /hpf 11/25/22 11/25/22 Range/Units 05:56 12:05 WBC (3.8-10.6) k/uL RBC (4.30-5.90) m/uL Hgb (13.0-17.5) gm/dL Hct (39.0-53.0) % Neutrophils # (1.3-7.7) k/uL ABG pH (7.35-7.45) ABG HCO3 (21-25) mmol/L ABG Total CO2 (19-24) mmol/L Sodium (137-145) mmol/L Chloride (98-107) mmol/L BUN (9-20) mg/dL Creatinine (0.66-1.25) mg/dL Glucose (74-99) mg/dL POC Glucose (mg/dL) 151 H (70-110) mg/dL Phosphorus (2.5-4.5) mg/dL Magnesium (1.6-2.3) mg/dL Delta Bilirubin (0.0-0.2) mg/dL Total Protein (6.3-8.2) g/dL Albumin (3.5-5.0) g/dL Urine Protein 1+ H (Negative) Urine Blood Moderate H (Negative) Urine RBC 34 H (0-5) /hpf Amorphous Sediment Rare H (None) /hpf Hyaline Casts 7 H (0-2) /lpf Urine Mucus Few H (None) /hpf Assessment and Plan Assessment: Impression: Cardiac arrest with prolonged down time Severe anoxic brain injury Acute hypoxic and hypercapnic respiratory failure secondary to above Acute diastolic congestive heart failure History of underlying COPD Benign essential hypertension Anion gap metabolic acidosis secondary to cardiac arrest Acute kidney injury secondary to acute tubular necrosis Central hyperthermia Dyslipidemia Hypernatremia, 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 We will continue to follow. Critical care time is over 30 Time with Patient: Greater than 30
--- NOTE | 2022-11-25 13:50 | P.PN ---
Subjective Progress Note Date: 11/25/22 Patient is a 61-year-old male with hypertension, dyslipidemia, COPD, and methadone dependency who presented with an [id number] cardiac arrest with approximately 25 minute down time. In the emergency room he underwent an extensive evaluation. He was emergently intubated in the emergency department. His vitals were remarkable for temperature of 95.7, heart rate 108, blood pressure 78/47, and O2 sat 88%. Initial laboratory analysis was remarkable for hemoglobin 11.5, sodium 135, CO2 19, gap 18, BUN 30, creatinine 1.91, and BNP 1750 with lactic acid of 9.2. His troponin elevated and maxed at 0.977. Chest x-ray showed right-sided pulmonary infiltrate. EKG demonstrated A. fib with RVR. CT head showed no acute findings. Patient was subsequently admitted to the ICU. Pulmonary, neurology, and cardiology were consulted. Patient underwent an EEG which showed isoelectric pattern with intermittent sharp waves concerning for severe anoxic brain injury. Echocardiogram demonstrated an ejection fraction of 50-55% with an RVSP of 32. Cardiology felt that his elevated trop onin was due to CPR, his chads score was 0. He did not feel he would benefit from cardiac catheterization. Repeat head CT from 11/22/22 showed diffuse brain edema consistent with anoxia and no interval change. [facility] following. His sodium continued to elevate and his free water flushes were adjusted. Patient seen and examined at bedside. No new events overnight, he continues to spike fevers. Vital signs reviewed General: nontoxic, no distress, appears at stated age Cardiovascular: S1S2 reg, no murmur, positive posterior tibial pulse bilateral, Lungs: course bs bilateral, no rhonchi, no rales , no accessory muscle use Abdominal: soft, nontender to palpation, no guarding, no appreciable organomegaly Ext: no gross muscle atrophy, traceedema b/l lower extremities, no contractures Neuro:breathing at level of vent Psych: on vent Assessment/Plan: [id number] cardiac arrest Myoclonic seizures from severe anoxic encephalopathy Severe anoxic encephalopathy Acute kidney injury, due to ATN Hypernatremia, currently off hypertonic saline, possible DI Acute hypoxemic hypercapnic respiratory failure COPD with exacerbation Anion gap metabolic acidosis, resolved Pyrexia, likely central Normochromic normocytic anemia Dyslipidemia Chronic pain maintained on methadone -Current medications include DuoNeb and every 4 hours scheduled and when necessary, Pulmicort 1 mg ventilation twice daily,. Performance 20 mg twice daily -Clevidipine 10 mg/h -Catapres 0.2 mg every 8 hours, hydralazine 100 mg 3 times daily, metoprolol 50 mg 3 times daily -Phenytoin 250 mg every 12 hours, keppra 1500, IVP q 12 hours -Zosyn 3.375 g IV piggyback every 8 hours - DNR, [facility] evaluation pending -Pulmonary note reviewed: Concerned that hypernatremia is mediated by diabetes insipidus. Recommended matching urine output in the form of D5W. Continue to follow sodium levels -Increase free water 200 mL every hour -Follows Sodium level Imaging: Chest x-ray as reviewed by myself, chronic changes, no acute process hospital course imaging: CT chest/abdomen/pelvis from 11/23 revealed hours severe subsegmental atelectasis dependently in the lower lobes with a small focus of tree-in-bud groundglass opacity right mid lung own, LAD coronary artery calcifications, possible pulmonary arterial hypertension, 2 mm nonobstructive left renal calculus, possible severe atherosclerotic narrowing of the proximal SMA Data Review: Labs reviewed and white blood cell count 13.6, hemoglobin 10.7, sodium 156, chloride 125, creatinine 1.41 T max last 24 hours 101.8 labs reviewed and pulse 98, respirations 20, blood pressure 146/63, O2 sat 98% DVT prophylaxis: Heparin SC Discussed with: Nursing This dictation was prepared using [employer] voice recognition software. Though every attempt is made to correct errors during dictation some may still exist. Objective - Vital Signs Vital signs: Vital Signs Temp 100.6 F H 11/25/22 12:00 Pulse 97 11/25/22 13:00 Resp 20 11/25/22 13:00 BP 152/70 11/24/22 12:00 Pulse Ox 96 11/25/22 13:00 FiO2 50 11/25/22 12:00 Intake & Output 11/24/22 11/25/22 11/25/22 18:59 06:59 18:59 Intake Total 012.516 6332.364 895 Output Total 1745 1580 1155 Balance -870.898 206.364 -260 Weight 101.9 kg 103.7 kg Intake: IV 365 340 265 Phenytoin Sodium Inj 250 45 45 mg In Sodium Chloride 0.9 % 45 ml @ 100 mls/hr IVPB Q12HR [facility] Rx#:[id number] Piperacillin-Tazobactam 3 100 100 100 .375 gm In Sodium Chloride 0.9% 100 ml @ 25 mls/hr IVPB Q8H [facility] Rx#: [id number] Sodium Chloride 0.9% 1, 220 240 120 000 ml @ 20 mls/hr IV . Q24H [facility] Rx#:[id number] Intake, IV Titration 174.102 426.364 100 Amount Clevidipine Butyrate 25 50 203.433 mg In Empty Bag 1 bag @ 1 MG/HR 2 mls/hr IV .Q24H [facility] Rx#:[id number] propofoL 1,000 mg In 124.102 222.931 100 Empty Bag 1 bag @ 15 MCG/ KG/MIN 9.27 mls/hr IV . [id number] [facility] Rx#:[id number] Tube Feeding 170 120 80 Other 165 900 450 Output: Urine 1745 1580 1155 Other: Voiding Method Indwelling Catheter Indwelling Catheter Indwelling Catheter ABP, PAP, CO, CI - Last Documented Arterial Blood Pressure 135/56 - Labs CBC & Chem 7: 11/25/22 05:45 11/25/22 10:15 Labs: Abnormal Lab Results - Last 24 Hours (Table) 11/24/22 11/24/22 11/24/22 Range/Units 13:39 14:00 14:00 WBC 11.3 H (3.8-10.6) k/uL RBC 3.37 L (4.30-5.90) m/uL Hgb 10.1 L (13.0-17.5) gm/dL Hct 31.8 L (39.0-53.0) % Neutrophils # 9.2 H (1.3-7.7) k/uL ABG pH 7.47 H (7.35-7.45) ABG HCO3 27 H (21-25) mmol/L ABG Total CO2 28 H (19-24) mmol/L Sodium 158 H (137-145) mmol/L Chloride 126 H (98-107) mmol/L BUN 40 H (9-20) mg/dL Creatinine 1.44 H (0.66-1.25) mg/dL Glucose 124 H (74-99) mg/dL POC Glucose (mg/dL) (70-110) mg/dL Phosphorus (2.5-4.5) mg/dL Magnesium 2.9 H (1.6-2.3) mg/dL Delta Bilirubin 0.4 H (0.0-0.2) mg/dL Total Protein 5.7 L (6.3-8.2) g/dL Albumin 2.7 L (3.5-5.0) g/dL Urine Protein (Negative) Urine Blood (Negative) Urine RBC (0-5) /hpf Amorphous Sediment (None) /hpf Hyaline Casts (0-2) /lpf Urine Mucus (None) /hpf 11/24/22 11/24/22 11/24/22 Range/Units 18:18 20:15 20:15 WBC 12.2 H (3.8-10.6) k/uL RBC 3.31 L (4.30-5.90) m/uL Hgb 10.0 L (13.0-17.5) gm/dL Hct 31.5 L (39.0-53.0) % Neutrophils # 10.3 H (1.3-7.7) k/uL ABG pH (7.35-7.45) ABG HCO3 (21-25) mmol/L ABG Total CO2 (19-24) mmol/L Sodium 158 H (137-145) mmol/L Chloride 127 H (98-107) mmol/L BUN 40 H (9-20) mg/dL Creatinine 1.54 H (0.66-1.25) mg/dL Glucose 147 H (74-99) mg/dL POC Glucose (mg/dL) 115 H (70-110) mg/dL Phosphorus 5.5 H (2.5-4.5) mg/dL Magnesium 2.8 H (1.6-2.3) mg/dL Delta Bilirubin 0.3 H (0.0-0.2) mg/dL Total Protein 5.6 L (6.3-8.2) g/dL Albumin 2.7 L (3.5-5.0) g/dL Urine Protein (Negative) Urine Blood (Negative) Urine RBC (0-5) /hpf Amorphous Sediment (None) /hpf Hyaline Casts (0-2) /lpf Urine Mucus (None) /hpf 11/24/22 11/24/22 11/25/22 Range/Units 21:58 23:41 05:44 WBC (3.8-10.6) k/uL RBC (4.30-5.90) m/uL Hgb (13.0-17.5) gm/dL Hct (39.0-53.0) % Neutrophils # (1.3-7.7) k/uL ABG pH (7.35-7.45) ABG HCO3 26 H (21-25) mmol/L ABG Total CO2 27 H (19-24) mmol/L Sodium (137-145) mmol/L Chloride (98-107) mmol/L BUN (9-20) mg/dL Creatinine (0.66-1.25) mg/dL Glucose (74-99) mg/dL POC Glucose (mg/dL) 139 H 145 H (70-110) mg/dL Phosphorus (2.5-4.5) mg/dL Magnesium (1.6-2.3) mg/dL Delta Bilirubin (0.0-0.2) mg/dL Total Protein (6.3-8.2) g/dL Albumin (3.5-5.0) g/dL Urine Protein (Negative) Urine Blood (Negative) Urine RBC (0-5) /hpf Amorphous Sediment (None) /hpf Hyaline Casts (0-2) /lpf Urine Mucus (None) /hpf 11/25/22 11/25/22 11/25/22 Range/Units 05:45 05:45 05:47 WBC 13.6 H (3.8-10.6) k/uL RBC 3.54 L (4.30-5.90) m/uL Hgb 10.7 L (13.0-17.5) gm/dL Hct 33.5 L (39.0-53.0) % Neutrophils # 11.4 H (1.3-7.7) k/uL ABG pH 7.47 H (7.35-7.45) ABG HCO3 (21-25) mmol/L ABG Total CO2 27 H (19-24) mmol/L Sodium 156 H (137-145) mmol/L Chloride 125 H (98-107) mmol/L BUN 39 H (9-20) mg/dL Creatinine 1.41 H (0.66-1.25) mg/dL Glucose 159 H (74-99) mg/dL POC Glucose (mg/dL) (70-110) mg/dL Phosphorus 4.8 H (2.5-4.5) mg/dL Magnesium 2.8 H (1.6-2.3) mg/dL Delta Bilirubin 0.4 H (0.0-0.2) mg/dL Total Protein 5.9 L (6.3-8.2) g/dL Albumin 2.8 L (3.5-5.0) g/dL Urine Protein (Negative) Urine Blood (Negative) Urine RBC (0-5) /hpf Amorphous Sediment (None) /hpf Hyaline Casts (0-2) /lpf Urine Mucus (None) /hpf 11/25/22 11/25/22 Range/Units 05:56 12:05 WBC (3.8-10.6) k/uL RBC (4.30-5.90) m/uL Hgb (13.0-17.5) gm/dL Hct (39.0-53.0) % Neutrophils # (1.3-7.7) k/uL ABG pH (7.35-7.45) ABG HCO3 (21-25) mmol/L ABG Total CO2 (19-24) mmol/L Sodium (137-145) mmol/L Chloride (98-107) mmol/L BUN (9-20) mg/dL Creatinine (0.66-1.25) mg/dL Glucose (74-99) mg/dL POC Glucose (mg/dL) 151 H (70-110) mg/dL Phosphorus (2.5-4.5) mg/dL Magnesium (1.6-2.3) mg/dL Delta Bilirubin (0.0-0.2) mg/dL Total Protein (6.3-8.2) g/dL Albumin (3.5-5.0) g/dL Urine Protein 1+ H (Negative) Urine Blood Moderate H (Negative) Urine RBC 34 H (0-5) /hpf Amorphous Sediment Rare H (None) /hpf Hyaline Casts 7 H (0-2) /lpf Urine Mucus Few H (None) /hpf
[2022-11-25 13:54] LABS: ABG Base Excess 1.3 mmol/L; ABG HCO3 26 mmol/L (21-25); ABG PCO2 39 mmHg (35-45); ABG PH 7.42 (7.35-7.45); ABG PO2 85 mmHg (83-108); ABG TCO2 27 mmol/L (19-24)
[2022-11-25] MEDS: DESMOPRESSIN ACETATE 4 MCG/ML VIAL (MDV) SQ SCH ×2 (14:29→22:38)
[2022-11-25 14:34] LABS: Basophils % (A) 0 %; Eosinophils # (A) 0.1 k/uL (0-0.7); Eosinophils % (A) 1 %; HCT 32.6 % (39.0-53.0); HGB 10.4 gm/dL (13.0-17.5); Hypochromasia Moderate; Lymphocytes # (A) 1.4 k/uL (1.0-4.8); Lymphocytes % (A) 12 %; MCH 30.4 pg (25.0-35.0); MCV 95.2 fL (80.0-100.0); Mean Platelet Volume 9.1; Monocytes # (A) 0.5 k/uL (0-1.0); Monocytes % (A) 5 %; Neutrophils # (A) 9.1 k/uL (1.3-7.7); Neutrophils % (A) 80 %; Platelet Count 247 k/uL (150-450); RBC 3.42 m/uL (4.30-5.90); RDW 15.2 % (11.5-15.5); WBC 11.3 k/uL (3.8-10.6)
[2022-11-25 14:44] LABS: INR 0.9 (<1.2); Partial Thromboplastin Time 22.1 sec (22.0-30.0); Prothrombin Time 9.4 sec (9.0-12.0)
[2022-11-25] MEDS: DEXTROSE 5% IN WATER 1,000 ML IV SCH ×2 (14:53→22:20)
[2022-11-25 15:23] LABS: ALT 36 U/L (4-49); AST 50 U/L (17-59); African American GFR (CKD) 66 (>60 ml/min/1.73 sqM); Albumin 2.7 g/dL (3.5-5.0); Alkaline Phosphatase 78 U/L (38-126); Anion Gap 7 mmol/L; Bilirubin, Delta 0.5 mg/dL (0.0-0.2); Blood Urea Nitrogen 37 mg/dL (9-20); Calcium 8.2 mg/dL (8.4-10.2); Carbon Dioxide 24 mmol/L (22-30); Chloride 123 mmol/L (98-107); Glucose 191 mg/dL (74-99); Magnesium 2.9 mg/dL (1.6-2.3); Non-African American GFR(CKD) 57 (>60 ml/min/1.73 sqM); Phosphorus 5.4 mg/dL (2.5-4.5); Potassium 3.9 mmol/L (3.5-5.1); Sodium 154 mmol/L (137-145); Total Bilirubin 0.5 mg/dL (0.2-1.3); Total Protein 5.6 g/dL (6.3-8.2)
[2022-11-25 18:46] LABS: Glucose,Whole Blood 213 mg/dL (70-110)
--- NOTE | 2022-11-25 21:51 | XR ---
EXAMINATION TYPE: XR chest 1V portable DATE OF EXAM: 11/25/2022 HISTORY: Shortness of breath. COMPARISON: 11/25/2022 TECHNIQUE: Single view of the chest is submitted. FINDINGS: Demonstrated are scattered senescent parenchymal change. NG tube is seen within the stomach. Endotrac heal tube is unchanged in position. Patchy basilar infiltrates noted with pulmonary venous congestion. The heart is stable. Hilar and mediastinal structures are within normal limits. Degenerative changes are seen of the dorsal spine. IMPRESSION: 1. Patchy basilar infiltrates noted with pulmonary venous congestion.
[2022-11-25 22:17] LABS: ABG Base Excess 0.7 mmol/L; ABG HCO3 25 mmol/L (21-25); ABG Oxygen Saturation 95.4 % (94-97); ABG PCO2 40 mmHg (35-45); ABG PH 7.41 (7.35-7.45); ABG PO2 80 mmHg (83-108); ABG TCO2 27 mmol/L (19-24)
[2022-11-25 22:57] LABS: Basophils % (A) 0 %; Eosinophils # (A) 0.3 k/uL (0-0.7); Eosinophils % (A) 2 %; HCT 32.5 % (39.0-53.0); HGB 10.3 gm/dL (13.0-17.5); Hypochromasia Moderate; Lymphocytes # (A) 1.5 k/uL (1.0-4.8); Lymphocytes % (A) 13 %; MCH 30.2 pg (25.0-35.0); MCHC 31.7 g/dL (31.0-37.0); MCV 95.1 fL (80.0-100.0); Monocytes # (A) 0.5 k/uL (0-1.0); Monocytes % (A) 4 %; Neutrophils # (A) 8.8 k/uL (1.3-7.7); Neutrophils % (A) 79 %; Platelet Count 239 k/uL (150-450); RBC 3.42 m/uL (4.30-5.90); RDW 15.1 % (11.5-15.5); WBC 11.1 k/uL (3.8-10.6)
[2022-11-25 23:03] LABS: ALT 38 U/L (4-49); AST 52 U/L (17-59); African American GFR (CKD) 84 (>60 ml/min/1.73 sqM); Albumin 2.7 g/dL (3.5-5.0); Alkaline Phosphatase 81 U/L (38-126); Anion Gap 6 mmol/L; Bilirubin, Delta 0.4 mg/dL (0.0-0.2); Bilirubin,Unconjugated 0.1 mg/dL (0.0-1.1); Blood Urea Nitrogen 31 mg/dL (9-20); Calcium 8.3 mg/dL (8.4-10.2); Carbon Dioxide 25 mmol/L (22-30); Chloride 118 mmol/L (98-107); Glucose 176 mg/dL (74-99); Magnesium 2.8 mg/dL (1.6-2.3); Non-African American GFR(CKD) 73 (>60 ml/min/1.73 sqM); Phosphorus 4.3 mg/dL (2.5-4.5); Potassium 3.3 mmol/L (3.5-5.1); Sodium 149 mmol/L (137-145); Total Bilirubin 0.5 mg/dL (0.2-1.3); Total Protein 5.7 g/dL (6.3-8.2)
[2022-11-25 23:10] LABS: INR 0.9 (<1.2); Partial Thromboplastin Time 23.6 sec (22.0-30.0); Prothrombin Time 9.3 sec (9.0-12.0)
[2022-11-25 23:29] LABS: Glucose,Whole Blood 153 mg/dL (70-110)
[2022-11-26] MEDS: IPRATROPIUM-ALBUTEROL 3 ML NEB INHALATION SCH ×5 (00:35→16:26)
[2022-11-26] MEDS ORDERED: ADENOSINE 3 MG/ML 2 ML VIAL IVP ONE ×2 (00:38→00:52)
[2022-11-26] MEDS: ADENOSINE 3 MG/ML 2 ML VIAL IVP ONE ×2 (00:45→00:54)
[2022-11-26 01:11] LABS: Glucose,Whole Blood 161 mg/dL (70-110)
[2022-11-26] MEDS: HEPARIN SODIUM,PORCINE 5,000 UNIT/ML 1 ML VIAL SQ SCH ×2 (01:24→08:27)
[2022-11-26] MEDS: INSULIN ASPART (NovoLOG) 100 UNIT/ML VIAL SQ SCH ×2 (01:25→06:09)
[2022-11-26] MEDS ORDERED: DILTIAZEM 125 MG in SODIUM CHLORIDE 0.9% 100 ML IV SCH (01:30)
[2022-11-26] MEDS: CLEVIDIPINE BUTYRATE 25 MG in EMPTY BAG 1 BAG IV SCH ×3 (01:57→06:59)
[2022-11-26] MEDS: PIPERACILLIN-TAZOBACTAM 3.375 GM in SODIUM CHLORIDE 0.9% 100 ML IVPB SCH (03:21)
[2022-11-26] MEDS: DEXTROSE 5% IN WATER 1,000 ML IV SCH (03:22)
[2022-11-26] MEDS: cloNIDine HCL 0.2 MG TAB PO SCH (04:39)
[2022-11-26] MEDS: POTASSIUM BICARBONATE/CIT AC 20 MEQ TABLET.EFF NG-TUBE SCH ×4 (05:06→09:56)
[2022-11-26 05:53] LABS: ABG Base Excess 2.2 mmol/L; ABG HCO3 26 mmol/L (21-25); ABG PCO2 36 mmHg (35-45); ABG PH 7.47 (7.35-7.45); ABG PO2 88 mmHg (83-108); ABG TCO2 27 mmol/L (19-24)
[2022-11-26 06:07] LABS: Glucose,Whole Blood 170 mg/dL (70-110)
[2022-11-26 06:29] LABS: Basophils % (A) 0 %; Eosinophils # (A) 0.3 k/uL (0-0.7); Eosinophils % (A) 3 %; HCT 31.1 % (39.0-53.0); Hypochromasia Slight; Lymphocytes # (A) 1.3 k/uL (1.0-4.8); Lymphocytes % (A) 13 %; MCH 30.3 pg (25.0-35.0); MCHC 32.2 g/dL (31.0-37.0); Mean Platelet Volume 9.3; Monocytes # (A) 0.4 k/uL (0-1.0); Monocytes % (A) 4 %; Neutrophils # (A) 8.1 k/uL (1.3-7.7); Neutrophils % (A) 79 %; Platelet Count 244 k/uL (150-450); RBC 3.31 m/uL (4.30-5.90); WBC 10.2 k/uL (3.8-10.6)
[2022-11-26 07:00] LABS: INR 0.9 (<1.2); Prothrombin Time 9.4 sec (9.0-12.0)
[2022-11-26 07:01] LABS: Partial Thromboplastin Time 25.2 sec (22.0-30.0)
[2022-11-26 07:41] LABS: Appearance,Urine Clear (Clear); Bacteria,Urine Rare /hpf; Bilirubin,Urine Negative (Negative); Blood,Urine Trace (Negative); Color,Urine Yellow; Glucose,Urine (UA) Negative (Negative); Granular Casts,Urine 1 /lpf (0); Ketones,Urine Negative (Negative); Leukocyte Esterase,Urine Negative (Negative); Mucus,Urine Occasional /hpf; Nitrite,Urine Negative (Negative); PH, Urine 5.5 (5.0-8.0); Protein,Urine 1+ (Negative); RBC,Urine 22 /hpf (0-5); Specific Gravity,Urine 1.024 (1.001-1.035); Urobilinogen,Urine <2.0 mg/dL (<2.0); WBC,Urine 3 /hpf (0-5)
[2022-11-26 07:46] LABS: ALT 39 U/L (4-49); AST 49 U/L (17-59); African American GFR (CKD) 81 (>60 ml/min/1.73 sqM); Albumin 2.5 g/dL (3.5-5.0); Alkaline Phosphatase 75 U/L (38-126); Anion Gap 5 mmol/L; Bilirubin, Delta 0.5 mg/dL (0.0-0.2); Blood Urea Nitrogen 28 mg/dL (9-20); Carbon Dioxide 24 mmol/L (22-30); Chloride 117 mmol/L (98-107); Glucose 174 mg/dL (74-99); Magnesium 2.5 mg/dL (1.6-2.3); Non-African American GFR(CKD) 70 (>60 ml/min/1.73 sqM); Phosphorus 4.2 mg/dL (2.5-4.5); Potassium 3.5 mmol/L (3.5-5.1); Sodium 146 mmol/L (137-145); Total Bilirubin 0.5 mg/dL (0.2-1.3); Total Protein 5.5 g/dL (6.3-8.2)
[2022-11-26] MEDS: BUDESONIDE 1 MG/2 ML NEBU INHALATION SCH (08:12)
[2022-11-26] MEDS: FORMOTEROL FUMARATE 20 MCG/2 ML NEBU INHALATION SCH (08:12)
[2022-11-26 08:25] VITALS: TEMP 100
[2022-11-26] MEDS: CHLORHEXIDINE GLUCONATE 15 ML CUP MUCOUS MEM SCH (08:26)
[2022-11-26] MEDS: PANTOPRAZOLE 40 MG/10 ML VIAL IVP SCH (08:26)
[2022-11-26] MEDS: amLODIPine 5 MG TAB PO SCH (08:27)
[2022-11-26] MEDS: hydrALAZINE HCL 50 MG TAB PO SCH (08:27)
[2022-11-26] MEDS: METOPROLOL TARTRATE 50 MG TAB PO SCH (08:27)
[2022-11-26] MEDS: levETIRAcetam IV 500 MG/5 ML VIAL IVP SCH (08:28)
--- NOTE | 2022-11-26 08:57 | XR ---
EXAMINATION TYPE: XR chest 1V portable DATE OF EXAM: 11/26/2022 COMPARISON: 11/25/2022 HISTORY: Shortness of breath TECHNIQUE: Single frontal view of the chest is obtained. FINDINGS: Diffuse interstitial pattern with consolidation greater on the left small pleural effusion s. ET and NG tubes stable. Heart mildly enlarged and there is atherosclerotic change aorta. Osseous s tructures demonstrate mild hypertrophic change of the AC joint hypertrophic and degenerative change o f the spine. IMPRESSION: 1. Stable basilar consolidation and small effusion correlate for underlying venous congestion or inte rstitial pneumonitis.
[2022-11-26] MEDS ORDERED: SCOPOLAMINE 1 MG/72 HR PATCH TRANSDERM SCH (09:00)
[2022-11-26] MEDS: PHENYTOIN SODIUM IVPB SCH (09:26)
[2022-11-26] MEDS: SODIUM CHLORIDE 0.9% IVPB SCH (09:26)
[2022-11-26] MEDS: DESMOPRESSIN ACETATE 4 MCG/ML VIAL (MDV) SQ SCH (09:32)
[2022-11-26] MEDS ORDERED: PIPERACILLIN-TAZOBACTAM 3.375 GM in SODIUM CHLORIDE 0.9% 100 ML IVPB STA (09:59)
[2022-11-26] MEDS: hydrALAZINE HCL 20 MG/ML 1 ML VIAL IVP PRN (10:03)
[2022-11-26] MEDS: MORPHINE SULFATE 2 MG/ML SYRINGE IV PRN ×5 (11:20→12:48)
[2022-11-26] MEDS ORDERED: GLYCOPYRROLATE 0.2 MG/ML 2 ML VIAL IVP PRN (11:30)
[2022-11-26] MEDS ORDERED: LORazepam 2 MG/ML INJ IV PRN (11:30)
[2022-11-26] MEDS ORDERED: ATROPINE OPHTH SOLN 1% 5ML BTL SUBLINGUAL PRN (11:30)
[2022-11-26 11:33] VITALS: BP 149/70
[2022-11-26] MEDS: MORPHINE SULFATE 4 MG/ML SYRINGE IV PRN ×12 (12:01→13:56)
[2022-11-26] MEDS: MORPHINE SULFATE (100 MG/2 ML) 100 MG in SODIUM CHLORIDE 0.9% 100 ML IV SCH ×2 (12:44→14:22)
[2022-11-26] MEDS ORDERED: LORazepam 2 MG/ML INJ IV STA ×2 (12:49→12:57)
[2022-11-26] MEDS ORDERED: MORPHINE SULFATE 4 MG/ML SYRINGE IVP STA (12:49)
--- NOTE | 2022-11-26 12:49 | P.PN ---
Subjective Progress Note Date: 11/26/22 Principal diagnosis: Cardiac arrest and severe anoxic brain injury I am seeing this patient in consultation today 11/19/2022 in the intensive care unit status post cardiac arrest with prolonged downtime. Patient is a 61-year-old white male with past medical history significant for COPD, previous ventilator dependent respiratory failure, congestive heart failure, hypertension, chronic pain on methadone, and ex-tobacco smoker. According to the patient's significant other, he was feeling well for most of the day yesterday, he did go to work, and was feeling fine when he got home. Early this morning, he was in some respiratory distress and was taking a breathing treatment. The patient's girlfriend witnessed him go unresponsive while on the phone with EMS. Once EMS arrived, he was pulseless, they initiated CPR and he had a prolonged estimated downtime of 20-25 minutes. Presenting rhythm is reportedly PEA. He received a total of 4 A of epinephrine. He did have return of spontaneous circulation after several rounds of CPR. The patient was transferred to [facility] emergency room and he was intubated. A right femoral central line and arterial line was placed in the emergency room. Patient is currently in the ICU, intubated to the mechanical ventilator, completely unresponsive without sedation. Initial ventilator settings were assist control, respiratory rate 16, tidal volume 500, FiO2 100%, and PEEP of 5. Initial ABG on arrival showed a pO2 of 345, pCO2 of 65, pH is 7.16. During transport, the patient's oxygen demand increased. PEEP was increased to 10 and respiratory rate increased to 24. Repeat ABGs on these settings show a pO2 of 81, pCO2 of 68, pH of 7.26. Chest x-ray shows endotracheal tube approximately 6 cm above the martine, and oral gastric tube within the stomach. Chest x-ray is concerning for pulmonary edema. No obvious pneumothorax. I did start him on Lasix. He has no respiratory drive underneath the ventilator. Not on any sedation. Noncontrast CT of the brain did not show any acute intracranial abnormality. He is having intermittent myoclonic jerks and was loaded with 2 g of Keppra as well as when necessary Ativan. There is obviously concern for anoxic brain injury. EEG is scheduled for morning. Hemodynamically, the patient is hypotensive and was started on low-dose norepinephrine which is currently infusing at 0.03 mcg/kg/m. Normal saline is KVO. ECG on arrival to the emergency room showed A. fib RVR, however, heart rhythm is currently normal sinus on the bedside monitor. CBC shows a WBC count of 9.8, hemoglobin 11.5, hematocrit 35, platelets 228. BMP shows sodium 135, potassium 4.6, chloride 98, serum bicarb 19, BUN 30, creatinine 1.91, glucose 252. Lactic acid level was 9.2. Patient was given 1 L normal saline bolus the emergency room. Troponin less than 0.012. NT proBNP 1750. Indwelling catheter with pale yellow urine. He is hypothermic. Overall, prognosis is very guarded due to patient's prolonged downtime and concern for anoxic brain injury. He will be monitored in the intensive care unit. 11/23/2022, the patient is still on propofol running at 50 mcg/kg/m. Severely impaired neurologically. No seizure activity has been noted. Nevertheless, a repeat CAT scan of the brain was done yesterday and the patient was found to have diffuse brain edema consistent with his anoxic encephalopathy. No interval change compared to the earlier evaluation. The patient also has some chronic sinus disease. He was placed on hypertonic saline. Sodium came up to 153 and the patient is currently on normal saline at KVO. Chloride is 123. BUN is 34 with a creatinine of 1.37. Pupils are pinpoint. Cough is extremely weak/absent. Babinski's cannot be elicited. No sensory or motor function. He is currently on a mechanical ventilator and overnight, he did have breathing efforts above the set rate. No seizure activity has no weakness. The patient remains on Keppra 1.5 g every 12 hours and he is also on Dilantin to 50 mg every 12 hours. He continues to have ongoing issues with elevated blood pressure. He is on Plavix appearing drip running at 8 mg an hour and in addition to that, the patient is on hydralazine 100 mg 3 times a day, metoprolol 50 mg 3 times a day, and clonidine 0.2 mg 3 times a day. Most recent systolic blood pressure is 145 with a diastolic of 54. We should be able to gradually wean off the drip based on his blood pressure response. He is on pressure control mode of mechanical ventilation with a pressure control 20, PEEP of 5, FiO2 of 40% and rate of 20. Is having copious amounts of respiratory secretions. Nevertheless, the chest x- ray shows adequate expansion of both lungs. There is some increased interstitial edema bilaterally. ET tube is in a good location. He has adequate oxygenation for now. He is covered with IV Zosyn. The white suppository 0.4, hemoglobin is 10 and a platelet count is at 187. He is receiving enteral fee ding for nutritional support and currently is on vital HP at rate of 45 mL an hour. He is afebrile this morning. Over the past 24 hours, the patient was still spiking temperatures with a T-max of 101.3. Sputum culture is negative. Pro-calcitonin level was at 0.38. Reevaluated today on 11/24/2022, remains intubated and mechanically ventilated. He is ON pressure control mode of mechanical ventilation, rate of 20, pressure control 20, inspiratory time of 0.9 and I cut it down to 0.8 FiO2 50% and PEEP of 5 ABG showed a pO2 of 78 pCO2 37 pH of 7.43. Remains on propofol at 20 mcg/kg/m, clubbing or exudates at 6 mg per hour, he is on vital HP at 40 mL per hour. Chest x-ray showed no evidence of active pulmonary disease endotracheal tube was noted to be about 6.0 see him above the martine, and I advised advancing the tube 2 cm down. The notes from the neurologist were noted, diagnostic st udies from neurology were all noted including EEG and CT of the head showing diffuse brain edema consistent with brain injury/anoxia. Patient is now being considered for organ transplant. And the organ sales promotion coordinator is proceeding as expected in the meantime we'll plan to continue ventilatory support, hemodynamic support, and a nutritional support. As well as continue GI and DVT prophylaxis Reevaluated today on 11/25/2022, patient remains intubated and mechanically ventilated, remains in the ICU, not much has happened over the last 24 hours, he is on pressure control mode of mechanical ventilation with pressure set at 20 inspiratory time is 0.8 FiO2 50% PEEP of 5 ABG showed a pO2 of 85 pCO2 35 pH of 7.47 patient is on clevidipine at 10 mg per hour to maintain adequate blood pres sure propofol at 20 mcg/kg/m, he is also on IV fluid at KVO. Chest x-ray is basically unremarkable minimal atelectasis at the bases 13.6 hemoglobin 10.7, sodium is relatively high at 156, and I'm recommending IV fluid to be changed to D5W running at 75 mL per hour. BUN is 39 and creatinine 1.41, based on his urine output and based on the hyponatremia the patient is developing, I believe the patient is developing diabetes insipidus, hence we will increase the fluid intake on this patient in the form of D5W and will also start the patient on DDAVP. Reevaluated today on 11/26/2022, patient remains about the same, no changes in his ventilator settings, patient remains on pressure control mode of mechanical ventilation rate set at 16, pressure at 20, inspiratory time 0.8, FiO2 50% and PEEP of 5. ABG this morning showed a pO2 of 88 pCO2 36 pH of 7.47 his labs are basically unremarkable, renal profile is improving with a BUN of 28 creatinine 1.15, patient had an episode of supraventricular tachycardia requiring Cardizem drip, and he was given adenosine. Presently in normal sinus rhythm, CBC is relatively unremarkable the scan is 10.2 hemoglobin is 10 BUN is down to 28 creatinine 1.15 neurologically, the patient is about the same, not much changed over the last 24 hours. Remains unresponsive except he did feel the pain when I was placing an arterial line patient had a bit of a withdrawal with the needle poke. Objective - Vital Signs Vital signs: Vital Signs Temp 100.0 F H 11/26/22 08:00 Pulse 85 11/26/22 11:00 Resp 27 H 11/26/22 11:00 BP 149/70 11/26/22 11:00 Pulse Ox 95 11/26/22 11:00 FiO2 50 11/26/22 08:00 Intake & Output 11/25/22 11/26/22 11/26/22 18:59 06:59 18:59 Intake Total 3547.112 2779.747 614.233 Output Total 2405 1080 245 Balance 2443.534 3771.747 369.233 Weight 101.9 kg Intake: IV 385 2065 470 Dextrose 5% in Water 1, 1800 450 000 ml @ 150 mls/hr IV . Q6H40M [facility] Rx#:[id number] Phenytoin Sodium Inj 250 45 45 mg In Sodium Chloride 0.9 % 45 ml @ 100 mls/hr IVPB Q12HR [facility] Rx#:[id number] Piperacillin-Tazobactam 3 100 .375 gm In Sodium Chloride 0.9% 100 ml @ 25 mls/hr IVPB Q8H [facility] Rx#: [id number] Sodium Chloride 0.9% 1, 240 220 20 000 ml @ 20 mls/hr IV . Q24H [facility] Rx#:[id number] Intake, IV Titration 1992.112 484.747 144.233 Amount Clevidipine Butyrate 25 50 165.600 44.233 mg In Empty Bag 1 bag @ 1 MG/HR 2 mls/hr IV .Q24H [facility] Rx#:[id number] Dextrose 5% in Water 1, 750 000 ml @ 150 mls/hr IV . Q6H40M [facility] Rx#:[id number] Dextrose 5% in Water 1, 999 000 ml @ 999 mls/hr IV . Q1H1M [facility] Rx#:[id number] Diltiazem 125 mg In 48.167 Sodium Chloride 0.9% 100 ml @ 10 MG/HR 10 mls/hr IV .[id number] [facility] Rx#: [id number] propofoL 1,000 mg In 193.112 270.980 100 Empty Bag 1 bag @ 15 MCG/ KG/MIN 9.27 mls/hr IV . [id number] [facility] Rx#:[id number] Tube Feeding 220 70 0 Other 950 160 0 Output: Urine 2405 1080 245 Other: Voiding Method Indwelling Catheter Indwelling Catheter # Bowel Movements 1 ABP, PAP, CO, CI - Last Documented Arterial Blood Pressure 127/66 - Exam Physical Exam: Revealed a 61-year-old white male intubated, mechanically v entilated, Head: Atraumatic, normocephalic. Endotracheal tube and orogastric tube are intact HEENT:[Neck is supple.] [No neck masses.] [No thyromegaly.] [No JVD.] Chest: [Symmetrical chest expansion, clear bilaterally no rhonchi and no wheezes Cardiac Exam: [Normal S1 and S2, no S3 gallop, no murmur.] Abdomen: [Soft, nontender, no megaly, no rebound, no guarding, normal bowel sounds.] Extremities: [No clubbing, no edema, no cyanosis.] Neurological Exam: Unresponsive, except did have withdrawal with a needle poke while placing an arterial line. diminished deep tendon reflexes throughout, no evidence of any myoclonic jerks pupils 2 mm in size, reactive to light, positive gag reflex Psychiatric: Could not assess because of neurological status. Skin: No rashes - Labs CBC & Chem 7: 11/26/22 05:40 11/26/22 05:40 Labs: Abnormal Lab Results - Last 24 Hours (Table) 11/25/22 11/25/22 11/25/22 Range/Units 13:46 13:50 13:50 WBC 11.3 H (3.8-10.6) k/uL RBC 3.42 L (4.30-5.90) m/uL Hgb 10.4 L (13.0-17.5) gm/dL Hct 32.6 L (39.0-53.0) % Neutrophils # 9.1 H (1.3-7.7) k/uL ABG pH (7.35-7.45) ABG pO2 (83-108) mmHg ABG HCO3 26 H (21-25) mmol/L ABG Total CO2 27 H (19-24) mmol/L Sodium 154 H (137-145) mmol/L Potassium (3.5-5.1) mmol/L Chloride 123 H (98-107) mmol/L BUN 37 H (9-20) mg/dL Creatinine 1.35 H (0.66-1.25) mg/dL Glucose 191 H (74-99) mg/dL POC Glucose (mg/dL) (70-110) mg/dL Calcium 8.2 L (8.4-10.2) mg/dL Phosphorus 5.4 H (2.5-4.5) mg/dL Magnesium 2.9 H (1.6-2.3) mg/dL Delta Bilirubin 0.5 H (0.0-0.2) mg/dL Total Protein 5.6 L (6.3-8.2) g/dL Albumin 2.7 L (3.5-5.0) g/dL Urine Protein (Negative) Urine Blood (Negative) Urine RBC (0-5) /hpf Urine Bacteria (None) /hpf Urine Mucus (None) /hpf 11/25/22 11/25/22 11/25/22 Range/Units 18:45 21:50 21:50 WBC 11.1 H (3.8-10.6) k/uL RBC 3.42 L (4.30-5.90) m/uL Hgb 10.3 L (13.0-17.5) gm/dL Hct 32.5 L (39.0-53.0) % Neutrophils # 8.8 H (1.3-7.7) k/uL ABG pH (7.35-7.45) ABG pO2 (83-108) mmHg ABG HCO3 (21-25) mmol/L ABG Total CO2 (19-24) mmol/L Sodium 149 H (137-145) mmol/L Potassium 3.3 L (3.5-5.1) mmol/L Chloride 118 H (98-107) mmol/L BUN 31 H (9-20) mg/dL Creatinine (0.66-1.25) mg/dL Glucose 176 H (74-99) mg/dL POC Glucose (mg/dL) 213 H (70-110) mg/dL Calcium 8.3 L (8.4-10.2) mg/dL Phosphorus (2.5-4.5) mg/dL Magnesium 2.8 H (1.6-2.3) mg/dL Delta Bilirubin 0.4 H (0.0-0.2) mg/dL Total Protein 5.7 L (6.3-8.2) g/dL Albumin 2.7 L (3.5-5.0) g/dL Urine Protein (Negative) Urine Blood (Negative) Urine RBC (0-5) /hpf Urine Bacteria (None) /hpf Urine Mucus (None) /hpf 11/25/22 11/25/22 11/26/22 Range/Units 22:09 23:28 01:10 WBC (3.8-10.6) k/uL RBC (4.30-5.90) m/uL Hgb (13.0-17.5) gm/dL Hct (39.0-53.0) % Neutrophils # (1.3-7.7) k/uL ABG pH (7.35-7.45) ABG pO2 80 L (83-108) mmHg ABG HCO3 (21-25) mmol/L ABG Total CO2 27 H (19-24) mmol/L Sodium (137-145) mmol/L Potassium (3.5-5.1) mmol/L Chloride (98-107) mmol/L BUN (9-20) mg/dL Creatinine (0.66-1.25) mg/dL Glucose (74-99) mg/dL POC Glucose (mg/dL) 153 H 161 H (70-110) mg/dL Calcium (8.4-10.2) mg/dL Phosphorus (2.5-4.5) mg/dL Magnesium (1.6-2.3) mg/dL Delta Bilirubin (0.0-0.2) mg/dL Total Protein (6.3-8.2) g/dL Albumin (3.5-5.0) g/dL Urine Protein (Negative) Urine Blood (Negative) Urine RBC (0-5) /hpf Urine Bacteria (None) /hpf Urine Mucus (None) /hpf 11/26/22 11/26/22 11/26/22 Range/Units 04:46 05:40 05:40 WBC (3.8-10.6) k/uL RBC 3.31 L (4.30-5.90) m/uL Hgb 10.0 L (13.0-17.5) gm/dL Hct 31.1 L (39.0-53.0) % Neutrophils # 8.1 H (1.3-7.7) k/uL ABG pH 7.47 H (7.35-7.45) ABG pO2 (83-108) mmHg ABG HCO3 26 H (21-25) mmol/L ABG Total CO2 27 H (19-24) mmol/L Sodium (137-145) mmol/L Potassium (3.5-5.1) mmol/L Chloride (98-107) mmol/L BUN (9-20) mg/dL Creatinine (0.66-1.25) mg/dL Glucose (74-99) mg/dL POC Glucose (mg/dL) (70-110) mg/dL Calcium (8.4-10.2) mg/dL Phosphorus (2.5-4.5) mg/dL Magnesium (1.6-2.3) mg/dL Delta Bilirubin (0.0-0.2) mg/dL Total Protein (6.3-8.2) g/dL Albumin (3.5-5.0) g/dL Urine Protein 1+ H (Negative) Urine Blood Trace H (Negative) Urine RBC 22 H (0-5) /hpf Urine Bacteria Rare H (None) /hpf Urine Mucus Occasional H (None) /hpf 11/26/22 11/26/22 Range/Units 05:40 06:05 WBC (3.8-10.6) k/uL RBC (4.30-5.90) m/uL Hgb (13.0-17.5) gm/dL Hct (39.0-53.0) % Neutrophils # (1.3-7.7) k/uL ABG pH (7.35-7.45) ABG pO2 (83-108) mmHg ABG HCO3 (21-25) mmol/L ABG Total CO2 (19-24) mmol/L Sodium 146 H (137-145) mmol/L Potassium (3.5-5.1) mmol/L Chloride 117 H (98-107) mmol/L BUN 28 H (9-20) mg/dL Creatinine (0.66-1.25) mg/dL Glucose 174 H (74-99) mg/dL POC Glucose (mg/dL) 170 H (70-110) mg/dL Calcium 8.0 L (8.4-10.2) mg/dL Phosphorus (2.5-4.5) mg/dL Magnesium 2.5 H (1.6-2.3) mg/dL Delta Bilirubin 0.5 H (0.0-0.2) mg/dL Total Protein 5.5 L (6.3-8.2) g/dL Albumin 2.5 L (3.5-5.0) g/dL Urine Protein (Negative) Urine Blood (Negative) Urine RBC (0-5) /hpf Urine Bacteria (None) /hpf Urine Mucus (None) /hpf Assessment and Plan Assessment: Impression: Cardiac arrest with prolonged down time Severe anoxic brain injury Acute hypoxic and hypercapnic respiratory failure secondary to above Acute diastolic congestive heart failure History of underlying COPD Benign essential hypertension Anion gap metabolic acidosis secondary to cardiac arrest Acute kidney injury secondary to acute tubular necrosis Central hyperthermia Dyslipidemia Hypernatremia, 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 We will continue to follow. Critical care time is over 30, not including time on procedures Time with Patient: Greater than 30
[2022-11-26] MEDS: MIDAZOLAM HCL 50 MG in SODIUM CHLORIDE 0.9% 40 ML IV SCH ×2 (13:18→14:27)
--- NOTE | 2022-11-26 15:31 | OP ---
OPERATIVE REPORT DATE OF SERVICE : PROCEDURE PERFORMED: Placement of a right radial arterial line. PREOPERATIVE DIAGNOSES: 1. Acute hypoxic respiratory failure. 2. Cardiac arrest with anoxic brain injury. POSTOPERATIVE DIAGNOSES: 1. Acute hypoxic respiratory failure. 2. Cardiac arrest with anoxic brain injury. ANESTHESIA USED: None deployed. DESCRIPTION OF PROCEDURE: The patient was placed in the supine position. The right wrist was prepared in a sterile fashion, and drapes were applied. The right radial artery was palpated, easily cannulated, and a guidewire was placed. A Cook catheter was inserted over the guidewire, and the guidewire was removed. Good blood flow. Good waveform. No complications. Line was secured using 3-0 silk sutures. MMODL / IJN: [id number] /
--- NOTE | 2022-11-26 16:16 | P.DS ---
Providers Date of admission: 11/19/22 01:43 Expected date of discharge: 11/26/22 Attending physician: Peggy Ramirez MD Consults: 11/19/22 01:43 Consult Physician Routine Consulting Provider: Ananya Pittman Consult Reason/Comments: seizures, s/p cardiac arrest Do you want consulting provider notified?: Yes Consult Physician Stat Consulting Provider: Anne Meneses Consult Reason/Comments: icu patient Do you want consulting provider notified?: Already Contacted 11/19/22 03:03 Consult Physician Urgent Consulting Provider: Chris France Consult Reason/Comments: Cardiac Arrest Do you want consulting provider notified?: Yes Primary care physician: Wali Schwartz MD Hospital Course: Discharge Diagnosis: [id number] cardiac arrest Myoclonic seizures from severe anoxic encephalopathy Severe anoxic encephalopathy Acute kidney injury, due to ATN Hypernatremia, currently off hypertonic saline, possible DI Acute hypoxemic hypercapnic respiratory failure COPD with exacerbation Anion gap metabolic acidosis, resolved Pyrexia, likely central Normochromic normocytic anemia Dyslipidemia Chronic pain maintained on methadone Hospital Course: Patient is a 61-year-old male with hypertension, dyslipidemia, COPD, and methadone dependency who presented with an enr-sm-tczcgkia cardiac arrest with approximately 25 minute down time. In the emergency room he underwent an extensive evaluation. He was emergently intubated in the emergency department. His vitals were remarkable for temperature of 95.7, heart rate 108, blood pressure 78/47, and O2 sat 88%. Initial laboratory analysis was remarkable for hemoglobin 11.5, sodium 135, CO2 19, gap 18, BUN 30, creatinine 1.91, and BNP 1750 with lactic acid of 9.2. His troponin elevated and maxed at 0.977. Chest x-ray showed right-sided pulmonary infiltrate. EKG demonstrated A. fib with RVR. CT head showed no acute findings. Patient was subsequently admitted to the ICU. Pulmonary, neurology, and cardiology were consulted. Patient underwent an EEG which showed isoelectric pattern with intermittent sharp waves concerning for severe anoxic brain injury. Echocardiogram demonstrated an ejection fraction of 50-55% with an RVSP of 32. Cardiology felt that his elevated troponin was due to CPR, his chads score was 0. He did not feel he would b enefit from cardiac catheterization. Repeat head CT from 11/22/22 showed diffuse brain edema consistent with anoxia and no interval change. His family decided on comfort measure. His sodium continued to elevate and his free water flushes were adjusted. He was started on comfort measure including morphine gtt and versed gtt on 11/26 he comfortably at 15:02 with family present. Patient seen and examined at bedside. In the morning and during the comfort care process. Vital signs reviewed and stable. General: ill appearing, mild acute distress Cardiovascular: Tachy on the monitor Lungs: +tachypnea, + accessory muscle use Abdominal: soft, nontender to palpation, no guarding, no appreciable organomegaly Ext: no gross muscle atrophy, trace edema b/l lower extremities, no contractures Psych: unresponsive A total of 35 minutes of time were spent preparing this complex discharge summary. Patient was discharged on 11/26/22. This dictation was prepared using [employer] voice recognition software. Though every attempt is made to correct errors during dictation some may still exist. Plan - Discharge Summary New Discharge Prescriptions: No Action Simvastatin 10 mg PO HS Loratadine [Claritin] 10 mg PO DAILY Fluticasone/Umeclidin/Vilanter [Trelegy Ellipta 200-62.5-25] 1 puff INHALATION RT-DAILY lisinopriL 40 mg PO DAILY Metoprolol Succinate (ER) [Toprol XL] 100 mg PO DAILY Methadone [Dolophine] 10 mg PO Q8H Cyclobenzaprine [Flexeril] 10 mg PO HS PRN PRN Reason: Muscle Spasm Albuterol Sulfate [Albuterol Sulfate Hfa] 2 puff INHALATION RT-Q6H PRN PRN Reason: Shortness Of Breath Furosemide [Lasix] 20 mg PO DAILY #30 tab amLODIPine [Norvasc] 5 mg PO DAILY #30 tab Albuterol Nebulized [Ventolin Nebulized] 2.5 mg INHALATION RT-Q4H PRN PRN Reason: Shortness Of Breath Discharge Medication List Albuterol Sulfate [Albuterol Sulfate Hfa] 2 puff INHALATION RT-Q6H PRN 10/12/21 [History] Cyclobenzaprine [Flexeril] 10 mg PO HS PRN 10/12/21 [History] Fluticasone/Umeclidin/Vilanter [Trelegy Ellipta 200-62.5-25] 1 puff INHALATION RT-DAILY 10/12/21 [History] Loratadine [Claritin] 10 mg PO DAILY 10/12/21 [History] Methadone [Dolophine] 10 mg PO Q8H 10/12/21 [History] Metoprolol Succinate (ER) [Toprol XL] 100 mg PO DAILY 10/12/21 [History] Simvastatin 10 mg PO HS 10/12/21 [History] Furosemide [Lasix] 20 mg PO DAILY #30 tab 07/04/22 [Rx] amLODIPine [Norvasc] 5 mg PO DAILY #30 tab 07/04/22 [Rx] Albuterol Nebulized [Ventolin Nebulized] 2.5 mg INHALATION RT-Q4H PRN 11/19/22 [History] lisinopriL 40 mg PO DAILY 11/19/22 [History] Follow up Appointment(s)/Referral(s): Wali Schwartz MD [Primary Care Provider] - 1-2 days
[2022-11-26 16:45] VITALS: PULSE 0; RESP 0
== END 2022-11-26 17:23 | disposition expired | DRG 207 ==
LOC: EC 00:43 → 2SICU 01:43
PROVIDERS: ADMIT Internal Medicine; ATTEND Internal Medicine
PROC: 04HY32Z Insertion of Monitoring Device into Lower Artery, Percutaneous Approach (ICD-10-PCS; principal; 2022-11-19)
PROC: 5A1955Z Respiratory Ventilation, Greater than 96 Consecutive Hours (ICD-10-PCS; 2022-11-19)
PROC: 4A133B1 Monitoring of Arterial Pressure, Peripheral, Percutaneous Approach (ICD-10-PCS; 2022-11-19)
PROC: 4A133J1 Monitoring of Arterial Pulse, Peripheral, Percutaneous Approach (ICD-10-PCS; 2022-11-19)
PROC: 02HV33Z Insertion of Infusion Device into Superior Vena Cava, Percutaneous Approach (ICD-10-PCS; 2022-11-19)
PROC: 3E043XZ Introduction of Vasopressor into Central Vein, Percutaneous Approach (ICD-10-PCS; 2022-11-19)
PROC: 0BH17EZ Insertion of Endotracheal Airway into Trachea, Via Natural or Artificial Opening (ICD-10-PCS; 2022-11-19)
DX: J96.01 Acute respiratory failure with hypoxia (principal); N17.0 Acute kidney failure with tubular necrosis; G93.6 Cerebral edema; I50.33 Acute on chronic diastolic (congestive) heart failure; G93.1 Anoxic brain damage, not elsewhere classified; E23.2 Diabetes insipidus; I47.1 Supraventricular tachycardia; F11.20 Opioid dependence, uncomplicated; J44.1 Chronic obstructive pulmonary disease with (acute) exacerbation; J96.02 Acute respiratory failure with hypercapnia; I27.20 Pulmonary hypertension, unspecified; I27.21 Secondary pulmonary arterial hypertension; I11.0 Hypertensive heart disease with heart failure; G40.909 Epilepsy, unspecified, not intractable, without status epilepticus; I48.91 Unspecified atrial fibrillation; I05.2 Rheumatic mitral stenosis with insufficiency; T17.918A Gastric contents in respiratory tract, part unspecified causing other injury, initial encounter; Z86.74 Personal history of sudden cardiac arrest; I95.9 Hypotension, unspecified; D64.9 Anemia, unspecified; Z66 Do not resuscitate; Z51.5 Encounter for palliative care; G89.4 Chronic pain syndrome; F17.210 Nicotine dependence, cigarettes, uncomplicated; E78.5 Hyperlipidemia, unspecified; N20.0 Calculus of kidney; I25.10 Atherosclerotic heart disease of native coronary artery without angina pectoris; R68.0 Hypothermia, not associated with low environmental temperature; Z79.51 Long term (current) use of inhaled steroids; Z86.14 Personal history of Methicillin resistant Staphylococcus aureus infection; Z79.899 Other long term (current) drug therapy; Z79.52 Long term (current) use of systemic steroids
CPT/HCPCS: 36415; 51702; 70450; 71045; 71250; 74176; 80048; 80053; 80185; 81001; 82150; 82248; 82553; 82805; 83036; 83605; 83690; 83735; 83880; 84100; 84132; 84145; 84295; 84484; 85025; 85379; 85384; 85610; 85730; 86850; 86900; 86901; 87070; 87205; 87635; 93005; 93306; 94002; 94003; 94640; 95822; 96365; 96368; 96375; 99291; 99292